=== PATIENT | female | born 1935 | race Caucasian/White ===

== ENCOUNTER 2019-10-15 14:10 | Outpatient (CLI) | payer MEDICARE, SELFPAY ==
--- NOTE | 2019-10-15 14:25 | ECG_ITS ---
Measurements Intervals [place] Rate: 92 P: [place]: 0 QRS: -63 QRSD: 114 T: 93 QT: 381 QTc: 472 Interpretive Statements ATRIAL FIBRILLATION VENTRICULAR COUPLET LEFT AXIS DEVIATION INTRAVENTRICULAR CONDUCTION DELAY CANNOT RULE OUT SEPTAL INFARCT, AGE INDETERMINATE BORDERLINE ST-T WAVE ABNORMALITY- HIGH LATERAL LEADS ABNORMAL ECG Electronically Signed On 10-15-2019 14:28:54 CDT by Barrington Whaley D.O.
== END 2019-10-15 14:11 | disposition home or self-care (01) ==
LOC: CHSCARD 14:12
PROVIDERS: PCP Internal Medicine; Visit Provider Specialist
DX: I48.91 Unspecified atrial fibrillation (principal)
CPT/HCPCS: 93005

== ENCOUNTER → 2020-02-03 10:54 | Outpatient (CLI) | payer MEDICARE, OTHER, SELFPAY ==
--- NOTE | ~2020-02-03 | MM_ITS ---
EXAMINATION: MM screening damaris BI w katiana HISTORY: Screening TECHNIQUE: Craniocaudal and mediolateral oblique 3-D tomosynthesis images were obtained and synthetic 2-D images were generated. CAD analysis was submitted and interpreted. COMPARISON: Comparison to multiple prior studies sequentially, with oldest reviewed study dated 06/2013. BREAST PARENCHYMAL COMPOSITION: There are scattered areas of fibroglandular density. FINDINGS: There is no evidence of suspicious mass, calcification, or architectural distortion to sugg est malignancy in either breast. There has been no suspicious interval change. IMPRESSION: 1. No mammographic evidence of malignancy. 2. Recommend routine screening mammography in one year. BI-RADS Category 1: Negative Reviewed, dictated and finalized at location A.
== END ==
PROVIDERS: Visit Provider Nurse Practitioner
DX: Z12.31 Encounter for screening mammogram for malignant neoplasm of breast (principal)
CPT/HCPCS: 77063; 77067

== ENCOUNTER 2020-09-19 13:52 | Outpatient (CLI) | payer MEDICARE, SELFPAY ==
--- NOTE | ~2020-09-19 | US_ITS ---
US arterial ankle brachial ind INDICATION: Peripheral arterial disease. Carotid stenosis. Lung TECHNIQUE: Segmental pressures and plethysmographic and Doppler waveforms of the brachial and lower e xtremity arteries were obtained. COMPARISON: None. FINDINGS: Right and left brachial artery pressures of 126 mm Hg and 1:30 mm Hg, respectively, are concordant (n ormal difference <= 30 mmHg). The right ankle-brachial index (KACEY) is 1.04 (normal >= 0.9-1.0). The right great toe-brachial index (TBI) is 0.78 (normal >= 0.60). The left KACEY is 1.02. The left TBI is 0.85. IMPRESSION: 1. Normal ankle-brachial indices. Reviewed, dictated and finalized at location A.
--- NOTE | ~2020-09-19 | US_ITS ---
EXAMINATION: US carotid duplex BI DATE: 09/19/2020 14:36 INDICATION: Carotid stenosis TECHNIQUE: Grayscale, color Doppler, and pulsed Doppler images of the cervical carotid arteries were obtained. The degree of vessel stenosis is placed in one of the following categories: normal, <50%, 5 0-69%, >=70% but less than near-occlusion, near-occlusion, or total occlusion. Note that percent sten osis relative to normal distal artery lumen diameter is indirectly measured from velocity measurement s as described by Wilbert, et al. Radiology 2003; [id number]. Notes: Normal: Peak systolic velocity <125 centimeters/sec and no plaque <50%. Peak systolic velocity <125 ( EDV <40; ICA/CCA PSV ratio <2.0; used these factors only a tandem lesions or low cardiac output or co ntralateral disease) 50-69 %: PSV 125-230 (EDV 40-100; ratio 2-4) >= 70% but less than near occlusion: PSV greater than 230 (EDV > 100; ratio> 4.0) Near Occlusion: PSV that is variable; markedly narrowed lumen Occlusion: Absent flow on color/spectral Doppler and no lumen on wagner scale. COMPARISON: None. FINDINGS: RIGHT: The right common carotid artery (CCA) peak systolic velocity (PSV) is 69 cm/s. The right internal car otid artery (ICA) PSV is 72 cm/s. The right ICA end-diastolic velocity (EDV) is 20 cm/s. The right IC A/CCA PSV ratio is 1.0. The external carotid artery (ECA) PSV is 119 cm/s. There is antegrade flow in the right vertebral artery. LEFT: The left CCA PSV is 59 cm/s. The left ICA PSV is 74 cm/s. The left ICA EDV is 19 cm/s. The left ICA/C CA PSV ratio is 1.0. The ECA PSV is 113 cm/s. There is antegrade flow in the left vertebral artery. IMPRESSION: 1. Less than 50% stenosis in the right internal carotid artery by sonographic criteria. 2. Less than 50% stenosis in the left internal carotid artery by sonographic criteria. Reviewed, dictated and finalized at location A. IMPRESSION: 1. Less than 50% stenosis in the right internal carotid artery by sonographic stefany caballero. 2. Less than 50% stenosis in the left internal carotid artery by sonographic antoinette aguilar.
== END 2020-09-19 13:53 | disposition home or self-care (01) ==
PROVIDERS: PCP Internal Medicine; Visit Provider Internal Medicine
DX: I73.9 Peripheral vascular disease, unspecified (principal); I65.29 Occlusion and stenosis of unspecified carotid artery
CPT/HCPCS: 93880; 93922

== ENCOUNTER 2020-09-21 19:40 | Emergency (ER) | payer MEDICARE, SELFPAY ==
[2020-09-21 19:45] VITALS: BP 105/55; PULSE 104; RESP 20; TEMP 36.9; O2SAT 97
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
[2020-09-21] MEDS: LIDO 1%/EPINEPHRINE 1:100,000 20 ML VIAL INFILTRATE (20:39)
[2020-09-21] MEDS: NEOMYCIN/POLYMYXIN/BACITRACIN OINTMENT PACKET 3 PACKET (21:35)
[2020-09-21 21:44] VITALS: BP 128/88; PULSE 80; RESP 18; TEMP 36.6; O2SAT 97
== END 2020-09-21 21:50 | disposition home or self-care (01) ==
PROVIDERS: Emergency Provider Emergency Medicine; PCP Internal Medicine
DX: S51.822A Laceration with foreign body of left forearm, initial encounter (principal); I48.20 Chronic atrial fibrillation, unspecified; E11.9 Type 2 diabetes mellitus without complications; E78.5 Hyperlipidemia, unspecified; E03.9 Hypothyroidism, unspecified; C67.9 Malignant neoplasm of bladder, unspecified
CPT/HCPCS: 12004; 99282

== ENCOUNTER 2021-08-20 16:05 | Emergency (ER) | payer MEDICARE, SELFPAY ==
[2021-08-20 16:14] VITALS: BP 122/80; PULSE 88; RESP 20; TEMP 36.6; O2SAT 100
--- NOTE | 2021-08-20 16:30 | ED.GENADULT ---
HPI - General Adult General Chief complaint: Unspecified Stated complaint: Bite on left arm Time Seen by Provider: 08/20/21 16:08 Source: patient and RN notes reviewed Mode of arrival: ambulatory Limitations: no limitations History of Present Illness Onset (ago): day(s) (1) Location: upper extremity Radiation: non-radiation Severity: mild Severity scale (1-10): 2 Quality: dull Pain Consistency: constant Relieving factors: none Exacerbating factors: none Related Data Home Medications Medication Instructions Recorded Confirmed apixaban [Eliquis] 5 mg PO BID 09/21/20 08/20/21 aspirin 81 mg PO DAILY 09/21/20 08/20/21 furosemide 20 mg PO EVERY OTHER DAY 09/21/20 08/20/21 insulin glargine [Lantus Solostar 20 unit SUBCUT HS 09/21/20 08/20/21 U-100 Insulin] insulin lispro [Humalog KwikPen See Rx Instructions .ROUTE .COMPLEX 09/21/20 08/20/21 Insulin] levothyroxine 100 mcg PO DAILY 09/21/20 08/20/21 losartan-hydrochlorothiazide 1 tablet PO DAILY 09/21/20 08/20/21 metoprolol succinate 25 mg PO DAILY 09/21/20 08/20/21 potassium chloride [Klor-Con M20] 20 meq PO BID 09/21/20 08/20/21 pravastatin 20 mg PO DAILY 09/21/20 08/20/21 ropinirole 1 mg PO HS 09/21/20 08/20/21 Allergies Allergy/AdvReac Type Severity Reaction Status Date / Time No Known Drug Allergies Allergy Unknown Verified 03/04/12 08:01 Review of Systems Review of Systems: All systems reviewed & are unremarkable except as noted in HPI and below PMFSH Past Medical History Medical History Atrial fibrillation Bladder cancer Dyslipidemia Hypertension Hypothyroidism Insect bite Type 2 diabetes mellitus Surgical History Surgical History H/O cystoscopy History of eyelid surgery Hx of cataract surgery Social History Social History Smoking status: Never smoker Substance use: never Exam Const: General: cooperative, healthy appearing and no acute distress Nutritional Appearance: obese Orientation/consciousness: patient oriented x3 Limitations: no limitations HENMT: Head: normocephalic and atraumatic Ears: hearing grossly normal bilaterally, external ears normal, TM's normal bilaterally and EAC's normal General nose exam: Normal external nose present and Normal nares present Face and sinus: normal facial exam and sinuses nontender Mouth: Yes lip normal, Yes tongue normal and Yes moist mucous membranes Throat: posterior oropharynx normal Eyes: General: appearance normal, both eyes and all related structures Visual Crane: normal visual crane by confrontation Periorbital: periorbital findings normal Eyelids: eyelids normal Conjunctivae: conjunctivae normal Sclera: sclerae normal Cornea: corneas normal Pupils: Equal, round and reactive pupils present EOM: EOMs intact bilaterally Neck: Neck: normal visual inspection, full ROM and no lymphadenopathy Chest: Chest palpation & inspection: normal inspection of the chest Resp: Effort & Inspection: normal respiratory effort and able to speak in complete sentences Auscultation: clear to auscultation bilaterally Cardio: Jugular venous distension: no JVD Rate: regular rate Rhythm: regular rhythm Peripheral pulses: Peripheral pulses 2+ throughout GI: Inspection: normal to inspection GI Palp: No abdominal tenderness Auscultation: normal bowel sounds : General: Yes bladder normal to inspection and Yes bladder normal to palpation Back/Spine/Pelvis: Back: no CVA tenderness Cervical Spine: cervical ROM normal Thoracic/Lumbar Spine: thoraco-lumbar ROM normal Skin: General skin exam: normal color and erythema (left arm lateral bite ingris with surrounding firm redness. no acute swelling) Neuro: General: patient oriented x3, no meningeal signs, no focal motor deficits and CN's II-XI intact bilaterally Cranial nerves: Yes CN's II-XII i
[2021-08-20] MEDS: IBUPROFEN 400 MG TABLET 800 MG PO (16:36)
[2021-08-20 16:49] VITALS: BP 130/71; PULSE 72; RESP 20; TEMP 37; O2SAT 100
== END 2021-08-20 16:50 | disposition home or self-care (01) ==
PROVIDERS: Emergency Provider Emergency Medicine; PCP Internal Medicine
DX: S40.862A Insect bite (nonvenomous) of left upper arm, initial encounter (principal); W57.XXXA Bitten or stung by nonvenomous insect and other nonvenomous arthropods, initial encounter
CPT/HCPCS: 99283; A9270

== ENCOUNTER → 2021-11-14 16:24 | Outpatient (CLI) | payer MEDICARE, SELFPAY ==
--- NOTE | ~2021-11-14 | MM_ITS ---
EXAMINATION: MM screening damaris BI w katiana HISTORY: Screening TECHNIQUE: Craniocaudal and mediolateral oblique 3-D tomosynthesis images were obtained and synthetic 2-D images were generated. CAD analysis was submitted and interpreted. COMPARISON: Comparison to multiple prior studies sequentially, with oldest reviewed study dated 12/2014. BREAST PARENCHYMAL COMPOSITION: The breasts are almost entirely fatty. FINDINGS: There is no evidence of suspicious mass, calcification, or architectural distortion to sugg est malignancy in either breast. There has been no suspicious interval change. IMPRESSION: 1. No mammographic evidence of malignancy. 2. Recommend routine screening mammography in one year. BI-RADS Category 1: Negative Reviewed, dictated and finalized at location L.
== END ==
PROVIDERS: PCP Internal Medicine; Visit Provider Obstetrics & Gynecology Gynecology
DX: Z12.31 Encounter for screening mammogram for malignant neoplasm of breast (principal)
CPT/HCPCS: 77063; 77067

== ENCOUNTER 2022-02-08 17:09 | Outpatient (CLI) | payer MEDICARE, SELFPAY ==
--- NOTE | ~2022-02-08 | XR_ITS ---
EXAMINATION: XR lumbar spine 2-3V DATE: 02/08/2022 17:30 INDICATION: Low back pain. TECHNIQUE: 3 views of lumbar spine were obtained. COMPARISON: None. FINDINGS: There is 10 degrees levoscoliosis of thoracolumbar spine. Vertebral body heights are normal . There is severely decreased disc height at L1-L2, moderately decreased disc height at L2-L3 and L3- L4, and severely decreased disc height at L4-L5 and L5-S1. There is multilevel severe facet joint ost eoarthritis. IMPRESSION: 1. Severe lumbar spondylosis. 2. Thoracolumbar levoscoliosis. Reviewed, dictated and finalized at location A.
== END 2022-02-08 17:10 | disposition home or self-care (01) ==
LOC: CHSIMG 17:11
PROVIDERS: PCP Internal Medicine; Visit Provider Internal Medicine
DX: M54.50 Low back pain, unspecified (principal); M47.816 Spondylosis without myelopathy or radiculopathy, lumbar region
CPT/HCPCS: 72100

== ENCOUNTER 2022-02-17 06:47 | Outpatient (CLI) | payer MEDICARE, SELFPAY ==
--- NOTE | ~2022-02-17 | MR_ITS ---
EXAMINATION: MR lumbar spine wo con DATE: 02/17/2022 08:18 INDICATION: Low back pain. TECHNIQUE: Magnetic resonance imaging (MRI) of the lumbar spine was performed without intravenous con trast. COMPARISON: Lumbar spine radiographs 02/08/2022 FINDINGS: There is a least 9 degrees levocurvature of thoracolumbar spine. Vertebral body heights are normal. There is severely decreased disc height at L1-L2, moderately decreased disc height at L2-L3 and L3-L4, severely decreased disc height at L4-L5, and moderately decreased disc height at L5-S1. Th e distal spinal cord signal intensity is normal. The conus medullaris is at L1-L2. There is a 1.6 cm cyst in right kidney. The following disc levels are specifically discussed: L1-L2: The disc is bulging with superimposed central extrusion. There is moderate bilateral facet batsheva nt osteoarthritis. There is mild bilateral neural foraminal stenosis. There is mild central canal noam nosis. L2-L3: The disc is bulging and has an annular fissure. There is severe bilateral facet joint osteoart hritis. There is mild right and moderate left neural foraminal stenosis. There is mild central canal stenosis. L3-L4: The disc is bulging. There is severe bilateral facet joint osteoarthritis. There is mild right and moderate left neural foraminal stenosis. There is mild central canal stenosis. L4-L5: The disc is bulging. There is severe bilateral facet joint osteoarthritis. There is mild right and moderate left neural foraminal stenosis. There is mild central canal stenosis. L5-S1: The disc is bulging. There is severe bilateral facet joint osteoarthritis. There is moderate b ilateral neural foraminal stenosis. There is mild central canal stenosis. IMPRESSION: 1. Severe lumbar spondylosis. Reviewed, dictated and finalized at location A.
== END 2022-02-17 06:48 | disposition home or self-care (01) ==
PROVIDERS: PCP Internal Medicine; Visit Provider Internal Medicine
DX: M54.50 Low back pain, unspecified (principal)
CPT/HCPCS: 72148

== ENCOUNTER 2022-02-23 14:22 | Outpatient (CLI) | payer MEDICARE, SELFPAY ==
--- NOTE | 2022-02-23 15:26 | ECHO_ITS ---
Patient Info Name: Lizeth Warner Age: 86 years : 1935 Gender: Female Ht: 54 in Wt: 189 lbs BSA: 1.87 m2 HR: 62 bpm BP: 126 / 68 mmHg Heart Rhythm: Atrial Fibrillation Technical Quality: Fair Exam Date: 02/23/2022 2:20 PM Exam Location: [facility] Patient Status: Outpatient Admit Date: 02/23/2022 Staff Ordering Physician: Elena Dumont MD Unified Communications Architect: Natalio Cain, DAHLIA, RT Attending Provider: Elena Dumont MD Referring Physician: Tim MILAN; Exam Type: CA echo doppler color flow Study Info Indications I50.9 - Heart failure, unspecified Complete two-dimensional, color flow and Doppler transthoracic echocardiogram is performed. Strain analysis performed. Summary 1. Complete two-dimensional, color flow and Doppler transthoracic echocardiogram is performed. 2. Left ventricular chamber dimension is normal. 3. Left ventricular systolic function is normal, estimated at 55-60%. 4. The left ventricular diastolic function is abnormal. 5. E/e' 17 is elevated. 6. Global longitudinal strain is abnormal at -12.5%. 7. Left atrial chamber dimension is severely enlarged. 8. Right atrial chamber dimension is mildly enlarged. 9. There is moderate to severe mitral valve regurgitation. ERO 0.1 cm2 and MR RV 18 ml suggests moderate MV regurgitation. 10. There is mild tricuspid valve regurgitation. 11. No pulmonary hypertension, estimated pulmonary arterial systolic pressure is 37 mmHg. 12. There is trivial pericardial effusion. Left Ventricle E/e' 17 is elevated. Global longitudinal strain is abnormal at -12.5%. Left ventricular chamber dimension is normal. Left ventricular systolic function is normal, estimated at 55-60%. The left ventricular diastolic function is abnormal. Right Ventricle Right ventricular systolic function is normal and with normal TAPSE 2.0 cm. Right ventricular chamber dimension is normal.. Left Atria Left atrial chamber dimension is severely enlarged. Right Atria Right atrial chamber dimension is mildly enlarged. Aortic Valve The aortic valve is trileaflet. There is no aortic valve stenosis. There is no aortic valve regurgitation. Pulmonic Valve There is no pulmonic regurgitation. Mitral Valve There is moderate to severe mitral valve regurgitation. ERO 0.1 cm2 and MR RV 18 ml suggests moderate MV regurgitation. There is no mitral valve stenosis. Tricuspid Valve There is mild tricuspid valve regurgitation. No pulmonary hypertension, estimated pulmonary arterial systolic pressure is 37 mmHg. Pericardium/Pleural There is trivial pericardial effusion. Inferior Vena Cava Normal inferior vena cava with >50% collapse upon inspiration consistent with normal right atrial pressure, 5 mmHg. Aorta The aortic root size at the sinus of Valsalva is normal. Left Ventricular Outflow Tract Name Value Normal LVOT 2D LVOT Diameter 2.0 cm LVOT Doppler LVOT Peak Velocity 94 cm/s LVOT Peak Gradient 2 mmHg LVOT Mean Gradient 1 mmHg LVOT VTI 21 cm
== END 2022-02-23 14:23 | disposition home or self-care (01) ==
LOC: CHSIMG 14:23
PROVIDERS: PCP Internal Medicine; Visit Provider Internal Medicine
DX: I50.9 Heart failure, unspecified (principal); M54.50 Low back pain, unspecified
CPT/HCPCS: 93306

== ENCOUNTER 2022-05-27 16:43 | Emergency (ER) | payer MEDICARE, SELFPAY ==
--- NOTE | ~2022-05-27 | XR_ITS ---
EXAMINATION: XR chest 1V portable DATE: 05/27/2022 17:07 INDICATION: Dyspnea. TECHNIQUE: A single frontal view of the chest was obtained. COMPARISON: Chest 2 views 01/23/2018 FINDINGS: There is mild atelectasis at left lung base. No pleural effusion or pneumothorax. Cardiomeg toni is noted. IMPRESSION: 1. Mild atelectasis at left lung base. 2. Cardiomegaly. Reviewed, dictated and finalized at location A. LOGING ASSISTANT
[2022-05-27 16:45] VITALS: BP 127/83; PULSE 103; RESP 22; TEMP 36.4; O2SAT 96
--- NOTE | 2022-05-27 16:56 | ECG_ITS ---
Measurements Intervals [place] Rate: 91 P: [place]: 0 QRS: 177 QRSD: 105 T: 93 QT: 383 QTc: 472 Interpretive Statements ATRIAL FIBRILLATION VENTRICULAR COUPLET AND VENTRICULAR PREMATURE COMPLEX LOW QRS VOLTAGE- DIFFUSE LEADS CANNOT RULE OUT SEPTAL INFARCT, AGE INDETERMINATE BASELINE ARTIFACT- I, II, III, AVR, AVL, AVF, V1-V6 ABNORMAL ECG COMPARED TO ECG 10/15/2019 14:25:17 NO SIGNIFICANT CHANGES Electronically Signed On 05-27-2022 19:57:20 [employer]CRET[employer] by Barrington Whaley D.O.
--- NOTE | 2022-05-27 17:02 | ED.GENADULT ---
HPI - General Adult General Chief complaint: Shortness of Breath/Dyspnea Stated complaint: trouble breathing History of Present Illness HPI narrative: Lizeth is an 86F with a PMH of hypothyroidism, HLD, Afib, DMII and HTN as well as severe mitral regurgitation that presented to the ED with worsening dyspnea throughout the day. She denies CP, N/V/D and lightheadedness. She did forget to take her lasix today and ate popcorn for lunch. Related Data Home Medications Medication Instructions Recorded Confirmed apixaban 5 mg tablet (Eliquis) 5 mg PO BID 09/21/20 05/27/22 aspirin 81 mg tablet 81 mg PO DAILY 09/21/20 05/27/22 furosemide 40 mg tablet 40 mg PO EVERY OTHER DAY 09/21/20 05/27/22 insulin glargine 100 unit/mL (3 20 unit subcut HS 09/21/20 05/27/22 mL) subcutaneous pen (Lantus Solostar U-100 Insulin) insulin lispro 100 unit/mL See Rx Instructions .Route .COMPLEX 09/21/20 05/27/22 subcutaneous pen (Humalog KwikPen (U-100) Insulin) levothyroxine 100 mcg tablet 100 mcg PO DAILY 09/21/20 05/27/22 losartan 50 mg-hydrochlorothiazide 1 tablet PO DAILY 09/21/20 05/27/22 12.5 mg tablet metoprolol succinate 25 mg 25 mg PO DAILY 09/21/20 05/27/22 tablet,extended release 24 hr potassium chloride 20 mEq 20 meq PO BID 09/21/20 05/27/22 tablet,extended release(part/cryst) (Klor-Con M) pravastatin 20 mg tablet 20 mg PO DAILY 09/21/20 05/27/22 ropinirole 1 mg tablet 1 mg PO HS 09/21/20 05/27/22 Allergies Allergy/AdvReac Type Severity Reaction Status Date / Time No Known Drug Allergies Allergy Unknown Verified 03/04/12 08:01 Review of Systems Review of Systems: All systems reviewed & are unremarkable except as noted in HPI and below [facility] Past Medical History Medical History Atrial fibrillation Bladder cancer Dyslipidemia Hypertension Hypothyroidism Insect bite Type 2 diabetes mellitus Surgical History Surgical History H/O cystoscopy History of eyelid surgery Hx of cataract surgery Social History Social History Smoking status: Never smoker Substance use: never Exam Const: General: healthy appearing and no acute distress Nutritional Appearance: well nourished Orientation/consciousness: patient oriented x3 HENMT: Head: normal to inspection Ears: external ears normal Eyes: Conjunctivae: conjunctivae normal Pupils: Equal, round and reactive pupils present Neck: Neck: normal visual inspection Chest: Chest palpation & inspection: normal inspection of the chest Resp: Other: Slightly labored breathing with tachypnea and bibasilar crackles Cardio: Rate: regular rate Rhythm: abnormal rhythm irregularly irregular Heart sounds: Murmur heart sound present Other: systolic murmur GI: Inspection: non-distended Skin: General skin exam: normal color Rashes: no rashes Wounds: no wounds Neuro: General: patient oriented x3 Cranial nerves: Yes Nystagmus not present Extrem: Other: Pitting edema on the lower extremities bilaterally Psych: Mental Status: mental status grossly normal Affect: normal affect Course Course Emergency Course: EXAMINATION: XR chest 1V portable DATE: 05/27/2022 17:07 INDICATION: Dyspnea. TECHNIQUE: A single frontal view of the chest was obtained. COMPARISON: Chest 2 views 01/23/2018 FINDINGS: There is mild atelectasis at left lung base. No pleural effusion or pneumothorax. Cardiomegaly is noted. IMPRESSION: 1. Mild atelectasis at left lung base. 2. Cardiomegaly. EKG showed afib with a rate of 91, normal axis, and PVC Given a dose of lasix as BNP was elevated. COVID+, discharged on Paxlovid and given return precautions Vital Signs Vital signs: Vital Signs Temperature 97.6 F 05/27/22 16:45 Pulse Rate 103 H 05/27/22 16:45 Respiratory Rate 22 H 05/27/22 16:45 Blood Pre
[2022-05-27 17:23] LABS: Basophils Absolute Auto 0.03 K/mm3 (0.00-0.10); Basophils Percent Auto 0.6 % (0.0-1.0); Eosinophils Absolute Auto 0.02 K/mm3 (0.02-0.50); Eosinophils Percent Auto 0.4 % (1.0-6.0); Hematocrit 34.2 % (35.0-42.0); Hemoglobin 11.1 g/dL (11.7-13.8); Immature Granulocyte Absolute 0.02 K/mm3 (0.00-0.00); Immature Granulocyte Percent A 0.4 % (0.0-0.0); Lymphocytes Absolute Auto 0.56 K/mm3 (1.10-4.50); Lymphocytes Percent Auto 10.4 % (18.0-42.0); Mean Corpuscular HGB Conc 32.5 g/dL (32.0-36.0); Mean Corpuscular Hemoglobin 29.5 pg (27.0-31.0); Mean Platelet Volume 10.4 fl (9.2-11.8); Monocytes Absolute Auto 0.39 K/mm3 (0.10-0.90); Monocytes Percent Auto 7.3 % (2.0-11.0); Neutrophils Absolute Auto 4.4 K/mm3 (1.7-7.2); Neutrophils Percent Auto 80.9 % (50.0-70.0); Platelet Count Result 127 K/mm3 (150-420); Red Blood Count 3.76 M/mm3 (4.20-5.40); Red Cell Distribution Width 13.9 % (11.6-14.4); White Blood Count 5.4 K/mm3 (4.8-10.8)
[2022-05-27 17:30] VITALS: PULSE 103
[2022-05-27 17:43] LABS: Alanine Aminotransferase 34 U/L (14-59); Albumin Level 3.6 g/dL (3.4-5.0); Alkaline Phosphatase 85 U/L (46-116); Anion Gap 10 mmol/L (8-16); Aspartate Amino Transferase 19 U/L (15-37); Bilirubin,Total 0.6 mg/dL (0.00-1.00); Blood Urea Nitrogen 30 mg/dL (7-18); Calcium 8.4 mg/dL (8.5-10.1); Carbon Dioxide 25 mmol/L (21-32); Chloride 103 mmol/L (98-108); Estimated Glomerular Filt Rate 44; Glucose 290 mg/dL (70-99); NT Pro B Type Natriuretic Pept 1561 pg/mL (0-450); Osmolality Calculated 303 mOsm/kg (285-295); Potassium 3.8 mmol/L (3.5-5.1); Sodium 138 mmol/L (136-145); Total Protein 6.8 g/dL (6.4-8.2); Troponin I 10.1 ng/L (0.00-60.4)
[2022-05-27 17:47] VITALS: PULSE 79; RESP 18; O2SAT 98
[2022-05-27 17:59] LABS: Influenza A QL RT-PCR Negative (Negative); Influenza B QL RT-PCR Negative (Negative); SARS-CoV-2 RNA PCR Positive (Negative)
[2022-05-27 18:00] VITALS: PULSE 80; RESP 18
[2022-05-27 18:00] LABS: RSV RNA, RT-PCR Negative (Negative)
[2022-05-27 18:01] VITALS: BP 107/52; PULSE 90; RESP 16; O2SAT 97
[2022-05-27] MEDS: FUROSEMIDE INJ 40 MG/4 ML VIAL IV PUSH (18:04)
[2022-05-27 18:34] VITALS: BP 114/76; PULSE 78; RESP 20; TEMP 36.6; O2SAT 97
== END 2022-05-27 18:48 | disposition home or self-care (01) ==
PROVIDERS: Emergency Provider Family Medicine; PCP Internal Medicine
DX: U07.1 COVID-19 (principal); I48.91 Unspecified atrial fibrillation; E78.5 Hyperlipidemia, unspecified; E11.9 Type 2 diabetes mellitus without complications; I10 Essential (primary) hypertension; E03.9 Hypothyroidism, unspecified; Z85.51 Personal history of malignant neoplasm of bladder; Z79.01 Long term (current) use of anticoagulants; Z79.82 Long term (current) use of aspirin; Z79.4 Long term (current) use of insulin
CPT/HCPCS: 36415; 71045; 80053; 83880; 84484; 85025; 87637; 93005; 96374; 99284; J1940

== ENCOUNTER 2022-06-22 10:41 | Emergency (ER) | payer MEDICARE, SELFPAY ==
--- NOTE | ~2022-06-22 | XR_ITS ---
XR chest 2V 06/22/2022 11:28 Indication: Chronic dyspnea with exertion Procedure: 2 view chest Comparison: 05/27/2022 Findings: Cardiomegaly. No focal air space disease, pulmonary edema, pleural effusion or suspected pn eumothorax. Impression: 1: No acute cardiopulmonary disease. Reviewed, dictated and finalized at location B. ER OPERATOR ASBESTOS SHINGLE Impression: 1: No acute cardiopulmonary disease.
--- NOTE | 2022-06-22 10:46 | ED.SOB ---
HPI - SOB/Dyspnea General Chief Complaint: Shortness of Breath/Dyspnea Stated Complaint: short of breath; leg swelling Time Seen by Provider: 06/22/22 10:46 Source: patient and RN notes reviewed Mode of arrival: ambulatory Limitations: no limitations History of Present Illness HPI Narrative: patient states that she had COVID 3 weeks ago. She has since was getting better but in the last week began having more exertional dyspnea. She is currently on Lasix 40 mg daily. She says that her legs are swelling more. She denies any chest pain. She denies fever chills. Denies any nausea vomiting diarrhea. MD elicited complaint: shortness of breath Pertinent past history: congestive heart failure Onset (ago): week(s) (1) Context: recent illness Timing: progressively worsening Severity: moderate Exacerbating factors: exertion Relieving factors: rest Known history of: congestive heart failure Associated symptoms: other ( Leg swelling) Treatment prior to arrival: none Related Data Home oxygen amount: none Home Medications Medication Instructions Recorded Confirmed apixaban 5 mg tablet (Eliquis) 5 mg PO BID 09/21/20 06/22/22 aspirin 81 mg tablet 81 mg PO DAILY 09/21/20 06/22/22 furosemide 40 mg tablet 40 mg PO EVERY OTHER DAY 09/21/20 06/22/22 insulin glargine 100 unit/mL (3 20 unit subcut HS 09/21/20 06/22/22 mL) subcutaneous pen (Lantus Solostar U-100 Insulin) insulin lispro 100 unit/mL See Rx Instructions .Route .COMPLEX 09/21/20 06/22/22 subcutaneous pen (Humalog KwikPen (U-100) Insulin) levothyroxine 100 mcg tablet 100 mcg PO DAILY 09/21/20 06/22/22 losartan 50 mg-hydrochlorothiazide 1 tablet PO DAILY 09/21/20 06/22/22 12.5 mg tablet metoprolol succinate 25 mg 25 mg PO DAILY 09/21/20 06/22/22 tablet,extended release 24 hr potassium chloride 20 mEq 20 meq PO BID 09/21/20 06/22/22 tablet,extended release(part/cryst) (Klor-Con M) pravastatin 20 mg tablet 20 mg PO DAILY 09/21/20 06/22/22 ropinirole 1 mg tablet 1 mg PO HS 09/21/20 06/22/22 Allergies Allergy/AdvReac Type Severity Reaction Status Date / Time No Known Allergies Allergy Verified 06/22/22 11:00 [facility] Past Medical History Medical History Atrial fibrillation Bladder cancer Dyslipidemia Hypertension Hypothyroidism Insect bite Type 2 diabetes mellitus Surgical History Surgical History H/O cystoscopy History of eyelid surgery Hx of cataract surgery Social History Social History Smoking status: Never smoker Substance use: never Exam Const: General: healthy appearing, no acute distress and alert Nutritional Appearance: well nourished Orientation/consciousness: patient oriented x3 Limitations: no limitations HENMT: Head: normal to inspection Ears: external ears normal Face/Nose/Sinus: Normal external nose present Face and sinus: normal facial exam Mouth: Yes moist mucous membranes Eyes: Conjunctivae: conjunctivae normal Pupils: Equal, round and reactive pupils present EOM: EOMs intact bilaterally Neck: Neck: normal visual inspection Resp: Effort & Inspection: normal respiratory effort Auscultation: clear to auscultation bilaterally Cardio: Rate: regular rate Rhythm: abnormal rhythm irregularly irregular GI: GI Palp: Yes Soft to palpation and No Tenderness to palpation present (GI) Auscultation: normal bowel sounds Back/Spine/Pelvis: Cervical Spine: cervical ROM normal Thoracic/Lumbar Spine: thoraco-lumbar ROM normal Skin: General skin exam: normal color Rashes: no rashes Neuro: General: moves all extremities, no focal motor deficits and CN's II-XI intact bilaterally Speech: normal speech Gait exam (Neuro): Normal gait present Extrem: General: edema bilateral ( 2+ to the mid godinez) Psych: Mental Status: mental status grossly normal Affect:
[2022-06-22 10:54] VITALS: BP 125/63; PULSE 78; RESP 18; TEMP 35.9; O2SAT 100
[2022-06-22 11:39] LABS: Basophils Absolute Auto 0.03 K/mm3 (0.00-0.10); Basophils Percent Auto 0.5 % (0.0-1.0); Hematocrit 29.5 % (35.0-42.0); Hemoglobin 9.4 g/dL (11.7-13.8); Immature Granulocyte Absolute 0.02 K/mm3 (0.00-0.00); Immature Granulocyte Percent A 0.4 % (0.0-0.0); Lymphocytes Percent Auto 19.9 % (18.0-42.0); Mean Corpuscular HGB Conc 31.9 g/dL (32.0-36.0); Mean Corpuscular Hemoglobin 29.5 pg (27.0-31.0); Mean Corpuscular Volume 92.5 fL (78.0-102.0); Mean Platelet Volume 9.8 fl (9.2-11.8); Monocytes Absolute Auto 0.35 K/mm3 (0.10-0.90); Monocytes Percent Auto 6.3 % (2.0-11.0); Neutrophils Percent Auto 72.9 % (50.0-70.0); Platelet Count Result 140 K/mm3 (150-420); Red Blood Count 3.19 M/mm3 (4.20-5.40); Red Cell Distribution Width 14.6 % (11.6-14.4); White Blood Count 5.5 K/mm3 (4.8-10.8)
[2022-06-22 11:48] VITALS: O2SAT 100
--- NOTE | 2022-06-22 11:58 | PC.NURSE ---
Pt has bilateral wounds to both lower legs from a fall a couple weeks ago, pt has seen her doctor about these and has been taking an antibiotic for them.
[2022-06-22 12:04] LABS: INR 1.1; Prothrombin Time 11.6 Seconds (9.50-12.10)
[2022-06-22 12:05] VITALS: BP 118/61; PULSE 86; RESP 18; TEMP 35.9; O2SAT 99
[2022-06-22 12:05] LABS: Alanine Aminotransferase 38 U/L (14-59); Albumin Level 3.5 g/dL (3.4-5.0); Alkaline Phosphatase 93 U/L (46-116); Anion Gap 6 mmol/L (8-16); Aspartate Amino Transferase 27 U/L (15-37); Bilirubin,Total 0.5 mg/dL (0.00-1.00); Blood Urea Nitrogen 25 mg/dL (7-18); Calcium 9.1 mg/dL (8.5-10.1); Carbon Dioxide 30 mmol/L (21-32); Chloride 106 mmol/L (98-108); Digoxin < 0.2 ng/mL (0.9-2.0); Estimated Glomerular Filt Rate 44; Glucose 134 mg/dL (70-99); NT Pro B Type Natriuretic Pept 2022 pg/mL (0-450); Osmolality Calculated 300 mOsm/kg (285-295); Potassium 3.7 mmol/L (3.5-5.1); Sodium 142 mmol/L (136-145); Total Protein 7.1 g/dL (6.4-8.2)
[2022-06-22 12:53] VITALS: BP 98/55; PULSE 82; RESP 18; TEMP 36.1; O2SAT 100
== END 2022-06-22 12:55 | disposition home or self-care (01) ==
PROVIDERS: Emergency Provider Emergency Medicine; PCP Internal Medicine
DX: I11.0 Hypertensive heart disease with heart failure (principal); I50.9 Heart failure, unspecified; R06.09 Other forms of dyspnea; E11.9 Type 2 diabetes mellitus without complications; I48.91 Unspecified atrial fibrillation; E78.5 Hyperlipidemia, unspecified; E03.9 Hypothyroidism, unspecified; Z85.51 Personal history of malignant neoplasm of bladder; Z79.01 Long term (current) use of anticoagulants; Z79.82 Long term (current) use of aspirin; Z79.4 Long term (current) use of insulin
CPT/HCPCS: 36415; 71046; 80053; 80162; 83880; 85025; 85610; 99283

== ENCOUNTER 2022-07-24 10:14 | Outpatient (CLI) | payer MEDICARE, SELFPAY ==
--- NOTE | 2022-07-24 13:25 | NIOX ---
Niox Report PFT: FeNO Evaluation (NIOX) Start: 07/24/22 11:21 Freq: Status: Active Protocol: Activity Type Activity Date Activity User E-sign Co-sign Detail Recorded Client Recorded Date Recorded By Document 07/24/22 11:21 GIOVANNI [id number] 07/24/22 11:22 GIOVANNI 07/24/22 11:21 NIOX Evaluation [NIOX Measurement] -FeNO Measurement Equals (ppb) 53 [NIOX Evaluation] -Level of Airway Inflammation High (>50) [Charges] -NIOX Measurement Charges Yes
== END 2022-07-24 10:15 | disposition home or self-care (01) ==
LOC: CHSCARD 10:16
PROVIDERS: PCP Internal Medicine; Visit Provider Internal Medicine
DX: R06.00 Dyspnea, unspecified (principal)
CPT/HCPCS: 94060; 94726; 94729; 95012

== ENCOUNTER 2022-09-17 16:01 | Outpatient (CLI) | payer MEDICARE, SELFPAY ==
[2022-09-17 17:19] LABS: Basophils Absolute Auto 0.04 K/mm3 (0.00-0.10); Basophils Percent Auto 0.6 % (0.0-1.0); Eosinophils Absolute Auto 0.02 K/mm3 (0.02-0.50); Eosinophils Percent Auto 0.3 % (1.0-6.0); Hematocrit 32.8 % (35.0-42.0); Hemoglobin 10.1 g/dL (11.7-13.8); Immature Granulocyte Absolute 0.02 K/mm3 (0.00-0.00); Immature Granulocyte Percent A 0.3 % (0.0-0.0); Lymphocytes Absolute Auto 0.87 K/mm3 (1.10-4.50); Mean Corpuscular HGB Conc 30.8 g/dL (32.0-36.0); Mean Corpuscular Volume 90.9 fL (78.0-102.0); Mean Platelet Volume 10.9 fl (9.2-11.8); Monocytes Absolute Auto 0.51 K/mm3 (0.10-0.90); Monocytes Percent Auto 7.6 % (2.0-11.0); Neutrophils Absolute Auto 5.2 K/mm3 (1.7-7.2); Neutrophils Percent Auto 78.2 % (50.0-70.0); Platelet Count Result 159 K/mm3 (150-420); Red Blood Count 3.61 M/mm3 (4.20-5.40); Red Cell Distribution Width 15.2 % (11.6-14.4); White Blood Count 6.7 K/mm3 (4.8-10.8)
[2022-09-17 17:29] LABS: Appearance Urine Clear (Clear); Bilirubin Urine Negative (Negative); Blood Urine Negative (Negative); Color Urine Light Yellow (Yellow); Glucose Urine UA Negative (Negative); Ketones Urine Negative (Negative); Leukocyte Esterase Ur Negative (Negative); Nitrate Urine Negative (Negative); Protein Urine Negative (Negative); Urobilinogen Urine 0.2 mg/dL (0.2-1.0)
[2022-09-17 17:30] LABS: Creatinine Urine 117.53 mg/dL (40-278)
[2022-09-17 17:32] LABS: Add Urine Microscopic? NO
[2022-09-17 17:34] LABS: Microalbumin Urine Random < 13.0 mg/L
[2022-09-17 17:35] LABS: Alanine Aminotransferase 38 U/L (14-59); Albumin Level 3.8 g/dL (3.4-5.0); Alkaline Phosphatase 75 U/L (46-116); Anion Gap 7 mmol/L (8-16); Aspartate Amino Transferase 27 U/L (15-37); Bilirubin,Total 0.4 mg/dL (0.00-1.00); Blood Urea Nitrogen 37 mg/dL (7-18); Calcium 9.2 mg/dL (8.5-10.1); Carbon Dioxide 26 mmol/L (21-32); Chloride 108 mmol/L (98-108); Estimated Glomerular Filt Rate 27; Free T4 Free Thyroxine 1.04 ng/dL (0.76-1.46); Glucose 168 mg/dL (70-99); NT Pro B Type Natriuretic Pept 2732 pg/mL (0-450); Osmolality Calculated 304 mOsm/kg (285-295); Potassium 4.5 mmol/L (3.5-5.1); Sodium 141 mmol/L (136-145); Thyroid Stimulating Hormone 2.97 uIU/mL (0.36-3.74); Total Protein 6.4 g/dL (6.4-8.2)
[2022-09-17 17:56] LABS: Hemoglobin A1C 7.7 % (<5.7)
== END 2022-09-17 16:02 | disposition home or self-care (01) ==
LOC: CHSLAB 16:04
PROVIDERS: PCP Internal Medicine; Visit Provider Internal Medicine
DX: I48.11 Longstanding persistent atrial fibrillation (principal); I10 Essential (primary) hypertension; E11.65 Type 2 diabetes mellitus with hyperglycemia; N39.0 Urinary tract infection, site not specified; I50.9 Heart failure, unspecified
CPT/HCPCS: 36415; 80053; 81003; 82043; 83036; 83880; 84439; 84443; 85025; 87070; 87075; 87086; 87147; 87186; 87205

== ENCOUNTER 2022-09-25 08:01 | Outpatient (CLI) | payer MEDICARE, SELFPAY ==
[2022-09-25 08:29] LABS: Basophils Absolute Auto 0.06 K/mm3 (0.00-0.10); Basophils Percent Auto 0.9 % (0.0-1.0); Eosinophils Absolute Auto 0.01 K/mm3 (0.02-0.50); Eosinophils Percent Auto 0.2 % (1.0-6.0); Hematocrit 33.6 % (35.0-42.0); Hemoglobin 10.9 g/dL (11.7-13.8); Immature Granulocyte Absolute 0.03 K/mm3 (0.00-0.00); Immature Granulocyte Percent A 0.5 % (0.0-0.0); Lymphocytes Absolute Auto 1.33 K/mm3 (1.10-4.50); Lymphocytes Percent Auto 20.4 % (18.0-42.0); Mean Corpuscular HGB Conc 32.4 g/dL (32.0-36.0); Mean Corpuscular Hemoglobin 28.5 pg (27.0-31.0); Mean Platelet Volume 9.8 fl (9.2-11.8); Monocytes Absolute Auto 0.56 K/mm3 (0.10-0.90); Monocytes Percent Auto 8.6 % (2.0-11.0); Neutrophils Absolute Auto 4.5 K/mm3 (1.7-7.2); Neutrophils Percent Auto 69.4 % (50.0-70.0); Platelet Count Result 178 K/mm3 (150-420); Red Blood Count 3.82 M/mm3 (4.20-5.40); Red Cell Distribution Width 14.8 % (11.6-14.4); White Blood Count 6.5 K/mm3 (4.8-10.8)
[2022-09-25 09:13] LABS: Anion Gap 10 mmol/L (8-16); Blood Urea Nitrogen 26 mg/dL (7-18); Calcium 8.9 mg/dL (8.5-10.1); Carbon Dioxide 24 mmol/L (21-32); Chloride 105 mmol/L (98-108); Estimated Glomerular Filt Rate 41; Glucose 83 mg/dL (70-99); Osmolality Calculated 291 mOsm/kg (285-295); Potassium 3.8 mmol/L (3.5-5.1); Sodium 139 mmol/L (136-145)
== END 2022-09-25 08:02 | disposition home or self-care (01) ==
LOC: CHSLAB 08:03
PROVIDERS: PCP Internal Medicine; Visit Provider Internal Medicine
DX: N18.4 Chronic kidney disease, stage 4 (severe) (principal); L03.115 Cellulitis of right lower limb
CPT/HCPCS: 36415; 80048; 85025

== ENCOUNTER 2022-10-02 05:36 | Emergency (ER) | payer MEDICARE, SELFPAY ==
--- NOTE | ~2022-10-02 | CT_ITS ---
Non-contrast Head CT History: Status post fall Technique: Axial non-contrast imaging of the brain was performed. Dose reduction technique was used on this scan by utilizing automated exposure control and iterative reconstruction technique. The dose -length product (DLP) was 681.00 mGy-cm. Findings: There is no evidence of intracranial hemorrhage, mass lesion, or acute infarct. There is a vague hypodense area in the periventricular white matter adjacent to the atrium of the right lateral ventricle, likely microvascular ischemic change. The ventricles and subarachnoid spaces are normal in size. The calvarium appears normal. The visualized paranasal sinuses and mastoid air cells are c lear. Impression: No definite acute abnormality seen. Probable area of chronic microvascular ischemic change in the white matter adjacent to the atrium of the right lateral ventricle. If there is concern for acute ischemia, then consider MR for further lissy luation. Reviewed, dictated and finalized at [facility]. Impression: No definite acute abnormality seen. Probable area of chronic microvascular ischemic change in the white matter lisset cent to the atrium of the right lateral ventricle. If there is concern for acut e ischemia, then consider MR for further evaluation.
[2022-10-02 05:48] VITALS: BP 127/63; PULSE 71; RESP 18; TEMP 36.6; O2SAT 97
[2022-10-02 07:02] VITALS: BP 124/57; PULSE 78; RESP 20; O2SAT 98
--- NOTE | 2022-10-02 07:03 | ED.FALL ---
HPI - Fall General Chief Complaint: Wound/Laceration Stated Complaint: Fall Time Seen by Provider: 10/02/22 05:45 Source: patient Mode of arrival: ambulatory Limitations: no limitations History of Present Illness HPI Narrative: 87-year-old white female with a history of hypertension, diabetes, atrial fibrillation, who reports she got up from bed and was walking to the restroom and tripped over some shoes on the floor. She reports she, spun around and hit the back of her head on the ground, bid for left lower lip, did not lose consciousness, does not have any significant neck or back pain, did not have any other injuries, but did note some bleeding on the back of her scalp, reports she is on Eliquis and came in to be checked out. Denies any chest pain, abdominal pain, shortness of breath, palpitations, lightheadedness, near-syncope or syncope. Denies any pain in any of her extremities Related Data Home Medications Medication Instructions Recorded Confirmed apixaban 5 mg tablet (Eliquis) 5 mg PO BID 09/21/20 06/22/22 aspirin 81 mg tablet 81 mg PO DAILY 09/21/20 06/22/22 furosemide 40 mg tablet 40 mg PO DAILY 09/21/20 06/22/22 insulin glargine 100 unit/mL (3 20 unit subcut HS 09/21/20 06/22/22 mL) subcutaneous pen (Lantus Solostar U-100 Insulin) insulin lispro 100 unit/mL See Rx Instructions .Route .COMPLEX 09/21/20 06/22/22 subcutaneous pen (Humalog KwikPen (U-100) Insulin) levothyroxine 100 mcg tablet 100 mcg PO DAILY 09/21/20 06/22/22 losartan 50 mg-hydrochlorothiazide 1 tablet PO DAILY 09/21/20 06/22/22 12.5 mg tablet metoprolol succinate 25 mg 25 mg PO DAILY 09/21/20 06/22/22 tablet,extended release 24 hr potassium chloride 20 mEq 20 meq PO BID 09/21/20 06/22/22 tablet,extended release(part/cryst) (Klor-Con M) pravastatin 20 mg tablet 20 mg PO DAILY 09/21/20 06/22/22 ropinirole 1 mg tablet 1 mg PO HS 09/21/20 06/22/22 Allergies Allergy/AdvReac Type Severity Reaction Status Date / Time No Known Allergies Allergy Verified 06/22/22 11:00 Review of Systems Review of Systems: All systems reviewed & are unremarkable except as noted in HPI and below ( HPI) [facility] Past Medical History Medical History Atrial fibrillation Bladder cancer Dyslipidemia Hypertension Hypothyroidism Insect bite Type 2 diabetes mellitus Surgical History Surgical History H/O cystoscopy History of eyelid surgery Hx of cataract surgery Social History Social History Smoking status: Never smoker Substance use: never Exam Narrative: pleasant, well-appearing, appropriately interactive, well oriented, articulate, no acute distress Const: General: cooperative, healthy appearing, comfortable, no acute distress, well developed, alert, awake and Physically active Orientation/consciousness: patient oriented x3 HENMT: Head: normal to inspection, normocephalic and atraumatic Ears: hearing grossly normal bilaterally and external ears normal Face/Nose/Sinus: Normal external nose present, Normal nares present, Normal nasal mucous membranes and turbinates present and normal facial exam Face and sinus: normal facial exam Mouth: Yes Normal oral and palatal mucosa present, Yes lip normal, Yes tongue normal, Yes oropharynx normal and Yes moist mucous membranes Teeth and gingiva: dentition normal Throat: posterior oropharynx normal and tonsils normal ( erythematous) Other: she does have some swelling to the left lower lip, with a small laceration on the superior inner aspect where she reports she bit her lip during a fall. Her teeth are nontender, there are no acute the chipped teeth, and she reports when she opens and closes her mouth the teeth come together in the normal position. There is no mandibular tenderness, no TMJ tenderness Eyes: Gener
== END 2022-10-02 07:20 | disposition home or self-care (01) ==
PROVIDERS: Emergency Provider Emergency Medicine; PCP Internal Medicine
DX: S01.01XA Laceration without foreign body of scalp, initial encounter (principal); S00.531A Contusion of lip, initial encounter; I48.91 Unspecified atrial fibrillation; E11.9 Type 2 diabetes mellitus without complications; I10 Essential (primary) hypertension; E03.9 Hypothyroidism, unspecified; Z08 Encounter for follow-up examination after completed treatment for malignant neoplasm; Z79.01 Long term (current) use of anticoagulants; Z79.82 Long term (current) use of aspirin; Z79.4 Long term (current) use of insulin; Z85.51 Personal history of malignant neoplasm of bladder; W01.198A Fall on same level from slipping, tripping and stumbling with subsequent striking against other object, initial encounter
CPT/HCPCS: 70450; 99284

== ENCOUNTER 2022-10-03 13:48 | Emergency (ER) | payer MEDICARE, SELFPAY ==
[2022-10-03] VITALS (27 sets, daily range): BP systolic 92–120; BP diastolic 37–65; PULSE 68–98; RESP 15–98; TEMP 36.4–36.7; O2SAT 96–100
--- NOTE | ~2022-10-03 | CT_ITS ---
EXAMINATION: CT brain wo con DATE: 10/03/2022 15:11 INDICATION: Confusion. Dizziness. TECHNIQUE: Computed tomography (CT) of the head was performed without intravenous contrast. The mA wa s adjusted according to patient size. Iterative reconstruction technique was employed. The dose-lengt h product was 605.33 mGy-cm. COMPARISON: Head CT 10/02/2022, brain MRI 10/24/2013 FINDINGS: There are scattered areas of low attenuation in the cerebral white matter. There is no intr acranial hemorrhage, acute infarction, or abnormal intracranial mass lesion. The ventricles are andreina l in size. There are likely changes of ocular lens replacement surgeries. There is mucosal thickening in the paranasal sinuses. The mastoid air cells are normal. IMPRESSION: 1. Stable mild nonspecific cerebral white matter disease, which likely represents chronic small vesse l ischemic disease. Reviewed, dictated and finalized at location A. IMPRESSION: 1. Stable mild nonspecific cerebral white matter disease, which likely represen ts chronic small vessel ischemic disease.
[2022-10-03 14:29] LABS: Glucose Point of Care 97 mg/dl (65-105)
--- NOTE | 2022-10-03 14:39 | ED.GENADULT ---
HPI - General Adult General Chief complaint: Head Injury Stated complaint: confusion after a fall Time Seen by Provider: 10/03/22 14:39 History of Present Illness HPI narrative: The patient is an?87-year-old white female? with a history of hypertension, diabetes, atrial fibrillation on Eliquis and aspirin, who tripped and fell, resulting in a scalp abrasion/laceration/contusion, with a lip contusion. A Head CT was unremarkable. No LOC. No neck/back pain. She was discharged home and advised to come back if she feels worse. She returns to the ER since she feels worse: she reports confusion and difficulty focusing on the computer screen with blurred vision this afternoon, with dizziness. No nausea vomiting. No photophobia. No headache of significance. No neck pain or back pain. No new injuries. No chest pain or abdominal pain. No shortness of breath or syncope. No other complaints. Related Data Home Medications Medication Instructions Recorded Confirmed apixaban 5 mg tablet (Eliquis) 5 mg PO BID 09/21/20 10/03/22 aspirin 81 mg tablet 81 mg PO DAILY 09/21/20 10/03/22 furosemide 40 mg tablet 40 mg PO DAILY 09/21/20 10/03/22 insulin glargine 100 unit/mL (3 20 unit subcut HS 09/21/20 10/03/22 mL) subcutaneous pen (Lantus Solostar U-100 Insulin) insulin lispro 100 unit/mL See Rx Instructions .Route .COMPLEX 09/21/20 10/03/22 subcutaneous pen (Humalog KwikPen (U-100) Insulin) levothyroxine 100 mcg tablet 100 mcg PO DAILY 09/21/20 10/03/22 losartan 50 mg-hydrochlorothiazide 1 tablet PO DAILY 09/21/20 10/03/22 12.5 mg tablet metoprolol succinate 25 mg 25 mg PO DAILY 09/21/20 10/03/22 tablet,extended release 24 hr potassium chloride 20 mEq 20 meq PO BID 09/21/20 10/03/22 tablet,extended release(part/cryst) (Klor-Con M) pravastatin 20 mg tablet 20 mg PO DAILY 09/21/20 10/03/22 ropinirole 1 mg tablet 1 mg PO HS 09/21/20 10/03/22 Allergies Allergy/AdvReac Type Severity Reaction Status Date / Time No Known Allergies Allergy Verified 10/03/22 14:18 Review of Systems Review of Systems: All systems reviewed & are unremarkable except as noted in HPI and below Constitutional: Constitutional: Denies chills, Denies excessive sweating, Denies fatigue, Denies fever(s), Denies headache(s) and Denies weakness Eyes: Eyes: Reports change in vision ( Some blurred vision and difficulty focusing with her eyes ) and Denies photophobia ENT: Denies dysphagia, Reports dizziness, Denies headache(s), Denies lip swelling, Denies nasal congestion, Denies sore throat and Denies tongue swelling Cardiovascular: Cardiovascular: Denies chest pain, Denies syncope, Denies rapid heart rate and Denies dyspnea Respiratory: Respiratory: Denies cough, Denies dyspnea and Denies wheezing Gastrointestinal: Gastrointestinal: Denies abdominal pain, Denies constipation, Denies dysphagia, Denies diarrhea, Denies nausea and Denies vomiting Genitourinary: Genitourinary: Denies hematuria, Denies urinary frequency, Denies dysuria and Denies urinary urgency Musculoskeletal: Musculoskeletal: Denies back pain, Denies myalgias, Denies arthralgias, Denies joint swelling and Denies numbness Integumentary/Breasts: Skin/Breast: Denies pruritus, Denies erythema and Denies rash Neurologic: Denies confusion, Reports dizziness, Denies syncope, Denies headache(s), Denies focal weakness, Denies numbness and Denies weakness Psychiatric: Psychiatric: Denies anxiety and Reports confusion Endocrine: Endocrine: Denies excessive sweating and Denies fatigue Hematologic/Lymphatic: Hematologic/Lymphatic: Denies easy bleeding and Denies easy bruising Allergic/Immunologic: Allergic/Immunologic: Denies lip swelling, Denies tongue swelling and Denies wheezing PMFSH Past Medical History Medical History Atrial fibrillation Bladder cancer Dyslipidemia Hypertension Hypothyroidism Insect bite Type 2 diabetes mellitus
--- NOTE | 2022-10-03 14:50 | ECG_ITS ---
Measurements Intervals [place] Rate: 91 P: DE: 0 QRS: 141 QRSD: 117 T: 91 QT: 391 QTc: 482 Interpretive Statements ATYPICAL ATRIAL FLUTTER ANTEROSEPTAL mYOCARDIAL INFARCTION , OF INDETERMINATE AGE [40+ ms Q WAVE IN I/aVL/V3- V6] COMPARED TO ECG 05/27/2022 17:31:40 PATIENT APPEARS TO HAVE ATRIAL FLUTTER AT THIS TIME RATHER THAN BRENDA ATRIAL FIBRILLATION Electronically Signed On 10-04-2022 16:21:22 CDT by Vince Khan M.D.
[2022-10-03 15:39] LABS: Basophils Absolute Auto 0.03 K/mm3 (0.00-0.10); Basophils Percent Auto 0.4 % (0.0-1.0); Eosinophils Absolute Auto 0.01 K/mm3 (0.02-0.50); Eosinophils Percent Auto 0.1 % (1.0-6.0); Hematocrit 34.9 % (35.0-42.0); Hemoglobin 11.1 g/dL (11.7-13.8); Immature Granulocyte Absolute 0.04 K/mm3 (0.00-0.00); Immature Granulocyte Percent A 0.6 % (0.0-0.0); Lymphocytes Absolute Auto 0.83 K/mm3 (1.10-4.50); Lymphocytes Percent Auto 11.4 % (18.0-42.0); Mean Corpuscular HGB Conc 31.8 g/dL (32.0-36.0); Mean Corpuscular Hemoglobin 28.3 pg (27.0-31.0); Mean Platelet Volume 10.1 fl (9.2-11.8); Monocytes Absolute Auto 0.45 K/mm3 (0.10-0.90); Monocytes Percent Auto 6.2 % (2.0-11.0); Neutrophils Absolute Auto 5.9 K/mm3 (1.7-7.2); Neutrophils Percent Auto 81.3 % (50.0-70.0); Platelet Count Result 179 K/mm3 (150-420); Red Blood Count 3.92 M/mm3 (4.20-5.40); Red Cell Distribution Width 14.5 % (11.6-14.4); White Blood Count 7.3 K/mm3 (4.8-10.8)
[2022-10-03 15:46] LABS: Appearance Urine Clear (Clear); Bilirubin Urine Negative (Negative); Blood Urine Trace-Intact (Negative); Color Urine Light Yellow (Yellow); Glucose Urine UA Negative (Negative); Ketones Urine Negative (Negative); Leukocyte Esterase Ur Trace LEU/UL (Negative); Nitrate Urine Negative (Negative); Protein Urine Negative (Negative); Specific Grav Ur <= 1.005 (1.010-1.020); Urobilinogen Urine 0.2 mg/dL (0.2-1.0)
[2022-10-03 15:56] LABS: Add Urine Microscopic? YES; RBC Urine 0-2 /hpf (0-2); WBC Urine 0-3 /hpf (0-3)
[2022-10-03 15:57] LABS: Bacteria Urine Trace /hpf; Lactic Acid Reflex 1.1 mmol/L (0.4-2.0); Squamous Epithelial Cell Urine Few /hpf (Few)
[2022-10-03 16:01] LABS: Alanine Aminotransferase 25 U/L (14-59); Albumin Level 3.6 g/dL (3.4-5.0); Alkaline Phosphatase 86 U/L (46-116); Anion Gap 6 mmol/L (8-16); Aspartate Amino Transferase 23 U/L (15-37); Bilirubin,Total 0.6 mg/dL (0.00-1.00); Blood Urea Nitrogen 26 mg/dL (7-18); Calcium 9.1 mg/dL (8.5-10.1); Carbon Dioxide 30 mmol/L (21-32); Chloride 102 mmol/L (98-108); Estimated CRCL calculation 30 ml/min; Estimated Glomerular Filt Rate 41; Glucose 77 mg/dL (70-99); Magnesium 2.1 mg/dL (1.8-2.4); NT Pro B Type Natriuretic Pept 1954 pg/mL (0-450); Osmolality Calculated 289 mOsm/kg (285-295); Potassium 4.1 mmol/L (3.5-5.1); Sodium 138 mmol/L (136-145); Total Protein 6.7 g/dL (6.4-8.2)
== END 2022-10-03 17:08 | disposition home or self-care (01) ==
PROVIDERS: Emergency Provider Emergency Medicine; PCP Internal Medicine
DX: S06.0X0A Concussion without loss of consciousness, initial encounter (principal); S00.03XA Contusion of scalp, initial encounter; I48.91 Unspecified atrial fibrillation; E11.9 Type 2 diabetes mellitus without complications; I10 Essential (primary) hypertension; E03.9 Hypothyroidism, unspecified; Z79.01 Long term (current) use of anticoagulants; Z79.82 Long term (current) use of aspirin; Z79.4 Long term (current) use of insulin; Z85.51 Personal history of malignant neoplasm of bladder; W01.0XXA Fall on same level from slipping, tripping and stumbling without subsequent striking against object, initial encounter
CPT/HCPCS: 36415; 70450; 80053; 81001; 82948; 83605; 83735; 83880; 84484; 85025; 93005; 99284

== ENCOUNTER 2022-12-28 21:29 | Emergency (ER) | payer MEDICARE, SELFPAY ==
--- NOTE | ~2022-12-28 | XR_ITS ---
EXAMINATION: XR chest 1V portable DATE: 12/28/2022 21:54 INDICATION: Atrial fibrillation. TECHNIQUE: A single frontal view of the chest was obtained on 2 radiographs. COMPARISON: Chest 2 views 06/22/2022 FINDINGS: There is mild atelectasis in the lower lung zones. No pleural effusion or pneumothorax. Car diomegaly is noted. IMPRESSION: 1. Mild atelectasis in the lower lung zones. 2. Cardiomegaly. Reviewed, dictated and finalized at location E.
[2022-12-28 21:33] VITALS: BP 139/78; PULSE 98; RESP 22; TEMP 37.2; O2SAT 99
--- NOTE | 2022-12-28 21:46 | ECG_ITS ---
Measurements Intervals [place] Rate: 93 P: TN: 0 QRS: 266 QRSD: 180 T: 89 QT: 427 QTc: 533 Interpretive Statements ATRIAL FLUTTER/TACHYCARDIA WITH NORMAL VENTRICULAR RESPONSE VENTRICULAR PREMATURE COMPLEXES IVCD, FEATURES OF BOTH RBBB AND LBBB BASELINE ARTIFACT- I, II, III, AVR, AVL, V1-V2 ABNORMAL ECG COMPARED TO ECG 10/03/2022 15:12:24 INTRAVENTRICULAR CONDUCTION DELAY NOW PRESENT Electronically Signed On 12-29-2022 8:04:51 CDT by Barrington Whaley D.O.
[2022-12-28 22:00] LABS: Basophils Absolute Auto 0.03 K/mm3 (0.00-0.10); Basophils Percent Auto 0.4 % (0.0-1.0); Eosinophils Absolute Auto 0.08 K/mm3 (0.02-0.50); Eosinophils Percent Auto 1.1 % (1.0-6.0); Hematocrit 37.7 % (35.0-42.0); Hemoglobin 12.3 g/dL (11.7-13.8); Immature Granulocyte Absolute 0.03 K/mm3 (0.00-0.00); Immature Granulocyte Percent A 0.4 % (0.0-0.0); Lymphocytes Absolute Auto 1.34 K/mm3 (1.10-4.50); Lymphocytes Percent Auto 17.7 % (18.0-42.0); Mean Corpuscular HGB Conc 32.6 g/dL (32.0-36.0); Mean Corpuscular Hemoglobin 28.7 pg (27.0-31.0); Mean Corpuscular Volume 88.1 fL (78.0-102.0); Mean Platelet Volume 10.6 fl (9.2-11.8); Monocytes Percent Auto 6.6 % (2.0-11.0); Neutrophils Absolute Auto 5.6 K/mm3 (1.7-7.2); Neutrophils Percent Auto 73.8 % (50.0-70.0); Platelet Count Result 169 K/mm3 (150-420); Red Blood Count 4.28 M/mm3 (4.20-5.40); Red Cell Distribution Width 14.9 % (11.6-14.4); White Blood Count 7.6 K/mm3 (4.8-10.8)
[2022-12-28 22:15] LABS: INR 1.1; Partial Thromboplastin Time 28.5 SEC (23.90-30.70); Prothrombin Time 11.5 Seconds (9.50-12.10)
--- NOTE | 2022-12-28 22:28 | ED.SOB ---
HPI - SOB/Dyspnea General Chief Complaint: Shortness of Breath/Dyspnea Stated Complaint: AFIB Source: patient and family Mode of arrival: ambulatory Limitations: no limitations History of Present Illness HPI Narrative: patient is a 87-year-old female with some shortness of breath and lightheaded and dizzy with a woozy feeling today. She has recently been started on flecainide. She has AFib. no chest pain. MD elicited complaint: shortness of breath Onset (ago): hour(s) Timing: constant Severity: moderate Exacerbating factors: other ( New flecainide this week for her AFib) Relieving factors: nothing Associated symptoms: denies other symptoms Treatment prior to arrival: none Related Data Home Medications Medication Instructions Recorded Confirmed apixaban 5 mg tablet (Eliquis) 5 mg PO BID 09/21/20 12/28/22 aspirin 81 mg tablet 81 mg PO DAILY 09/21/20 12/28/22 furosemide 40 mg tablet 40 mg PO DAILY 09/21/20 12/28/22 insulin glargine 100 unit/mL (3 30 unit subcut HS 09/21/20 12/28/22 mL) subcutaneous pen (Lantus Solostar U-100 Insulin) insulin lispro 100 unit/mL See Rx Instructions .Route .COMPLEX 09/21/20 12/28/22 subcutaneous pen (Humalog KwikPen (U-100) Insulin) levothyroxine 100 mcg tablet 100 mcg PO DAILY 09/21/20 12/28/22 metoprolol succinate 25 mg 50 mg PO DAILY 09/21/20 12/28/22 tablet,extended release 24 hr potassium chloride 20 mEq 20 meq PO BID 09/21/20 12/28/22 tablet,extended release(part/cryst) (Klor-Con M) pravastatin 20 mg tablet 20 mg PO DAILY 09/21/20 12/28/22 ropinirole 1 mg tablet 3 mg PO TID PRN legs 09/21/20 12/28/22 escitalopram oxalate 20 mg tablet 20 mg PO DAILY 12/28/22 12/28/22 flecainide 100 mg tablet 100 mg PO DAILY 12/28/22 12/28/22 gabapentin 100 mg capsule 200 mg PO BID 12/28/22 12/28/22 Allergies Allergy/AdvReac Type Severity Reaction Status Date / Time No Known Allergies Allergy Verified 12/28/22 22:51 Review of Systems Review of Systems: All systems reviewed & are unremarkable except as noted in HPI and below Constitutional: Constitutional: Reports no additional constitutional complaints Eyes: Eyes: Reports no additional eye complaints ENT: Reports system reviewed and no additional complaints, except as documented Cardiovascular: Cardiovascular: Reports no additional cardiovascular complaints Respiratory: Respiratory: Reports no additional respiratory complaints Gastrointestinal: Gastrointestinal: Reports no additional gastrointestinal complaints Genitourinary: Genitourinary: Reports no additional female genitourinary complaints Musculoskeletal: Musculoskeletal: Reports no additional musculoskeletal complaints Integumentary/Breasts: Skin/Breast: Reports system reviewed and no additional complaints, except as docu Neurologic: Reports system reviewed and no additional complaints, except as documented Psychiatric: Psychiatric: Reports no additional psychiatric complaints Endocrine: Endocrine: Reports no additional endocrine complaints Hematologic/Lymphatic: Hematologic/Lymphatic: Reports no additional hematologic/lymphatic complaints Allergic/Immunologic: Allergic/Immunologic: Reports no additional allergic/immunologic complaints PMFSH Past Medical History Medical History Atrial fibrillation Bladder cancer Dyslipidemia Hypertension Hypothyroidism Insect bite Type 2 diabetes mellitus Surgical History Surgical History H/O cystoscopy History of eyelid surgery Hx of cataract surgery Social History Social History Smoking status: Never smoker Substance use: never Exam Const: General: healthy appearing and no acute distress Nutritional Appearance: well nourished Neck: Neck: normal visual inspection Chest: Chest palpation & inspection: normal inspection of the chest
[2022-12-28 22:29] LABS: Appearance Urine Clear (Clear); Bilirubin Urine Negative (Negative); Blood Urine Negative (Negative); Color Urine Light Yellow (Yellow); Glucose Urine UA Negative (Negative); Ketones Urine Negative (Negative); Leukocyte Esterase Ur 1+ LEU/UL (Negative); Nitrate Urine Negative (Negative); Protein Urine Negative (Negative); Urobilinogen Urine 0.2 mg/dL (0.2-1.0); pH Urine 5.5 (5.0-8.0)
[2022-12-28 22:30] LABS: Alanine Aminotransferase 35 U/L (14-59); Albumin Level 3.7 g/dL (3.4-5.0); Alkaline Phosphatase 84 U/L (46-116); Anion Gap 12 mmol/L (8-16); Aspartate Amino Transferase 16 U/L (15-37); Bilirubin,Total 0.4 mg/dL (0.00-1.00); Blood Urea Nitrogen 45 mg/dL (7-18); Calcium 9.2 mg/dL (8.5-10.1); Carbon Dioxide 25 mmol/L (21-32); Chloride 103 mmol/L (98-108); Estimated CRCL calculation 21 ml/min; Estimated Glomerular Filt Rate 27; Glucose 269 mg/dL (70-99); Magnesium 2.1 mg/dL (1.8-2.4); NT Pro B Type Natriuretic Pept 1969 pg/mL (0-450); Osmolality Calculated 310 mOsm/kg (285-295); Potassium 4.2 mmol/L (3.5-5.1); Sodium 140 mmol/L (136-145); Total Protein 6.7 g/dL (6.4-8.2); Troponin I 8.1 ng/L (0.00-60.4)
[2022-12-28 22:39] LABS: Add Urine Microscopic? YES; Bacteria Urine 2+ /hpf; Squamous Epithelial Cell Urine Few /hpf (Few)
[2022-12-28 22:48] VITALS: BP 104/59; PULSE 93; RESP 20; O2SAT 90
[2022-12-28 22:49] VITALS: O2SAT 90
--- NOTE | 2022-12-28 23:50 | PC.NURSE ---
5248-ACCOUNT DISCHARGED IN ERROR. ACCOUNT ADDED BACK TO ER TRACKER PT IS STILL PRESENT AND BEING ACTIVELY TREATED IN ER.
[2022-12-29] VITALS: BP 131/72; PULSE 80; RESP 18; O2SAT 98
[2022-12-29] MEDS: SODIUM CHLORIDE 0.9% IV 1,000 ML 999 ML IV CONT (00:37)
[2022-12-29] MEDS: SODIUM BICARBONATE 8.4% 50 MEQ/50 ML SYRINGE 100 MEQ IV PUSH (00:38)
[2022-12-29 01:00] VITALS: BP 101/47; PULSE 76; RESP 20; O2SAT 100
--- NOTE | 2022-12-31 14:17 | PC.NURSE ---
Patient's culture report sent to [facility] @[phone]
== END 2022-12-29 01:20 | disposition short-term general hospital (02) ==
PROVIDERS: Emergency Provider Emergency Medicine; PCP Internal Medicine
DX: I49.9 Cardiac arrhythmia, unspecified (principal); E86.0 Dehydration; N39.0 Urinary tract infection, site not specified; I48.91 Unspecified atrial fibrillation; E11.9 Type 2 diabetes mellitus without complications; I10 Essential (primary) hypertension; E03.9 Hypothyroidism, unspecified; Z79.01 Long term (current) use of anticoagulants; Z79.82 Long term (current) use of aspirin; Z79.4 Long term (current) use of insulin; Z79.899 Other long term (current) drug therapy; Z85.51 Personal history of malignant neoplasm of bladder
CPT/HCPCS: 36415; 71045; 80053; 81001; 83735; 83880; 84484; 85025; 85610; 85730; 87077; 87086; 87088; 87186; 93005; 96361; 96365; 96375; 99285; J0696; J7030

== ENCOUNTER → 2023-02-13 15:59 | Outpatient (CLI) | payer MEDICARE, SELFPAY ==
--- NOTE | ~2023-02-13 | MM_ITS ---
EXAMINATION: MM screening damaris BI w katiana HISTORY: Screening mammogram, family history of breast cancer in her sister. TECHNIQUE: Craniocaudal and mediolateral oblique 3-D tomosynthesis images were obtained and synthetic 2-D images were generated. CAD analysis was submitted and interpreted. COMPARISON: 11/14/2021, 02/03/2020, 01/28/2019 BREAST PARENCHYMAL COMPOSITION:The breasts are almost entirely fatty FINDINGS: No suspicious mass, calcification, or architectural distortion are identified in either xenia ast to suggest malignancy. There has been no suspicious interval change. IMPRESSION: No mammographic evidence of malignancy. Recommend routine screening mammography in one year. BI-RADS Category 1: Negative Reviewed, dictated and finalized at location .
== END ==
PROVIDERS: PCP Obstetrics & Gynecology Gynecology; Visit Provider Obstetrics & Gynecology Gynecology
DX: Z12.31 Encounter for screening mammogram for malignant neoplasm of breast (principal)
CPT/HCPCS: 77063; 77067

== ENCOUNTER 2023-03-19 16:41 | Emergency (ER) | payer MEDICARE, SELFPAY ==
[2023-03-19] VITALS (9 sets, daily range): BP systolic 106–130; BP diastolic 57–70; PULSE 77–97; RESP 13–22; TEMP 36.7; O2SAT 96–100
--- NOTE | ~2023-03-19 | XR_ITS ---
EXAMINATION: XR chest 2V 03/19/2023 17:11 INDICATION: Dyspnea. Pitting edema. PROCEDURE: 2 view chest COMPARISON: FINDINGS: The lungs are clear. The cardiomediastinal silhouette is enlarged. There are no pleural ef fusions. There is no pneumothorax suspected. IMPRESSION: 1: NO ACUTE CARDIOPULMONARY DISEASE. 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
--- NOTE | 2023-03-19 16:48 | ED.SOB ---
HPI - SOB/Dyspnea General Chief Complaint: Shortness of Breath/Dyspnea Stated Complaint: short of breath Time Seen by Provider: 03/19/23 16:48 Source: patient and RN notes reviewed Mode of arrival: ambulatory Limitations: no limitations History of Present Illness HPI Narrative: patient states that her PCP changed her from a whole pill of her diuretic to half a pill. Patient not sure why may be due to kidney issues. 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 She mentioned her shortness of breath but he did not address it. She is in the planning stages of having a cardiac ablation. MD elicited complaint: shortness of breath Pertinent past history: congestive heart failure Onset (ago): week(s) (2) Timing: progressively worsening Severity: moderate Exacerbating factors: lying flat and exertion Relieving factors: nothing Known history of: congestive heart failure Associated symptoms: other ( Worsening pitting edema in her lower extremities) Treatment prior to arrival: none Related Data Home oxygen amount: none Home Medications Medication Instructions Recorded Confirmed apixaban 5 mg tablet (Eliquis) 5 mg PO BID 09/21/20 03/19/23 aspirin 81 mg tablet 81 mg PO DAILY 09/21/20 03/19/23 insulin glargine 100 unit/mL (3 30 unit subcut HS 09/21/20 03/19/23 mL) subcutaneous pen (Lantus Solostar U-100 Insulin) insulin lispro 100 unit/mL See Rx Instructions .Route .COMPLEX 09/21/20 03/19/23 subcutaneous pen (Humalog KwikPen (U-100) Insulin) levothyroxine 100 mcg tablet 112 mcg PO DAILY 09/21/20 03/19/23 metoprolol succinate 25 mg 50 mg PO DAILY 09/21/20 03/19/23 tablet,extended release 24 hr potassium chloride 20 mEq 20 meq PO BID 09/21/20 03/19/23 tablet,extended release(part/cryst) (Klor-Con M) pravastatin 20 mg tablet 20 mg PO DAILY 09/21/20 03/19/23 ropinirole 1 mg tablet 3 mg PO TID PRN legs 09/21/20 03/19/23 escitalopram oxalate 20 mg tablet 20 mg PO DAILY 12/28/22 03/19/23 flecainide 100 mg tablet 100 mg PO DAILY 12/28/22 03/19/23 alendronate 70 mg tablet 70 mg PO WEEKLY 03/19/23 03/19/23 furosemide 40 mg tablet 20 mg PO DAILY 03/19/23 03/19/23 Allergies Allergy/AdvReac Type Severity Reaction Status Date / Time No Known Allergies Allergy Verified 03/19/23 17:07 Review of Systems Review of Systems: All systems reviewed & are unremarkable except as noted in HPI and below PMFSH Past Medical History Medical History (Updated 03/19/23 @ 18:05 by Janes Henderson MD) Atrial fibrillation Bladder cancer Dyslipidemia Hypertension Hypothyroidism Insect bite Restless leg syndrome (08/21/11) Type 2 diabetes mellitus Surgical History Surgical History H/O cystoscopy History of eyelid surgery Hx of cataract surgery Social History Social History Smoking status: Never smoker Substance use: never Exam Const: General: no acute distress, alert and ill appearing acutely Nutritional Appearance: well nourished Orientation/consciousness: patient oriented x3 Limitations: no limitations HENMT: Head: normal to inspection Ears: external ears normal Face/Nose/Sinus: Normal external nose present Face and sinus: normal facial exam Mouth: Yes moist mucous membranes Eyes: Conjunctivae: conjunctivae normal Pupils: Equal, round and reactive pupils present EOM: EOMs intact bilaterally Neck: Neck: normal visual inspection Resp: Effort & Inspection: normal respiratory effort Auscultation: clear to auscultation bilaterally Cardio: Rate: regular rate Rhythm: abnormal rhythm irregularly irregular GI: GI Palp: Yes Soft to palpation and No Tenderness to palpation present (GI) Auscultation: normal bowel sounds Back/Spine/Pelvis: Cervical Spine: cervical ROM normal Thoracic/Lumbar Spine: thoraco-lumbar ROM normal Skin: General skin exam: normal color Rashes: no rashes
[2023-03-19 17:23] LABS: Basophils Absolute Auto 0.04 K/mm3 (0.00-0.10); Basophils Percent Auto 0.6 % (0.0-1.0); Eosinophils Absolute Auto 0.07 K/mm3 (0.02-0.50); Hematocrit 35.4 % (35.0-42.0); Hemoglobin 11.2 g/dL (11.7-13.8); Immature Granulocyte Absolute 0.03 K/mm3 (0.00-0.00); Immature Granulocyte Percent A 0.4 % (0.0-0.0); Lymphocytes Absolute Auto 1.04 K/mm3 (1.10-4.50); Lymphocytes Percent Auto 15.1 % (18.0-42.0); Mean Corpuscular HGB Conc 31.6 g/dL (32.0-36.0); Mean Corpuscular Hemoglobin 29.5 pg (27.0-31.0); Mean Corpuscular Volume 93.2 fL (78.0-102.0); Mean Platelet Volume 10.8 fl (9.2-11.8); Monocytes Absolute Auto 0.42 K/mm3 (0.10-0.90); Monocytes Percent Auto 6.1 % (2.0-11.0); Neutrophils Absolute Auto 5.3 K/mm3 (1.7-7.2); Neutrophils Percent Auto 76.8 % (50.0-70.0); Platelet Count Result 134 K/mm3 (150-420); Red Cell Distribution Width 14.6 % (11.6-14.4); White Blood Count 6.9 K/mm3 (4.8-10.8)
--- NOTE | 2023-03-19 17:30 | PC.NURSE ---
PT RETURNS FROM CT, DAUGHTER IS AT BEDSIDE. PT DENIES ANY NEEDS OR COMPLAINTS. WILL CONTINUE TO MONITOR.
[2023-03-19 17:45] LABS: Alanine Aminotransferase 45 U/L (14-59); Albumin Level 3.3 g/dL (3.4-5.0); Alkaline Phosphatase 72 U/L (46-116); Anion Gap 9 mmol/L (8-16); Aspartate Amino Transferase 31 U/L (15-37); Bilirubin,Total 0.5 mg/dL (0.00-1.00); Blood Urea Nitrogen 36 mg/dL (7-18); Calcium 8.8 mg/dL (8.5-10.1); Carbon Dioxide 26 mmol/L (21-32); Chloride 107 mmol/L (98-108); Estimated CRCL calculation 29 ml/min; Estimated Glomerular Filt Rate 39; Glucose 210 mg/dL (70-99); NT Pro B Type Natriuretic Pept 2844 pg/mL (0-450); Osmolality Calculated 308 mOsm/kg (285-295); Potassium 4.2 mmol/L (3.5-5.1); Sodium 142 mmol/L (136-145); Total Protein 6.4 g/dL (6.4-8.2)
[2023-03-19] MEDS: FUROSEMIDE 20 MG TABLET 40 MG PO (18:10)
== END 2023-03-19 18:10 | disposition home or self-care (01) ==
PROVIDERS: Emergency Provider Emergency Medicine; PCP Internal Medicine
DX: I11.0 Hypertensive heart disease with heart failure (principal); I50.23 Acute on chronic systolic (congestive) heart failure; I48.91 Unspecified atrial fibrillation; E78.5 Hyperlipidemia, unspecified; E03.9 Hypothyroidism, unspecified; E11.9 Type 2 diabetes mellitus without complications; Z85.51 Personal history of malignant neoplasm of bladder; Z79.899 Other long term (current) drug therapy; Z79.82 Long term (current) use of aspirin; Z79.4 Long term (current) use of insulin; Z79.01 Long term (current) use of anticoagulants
CPT/HCPCS: 36415; 71046; 80053; 83735; 83880; 85025; 99284; A9270

== ENCOUNTER 2023-05-23 12:40 | Outpatient (CLI) | payer MEDICARE, SELFPAY ==
[2023-05-23 12:57] LABS: Basophils Absolute Auto 0.05 K/mm3 (0.00-0.10); Basophils Percent Auto 0.6 % (0.0-1.0); Eosinophils Absolute Auto 0.07 K/mm3 (0.02-0.50); Eosinophils Percent Auto 0.9 % (1.0-6.0); Hematocrit 40.9 % (35.0-42.0); Hemoglobin 12.9 g/dL (11.7-13.8); Immature Granulocyte Absolute 0.02 K/mm3 (0.00-0.00); Immature Granulocyte Percent A 0.2 % (0.0-0.0); Lymphocytes Absolute Auto 1.42 K/mm3 (1.10-4.50); Lymphocytes Percent Auto 17.7 % (18.0-42.0); Mean Corpuscular HGB Conc 31.5 g/dL (32.0-36.0); Mean Corpuscular Hemoglobin 28.4 pg (27.0-31.0); Mean Corpuscular Volume 89.9 fL (78.0-102.0); Monocytes Absolute Auto 0.48 K/mm3 (0.10-0.90); Neutrophils Percent Auto 74.6 % (50.0-70.0); Platelet Count Result 164 K/mm3 (150-420); Red Blood Count 4.55 M/mm3 (4.20-5.40); Red Cell Distribution Width 14.1 % (11.6-14.4)
[2023-05-23 13:00] LABS: Appearance Urine Clear (Clear); Bilirubin Urine Negative (Negative); Blood Urine Negative (Negative); Color Urine Light Yellow (Yellow); Glucose Urine UA Negative (Negative); Ketones Urine Negative (Negative); Leukocyte Esterase Ur Negative (Negative); Nitrate Urine Negative (Negative); Protein Urine Negative (Negative); Specific Grav Ur 1.015 (1.010-1.020); Urobilinogen Urine 0.2 mg/dL (0.2-1.0); pH Urine 5.5 (5.0-8.0)
[2023-05-23 13:06] LABS: Add Urine Microscopic? NO
[2023-05-23 13:24] LABS: Hemoglobin A1C 7.3 % (<5.7)
[2023-05-23 14:06] LABS: Alanine Aminotransferase 28 U/L (14-59); Albumin Level 3.8 g/dL (3.4-5.0); Alkaline Phosphatase 77 U/L (46-116); Anion Gap 11 mmol/L (8-16); Aspartate Amino Transferase 16 U/L (15-37); Bilirubin,Total 0.6 mg/dL (0.00-1.00); Blood Urea Nitrogen 32 mg/dL (7-18); Calcium 9.4 mg/dL (8.5-10.1); Carbon Dioxide 29 mmol/L (21-32); Chloride 104 mmol/L (98-108); Cholesterol 173 mg/dL (0-200); Creatine Kinase 56 U/L (26-192); Estimated Glomerular Filt Rate 47; Ferritin 69 ng/mL (8-252); Free T3 2.13 pg/mL (2.18-3.98); Free T4 Free Thyroxine 1.13 ng/dL (0.76-1.46); Glucose 82 mg/dL (70-99); HDL Direct 82 mg/dL (40-60); Iron 58 ug/dL (50-170); LDL Cholesterol Calculated 82 mg/dL (<130); NT Pro B Type Natriuretic Pept 2179 pg/mL (0-450); Osmolality Calculated 303 mOsm/kg (285-295); Potassium 4.5 mmol/L (3.5-5.1); Sodium 144 mmol/L (136-145); Thyroid Stimulating Hormone 2.28 uIU/mL (0.36-3.74); Total Protein 6.8 g/dL (6.4-8.2); Triglycerides 46 mg/dL (0-150); Vitamin B12 583 pg/mL (193-986)
== END 2023-05-23 12:41 | disposition home or self-care (01) ==
LOC: CHSLAB 12:43
PROVIDERS: PCP Internal Medicine; Visit Provider Internal Medicine
DX: E11.65 Type 2 diabetes mellitus with hyperglycemia (principal); I10 Essential (primary) hypertension; N18.2 Chronic kidney disease, stage 2 (mild); I48.11 Longstanding persistent atrial fibrillation; E53.8 Deficiency of other specified B group vitamins; R82.81 Pyuria; I50.9 Heart failure, unspecified
CPT/HCPCS: 36415; 80053; 80061; 81003; 82550; 82607; 82728; 83036; 83540; 83880; 84439; 84443; 84481; 85025; 87086; 87088

== ENCOUNTER 2023-08-22 09:09 | Outpatient (CLI) | payer MEDICARE, SELFPAY ==
[2023-08-22 09:38] LABS: Hematocrit 40.6 % (35.0-42.0); Hemoglobin 12.4 g/dL (11.7-13.8); Immature Platelet Fraction Pct 3.9 % (1.0-7.0); Mean Corpuscular HGB Conc 30.5 g/dL (32-36); Mean Corpuscular Hemoglobin 27.7 pg (27.0-31.0); Mean Corpuscular Volume 90.8 fL (78.0-102.0); Mean Platelet Volume 10.6 fl (9.2-11.8); Platelet Count Result 146 K/mm3 (150-420); Red Blood Count 4.47 M/mm3 (4.20-5.40); Red Cell Distribution Width 14.7 % (11.6-14.4); White Blood Count 7.8 K/mm3 (4.8-10.8)
[2023-08-22 10:10] LABS: Hemoglobin A1C 6.8 % (<5.7)
[2023-08-22 10:25] LABS: Alanine Aminotransferase 73 U/L (14-59); Albumin Level 3.6 g/dL (3.4-5.0); Alkaline Phosphatase 92 U/L (46-116); Anion Gap 8 mmol/L (4-12); Aspartate Amino Transferase 50 U/L (15-37); Bilirubin,Total 0.6 mg/dL (0.00-1.00); Blood Urea Nitrogen 19 mg/dL (7-18); Calcium 9.1 mg/dL (8.5-10.1); Carbon Dioxide 30 mmol/L (21-32); Chloride 107 mmol/L (98-108); Estimated Glomerular Filt Rate 50; Free T3 1.99 pg/mL (2.18-3.98); NT Pro B Type Natriuretic Pept 3696 pg/mL (0-450); Osmolality Calculated 299 mOsm/kg (285-295); Potassium 4.1 mmol/L (3.5-5.1); Sodium 145 mmol/L (136-145); Thyroid Stimulating Hormone 3.01 uIU/mL (0.36-3.74); Total Protein 6.2 g/dL (6.4-8.2)
[2023-08-22 10:39] LABS: Glucose 43 mg/dL (70-99)
[2023-08-23 11:16] LABS: Free T4 Free Thyroxine 0.95 ng/dL (0.76-1.46)
== END 2023-08-22 09:10 | disposition home or self-care (01) ==
LOC: CHSLAB 09:12
PROVIDERS: PCP Internal Medicine; Visit Provider Internal Medicine
DX: N18.31 Chronic kidney disease, stage 3a (principal); E11.65 Type 2 diabetes mellitus with hyperglycemia; I48.11 Longstanding persistent atrial fibrillation; E03.4 Atrophy of thyroid (acquired); I50.9 Heart failure, unspecified
CPT/HCPCS: 36415; 80053; 83036; 83880; 84439; 84443; 84481; 85027; 85055

== ENCOUNTER 2023-11-01 11:04 | Outpatient (CLI) | payer MEDICARE, SELFPAY ==
--- NOTE | ~2023-11-01 | XR_ITS ---
EXAMINATION: XR ribs RT 2V DATE: 11/01/2023 12:07 INDICATION: Right chest wall injury and pain. TECHNIQUE: 2 views of the right ribs on 3 radiographs were obtained. COMPARISON: Chest 2 views 03/19/2023 FINDINGS: There is mild atelectasis at right lung base. There is a small right pleural effusion. No p neumothorax. There are fractures of right seventh and eighth ribs. IMPRESSION: 1. Fractures of right seventh and eighth ribs. 2. Small right pleural effusion. Reviewed, dictated and finalized at location A.
--- NOTE | ~2023-11-01 | XR_ITS ---
EXAMINATION: XR thoracic spine 3V, XR lumbar spine 2-3V DATE: 11/01/2023 12:07 INDICATION: Upper and lower back pain post fall TECHNIQUE: 1. One AP, lateral and lateral swimmer's views of the thoracic spine were obtained. 2. AP, lateral and coned-down lateral lumbosacral views of the lumbar spine were obtained. COMPARISON: None. FINDINGS: 15 degree thoracolumbar levoscoliosis measured between T10 and L2. Mild degree dextro scoliosis of th e more caudal lumbar spine. Sagittal alignment is normal. Thoracic and lumbar vertebral body heights are normal. There is mild disc height loss at multiple levels in the mid to lower thoracic spine. Mod erate to severe disc height loss with vacuum phenomena at L5-S1, with right-sided predominance at L1- L2 and left-sided predominance at L4-L5. Moderate disc height loss at L2-L3 and with left-sided predo minance at L3-L4. Multilevel moderate and severe facet osteoarthritis throughout the lumbar spine. Mi ld to moderate bilateral sacroiliac osteoarthritis. Small right pleural effusion with consolidation a t the medial right lower lung which could represent atelectasis or pneumonia. IMPRESSION: 1. Mild S-shaped scoliosis of the lumbar and lower thoracic spine with mild thoracic and severe lumba r spondylosis. 2. Small right pleural effusion with associated atelectasis or pneumonia in the right lower lung. Reviewed, dictated and finalized at location B. IMPRESSION: 1. Mild S-shaped scoliosis of the lumbar and lower thoracic spine with mild tho racic and severe lumbar spondylosis. 2. Small right pleural effusion with associated atelectasis or pneumonia in the right lower lung.
[2023-11-01 11:36] LABS: Hemoglobin 11.1 g/dL (11.7-13.8); Mean Corpuscular HGB Conc 31.7 g/dL (32-36); Mean Corpuscular Hemoglobin 28.6 pg (27.0-31.0); Mean Corpuscular Volume 90.2 fL (78.0-102.0); Mean Platelet Volume 9.8 fl (9.2-11.8); Platelet Count Result 203 K/mm3 (150-420); Red Blood Count 3.88 M/mm3 (4.20-5.40)
[2023-11-01 11:46] LABS: Hemoglobin A1C 7.3 % (<5.7)
[2023-11-01 12:16] LABS: Alanine Aminotransferase 18 U/L (14-59); Albumin Level 3.2 g/dL (3.4-5.0); Alkaline Phosphatase 82 U/L (46-116); Anion Gap 7 mmol/L (4-12); Aspartate Amino Transferase 17 U/L (15-37); Bilirubin,Total 0.7 mg/dL (0.00-1.00); Blood Urea Nitrogen 30 mg/dL (7-18); Calcium 9.2 mg/dL (8.5-10.1); Carbon Dioxide 31 mmol/L (21-32); Chloride 106 mmol/L (98-108); Cholesterol 145 mg/dL (0-200); Estimated Glomerular Filt Rate 46; Ferritin 171 ng/mL (8-252); Free T3 1.77 pg/mL (2.18-3.98); Free T4 Free Thyroxine 0.89 ng/dL (0.76-1.46); HDL Direct 55 mg/dL (40-60); Iron 80 ug/dL (50-170); LDL Cholesterol Calculated 78 mg/dL (<130); NT Pro B Type Natriuretic Pept 3945 pg/mL (0-450); Osmolality Calculated 301 mOsm/kg (285-295); Potassium 3.8 mmol/L (3.5-5.1); Sodium 144 mmol/L (136-145); Thyroid Stimulating Hormone 7.18 uIU/mL (0.36-3.74); Total Protein 6.5 g/dL (6.4-8.2); Triglycerides 60 mg/dL (0-150); Vitamin B12 485 pg/mL (193-986)
[2023-11-01 12:18] LABS: Glucose 36 mg/dL (70-99)
[2023-11-01 15:26] LABS: Appearance Urine Cloudy (Clear); Bilirubin Urine Negative (Negative); Blood Urine Negative (Negative); Color Urine Yellow (Yellow); Glucose Urine UA Negative (Negative); Ketones Urine Negative (Negative); Leukocyte Esterase Ur Trace LEU/UL (Negative); Nitrate Urine Positive (Negative); Protein Urine Trace (Negative); Specific Grav Ur 1.025 (1.010-1.020); Urobilinogen Urine 0.2 mg/dL (0.2-1.0)
[2023-11-01 15:31] LABS: Creatinine Urine 136.42 mg/dL (40-278); MALB Creatinine Ratio 9.5 mg/g (0-30); Microalbumin Urine Random < 13.0 mg/L
[2023-11-01 15:33] LABS: Add Urine Microscopic? YES; Bacteria Urine 4+ /hpf; RBC Urine None seen /hpf (0-2); Squamous Epithelial Cell Urine Few /hpf (Few); WBC Urine 21-30 /hpf (0-3)
== END 2023-11-01 11:05 | disposition home or self-care (01) ==
LOC: CHSLAB 11:06
PROVIDERS: PCP Internal Medicine; Visit Provider Internal Medicine
DX: S29.9XXA Unspecified injury of thorax, initial encounter (principal); E11.65 Type 2 diabetes mellitus with hyperglycemia; E78.2 Mixed hyperlipidemia; N18.30 Chronic kidney disease, stage 3 unspecified; E53.8 Deficiency of other specified B group vitamins; E03.4 Atrophy of thyroid (acquired); I48.4 Atypical atrial flutter; I50.9 Heart failure, unspecified; M41.86 Other forms of scoliosis, lumbar region; M43.06 Spondylolysis, lumbar region; J90 Pleural effusion, not elsewhere classified; R91.8 Other nonspecific abnormal finding of lung field; S22.41XA Multiple fractures of ribs, right side, initial encounter for closed fracture; R82.90 Unspecified abnormal findings in urine
CPT/HCPCS: 36415; 71100; 72072; 72100; 80053; 80061; 81001; 82043; 82607; 82728; 83036; 83540; 83880; 84439; 84443; 84481; 85027; 87077; 87086; 87088; 87186

== ENCOUNTER 2023-12-16 13:57 | Emergency (ER) | payer MEDICARE, SELFPAY ==
[2023-12-16] VITALS (12 sets, daily range): BP systolic 113–158; BP diastolic 55–100; PULSE 53–90; RESP 9–19; TEMP 35.8; O2SAT 96–100
--- NOTE | ~2023-12-16 | CT_ITS ---
EXAMINATION: CT lumbar spine wo con DATE: 12/16/2023 14:42 INDICATION: Low back pain. TECHNIQUE: Computed tomography (CT) of the lumbar spine was performed without intravenous contrast. A utomated exposure control and iterative reconstruction technique were employed. The dose-length produ ct was 1145.42 mGy-cm. COMPARISON: Lumbar spine radiographs 11/01/2023 FINDINGS: There is a small right pleural effusion. There are gallstones in the gallbladder. There is diverticulosis of the colon without evidence of diverticulitis. There is 9 degrees levocurvature of t horacolumbar spine. Vertebral body heights are normal. There is severely decreased disc height at L1- L2 and L2-L3, moderately decreased disc height at L3-L4, and severely decreased disc height at L4-L5 and L5-S1. The following disc levels are specifically discussed: L1-L2: The disc is bulging. There is severe bilateral facet joint osteoarthritis. There is moderate r ight and mild left neural foraminal stenosis. There is mild central canal stenosis. L2-L3: The disc is bulging. There is severe bilateral facet joint osteoarthritis. There is mild right and moderate left neural foraminal stenosis. There is moderate central canal stenosis. L3-L4: The disc is bulging. There is severe bilateral facet joint osteoarthritis. There is mild right and moderate left neural foraminal stenosis. There is mild central canal stenosis. L4-L5: The disc is bulging. There is severe bilateral facet joint osteoarthritis. There is mild right and moderate left neural foraminal stenosis. There is mild central canal stenosis. L5-S1: The disc is bulging. There is severe bilateral facet joint osteoarthritis. There is moderate b ilateral neural foraminal stenosis. There is mild central canal stenosis. IMPRESSION: 1. Severe lumbar spondylosis. 2. Small right pleural effusion. Reviewed, dictated and finalized at location A.
--- NOTE | 2023-12-16 14:04 | ECG_ITS ---
Test Date: 2023-12-16 14:14:59 Measurements Intervals Points Rate: 90 P: 0 CT: 0 QRS: -87 QRSD: 141 T: 92 QT: 397 QTc: 486 Interpretive Statements POSSIBLY SINUS RHTYHM WITH VENTRICULAR TRIGEMINY INTRAVENTRICULAR CONDUCTION DELAY [130+ ms QRS DURATION] No previous ECG available for comparison Electronically Signed On 12-17-2023 10:10:14 CDT by Casey Philip M.D.
--- NOTE | 2023-12-16 14:05 | ED.GENADULT ---
HPI - General Adult General Chief complaint: Altered Mental Status Stated complaint: hypoglycemia, back pain Time Seen by Provider: 12/16/23 14:02 History of Present Illness HPI narrative: [place] is an 88F with a PMH of insulin dependent diabetes, osteoporosis, Hypothyroidism, Afib, HFpEF, severe mitral regurgitation and HTN that was brought in by EMS for AMS. She was found to be altered and agitated at the scene where she had a glucose in the 30's. She was treated with D5 and she returned to baseline but then had concerns of severe back pain. There was no fall, trauma, incontinence, weakness or paralysis. She was given toradol by EMS that has helped back pain. Related Data Home Medications Medication Instructions Recorded Confirmed apixaban 5 mg tablet (Eliquis) 5 mg PO BID 09/21/20 12/16/23 aspirin 81 mg tablet 81 mg PO DAILY 09/21/20 12/16/23 insulin glargine 100 unit/mL (3 30 unit subcut HS 09/21/20 12/16/23 mL) subcutaneous pen (Lantus Solostar U-100 Insulin) insulin lispro 100 unit/mL See Rx Instructions .Route .COMPLEX 09/21/20 12/16/23 subcutaneous pen (Humalog KwikPen (U-100) Insulin) levothyroxine 100 mcg tablet 112 mcg PO DAILY 09/21/20 12/16/23 metoprolol succinate 25 mg 50 mg PO DAILY 09/21/20 12/16/23 tablet,extended release 24 hr potassium chloride 20 mEq 20 meq PO BID 09/21/20 12/16/23 tablet,extended release(part/cryst) (Klor-Con M) pravastatin 20 mg tablet 20 mg PO DAILY 09/21/20 12/16/23 ropinirole 1 mg tablet 3 mg PO TID PRN legs 09/21/20 12/16/23 escitalopram oxalate 20 mg tablet 20 mg PO DAILY 12/28/22 12/16/23 flecainide 100 mg tablet 100 mg PO DAILY 12/28/22 12/16/23 alendronate 70 mg tablet 70 mg PO WEEKLY 03/19/23 12/16/23 furosemide 40 mg tablet 20 mg PO DAILY 03/19/23 12/16/23 albuterol sulfate 90 mcg/actuation 90 mcg inhalation DIRECTED 12/16/23 12/16/23 aerosol inhaler dofetilide 125 mcg capsule 125 mcg PO DAILY 12/16/23 12/16/23 fluticasone furoate 200 See Rx Instructions .Route .COMPLEX 12/16/23 12/16/23 mcg-vilanterol 25 mcg/dose inhalation powder (Breo Ellipta) gabapentin 300 mg capsule 300 mg PO DAILY 12/16/23 12/16/23 Allergies Allergy/AdvReac Type Severity Reaction Status Date / Time No Known Allergies Allergy Verified 12/16/23 14:19 Review of Systems Review of Systems: All systems reviewed & are unremarkable except as noted in HPI and below PMFSH Past Medical History Medical History (Updated 12/16/23 @ 17:14 by Nguyễn Perez DO) Atrial fibrillation Bladder cancer Dyslipidemia Hypertension Hypothyroidism Insect bite Restless leg syndrome (08/21/11) Type 2 diabetes mellitus Surgical History Surgical History H/O cystoscopy History of eyelid surgery Hx of cataract surgery Social History Social History Smoking status: Never smoker Substance use: never Exam Const: General: cooperative, healthy appearing, comfortable, no acute distress, well developed, alert, awake and Physically active Orientation/consciousness: oriented to person, oriented to place and oriented to time HENMT: Head: normal to inspection, normocephalic and atraumatic Ears: hearing grossly normal bilaterally and external ears normal Face/Nose/Sinus: Normal external nose present Eyes: General: appearance normal, both eyes and all related structures Periorbital: periorbital findings normal Sclera: sclerae normal Pupils: Equal, round and reactive pupils present Neck: Neck: normal visual inspection Chest: Chest palpation & inspection: normal inspection of the chest Resp: Effort & Inspection: normal respiratory effort, able to speak in complete sentences and no respiratory distress Auscultation: clear to auscultation bilaterally Cardio: Jugular venous distension: no JVD Rate: regular rate Rhythm: regular rhythm GI: Inspection: normal to inspection GI
[2023-12-16 14:07] LABS: Glucose Point of Care < 33 mg/dl (65-105)
[2023-12-16 14:07] LABS: Glucose Point of Care 58 mg/dl (65-105)
[2023-12-16 14:26] LABS: Basophils Absolute Auto 0.01 K/mm3 (0.00-0.10); Basophils Percent Auto 0.1 % (0.0-1.0); Eosinophils Absolute Auto 0.02 K/mm3 (0.02-0.50); Eosinophils Percent Auto 0.2 % (1.0-6.0); Hematocrit 37.2 % (35.0-42.0); Hemoglobin 11.9 g/dL (11.7-13.8); Immature Granulocyte Absolute 0.02 K/mm3 (0.00-0.00); Immature Granulocyte Percent A 0.2 % (0.0-0.0); Immature Platelet Fraction Pct 2.7 % (1.0-7.0); Lymphocytes Absolute Auto 0.61 K/mm3 (1.10-4.50); Lymphocytes Percent Auto 7.4 % (18.0-42.0); Mean Corpuscular Volume 90.7 fL (78.0-102.0); Mean Platelet Volume 10.7 fl (9.2-11.8); Monocytes Absolute Auto 0.49 K/mm3 (0.10-0.90); Neutrophils Absolute Auto 7.08 K/mm3 (1.70-7.20); Neutrophils Percent Auto 86.1 % (50.0-70.0); Platelet Count Result 113 K/mm3 (150-420); Red Cell Distribution Width 14.6 % (11.6-14.4); White Blood Count 8.2 K/mm3 (4.8-10.8)
[2023-12-16 14:40] LABS: Hemoglobin A1C 6.4 % (<5.7)
[2023-12-16 14:50] LABS: Alanine Aminotransferase 32 U/L (14-59); Albumin Level 3.5 g/dL (3.4-5.0); Alkaline Phosphatase 94 U/L (46-116); Anion Gap 10 mmol/L (4-12); Aspartate Amino Transferase 36 U/L (15-37); Bilirubin,Total 0.7 mg/dL (0.00-1.00); Blood Urea Nitrogen 25 mg/dL (7-18); Calcium 8.8 mg/dL (8.5-10.1); Carbon Dioxide 27 mmol/L (21-32); Chloride 100 mmol/L (98-108); Estimated Glomerular Filt Rate 45; Glucose 181 mg/dL (70-99); Osmolality Calculated 293 mOsm/kg (285-295); Potassium 3.8 mmol/L (3.5-5.1); Sodium 137 mmol/L (136-145); Total Protein 6.5 g/dL (6.4-8.2)
[2023-12-16 14:53] LABS: Glucose Point of Care 79 mg/dl (65-105)
[2023-12-16 15:01] LABS: NT Pro B Type Natriuretic Pept 3869 pg/mL (0-450)
[2023-12-16 15:01] LABS: Troponin I 9.7 ng/L (0.00-60.4)
--- NOTE | 2023-12-16 15:10 | PC.NURSE ---
Pt resting comfortably in stretcher. Ate half of a turkey sandwich, cottage cheese and fruit. at bedside.
[2023-12-16] MEDS: MORPHINE SULFATE (*CRX) 2 MG/ML INJ IV PUSH (15:47)
--- NOTE | 2023-12-16 15:50 | ECG_ITS ---
Test Date: 2023-12-16 15:59:13 Measurements Intervals [place] Rate: 58 P: 258 TX: 228 QRS: 212 QRSD: 110 T: 101 QT: 450 QTc: 445 Interpretive Statements SINUS BRADYCARDIA WITH FIRST DEGREE AV BLOCK WITH OCCASIONAL VENTRICULAR PREMATURE COMPLEXES ANTEROLATERAL MYOCARDIAL INFARCTION , OF INDETERMINATE AGE [40+ ms Q WAVE IN I/aVL/V3-V6] Compared to ECG 12/16/2023 14:14:59 NO SIGNIFICANT CHANGES Electronically Signed On 12-17-2023 10:10:56 CDT by Casey Philip M.D.
[2023-12-16 16:08] LABS: Glucose Point of Care 86 mg/dl (65-105)
--- NOTE | 2023-12-16 16:13 | PC.NURSE ---
ERP gave pt ice cream to eat. Trying to raise BS. Pt resting comfortably. at bedside.
[2023-12-16 17:06] LABS: Glucose Point of Care 95 mg/dl (65-105)
[2023-12-16 23:37] LABS: Glucose Point of Care 78 mg/dl (65-105)
== END 2023-12-16 17:18 | disposition home or self-care (01) ==
PROVIDERS: Emergency Provider Family Medicine; PCP Internal Medicine
DX: E11.65 Type 2 diabetes mellitus with hyperglycemia (principal); M48.00 Spinal stenosis, site unspecified; E03.9 Hypothyroidism, unspecified; I10 Essential (primary) hypertension; I48.91 Unspecified atrial fibrillation; Z79.01 Long term (current) use of anticoagulants; Z79.82 Long term (current) use of aspirin; Z79.4 Long term (current) use of insulin; Z85.51 Personal history of malignant neoplasm of bladder
CPT/HCPCS: 36415; 72131; 80053; 82948; 83036; 83735; 83880; 84484; 85025; 85055; 93005; 96374; 99284; J2270

== ENCOUNTER 2024-01-13 13:19 | Outpatient (RCR) | payer MEDICARE, SELFPAY ==
--- NOTE | 2024-01-13 14:16 | PTOPEVAL1 ---
Assessment and note entered by Vince Marmolejo Evaluation Information Assessment Status Evaluation ICD-10 Condition Codes (PT) Pain in low back M54.50 Onset 01/12/23 Subjective Information Pt. reports that she has been experiencing back pain for about 1 year. She reports that she has history of arthritis and scoliosis in the spine. She reports that she cannot walk or stand for any significant amount of time due to pain in her back . she states that she is retired. She reports she can walk very short distance and will have to sit after about 5 minutes of standing. She reports that she is able to stand longer if she has something to hold onto. She states that she is still grocery shopping, but needs a cart to hold. She states that she cannot lay flat for any duration due to pain in her back. She states that her goal is to be able to walk longer and stand up straight. Reported Pain Level Pain Score 8: Self Report Assessment PT Clinical Summary Pt. is an 88 year old female who enters the clinic due to chronic low back pain. She presents with impaired postural awareness, impaired flexibility, impaired l.e. strength, impaired gait, impaired balance and functional decline. Continued skilled PT is indicated in order to improve these areas to allow for improved comfort with all IADL's. Plan of Care Interventions Electrical Stimulation,Gait Training,Hot Pack/Cold Pack,Manual Therapy,Mechanical Traction,Neuro Re- education,Patient/Caregiver Educati,Therapeutic Activities,Therapeutic Exercise PT Services Indicated Yes Treatment Frequency and 3x/week x 12 visits Duration These treatments will address the objective and functional deficits as defined above. The patient will be advanced safely and appropriately in order for the patient to progress towards his/her prior level of function. Additional exercises will be introduced and as well as a comprehensive home exercise program upon discharge, if needed, ?to ensure carryover of functional gains achieved in the clinic. This treatment plan has been reviewed and agreement upon by the patient.
--- NOTE | 2024-01-13 14:17 | OPREHPOC ---
Outpatient Therapy Plan of Care This is a Multidisciplinary Plan of Care that may contain components documented by all disciplines (PT, OT, and ST.) PT Problem 1 PT Problem #1 Knowledge Deficit PT Goal 1 Goal / Goal Update Pt. will be independent with a HEP addressing trunk mobility and core strength. PT Problem 2 PT Problem #2 Impaired Balance PT Goal 1 Goal / Goal Update Improve Tinetti score to 19 or greater indicating improved safety. Target Visit 12 PT Problem 3 PT Problem #3 Impaired Gait PT Goal 1 Goal / Goal Update Pt. will complete the 6 minute walk test with 1 rest period over a distance of 500' or greater PT Problem 4 PT Problem #4 Impaired Functional Mobil PT Goal 1 Goal / Goal Update Pt. will demonstrate ability to safely lift a small object off the floor without support for 5 reps Target Visit 12 PT Problem 5 PT Problem #5 Impaired Strength PT Goal 1 Goal / Goal Update Pt. will present with 4+/5 gross l.e. strength in order to improve standing endurance.
--- NOTE | 2024-01-29 14:02 | PCPTNOTE ---
Patient cancelled session. Notes something came up with the family.
--- NOTE | 2024-02-03 13:59 | PCPTNOTE ---
Patient called & cancelled scheduled appointment this date due to [not feeling well. ]
--- NOTE | 2024-02-14 16:08 | PCPTNOTE ---
No call no show this date.
--- NOTE | 2024-02-24 14:44 | PCPTNOTE ---
Cancelled session due to not feeling well.
--- NOTE | 2024-02-26 17:11 | PTOPPROG ---
Assessment and note entered by [facility] Evaluation Information Assessment Status Progress ICD-10 Condition Codes (PT) Pain in low back M54.50 Onset 01/12/23 Subjective Information Pt. reports that she continues to have fluctuating pain. she states that she continues to have trouble with keeping herself upright and requires use of her walker at all times to maintain good posture. She reports she has been sick, making attendance difficult some weeks. She states that she still wants to focus on being able to stand for longer period of time. Assessment PT Clinical Summary Pt. has attended a total of 9 treatment sessions. In this time she has demonstrated improvements in strength, balance and functional mobility. She still has difficulty maintaining standing without an AD. She continues to present with l.e. weakness and impairments in gait mechanics. Given her continued motivation and improvements in strength and gait, recommend continued treatment focusing on continuing to try to improve standing endurance. Plan of Care Interventions Gait Training,Neuro Re-education,Patient/Caregiver Educati,Therapeutic Activities,Therapeutic Exercise PT Services Indicated Yes Treatment Frequency and Continue 2x/week x 3 visits per POC focusing on Duration improving standing endurance. These treatments will address the objective and functional deficits as defined above. The patient will be advanced safely and appropriately in order for the patient to progress towards his/her prior level of function. Additional exercises will be introduced and as well as a comprehensive home exercise program upon discharge, if needed, ?to ensure carryover of functional gains achieved in the clinic. This treatment plan has been reviewed and agreement upon by the patient.
--- NOTE | 2024-03-09 14:33 | PCPTNOTE ---
Reports she is too weak to make it in today. Will be here Saturday.
--- NOTE | 2024-03-12 09:06 | PCPTNOTE ---
03/11/24 - patient was sleeping and missed appointment.
--- NOTE | 2024-03-19 13:28 | OPREHPOC ---
Outpatient Therapy Plan of Care This is a Multidisciplinary Plan of Care that may contain components documented by all disciplines (PT, OT, and ST.) PT Problem 1 PT Problem #1 Knowledge Deficit PT Goal 1 Goal / Goal Update Pt. will be independent with a HEP addressing trunk mobility and core strength. Progress Met PT Problem 2 PT Problem #2 Impaired Balance PT Goal 1 Goal / Goal Update Improve Tinetti score to 19 or greater indicating improved safety. Target Visit 12 Progress Met PT Problem 3 PT Problem #3 Impaired Gait PT Goal 1 Goal / Goal Update Pt. will complete the 6 minute walk test with 1 rest period over a distance of 500' or greater Progress Not Met PT Problem 4 PT Problem #4 Impaired Functional Mobil PT Goal 1 Goal / Goal Update Pt. will demonstrate ability to safely lift a small object off the floor without support for 5 reps Target Visit 12 Progress Not Met PT Problem 5 PT Problem #5 Impaired Strength PT Goal 1 Goal / Goal Update Pt. will present with 4+/5 gross l.e. strength in order to improve standing endurance. Progress Not Met
--- NOTE | 2024-03-19 13:28 | PTOPDC ---
Assessment and note entered by JT File, PT Evaluation Information Assessment Status Discharge ICD-10 Condition Codes (PT) Pain in low back M54.50 Onset 01/12/23 Subjective Information patient reports she is expecting to be DC'd from skilled PT today. she reports she does not use the walker in the home to get around, but uses furniture to steady herself. Reported Pain Level Pain Score 6: Self Report Assessment PT Clinical Summary mrs. mota presents to skilled PT services for her 11th skilled PT visit for her lower back pain. she has been in consistent in attendance, and has not been to PT in 20 days. she is out of the time frame for approval for therapy, and due to her inconsistent attendance is not a good candidate to continue therapy at this time. she will DC to independent HEP at home today. Plan of Care PT Services Indicated Yes
== END 2024-03-19 14:04 | disposition home or self-care (01) ==
LOC: CHSPT 13:19
PROVIDERS: Visit Provider Internal Medicine
DX: M54.50 Low back pain, unspecified (principal)
CPT/HCPCS: 97110; 97112; 97150; 97161; 97530; 97750

== ENCOUNTER 2024-01-22 16:12 | Outpatient (CLI) | payer MEDICARE, SELFPAY ==
[2024-01-22 16:25] LABS: Basophils Absolute Auto 0.04 K/mm3 (0.00-0.10); Basophils Percent Auto 0.4 % (0.0-1.0); Eosinophils Absolute Auto 0.13 K/mm3 (0.02-0.50); Eosinophils Percent Auto 1.4 % (1.0-6.0); Hematocrit 36.6 % (35.0-42.0); Hemoglobin 11.8 g/dL (11.7-13.8); Immature Granulocyte Absolute 0.04 K/mm3 (0.00-0.00); Immature Granulocyte Percent A 0.4 % (0.0-0.0); Lymphocytes Percent Auto 13.4 % (18.0-42.0); Mean Corpuscular HGB Conc 32.2 g/dL (32-36); Mean Corpuscular Hemoglobin 28.9 pg (27.0-31.0); Mean Corpuscular Volume 89.7 fL (78.0-102.0); Mean Platelet Volume 10.9 fl (9.2-11.8); Monocytes Absolute Auto 0.53 K/mm3 (0.10-0.90); Monocytes Percent Auto 5.9 % (2.0-11.0); Neutrophils Absolute Auto 7.03 K/mm3 (1.70-7.20); Neutrophils Percent Auto 78.5 % (50.0-70.0); Platelet Count Result 148 K/mm3 (150-420); Red Blood Count 4.08 M/mm3 (4.20-5.40); Red Cell Distribution Width 14.8 % (11.6-14.4)
[2024-01-22 16:48] LABS: Alanine Aminotransferase 20 U/L (14-59); Albumin Level 3.5 g/dL (3.4-5.0); Alkaline Phosphatase 105 U/L (46-116); Anion Gap 6 mmol/L (4-12); Aspartate Amino Transferase 21 U/L (15-37); Bilirubin,Total 0.5 mg/dL (0.00-1.00); Blood Urea Nitrogen 33 mg/dL (7-18); Carbon Dioxide 32 mmol/L (21-32); Chloride 104 mmol/L (98-108); Estimated Glomerular Filt Rate 35; Glucose 60 mg/dL (70-99); NT Pro B Type Natriuretic Pept 1528 pg/mL (0-450); Osmolality Calculated 299 mOsm/kg (285-295); Potassium 3.4 mmol/L (3.5-5.1); Sodium 142 mmol/L (136-145); Total Protein 6.7 g/dL (6.4-8.2)
== END 2024-01-22 16:13 | disposition home or self-care (01) ==
LOC: CHSLAB 16:15
PROVIDERS: PCP Internal Medicine; Visit Provider Internal Medicine
DX: I10 Essential (primary) hypertension (principal); D64.9 Anemia, unspecified; I50.9 Heart failure, unspecified
CPT/HCPCS: 36415; 80053; 83880; 85025

== ENCOUNTER 2024-03-01 14:00 | Emergency (ER) | payer MEDICARE, SELFPAY ==
[2024-03-01] VITALS (8 sets, daily range): BP systolic 123–135; BP diastolic 60–90; PULSE 64–79; RESP 16–18; TEMP 36.5–36.8; O2SAT 97–99
--- NOTE | ~2024-03-01 | CT_ITS ---
EXAMINATION: CT brain wo con DATE: 03/01/2024 14:45 INDICATION: Syncopal episode. Altered mental status. TECHNIQUE: Computed tomography (CT) of the head was performed without intravenous contrast. The mA wa s adjusted according to patient size. Iterative reconstruction technique was employed. Exam dose: 60 5.33 mGy-cm total exam DLP. COMPARISON: None FINDINGS: Bilateral vertebral artery, basilar artery and bilateral carotid siphon internal carotid ar serafin calcifications. Mild bilateral basal ganglia calcifications. There is nonspecific diminished attenuation the cerebral white matter, likely due to chronic small ve ssel ischemic change. No intracranial mass lesion or hemorrhage, midline shift or mass effect is detected. There is no subd ural or epidural hematoma. There is prominent soft tissue opacification of the left sphenoid sinus; the included paranasal sinus es as well as the mastoid air cells are otherwise normally developed and aerated. No fracture or bone destruction of the cranial vault. IMPRESSION: Cerebral atherosclerosis and chronic small vessel ischemic changes of the cerebral white matter No acute intracranial finding Reviewed, dictated and finalized at [facility]. Reviewed, dictated and finalized at location [facility]. MANAGER
--- NOTE | ~2024-03-01 | XR_ITS ---
XR chest 1V portable DATE: 03/01/2024 14:45 INDICATION: Single episode. Altered mental state. TECHNIQUE: Portable AP chest on 03/01/2024 at 1432 hours COMPARISON: 03/19/2023 2 view chest FINDINGS: There is enlargement of the cardiac silhouette, likely due to cardiomegaly; pericardial eff usion is not excluded. Pulmonary vascular redistribution suggests mild pulmonary venous hypertension. There is prominence of the minor fissure suggesting subpleural edema. Prominent callus is noted in associated with posterolateral right seventh and eighth healing rib frac tures. Multifocal linear discoid atelectasis or scarring in the lower lung zones. Diffuse osteopenia. IMPRESSION: Cardiomegaly, mild congestive change including suspected subpleural edema Reviewed, dictated and finalized at location [facility]. DIRECTOR
--- NOTE | 2024-03-01 14:06 | ED.AMS ---
HPI - Altered Mental Status General Chief Complaint: Altered Mental Status Stated Complaint: hypoglycemia Source: patient and EMS Mode of arrival: EMS Limitations: altered mental status History of Present Illness HPI narrative: Patient is an 88-year-old female with altered mental status secondary to hypoglycemia. She was unresponsive and called an ambulance. Ambulance found a blood sugar of 32. She was given IV dextrose. She is still somewhat confused post hypoglycemia. is on his way. She is diabetic and uses insulin. It appears patient did not eat breakfast and took her insulin. She also may have taken the wrong dose of insulin. MD complaint: altered mental status Onset (ago): hour(s) (1) Timing confirmed by: spouse Severity: moderate Consistency of symptoms: constant Context: other ( Diabetes type 2 with insulin using) Associated symptoms: denies other symptoms Treatments prior to arrival: glucose Related Data Home Medications Medication Instructions Recorded Confirmed apixaban 5 mg tablet (Eliquis) 5 mg PO BID 09/21/20 12/16/23 aspirin 81 mg tablet 81 mg PO DAILY 09/21/20 12/16/23 insulin glargine 100 unit/mL (3 30 unit subcut HS 09/21/20 12/16/23 mL) subcutaneous pen (Lantus Solostar U-100 Insulin) insulin lispro 100 unit/mL See Rx Instructions .Route .COMPLEX 09/21/20 12/16/23 subcutaneous pen (Humalog KwikPen (U-100) Insulin) levothyroxine 100 mcg tablet 112 mcg PO DAILY 09/21/20 12/16/23 metoprolol succinate 25 mg 50 mg PO DAILY 09/21/20 12/16/23 tablet,extended release 24 hr potassium chloride 20 mEq 20 meq PO BID 09/21/20 12/16/23 tablet,extended release(part/cryst) (Klor-Con M) pravastatin 20 mg tablet 20 mg PO DAILY 09/21/20 12/16/23 ropinirole 1 mg tablet 3 mg PO TID PRN legs 09/21/20 12/16/23 escitalopram oxalate 20 mg tablet 20 mg PO DAILY 12/28/22 12/16/23 flecainide 100 mg tablet 100 mg PO DAILY 12/28/22 12/16/23 alendronate 70 mg tablet 70 mg PO WEEKLY 03/19/23 12/16/23 furosemide 40 mg tablet 20 mg PO DAILY 03/19/23 12/16/23 albuterol sulfate 90 mcg/actuation 90 mcg inhalation DIRECTED 12/16/23 12/16/23 aerosol inhaler dofetilide 125 mcg capsule 125 mcg PO DAILY 12/16/23 12/16/23 fluticasone furoate 200 See Rx Instructions .Route .COMPLEX 12/16/23 12/16/23 mcg-vilanterol 25 mcg/dose inhalation powder (Breo Ellipta) gabapentin 300 mg capsule 300 mg PO DAILY 12/16/23 12/16/23 Allergies Allergy/AdvReac Type Severity Reaction Status Date / Time No Known Allergies Allergy Verified 12/16/23 14:19 Review of Systems Review of Systems: All systems reviewed & are unremarkable except as noted in HPI and below Constitutional: Constitutional: Reports no additional constitutional complaints Eyes: Eyes: Reports no additional eye complaints ENT: Reports system reviewed and no additional complaints, except as documented Cardiovascular: Cardiovascular: Reports no additional cardiovascular complaints Respiratory: Respiratory: Reports no additional respiratory complaints Gastrointestinal: Gastrointestinal: Reports no additional gastrointestinal complaints Genitourinary: Genitourinary: Reports no additional female genitourinary complaints Musculoskeletal: Musculoskeletal: Reports no additional musculoskeletal complaints Integumentary/Breasts: Skin/Breast: Reports system reviewed and no additional complaints, except as docu Neurologic: Reports system reviewed and no additional complaints, except as documented Psychiatric: Psychiatric: Reports no additional psychiatric complaints Endocrine: Endocrine: Reports no additional endocrine complaints Hematologic/Lymphatic: Hematologic/Lymphatic: Reports no additional hematologic/lymphatic complaints Allergic/Immunologic: Allergic/Immunologic: Reports no additional allergic/immunologic complaints PMFSH Past Medical History Medical History Atrial fibrillation Bladder cancer Dyslipidemia Hypertension Hypothyroidism Insect bite Restless leg syndrome (08/21/11) Type 2 diabetes mellitus Surgical History Surgical History H/O cystoscopy History of eyelid surgery Hx of cataract surgery Social History Social History Smoking status: Never smoker Substance use: never Exam Const: General: healthy appearing Nutritional Appearance: well nourished Orientation/consciousness: patient oriented x3 ( after dextrose given and blood sugars 138 in the ER) Limitations: no limitations HENMT: Head: normal to inspection Ears: external ears normal Face/Nose/Sinus: Normal external nose present Eyes: Conjunctivae: conjunctivae normal Pupils: Equal, round and reactive pupils present EOM: EOMs intact bilaterally Neck: Neck: normal visual inspection Chest: Chest palpation & inspection: normal inspection of the chest Resp: Effort & Inspection: normal respiratory effort and not labored Auscultation: clear to auscultation bilaterally and no crackles Cardio: Rate: regular rate Rhythm: regular rhythm Heart sounds: no murmurs GI: Inspection: non-distended GI Palp: Yes Soft to palpation and No Tenderness to palpation present (GI) Auscultation: normal bowel sounds : General: Yes bladder normal to palpation Back/Spine/Pelvis: Back: no CVA tenderness Skin: General skin exam: normal color Rashes: no rashes Wounds: no wounds Neuro: General: patient oriented x3 Cranial nerves: Yes Nystagmus not present Speech: normal speech Gait exam (Neuro): Normal gait present Extrem: General: normal to inspection Psych: Mental Status: mental status grossly normal Affect: normal affect Attitude: cooperative Course Vital Signs Vital signs: Vital Signs Temperature 36.6 C 03/01/24 14:00 Pulse Rate 79 03/01/24 14:00 Respiratory Rate 16 03/01/24 14:00 Blood Pressure 130/75 03/01/24 14:00 Pulse Oximetry 98 03/01/24 14:00 Oxygen Delivery Room Air 03/01/24 14:00 Temperature 36.5 C 03/01/24 16:55 Pulse Rate 74 03/01/24 16:55 Respiratory Rate 16 03/01/24 16:55 Blood Pressure 135/60 03/01/24 16:55 Pulse Oximetry 98 03/01/24 16:55 Oxygen Delivery Room Air 03/01/24 16:55 MDM - Altered Mental Status MDM Narrative Medical decision making narrative: patient is a 88-year-old female with altered mental status secondary to hypoglycemia. We will do workup at this time and make sure her sugar stays elevated. Lab Data Attestation: I reviewed the patient's lab results. 03/01/24 14:07 03/01/24 14:13 Labs: Lab Results 03/01/24 03/01/24 03/01/24 Range/Units 14:07 14:13 15:08 WBC 6.5 (4.8-10.8) K/mm3 RBC 4.01 L (4.20-5.40) M/mm3 Hgb 11.5 L (11.7-13.8) g/dL Hct 36.0 (35.0-42.0) % MCV 89.8 (78.0-102.0) fL MCH 28.7 (27.0-31.0) pg MCHC 31.9 L (32-36) g/dL RDW 14.6 H (11.6-14.4) % Plt Count 128 L (150-420) K/mm3 MPV 11.0 (9.2-11.8) fl Immature Gran % (Auto) 0.5 H (0.0-0.0) % Neut % (Auto) 85.2 H (50.0-70.0) % Lymph % (Auto) 7.8 L (18.0-42.0) % [place] % (Auto) 5.0 (2.0-11.0) % Eos % (Auto) 0.9 L (1.0-6.0) % Baso % (Auto) 0.6 (0.0-1.0) % Lymph # (Auto) 0.51 L (1.10-4.50) K/mm3 [place] # (Auto) 0.33 (0.10-0.90) K/mm3 Eos # (Auto) 0.06 (0.02-0.50) K/mm3 Baso # (Auto) 0.04 (0.00-0.10) K/mm3 Abs Immat Gran (auto) 0.03 H (0.00-0.00) K/mm3 Absolute Neuts (auto) 5.57 (1.70-7.20) K/mm3 Absolute Nucleated RBC 0.00 (0.00-0.00) K/mm3 Nucleated RBC % 0.0 (0-0.0) % % Immature Plt Fraction 4.3 (1.0-7.0) % Sodium 144 (136-145) mmol/L Potassium 4.3 (3.5-5.1) mmol/L Chloride 109 H (98-108) mmol/L Carbon Dioxide 28 (21-32) mmol/L Anion Gap 7 (4-12) mmol/L BUN 27 H (7-18) mg/dL Creatinine 1.23 H (0.55-1.02) mg/dL Estim Creat Clear Calc Not Reportable Estimated GFR 41 L (59 - ) Glucose 169 H (70-99) mg/dL POC Capillary Glucose 128 H (65-105) mg/dl Calculated Osmolality 307 H (285-295) mOsm/kg Lactic Acid 1.1 (0.4-2.0) mmol/L Calcium 9.1 (8.5-10.1) mg/dL Total Bilirubin 0.4 (0.00-1.00) mg/dL AST 18 (15-37) U/L ALT 21 (14-59) U/L Alkaline Phosphatase 104 (46-116) U/L Troponin I 10.0 (0.00-60.4) ng/L Total Protein 6.4 (6.4-8.2) g/dL Albumin 3.1 L (3.4-5.0) g/dL Urine Color (Yellow) Urine Appearance (Clear) Urine pH (5.0-8.0) Ur Specific Liberal (1.010-1.020) Urine Protein (Negative) Urine Glucose (UA) (Negative) Urine Ketones (Negative) Ur Blood (Man) (Negative) Urine Nitrate (Negative) Urine Bilirubin (Negative) Urine Urobilinogen (0.2-1.0) mg/dL Leukocyte Esterase Rfl (Negative) ALLISON/UL 03/01/24 03/01/24 Range/Units 16:13 17:45 WBC (4.8-10.8) K/mm3 RBC (4.20-5.40) M/mm3 Hgb (11.7-13.8) g/dL Hct (35.0-42.0) % MCV (78.0-102.0) fL MCH (27.0-31.0) pg MCHC (32-36) g/dL RDW (11.6-14.4) % Plt Count (150-420) K/mm3 MPV (9.2-11.8) fl Immature Gran % (Auto) (0.0-0.0) % Neut % (Auto) (50.0-70.0) % Lymph % (Auto) (18.0-42.0) % [place] % (Auto) (2.0-11.0) % Eos % (Auto) (1.0-6.0) % Baso % (Auto) (0.0-1.0) % Lymph # (Auto) (1.10-4.50) K/mm3 [place] # (Auto) (0.10-0.90) K/mm3 Eos # (Auto) (0.02-0.50) K/mm3 Baso # (Auto) (0.00-0.10) K/mm3 Abs Immat Gran (auto) (0.00-0.00) K/mm3 Absolute Neuts (auto) (1.70-7.20) K/mm3 Absolute Nucleated RBC (0.00-0.00) K/mm3 Nucleated RBC % (0-0.0) % % Immature Plt Fraction (1.0-7.0) % Sodium (136-145) mmol/L Potassium (3.5-5.1) mmol/L Chloride (98-108) mmol/L Carbon Dioxide (21-32) mmol/L Anion Gap (4-12) mmol/L BUN (7-18) mg/dL Creatinine (0.55-1.02) mg/dL Estim Creat Clear Calc Estimated GFR (59 - ) Glucose (70-99) mg/dL POC Capillary Glucose 175 H (65-105) mg/dl Calculated Osmolality (285-295) mOsm/kg Lactic Acid (0.4-2.0) mmol/L Calcium (8.5-10.1) mg/dL Total Bilirubin (0.00-1.00) mg/dL AST (15-37) U/L ALT (14-59) U/L Alkaline Phosphatase (46-116) U/L Troponin I (0.00-60.4) ng/L Total Protein (6.4-8.2) g/dL Albumin (3.4-5.0) g/dL Urine Color Yellow (Yellow) Urine Appearance Clear (Clear) Urine pH 5.5 (5.0-8.0) Ur Specific Liberal 1.020 (1.010-1.020) Urine Protein Negative (Negative) Urine Glucose (UA) 3+ H (Negative) Urine Ketones Negative (Negative) Ur Blood (Man) Negative (Negative) Urine Nitrate Negative (Negative) Urine Bilirubin Negative (Negative) Urine Urobilinogen 0.2 (0.2-1.0) mg/dL Leukocyte Esterase Rfl Negative (Negative) ALLISON/UL Imaging Data Attestation: I personally reviewed and interpreted this imaging study as follows: Radiologist's impression: CT scan of the head without contrast was negative for acute process chest x-ray shows multiple changes that likely represent chronic and not acute process as she is not short of breath and had a syncopal/unresponsive episode ECG Data EKG #1: Attestation: I personally reviewed and interpreted this ECG as follows: ECG completion date: 03/01/24 ECG completion time: 16:58 Interpretation: ATRIAL TACHYCARDIA WITH SLOW VENTRICULAR RESPONSE VENTRICULAR PREMATURE COMPLEX LEFT ANTERIOR FASCICULAR BLOCK POOR R WAVE PROGRESSION, ANTERIOR LEADS BASELINE ARTIFACT- II, III, AVR, AVL, AVF ABNORMAL ECG Compared to ECG 12/16/2023 15:59:13 ATRIAL TACHYCARDIA NOW PRESENT Left anterior fascicular block now present EKG Interpretation: bradycardia ( ventricular), tachycardia ( Atrial), sinus rhythm, PVCs, PACs, non-specific ST changes, normal QT and left axis Discharge Plan Discharge Clinical Impression: Hypoglycemia, Syncope and collapse Patient Disposition: Home, Self-Care Condition: Improved Instructions: Hypoglycemia in a Person with Diabetes (DC) Additional Instructions: please follow-up with the primary doctor in the next week. Have him monitor your congestive heart failure as her chest x-ray showed some changes that possibly are new were in nature. At this time you have no symptoms. Make sure to eat small snacks throughout the day. This will prevent low blood sugar. Prescriptions: No Action dofetilide 125 mcg capsule 125 mcg PO DAILY gabapentin 300 mg capsule 300 mg PO DAILY albuterol sulfate 90 mcg/actuation HFA aerosol inhaler 90 mcg INHALATION DIRECTED fluticasone furoate-vilanterol [Breo Ellipta] 200-25 mcg/dose blister with device See Rx Instructions .ROUTE .COMPLEX Rx Instructions: 200-25 MCG\DOSE hydrocodone-acetaminophen 5-325 mg tablet 1 tablet PO Q8H PRN (Reason: pain) Qty: 9 0RF ropinirole 1 mg tablet 3 mg PO TID PRN (Reason: legs) levothyroxine 100 mcg tablet 112 mcg PO DAILY pravastatin 20 mg tablet 20 mg PO DAILY metoprolol succinate 25 mg tablet extended release 24 hr 50 mg PO DAILY insulin lispro [Humalog KwikPen Insulin] 100 unit/mL insulin pen See Rx Instructions .ROUTE .COMPLEX Hold Instructions: Hold until you follow up with your regular doctor Rx Instructions: 5U breakfast, 10U lunch, 10U dinner insulin glargine [Lantus Solostar U-100 Insulin] 100 unit/mL (3 mL) insulin pen 30 unit SUBCUT HS Eliquis 5 mg tablet 5 mg PO BID potassium chloride [Klor-Con M20] 20 mEq Tablet,Er Particles/Crystals 20 meq PO BID aspirin 81 mg Tablet 81 mg PO DAILY acetaminophen [Tylenol] 325 mg capsule 650 mg PO Q8H PRN (Reason: pain) Qty: 20 0RF flecainide 100 mg tablet 100 mg PO DAILY escitalopram oxalate 20 mg tablet 20 mg PO DAILY furosemide 40 mg tablet 20 mg PO DAILY alendronate 70 mg tablet 70 mg PO WEEKLY Follow-up/Referrals: UNKNOWN,DOCTOR [Non-Staff] - Time of Disposition: 17:04
--- NOTE | 2024-03-01 14:07 | ECG_ITS ---
Test Date: 2024-03-01 14:23:20 Measurements Intervals [place] Rate: 59 P: 0 WA: 0 QRS: -66 QRSD: 110 T: 90 QT: 423 QTc: 419 Interpretive Statements ATRIAL TACHYCARDIA WITH SLOW VENTRICULAR RESPONSE VENTRICULAR PREMATURE COMPLEX LEFT ANTERIOR FASCICULAR BLOCK POOR R WAVE PROGRESSION, ANTERIOR LEADS BASELINE ARTIFACT- II, III, AVR, AVL, AVF ABNORMAL ECG Compared to ECG 12/16/2023 15:59:13 ATRIAL TACHYCARDIA NOW PRESENT Left anterior fascicular block now present Electronically Signed On 03-01-2024 16:51:24 CLINICAL SYSTEMS EDUCATOR by Barrington Whaley D.O.
[2024-03-01 14:11] LABS: Glucose Point of Care 128 mg/dl (65-105)
[2024-03-01 14:24] LABS: Basophils Absolute Auto 0.04 K/mm3 (0.00-0.10); Basophils Percent Auto 0.6 % (0.0-1.0); Eosinophils Absolute Auto 0.06 K/mm3 (0.02-0.50); Eosinophils Percent Auto 0.9 % (1.0-6.0); Hemoglobin 11.5 g/dL (11.7-13.8); Immature Granulocyte Absolute 0.03 K/mm3 (0.00-0.00); Immature Granulocyte Percent A 0.5 % (0.0-0.0); Immature Platelet Fraction Pct 4.3 % (1.0-7.0); Lymphocytes Absolute Auto 0.51 K/mm3 (1.10-4.50); Lymphocytes Percent Auto 7.8 % (18.0-42.0); Mean Corpuscular HGB Conc 31.9 g/dL (32-36); Mean Corpuscular Hemoglobin 28.7 pg (27.0-31.0); Mean Corpuscular Volume 89.8 fL (78.0-102.0); Monocytes Absolute Auto 0.33 K/mm3 (0.10-0.90); Neutrophils Absolute Auto 5.57 K/mm3 (1.70-7.20); Neutrophils Percent Auto 85.2 % (50.0-70.0); Platelet Count Result 128 K/mm3 (150-420); Red Blood Count 4.01 M/mm3 (4.20-5.40); Red Cell Distribution Width 14.6 % (11.6-14.4); White Blood Count 6.5 K/mm3 (4.8-10.8)
[2024-03-01 14:38] LABS: Alanine Aminotransferase 21 U/L (14-59); Albumin Level 3.1 g/dL (3.4-5.0); Alkaline Phosphatase 104 U/L (46-116); Anion Gap 7 mmol/L (4-12); Aspartate Amino Transferase 18 U/L (15-37); Bilirubin,Total 0.4 mg/dL (0.00-1.00); Blood Urea Nitrogen 27 mg/dL (7-18); Calcium 9.1 mg/dL (8.5-10.1); Carbon Dioxide 28 mmol/L (21-32); Chloride 109 mmol/L (98-108); Estimated Glomerular Filt Rate 41; Glucose 169 mg/dL (70-99); Osmolality Calculated 307 mOsm/kg (285-295); Potassium 4.3 mmol/L (3.5-5.1); Sodium 144 mmol/L (136-145); Total Protein 6.4 g/dL (6.4-8.2)
[2024-03-01 14:41] LABS: Lactic Acid Reflex 1.1 mmol/L (0.4-2.0)
[2024-03-01] MEDS: SODIUM CHLORIDE 0.9% IV 500 ML 999 ML IV CONT (15:01)
[2024-03-01 16:33] LABS: Add Urine Microscopic? NO; Appearance Urine Clear (Clear); Bilirubin Urine Negative (Negative); Blood Urine Negative (Negative); Color Urine Yellow (Yellow); Glucose Urine UA 3+ (Negative); Ketones Urine Negative (Negative); Leukocyte Esterase Ur Negative LEU/UL (Negative); Nitrate Urine Negative (Negative); Protein Urine Negative (Negative); Urobilinogen Urine 0.2 mg/dL (0.2-1.0); pH Urine 5.5 (5.0-8.0)
[2024-03-01 16:47] LABS: Glucose Point of Care 175 mg/dl (65-105)
== END 2024-03-01 17:13 | disposition home or self-care (01) ==
PROVIDERS: Emergency Provider Emergency Medicine; PCP Internal Medicine
DX: E11.649 Type 2 diabetes mellitus with hypoglycemia without coma (principal); R55 Syncope and collapse; E78.5 Hyperlipidemia, unspecified; E03.9 Hypothyroidism, unspecified; I10 Essential (primary) hypertension; I48.91 Unspecified atrial fibrillation; Z79.4 Long term (current) use of insulin
CPT/HCPCS: 36415; 70450; 71045; 80053; 81003; 82948; 83605; 84484; 85025; 85055; 93005; 96360; 99284; J7040

== ENCOUNTER 2024-03-20 13:49 | Outpatient (CLI) | payer MEDICARE, SELFPAY ==
--- NOTE | ~2024-03-20 | MM_ITS ---
EXAMINATION: MM screening damaris BI w katiana HISTORY: Screening mammogram, family history of breast cancer in her sister. TECHNIQUE: Craniocaudal and mediolateral oblique 3-D tomosynthesis images were obtained and synthetic 2-D images were generated. CAD analysis was submitted and interpreted. COMPARISON: 02/13/2023, 11/14/2021, 02/03/2020 BREAST PARENCHYMAL COMPOSITION:Not Dense. The breasts are almost entirely fatty FINDINGS: No suspicious mass, calcification, or architectural distortion are identified in either xenia ast to suggest malignancy. There has been no suspicious interval change. IMPRESSION: No mammographic evidence of malignancy. Recommend routine screening mammography in one year. BI-RADS Category 1: Negative Reviewed, dictated and finalized at location . RAM DIRECTOR/TRAFFIC DIRECTOR
== END 2024-03-20 13:50 | disposition home or self-care (01) ==
PROVIDERS: PCP Internal Medicine; Visit Provider Internal Medicine
DX: Z12.31 Encounter for screening mammogram for malignant neoplasm of breast (principal)
CPT/HCPCS: 77063; 77067

== ENCOUNTER 2024-03-21 14:53 | Emergency (ER) | payer MEDICARE, SELFPAY ==
--- NOTE | ~2024-03-21 | CT_ITS ---
EXAMINATION: CT cervical spine wo con DATE: 03/21/2024 15:59 INDICATION: Fall. Head injury. TECHNIQUE: Computed tomography (CT) of the cervical spine was performed without intravenous contrast. Automated exposure control and iterative reconstruction technique were employed. Exam dose: 366.20 mGy-cm total exam DLP. COMPARISON: None FINDINGS: Normal alignment at the atlantoaxial joints. C1 and C2 are normally aligned and the odontoi d process is intact. There is multilevel degenerative disc disease, moderate to moderately severe at C5-6, mild at the rem aining interspaces. There is degenerative change at the apophyseal joints. There is uncovertebral joint spurring primaril y at C5-6. No fracture or dislocation or locked facet or prevertebral soft tissue swelling is detected. IMPRESSION: Moderate cervical spondylosis; no fracture or dislocation or locked facet Reviewed, dictated and finalized at [facility]. Reviewed, dictated and finalized at location A. BUYER IMPRESSION: Moderate cervical spondylosis; no fracture or dislocation or peter d facet
--- NOTE | ~2024-03-21 | CT_ITS ---
EXAMINATION: CT brain wo con DATE: 03/21/2024 15:59 INDICATION: Fall, head injury. Patient on anticoagulant treatment TECHNIQUE: Computed tomography (CT) of the head was performed without intravenous contrast. The mA wa s adjusted according to patient size. Iterative reconstruction technique was employed. Exam dose: 60 5.33 mGy-cm total exam DLP. COMPARISON: 03/01/2024 CT brain FINDINGS: Prominent bilateral vertebral artery calcification. Prominent bilateral carotid siphon inte rnal carotid artery calcifications. Minimal bilateral basal ganglia calcification. There is nonspecific diminished attenuation the cerebral white matter, likely due to chronic small ve ssel ischemic changes. Normal ventricular size. No intracranial mass lesion or hemorrhage, midline shift or mass effect. No subdural or epidural hematoma is detected. The mastoid air cells and included paranasal sinuses are normally developed and aerated with the exce ption of prominent partial opacification of the left sphenoid sinus. Mild lateral high left parietal cephalohematoma. No skull fracture or bone destruction is detected. Probable densely calcified left frontal meningioma or enostosis. IMPRESSION: High left lateral parietal mild cephalohematoma; no skull fracture or coup or contrecoup intracranial injury or other acute intracranial finding Cerebral atherosclerosis and chronic small vessel ischemic changes of the cerebral white matter Reviewed, dictated and finalized at [facility]. Reviewed, dictated and finalized at location A. TELLER IMPRESSION: High left lateral parietal mild cephalohematoma; no skull fracture or coup or contrecoup intracranial injury or other acute intracranial finding Cerebral atherosclerosis and chronic small vessel ischemic changes of the cereb ral white matter
[2024-03-21 14:51] VITALS: BP 126/58; PULSE 81; RESP 13; TEMP 36.4; O2SAT 95
[2024-03-21 15:38] VITALS: BP 128/61; PULSE 78; RESP 15; O2SAT 100
--- NOTE | 2024-03-21 16:05 | ED.WOUNDLAC ---
HPI - Wound/Laceration General Chief Complaint: Wound/Laceration <Jane Foster PA-C - Last Filed: 03/21/24 22:31> Stated Complaint: RLE lac <DIANA Richards Last Filed: 03/21/24 22:31> Time Seen by Provider: 03/21/24 15:02 <DIANA Richards Last Filed: 03/21/24 22:31> Source: patient <DIANA Richards Last Filed: 03/21/24 22:31> Mode of arrival: EMS <DIANA Richards Last Filed: 03/21/24 22:31> Limitations: no limitations <DIANA Richards Last Filed: 03/21/24 22:31> History of Present Illness HPI narrative: Patient is an 88 y/o female who presents to the ED via EMS with report of a laceration of her R lower leg. Patient report she tripped and fell at home and hit her leg against her husbands wheelchair. She sustained a large laceration to her R lower leg. Was unable to control bleeding at home and EMS was called. Patient is on eliquis. She states she did hit her head when she fell. Denied LOC. Denies dizziness/lightheadedness, numbness. Tetanus UTD. <DIANA Richards Last Filed: 03/21/24 22:31> Related Data Home Medications: Home Medications Medication Instructions Recorded Confirmed apixaban 5 mg tablet (Eliquis) 5 mg PO BID 09/21/20 12/16/23 aspirin 81 mg tablet 81 mg PO DAILY 09/21/20 12/16/23 insulin glargine 100 unit/mL (3 30 unit subcut HS 09/21/20 12/16/23 mL) subcutaneous pen (Lantus Solostar U-100 Insulin) insulin lispro 100 unit/mL See Rx Instructions .Route .COMPLEX 09/21/20 12/16/23 subcutaneous pen (Humalog KwikPen (U-100) Insulin) levothyroxine 100 mcg tablet 112 mcg PO DAILY 09/21/20 12/16/23 metoprolol succinate 25 mg 50 mg PO DAILY 09/21/20 12/16/23 tablet,extended release 24 hr potassium chloride 20 mEq 20 meq PO BID 09/21/20 12/16/23 tablet,extended release(part/cryst) (Klor-Con M) pravastatin 20 mg tablet 20 mg PO DAILY 09/21/20 12/16/23 ropinirole 1 mg tablet 3 mg PO TID PRN legs 09/21/20 12/16/23 escitalopram oxalate 20 mg tablet 20 mg PO DAILY 12/28/22 12/16/23 flecainide 100 mg tablet 100 mg PO DAILY 12/28/22 12/16/23 alendronate 70 mg tablet 70 mg PO WEEKLY 03/19/23 12/16/23 furosemide 40 mg tablet 20 mg PO DAILY 03/19/23 12/16/23 albuterol sulfate 90 mcg/actuation 90 mcg inhalation DIRECTED 12/16/23 12/16/23 aerosol inhaler dofetilide 125 mcg capsule 125 mcg PO DAILY 12/16/23 12/16/23 fluticasone furoate 200 See Rx Instructions .Route .COMPLEX 12/16/23 12/16/23 mcg-vilanterol 25 mcg/dose inhalation powder (Breo Ellipta) gabapentin 300 mg capsule 300 mg PO DAILY 12/16/23 12/16/23 <Jane Foster PA-C - Last Filed: 03/21/24 22:31> Allergies/Adverse Reactions: Allergies Allergy/AdvReac Type Severity Reaction Status Date / Time No Known Allergies Allergy Verified 03/21/24 18:18 <Jane Foster PA-C - Last Filed: 03/21/24 22:31> Review of Systems Review of Systems: All systems reviewed & are unremarkable except as noted in HPI. <Jane Foster PA-C - Last Filed: 03/21/24 22:31> All systems reviewed & are unremarkable except as noted in HPI and below <Jane Foster PA-C - Last Filed: 03/21/24 22:31> PMFSH Past Medical History Medical History: Medical History Atrial fibrillation Bladder cancer Dyslipidemia Hypertension Hypothyroidism Insect bite Restless leg syndrome (08/21/11) Type 2 diabetes mellitus <Jane Foster PA-C - Last Filed: 03/21/24 22:31> Surgical History Surgical History: Surgical History H/O cystoscopy History of eyelid surgery Hx of cataract surgery <Jane Foster PA-C - Last Filed: 03/21/24 22:31> Social History Social History: Social History Smoking status: Never smoker Substance use: never <Jane Foster PA-C - Last Filed: 03/21/24 22:31> Exam Narrative: GENERAL: Elderly, obese with BMI of 33.6, non-toxic, in no acute distress. HEAD: Normocephalic, atraumatic. No significant contusions or scalp tenderness. RESPIRATORY: Airway patent, respirations nonlabored. Clear to auscultation bilaterally, no rales, rhonchi, wheezing. CARDIOVASCULAR: Regular rate and rhythm. Pedal pulses intact and easily palpable. MUSCULOSKELETAL: Moves all extremities. Large v-shaped flap laceration to R lateral lower leg, approx 20cm in complete length, wound edges do not approximate well, some hematoma formation in center of laceration. Scattered areas of oozing along laceration but no pulsatile bleeding. Minimal tenderness. SKIN: Warm, dry, normal color. NEURO: A&O X3. Speech clear. Cranial nerves II-XII grossly intact. Steady gait. No ataxic movements. No focal deficits. PSYCHIATRIC: Appropriate mood and affect. Normal interaction. <Jane Foster PA-C - Last Filed: 03/21/24 22:31> Course TAX COLLECTION COORDINATOR/PA Physician Supervision This visit was performed by both a physician and an APC. I performed all aspects of the MDM as documented. <Anuj Clarke MD - Last Filed: 03/22/24 13:35> Vital Signs Vital signs: Vital Signs Temperature 97.6 F 03/21/24 14:51 Pulse Rate 81 03/21/24 14:51 Respiratory Rate 13 03/21/24 14:51 Blood Pressure 126/58 L 03/21/24 14:51 Pulse Oximetry 95 03/21/24 14:51 Oxygen Delivery Room Air 03/21/24 14:51 Temperature 97.6 F 03/21/24 14:51 Pulse Rate 80 03/21/24 18:30 Respiratory Rate 18 03/21/24 18:30 Blood Pressure 121/66 03/21/24 18:30 Pulse Oximetry 100 03/21/24 18:30 Oxygen Delivery Room Air 03/21/24 14:51 <Jane Foster PA-C - Last Filed: 03/21/24 22:31> Vital Signs Temperature 97.6 F 03/21/24 14:51 Pulse Rate 81 03/21/24 14:51 Respiratory Rate 13 03/21/24 14:51 Blood Pressure 126/58 L 03/21/24 14:51 Pulse Oximetry 95 03/21/24 14:51 Oxygen Delivery Room Air 03/21/24 14:51 Temperature 97.6 F 03/21/24 14:51 Pulse Rate 80 03/21/24 18:30 Respiratory Rate 18 03/21/24 18:30 Blood Pressure 121/66 03/21/24 18:30 Pulse Oximetry 100 03/21/24 18:30 Oxygen Delivery Room Air 03/21/24 14:51 <Anuj Clarke MD - Last Filed: 03/22/24 13:35> Procedures Laceration Laceration 1: Date: 03/21/24 <DIANA Richards Last Filed: 03/21/24 22:31> Time: 17:00 <DIANA Richards Last Filed: 03/21/24 22:31> Site: lower extremity <DIANA Richards Last Filed: 03/21/24 22:31> Side (If applicable): right <DIANA Richards Last Filed: 03/21/24 22:31> Size (cm): 20 <DIANA Richards Last Filed: 03/21/24 22:31> Description: flap and irregular <DIANA Richards Last Filed: 03/21/24 22:31> Depth: simple, single layer <DIANA Richards Last Filed: 03/21/24 22:31> Local Anesthetic: lidocaine 1% and with epi <DIANA Richards Last Filed: 03/21/24 22:31> Amount of anesthesia used (mL): 20 <DIANA Richards Last Filed: 03/21/24 22:31> Pre-repair: wound explored, irrigated, irrigated extensively and deep structures intact <DIANA Richards Last Filed: 03/21/24 22:31> ====== Skin Level ======: Skin layer closed with: nylon <DIANA Richards Filed: 03/21/24 22:31> Size (cm): 3-0 and 4-0 <DIANA Richards Last Filed: 03/21/24 22:31> Number of sutures: 25 <DIANA Richards Last Filed: 03/21/24 22:31> Technique: simple, interrupted and horizontal mattress <DIANA Richards Last Filed: 03/21/24 22:31> ====== Subcutaneous Layer ======: ====== Muscle Layer ======: ====== Tendon Layer ======: MDM - Wound/Laceration MDM Narrative Medical decision making narrative: Patient presented to ED with large laceration to right lateral lower leg sustained from hitting her leg against a wheelchair in a mechanical fall. Patient is neurovascularly intact. She is on Eliquis due to history of AFib. She did hit her head but denied LOC. CT brain and cervical spine showing cephalohematoma but no intracranial injury. No cervical spine abnormalities. Patient is up-to-date on her tetanus. Laceration was thoroughly irrigated and approximated to the best of its ability. There was hematoma formation beneath the laceration which limited movement of skin flap's ability to fully approximate. Remainder will have to heal by secondary intention. There was 2 small areas of the open portion of the laceration that did have slight persistent oozing. Surgicel dressing was placed to these areas. Telfa and xeroform dressing placed with SERAFIN bandage/pressure dressing. Will start patient on keflex to prevent infection. Emphasized the importance of having very close follow-up with primary care doctor for wound check and management, will likely need referral to wound care for management of chronic wound. Patient voiced understanding of these recommendations. She was given strict return precautions. Discharged in stable condition. <Jane Foster PA-C - Last Filed: 03/21/24 22:31> Medical Records Attestation: I reviewed the patient's medical records. <DIANA Richards Last Filed: 03/21/24 22:31> Imaging Data Attestation: I personally reviewed and interpreted this imaging study as follows: <DIANA Richards Last Filed: 03/21/24 22:31> Radiologist's impression: ITS Impressions Head CT 03/21/24 16:11 IMPRESSION: High left lateral parietal mild cephalohematoma; no skull fracture or coup or contrecoup intracranial injury or other acute intracranial finding Cerebral atherosclerosis and chronic small vessel ischemic changes of the cerebral white matter Cervical Spine CT 03/21/24 16:17 IMPRESSION: Moderate cervical spondylosis; no fracture or dislocation or locked facet <DIANA Richards Last Filed: 03/21/24 22:31> Discharge Plan Discharge Clinical Impression: Laceration of right lower leg, Hematoma of scalp, Fall from ground level <DIANA Richards Last Filed: 03/21/24 22:31> Patient Disposition: Home, Self-Care <DIANA Richards Last Filed: 03/21/24 22:31> Condition: Stable <DIANA Richards Last Filed: 03/21/24 22:31> Instructions: Antibiotic Form, Care For Your Stitches (ED), Skin Adhesive Care (ED), Chronic Wounds (ED) <DIANA Richards Last Filed: 03/21/24 22:31> Additional Instructions: Follow up closely with your primary care doctor within the next 1 week for wound check and further evaluation of wound. Call office Saturday morning. You will likely need to see wound care for management of wound. Stitches will need to be removed in around 2 weeks. Keep leg elevated as able. You may use Tylenol as needed for pain. Take antibiotics as prescribed to prevent infection of wound. [facility]: [phone] <Jane Foster PA-C - Last Filed: 03/21/24 22:31> Prescriptions: New cephalexin 500 mg capsule 500 mg PO Q6H 7 Days Qty: 28 0RF No Action dofetilide 125 mcg capsule 125 mcg PO DAILY gabapentin 300 mg capsule 300 mg PO DAILY albuterol sulfate 90 mcg/actuation HFA aerosol inhaler 90 mcg INHALATION DIRECTED fluticasone furoate-vilanterol [Breo Ellipta] 200-25 mcg/dose blister with device See Rx Instructions .ROUTE .COMPLEX Rx Instructions: 200-25 MCG\DOSE hydrocodone-acetaminophen 5-325 mg tablet 1 tablet PO Q8H PRN (Reason: pain) Qty: 9 0RF ropinirole 1 mg tablet 3 mg PO TID PRN (Reason: legs) levothyroxine 100 mcg tablet 112 mcg PO DAILY pravastatin 20 mg tablet 20 mg PO DAILY metoprolol succinate 25 mg tablet extended release 24 hr 50 mg PO DAILY insulin lispro [Humalog KwikPen Insulin] 100 unit/mL insulin pen See Rx Instructions .ROUTE .COMPLEX Hold Instructions: Hold until you follow up with your regular doctor Rx Instructions: 5U breakfast, 10U lunch, 10U dinner insulin glargine [Lantus Solostar U-100 Insulin] 100 unit/mL (3 mL) insulin pen 30 unit SUBCUT HS Eliquis 5 mg tablet 5 mg PO BID potassium chloride [Klor-Con M20] 20 mEq Tablet,Er Particles/Crystals 20 meq PO BID aspirin 81 mg Tablet 81 mg PO DAILY acetaminophen [Tylenol] 325 mg capsule 650 mg PO Q8H PRN (Reason: pain) Qty: 20 0RF flecainide 100 mg tablet 100 mg PO DAILY escitalopram oxalate 20 mg tablet 20 mg PO DAILY furosemide 40 mg tablet 20 mg PO DAILY alendronate 70 mg tablet 70 mg PO WEEKLY <Jane Foster PA-C - Last Filed: 03/21/24 22:31> Follow-up/Referrals: Elena Dumont MD [Primary Care Provider] - <Jane Foster PA-C - Last Filed: 03/21/24 22:31> Time of Disposition: 18:35 <Jane Foster PA-C - Last Filed: 03/21/24 22:31> 18:35 <Anuj Clarke MD - Last Filed: 03/22/24 13:35>
--- NOTE | 2024-03-21 16:53 | PC.NURSE ---
provider at bedside for laceration repair
[2024-03-21] MEDS: CEPHALEXIN 500 MG CAPSULE PO (18:17)
[2024-03-21] MEDS: CELLULOSE OXIDIZED 2 x 14 INCH 1 PKT XX (18:21)
[2024-03-21 18:30] VITALS: BP 121/66; PULSE 80; RESP 18; O2SAT 100
== END 2024-03-21 20:02 | disposition home or self-care (01) ==
PROVIDERS: Emergency Provider Physician Assistant; PCP Internal Medicine
DX: S81.811A Laceration without foreign body, right lower leg, initial encounter (principal); S00.03XA Contusion of scalp, initial encounter; I48.91 Unspecified atrial fibrillation; I10 Essential (primary) hypertension; E11.9 Type 2 diabetes mellitus without complications; E78.5 Hyperlipidemia, unspecified; E03.9 Hypothyroidism, unspecified; G25.81 Restless legs syndrome; Z85.51 Personal history of malignant neoplasm of bladder; Z98.49 Cataract extraction status, unspecified eye; I67.2 Cerebral atherosclerosis; M47.812 Spondylosis without myelopathy or radiculopathy, cervical region; Z79.01 Long term (current) use of anticoagulants; Z79.82 Long term (current) use of aspirin; Z79.4 Long term (current) use of insulin; Z79.899 Other long term (current) drug therapy; W01.198A Fall on same level from slipping, tripping and stumbling with subsequent striking against other object, initial encounter
CPT/HCPCS: 12005; 70450; 72125; 99282; 99284; A9270; J2004

== ENCOUNTER 2024-04-01 10:39 | Outpatient (CLI) | payer MEDICARE, SELFPAY ==
--- NOTE | ~2024-04-01 | US_ITS ---
EXAMINATION: US venous doppler [facility] DATE: 04/01/2024 12:14 INDICATION: Lower limb edema. Right calf ulcer. TECHNIQUE: Grayscale ultrasound images without and with compression and Doppler ultrasound images of the bilateral lower extremity veins were obtained. COMPARISON: None. FINDINGS: The visualized portions of right common femoral vein, profunda (deep) femoral vein, femoral vein, pop liteal vein, and greater saphenous vein outflow are patent. The right calf veins are obscured by band ages. The visualized portions of left common femoral vein, profunda femoral vein, femoral vein, popliteal v ein, peroneal veins, posterior tibial veins, and greater saphenous vein outflow are patent. IMPRESSION: 1. No deep venous thrombosis. Reviewed, dictated and finalized at location A. IC CUTTER
--- NOTE | ~2024-04-01 | US_ITS ---
EXAMINATION: US arterial ankle brachial ind DATE: 04/01/2024 12:14 INDICATION: Peripheral arterial disease. Right calf ulcer. TECHNIQUE: Segmental pressures and plethysmographic and Doppler waveforms of the brachial and lower e xtremity arteries were obtained. COMPARISON: ABIs 09/19/2020 FINDINGS: Right and left brachial artery pressures of 120 mm Hg and 114 mm Hg, respectively, are concordant (no rmal difference <= 30 mmHg). The right ankle-brachial index (KACEY) is 1.14 (normal >= 0.9-1.0). The right great toe-brachial index (TBI) is 1.02 (normal >= 0.65). Arterial Doppler waveforms are biphasic at the ankle. The left KACEY is 1.13. The left TBI is 0.88. Arterial Doppler waveforms are biphasic at the ankle. IMPRESSION: 1. No significant arterial occlusive disease. Reviewed, dictated and finalized at location A. CAL RECORD ADMINISTRATOR
[2024-04-01 10:55] LABS: Hematocrit 31.9 % (35.0-42.0); Hemoglobin 10.1 g/dL (11.7-13.8); Mean Corpuscular HGB Conc 31.7 g/dL (32-36); Mean Corpuscular Hemoglobin 28.3 pg (27.0-31.0); Mean Corpuscular Volume 89.4 fL (78.0-102.0); Mean Platelet Volume 10.2 fl (9.2-11.8); Platelet Count Result 203 K/mm3 (150-420); Red Blood Count 3.57 M/mm3 (4.20-5.40); Red Cell Distribution Width 14.5 % (11.6-14.4); White Blood Count 9.2 K/mm3 (4.8-10.8)
[2024-04-01 11:35] LABS: Alanine Aminotransferase 18 U/L (14-59); Albumin Level 3.5 g/dL (3.4-5.0); Alkaline Phosphatase 112 U/L (46-116); Anion Gap 7 mmol/L (4-12); Aspartate Amino Transferase 17 U/L (15-37); Bilirubin,Total 0.5 mg/dL (0.00-1.00); Blood Urea Nitrogen 26 mg/dL (7-18); Calcium 9.5 mg/dL (8.5-10.1); Carbon Dioxide 29 mmol/L (21-32); Chloride 107 mmol/L (98-108); Estimated Glomerular Filt Rate 36; Osmolality Calculated 296 mOsm/kg (285-295); Potassium 4.4 mmol/L (3.5-5.1); Sodium 143 mmol/L (136-145); Total Protein 6.5 g/dL (6.4-8.2)
[2024-04-01 11:38] LABS: Glucose 27 mg/dL (70-99)
[2024-04-02 14:38] LABS: Ferritin 143 ng/mL (8-252); Iron 39 ug/dL (50-170); Vitamin B12 519 pg/mL (193-986)
== END 2024-04-01 10:40 | disposition home or self-care (01) ==
PROVIDERS: PCP Internal Medicine; Visit Provider Nurse Practitioner Family
DX: S81.801A Unspecified open wound, right lower leg, initial encounter (principal); R60.0 Localized edema; I73.9 Peripheral vascular disease, unspecified; E78.2 Mixed hyperlipidemia; E53.8 Deficiency of other specified B group vitamins; N18.31 Chronic kidney disease, stage 3a; Z12.9 Encounter for screening for malignant neoplasm, site unspecified
CPT/HCPCS: 36415; 80053; 82607; 82728; 82746; 83540; 85027; 93922; 93970

== ENCOUNTER 2024-06-29 13:35 | Outpatient (NON) | payer MEDICARE, SELFPAY ==
[2024-06-29 13:50] LABS: Basophils Absolute Auto 0.03 K/mm3 (0.00-0.10); Basophils Percent Auto 0.6 % (0.0-1.0); Eosinophils Percent Auto 1.9 % (1.0-6.0); Hematocrit 37.6 % (35.0-42.0); Hemoglobin 11.7 g/dL (11.7-13.8); Immature Granulocyte Absolute 0.02 K/mm3 (0.00-0.00); Immature Granulocyte Percent A 0.4 % (0.0-0.0); Lymphocytes Absolute Auto 1.15 K/mm3 (1.10-4.50); Mean Corpuscular HGB Conc 31.1 g/dL (32-36); Mean Corpuscular Hemoglobin 27.8 pg (27.0-31.0); Mean Corpuscular Volume 89.3 fL (78.0-102.0); Monocytes Absolute Auto 0.27 K/mm3 (0.10-0.90); Monocytes Percent Auto 5.2 % (2.0-11.0); Neutrophils Absolute Auto 3.65 K/mm3 (1.70-7.20); Neutrophils Percent Auto 69.9 % (50.0-70.0); Platelet Count Result 167 K/mm3 (150-420); Red Blood Count 4.21 M/mm3 (4.20-5.40); Red Cell Distribution Width 14.8 % (11.6-14.4); White Blood Count 5.2 K/mm3 (4.8-10.8)
[2024-06-29 13:51] LABS: Add Urine Microscopic? YES; Appearance Urine Clear (Clear); Bilirubin Urine Negative (Negative); Blood Urine Negative (Negative); Color Urine Yellow (Yellow); Glucose Urine UA 1+ (Negative); Ketones Urine Negative (Negative); Leukocyte Esterase Ur Trace (Negative); Nitrate Urine Negative (Negative); Protein Urine Negative (Negative); Specific Grav Ur 1.025 (1.010-1.020); Urobilinogen Urine 0.2 mg/dL (0.2-1.0); pH Urine 5.5 (5.0-8.0)
[2024-06-29 14:07] LABS: Creatinine Urine 119.89 mg/dL (40-278); MALB Creatinine Ratio 11.7 mg/g (0-30); Microalbumin Urine Random 14.1 mg/L
[2024-06-29 14:32] LABS: Alanine Aminotransferase 29 U/L (14-59); Albumin Level 3.4 g/dL (3.4-5.0); Alkaline Phosphatase 98 U/L (46-116); Anion Gap 7 mmol/L (4-12); Aspartate Amino Transferase 23 U/L (15-37); Bilirubin,Total 0.4 mg/dL (0.00-1.00); Blood Urea Nitrogen 33 mg/dL (7-18); Calcium 9.3 mg/dL (8.5-10.1); Carbon Dioxide 32 mmol/L (21-32); Chloride 102 mmol/L (98-108); Cholesterol 197 mg/dL (0-200); Creatine Kinase 104 U/L (26-192); Estimated Glomerular Filt Rate 34; Ferritin 120 ng/mL (8-252); Free T4 Free Thyroxine 0.78 ng/dL (0.76-1.46); Glucose 316 mg/dL (70-99); HDL Direct 64 mg/dL (40-60); Iron 55 ug/dL (50-170); LDL Cholesterol Calculated 102 mg/dL (<130); NT Pro B Type Natriuretic Pept 1537 pg/mL (0-450); Osmolality Calculated 311 mOsm/kg (285-295); Sodium 141 mmol/L (136-145); Thyroid Stimulating Hormone 12.88 uIU/mL (0.36-3.74); Total Protein 7.1 g/dL (6.4-8.2); Triglycerides 155 mg/dL (0-150); Vitamin B12 589 pg/mL (193-986)
--- OUTSIDE RECORDS SUMMARY | 2024-06-29 14:55 | XMS_ITS | Encounter Summary ---
Author Organization [facility] Address [address] [place] [address] Care Team Providers Care Help Desk Supervisor Name Role Phone Elena Dumont MD Primary Care Provider [phone] Que Zuluaga MD Unavailable UnavailBrit Park APRN RN X RAY-C Unavailable [phone] Giovanna Carter NP Unavailable Unavailable Zenon Bush MD Unavailable [phone] Alisa Pat PA-C Unavailable [phone] Natasha Moore MD Unavailable Tyshawn Allen MD Unavailable Encounter Details Date Type Department Care Team (Late st Contact Info) Description 04/23/2019 Conversation Media Message Performable [facility] [address] [place] [address] Que Zuluaga MD Other Social History Tobacco Use Types Packs/Day Years Used Date Smoking Tobacco: Never Smokeless Tobacco: Never Alcohol Use Standard Drinks/Week Comments Yes 0 (1 standard drink = 0.6 oz pur e alcohol) wine occasionally Comments Unknown Sex and Gender Information Value Date Recorded Sex Assigned at Female 05/18/2024 1:57 PM FRAME CHANGER Legal Sex Female 6:12 PM CDT Gender Identity Not on file Sexual Orientation Not on file Occupation Industry Job Start Date Job End Date Retired Not on file Not on file Not on file documented as of this encounter Progress Notes * Violeta Velasquez RN - 04/23/2019 7:53 AM CSTFrom: Lizeth Warner To: Que Zuluaga MD Sent: 04/23/2019 5:48 AM FRAME CHANGER Subject: Other I have Had my Flue Shot at [facility] Dr Dumont I will make an appointment In June 2019 That is when I am supposed to see Que Berry Thank You Lizeth Warner E CHANGER documented in this encounter Plan of Treatment Upcoming Encounters Date Type Department Care Team (Late st Contact Info) Description 07/03/2024 10:30 AM FRAME CHANGER Appointment [facility] [address] [place] [address] Graciela Jones, [facility] [address] [facility] [place] [address] 08/19/2024 8:45 AM CDT Office Visit [facility] [place] [address] Zenon Bush MD [address] [place] [id number] 12/03/2024 2:00 PM CDT Office Visit [facility] [address] [address] Natasha Moore MD [address] [place], [place] [phone] documented as of this encounter Visit Diagnoses Not on filedocumented in this encounter Additional Health Concerns Infection Onset 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 documented as of this encounter Care Teams Help Desk Supervisor Relationship Specialty Start Date End Date Elena Dumont MD [address] [place] [id number] PCP - General INTERNAL MEDICINE 4/12/17 Que Zuluaga MD [address] [place] [address] [place] Video Game Repair Technician CARDIOVASCULAR DISEASE 08/08/16 08/19/23 Brit Saxena APRN, RN X RAY-C [address] [phone] [place] Video Game Repair Technician NURSE PRACTITIONER 01/31/18 10/02/23 Giovanna Carter NP [address] [address] Referring Physician Nurse Practitioner [facility] 01/24/23 Zenon Bush MD [address] [place] [address] Consulting Physician CLINICAL CARDIAC ELECTROPHYSIOLOGY 03/12/23 Alisa Pat PA-C [address] [place], [place] [address] Referring Physician PHYSICIAN OVEN WORKER 08/20/23 Natasha Moore MD [address] [place] [address] Consulting Physician CARDIOVASCULAR DISEASE 10/03/23 Tyshawn Allen MD [address] [place] [phone] PLASTIC SURGERY 04/03/24 04/03/25 documented as of this encounter
--- OUTSIDE RECORDS SUMMARY | 2024-06-29 14:55 | XMS_ITS | Patient Health Record ---
Author Organization [facility] Address [address] [place], [place] [id number] Care Team Providers Care Gutter Installer Name Role Phone CASH MIRAMONTES Unavailable [phone] Reason For Referral No Information Plan Of Treatment No Information
--- OUTSIDE RECORDS SUMMARY | 2024-06-29 14:55 | XMS_ITS | Encounter Summary ---
Author Organization [facility] Address [address] [place] [address] Care Team Providers Care Veterinary Bacteriologist Name Role Phone Elena Dumont MD Primary Care Provider [phone] Que Zuluaga MD Unavailable UnavailBrit Park APRN MUSIC WRITER-C Unavailable [phone] Giovanna Carter NP Unavailable Unavailable Zenon Bush MD Unavailable [phone] Alisa Pat-C Unavailable [phone] Natasha Moore MD Unavailable Tyshawn Allen MD Unavailable Encounter Details Date Type Department Care Team (Late Contact Info) Description 06/20/2018 Abstract [facility] [address] [place] [phone] Abstract, Doc [facility] Social History Tobacco Use Types Packs/Day Years Used Date Smoking Tobacco: Never Smokeless Tobacco: Never Alcohol Use Standard Drinks/Week Comments Yes 0 (1 standard drink = 0.6 oz pur e alcohol) wine occasionally Comments Unknown Sex and Gender Information Value Date Recorded Sex Assigned at Female 05/18/2024 1:57 PM DATASTAGE CONSULTANT Legal Sex Female 6:12 PM CDT Gender Identity Not on file Sexual Orientation Not on file Occupation Industry Job Start Date Job End Date Retired Not on file Not on file Not on file documented as of this encounter Plan of Treatment Upcoming Encounters Date Type Department Care Team (Late Contact Info) Description 07/03/2024 10:30 AM DATASTAGE CONSULTANT Appointment [facility] [address] [place] [address] Graciela Jones, MANAGER OF FINANCIAL REPORTING [address] [place] [address] 08/19/2024 8:45 AM CDT Office Visit [facility] [address] [place] [address] Zenon Bush MD [address] [place], [place] [address] 12/03/2024 2:00 PM CDT Office Visit [facility] [place] [phone] [place] [address] Natasha Moore MD [address] [place], [place] [address] documented as of this encounter Visit Diagnoses Not on filedocumented in this encounter Additional Health Concerns Infection Onset 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 documented as of this encounter Care Teams Veterinary Bacteriologist Relationship Specialty Start Date End Date Elena Dumont MD [address] [place] [address] PCP - General INTERNAL MEDICINE 08/08/16 Que Zuluaga MD [address] [place] [address] [place] Senior Care Assistant CARDIOVASCULAR DISEASE 08/08/16 08/19/23 Brit Saxena APRN, MUSIC WRITER-C [address] [facility] [address] [place] [phone] [place] Senior Care Assistant NURSE PRACTITIONER 01/31/18 10/02/23 Giovanna Carter NP [address] [place] [address] [address] Referring Physician Nurse Practitioner Family 01/24/23 Zenon Bush MD [address] [place] [address] Consulting Physician CLINICAL CARDIAC ELECTROPHYSIOLOGY 03/12/23 Alisa Pat PA-C [address] [place] [address] Referring Physician PHYSICIAN FINANCIAL SERVICES REP 08/20/23 Natasha Moore MD [address] [place] [address] Consulting Physician CARDIOVASCULAR DISEASE 10/03/23 Tyshawn Allen MD [address] [place] [phone] PLASTIC SURGERY 04/03/24 04/03/25 documented as of this encounter
--- OUTSIDE RECORDS SUMMARY | 2024-06-29 14:55 | XMS_ITS | Encounter Summary ---
Author Organization [facility] Address [facility] [place] [address] Care Team Providers Care Glove Tagger Name Role Phone Elena Dumont MD Primary Care Provider [phone] Zenon Bush MD Unavailable [phone] Alisa Pat PA-C Unavailable [phone] Natasha Moore MD Unavailable Tyshawn Allen MD Unavailable Encounter Details Date Type Department Care Team (Late st Contact Info) Description 10/17/2023 Hospital Orders Only [facility] [employer] [address] [place] [address] Zenon Bush MD [address] [place] [address] Social History Tobacco Use Types Packs/Day Years Used Date Smoking Tobacco: Never Smokeless Tobacco: Never Alcohol Use Standard Drinks/Week Comments Yes 0 (1 standard drink = 0.6 oz pur e alcohol) wine occasionally [facility] Utilities Answer Date Recorded In the past 12 months has e [employer], gas, oil, or water [email or web address] threatened to shut off services in your home? No 07/15/2023 Humiliation, Afraid, Rape, and Kick questionnair e Answer Date Recorded Within the last year, have y ou been afraid of your partner or ex-partner? No 07/15/2023 Within the last year, have y ou been humiliated or emotionally abused in other ways by your partner or ex-partner? No Within the last year, have y ou been kicked, hit, slapped, or otherwise physically hurt by your partner or ex-partner? No 07/15/2023 Within the last year, have y ou been raped or forced to have any kind of sexual activity by your partner or ex-partner? No 07/15/2023 Overall Financial Resource Strain (CARDIA) Answe r Date Recorded How hard is it for you to pa y for the very basics like food, housing, medical care, and heating? Not hard at all 07/15/2023 Hunger Vital Sign Answer Date Recorded Within the past 12 months, y ou worried that your food would run out before you got the money to buy more. Never true 07/15/19 24 Within the past 12 months, t he food you bought just didn't last and you didn't have money to get more. Never true 07/15/2023 PRAPARE - Transportation Answer Date Re corded In the past 12 months, has l ack of transportation kept you from medical appointments or from getting medications? No 06/27 In the past 12 months, has l ack of transportation kept you from meetings, work, or from getting things needed for daily living? No 07/15/2023 Housing Stability Vital Sign Answer Alexis e Recorded In the last 12 months, was t here a time when you were not able to pay the mortgage or rent on time? No 07/15/2023 In the last 12 months, how many places have you lived? 1 07/15/2023 In the last 12 months, was t here a time when you did not have a steady place to sleep or slept in a intermediate (including now)? No 07/15/2023 Comments No Sex and Gender Information Value Date Recorded Sex Assigned at Female 05/18/2024 1:57 PM ANIMAL SKINNER Legal Sex Female 6:12 PM CDT Gender Identity Not on file Sexual Orientation Not on file Occupation Industry Job Start Date Job End Date Retired Not on file Not on file Not on file documented as of this encounter Functional Status * Are you deaf or do you have serious difficulty hearing Answer Date of Assessment Author Status No 07/15/2023 2:11 PM CDT Brandy Candelaria RN Active * Are you blind or do you have serious difficulty seeing, even when wearing glasses? Answer Date of Assessment Author Status No 07/15/2023 2:11 PM CDT Brandy Candelaria RN Active * Do you have serious difficulty walking or climbing stairs? Answer Date of Assessment Author Status No 07/15/2023 2:11 PM CDT Brandy Candelaria RN Active * Do you have difficulty dressing or bathing? Answer Date of Assessment Author Status No 07/15/2023 2:11 PM CDT Brandy Candelaria RN Active * Because of a physical, mental, or emotional condition, do you have difficulty doing errands alone such as visiting a doctor's office or shopping? Answer Date of Assessment Author Status No 07/15/2023 2:11 PM KRISTINT Brandy Candelaria RN Active documented as of this encounter Mental Status * Because of a physical, mental, or emotional condition, do you have serious difficulty concentrating, remembering, or making decisions? Answer Entry Date Author Status No 07/15/2023 2:11 PM KRISTINT Brandy Candelaria RN Active documented in this encounter Plan of Treatment Upcoming Encounters Date Type Department Care Team (Late st Contact Info) Description 07/03/2024 10:30 AM ANIMAL SKINNER Appointment [facility] [address] [place] [address] Graciela Jones, [facility] [address] [place] [address] 08/19/2024 8:45 AM CDT Office Visit [facility] [address] [place] [phone] Zenon Bush MD [address] [place] [address] 12/03/2024 2:00 PM CDT Office Visit [facility] [address] [address] Natasha Moore MD [address] [place] [address] documented as of this encounter Goals Goal Patient Goal Type Associated Problems Recent Progress Patient-Stated? 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 documented as of this encounter Care Teams Glove Tagger Relationship Specialty Start Date End Date Elena Dumont MD [address] [place] [address] PCP - General INTERNAL MEDICINE 08/08/16 Zenon Bush MD [address] [place] [address] Consulting Physician CLINICAL CARDIAC ELECTROPHYSIOLOGY 03/12/23 Alisa Pat PA-C [address] [place] [address] Referring Physician PHYSICIAN TICKET AGENT 08/20/23 Natasha Moore MD [address] [place] [address] Consulting Physician CARDIOVASCULAR DISEASE 10/03/23 Tyshawn Allen MD [address] [place] [address] PLASTIC SURGERY 04/03/24 04/03/25 documented as of this encounter
--- OUTSIDE RECORDS SUMMARY | 2024-06-29 14:55 | XMS_ITS | Encounter Summary ---
Author Organization [facility] Address [facility] [place] [address] Care Team Providers Care Park Maintainer Name Role Phone Elena Dumont MD Primary Care Provider [phone] Zenon Bush MD Unavailable [phone] Alisa Pat PA-C Unavailable [phone] Natasha Moore MD Unavailable Tyshawn Allen MD Unavailable Encounter Details Date Type Department Care Team (Late st Contact Info) Description 05/12/2024 Prep for Procedure [facility] eld [address] [place] [address] Alessandra Knapp MD [address] [place] [address] Social History Tobacco Use Types Packs/Day Years Used Date Smoking Tobacco: Never Smokeless Tobacco: Never Alcohol Use Standard Drinks/Week Comments Yes 0 (1 standard drink = 0.6 oz pur e alcohol) wine occasionally OASIS D0700: Social Isolation Answer Da te Recorded Frequency of experiencing loneliness or isolatio n Never 04/15/2024 OASIS A1250: Transportation Answer Date Recorded Lack of Transportation (Medical) Yes 04/15/2024 Lack of Transportation (Non-Medical) No 04/15/2024 Patient Unable or Declines to Respond No 04/15/2024 OASIS B1300: Health Literacy Answer Alexis e Recorded Frequency of needing help to read materials from doctor or pharmacy Never 04/15/2024 [facility] Utilities Answer Date Recorded In the past 12 months has th e electric, gas, oil, or water company threatened to shut off services in your [...] place to sleep or slept in a mcc (including now)? No 07/15/2023 Comments No Sex and Gender Information Value Date Recorded Sex Assigned at Female 05/18/2024 1:57 PM PREPARATION OPERATOR Legal Sex Female 6:12 PM CDT Gender Identity Not on file Sexual Orientation Not on file Occupation Industry Job Start Date Job End Date Retired Not on file Not on file Not on file documented as of this encounter Functional Status * Are you deaf or do you have serious difficulty hearing Answer Date of Assessment Author Status No 10/22/2023 4:26 PM CDT Janee Bello FLATTENING PRESS OPERATOR Active * Are you blind or do you have serious difficulty seeing, even when wearing glasses? Answer Date of Assessment Author Status No 10/22/2023 4:26 PM CDT Janee Bello, FLATTENING PRESS OPERATOR Active * Do you have serious difficulty walking or climbing stairs? Answer Date of Assessment Author Status Yes 10/22/2023 4:26 PM CDT Janee Bello, FLATTENING PRESS OPERATOR Active * Do you have difficulty dressing or bathing? Answer Date of Assessment Author Status No 10/22/2023 4:26 PM CDT Janee Bello, FLATTENING PRESS OPERATOR Active * Because of a physical, mental, or emotional condition, do you have difficulty doing errands alone such as visiting a doctor's office or shopping? Answer Date of Assessment Author Status No 10/22/2023 4:26 PM CDT Janee Bello, FLATTENING PRESS OPERATOR Active documented as of this encounter Mental Status * Because of a physical, mental, or emotional condition, do you have serious difficulty concentrating, remembering, or making decisions? Answer Entry Date Author Status No 10/22/2023 4:26 PM CDT Janee Bello FLATTENING PRESS OPERATOR Active documented in this encounter Plan of Treatment Upcoming Encounters Date Type Department Care Team (Late st Contact Info) Description 07/03/2024 10:30 AM PREPARATION OPERATOR Appointment [facility] [address] [place] [address] Graciela Jones, INTEGRATION SOFTWARE ENGINEER [address] [place] [address] 08/19/2024 8:45 AM CDT Office Visit [facility] [address] [place] [phone] Zenon Bush MD [address] [place], [place] [address] 12/03/2024 2:00 PM CDT Office Visit [facility] [address] [phone] Natasha Moore MD [address] [place], [place] [address] documented as of this encounter Goals Goal [...] documented as of this encounter Care Teams Park Maintainer Relationship Specialty Start Date End Date Elena Dumont MD [address] [place] [address] PCP - General INTERNAL MEDICINE 08/08/16 Zenon Bush MD [address] [place] [address] Consulting Physician CLINICAL CARDIAC ELECTROPHYSIOLOGY 03/12/23 Alisa Pat PA-C [address] [place] [address]331 Referring Physician PHYSICIAN MANAGEMENT PLANNER 08/20/23 Natasha Moore MD [address] [place] [address] Consulting Physician CARDIOVASCULAR DISEASE 10/03/23 Tyshawn Allen MD [address] [place] [address] PLASTIC SURGERY 04/03/24 04/03/25 documented as of this encounter
--- OUTSIDE RECORDS SUMMARY | 2024-06-29 14:55 | XMS_ITS | Encounter Summary ---
Author Organization [facility] Address [address] [place] [address] Care Team Providers Care Cam Maker Name Role Phone Elena Dumont MD Primary Care Provider [phone] Zenon Bush MD Unavailable [phone] Alisa Pat PA-C Unavailable [phone] Natasha Moore MD Unavailable Tyshawn Allen MD Unavailable Encounter Details Date Type Department Care Team (Late st Contact Info) Description 10/18/2023 Hospital Orders Only [facility] [address] [place] [address] Malissa Contreras RN Anesthesia Record Procedure Summary Procedure Name Responsible Anesthesiologist Anesthesia Start Time Anesthesia Stop Time XA A-FIB ABLATION Margot Kern MD 10/22/23 0 709 10/22/23 1132 Events Date Time Event Comment 10/22/2023 0650 0709 An Start Patient ID and consent checked and patient reassessed. 0712 An Start Data 0713 Preoxygenation 0715 An Induction The patient was reevaluated immediately before moderate or deep sedation use and before anesthesia induction. 0720 An Intubation 0727 An Line Placement 0728 Anesthesia Ready 0802 Quick Note Regional Retail Sales Manager del arciniega to use paralytic as needed. Stat 0803 Quick Note 12,000 units iv heparin administered by circulating RN. 0816 Quick Note ACT 379 0838 Quick Note Act 317 3000 un its of heparin given by laboratory clerk rn 0901 Quick Note ACT 379 0924 Quick Note ACT 385 0946 Quick Note ACT 379 1003 AN Cardioversion 360 J 1009 Quick Note ACT 379 1031 Quick Note ACT 354 1032 Quick Note 1000 units iv h eparin administered by circulating RN. 1055 Quick Note ACT 379 1124 An Extubation 1129 an stop data 1132 Post Anesthetic Care Handoff I completed my handoff to the receiving nurse during which we: 1. Identified the patient 2. Identified the responsible provider 3. Reviewed the pertinent medical history 4. Discussed the surgical course 5. Reviewed intra-op anesthesia management and issues during anesthesia 6. Set expectations for post-procedure period 7. Allowed opportunity for questions and acknowledgement of understanding. 1132 An Stop Meds * Agents No agents on file. * Blood No blood administrations on file. Lines, Drains, and Airways Type Details Placement Removal Peripheral IV Placement Date: 09/28 09/19; Placement Time: 0649; Placed Outside of This Facility?: No; Size: 18 G; Orientation: Left; Location: Antecubital; Site Prep: Alcohol; Local Anesthetic: None; Inserted By: doyle; Insertion attempts: 1; Ultrasound-guided Placement?: No; Patient Tolerance: Tolerated well; Removal Date: 10/23/23; Removal Time: 05; Removal Reason: Leaking 10/22/23 0649 by Fiona Albert RN 10/23/23 0517 by Stephany Mohan RN ETT Placement Date: 09/28 09/19; Placement Time: 07; Placed Outside of This Facility?:No; Mask Ventilate: Prior to intubation; Size (mm) : 7 (secured at 22cm at front teeth); Endotracheal: Oral; Blade Type: MAC 3; Placement Method: Direct Laryngoscopy (blade type in comment), Cricoid pressure; View Grade: 2; Viewable Anatomy: Epiglottis, Arytenoid, Vocal cords; Insertion Attempts: 1; Placement Verified By: Capnography, Auscultation, Chest Rise; Placed By: ANIBAL; Removal Date: 10/22/23; Removal Time: 1124 10/22/23 0720 by Alisson Young CRNA 10/22/23 1124 by Alisson Young CRNA Peripheral IV Placement Date: 09/28 09/19; Placement Time: 07; Placed Outside of This Facility?: No; Size: 18 G; Orientation: Left; Location: Wrist; Site Prep: Chlorhexidine; Local Anesthetic: None; Inserted By: JOEY Emmanuel lcac radar operator/navigator; Insertion attempts: 1; Ultrasound-guided Placement?: No; Patient Tolerance: Tolerated well; Removal Date: 10/23/23; Removal Time: 1056; Removal Reason: Patient Discharged 10/22/23 0725 by Alisson Young CRNA 10/23/23 1056 by Cristina Clarke LPN Arterial Line Placement Date: 09/28 09/19; Placement Time: 727 (created via procedure documentation); Placed Outside of This Facility?: No; Size: 20; Orientation: Right; Location: Radial; Site Prep: Chlorhexidine; Local Anesthetic: None; Insertion Attempts: 1; Patient Tolerance: Tolerated well; Removal Date: 10/22/23; Removal Time: 13110/22/23 0728 by Alisson Young, ANIBAL 10/22/23 1319 by Rosalee Phillips RN documented in this encounter Social History Tobacco Use Types Packs/Day Years Used Date Smoking Tobacco: Never Smokeless Tobacco: Never Alcohol Use Standard Drinks/Week Comments Yes 0 (1 standard drink = 0.6 oz pur e alcohol) wine occasionally Aneviaities Answer Date Recorded In the past 12 months has [employer], gas, oil, or water [employer] threatened to shut off services in your [...] place to sleep or slept in a mcfp (including now)? No 07/15/2023 Comments No Sex and Gender Information Value Date Recorded Sex Assigned at Female 05/18/2024 1:57 PM PUMPER HELPER Legal Sex Female 6:12 PM CDT Gender [...] 2:11 PM KRISTINT Brandy Candelaria RN Active * Are you blind or do you have serious difficulty seeing, even when wearing glasses? Answer Date of Assessment Author Status No 07/15/2023 2:11 PM KRISTINT Brandy Candelaria RN Active * Do you have serious difficulty walking or climbing stairs? Answer Date of Assessment Author Status No 07/15/2023 2:11 PM KRISTINT Brandy Candelaria RN Active * Do you [...] 2:11 PM CDT Brandy Candelaria RN Active documented as of this encounter Mental Status * Because of a physical, mental, or emotional condition, do you have serious difficulty concentrating, remembering, or making decisions? Answer Entry Date Author Status No 07/15/2023 2:11 PM CDT Brandy Candelaria RN Active documented in this encounter Plan of Treatment Upcoming Encounters Date Type Department Care Team (Late st Contact Info) Description 07/03/2024 10:30 AM PUMPER HELPER Appointment [facility] [address] [place] [address] Graciela Jones, PARTS CONSULTANT [address] [facility] [place] [address] 08/19/2024 8:45 AM CDT Office Visit [facility] [place] [phone] [facility] [place] [address] Zenon Bush MD [address] [place] [phone] 12/03/2024 2:00 PM CDT Office Visit [facility] [address] [address] Natasha Moore MD [address] [place], [place] [phone] documented as of this encounter Goals Goal [...] documented as of this encounter Care Teams Cam Maker Relationship Specialty Start Date End Date Elena Dumont MD [address] [place] [address] PCP - General INTERNAL MEDICINE 08/08/16 Zenon Bush MD [address] [place] [address] Consulting Physician CLINICAL CARDIAC ELECTROPHYSIOLOGY 03/12/23 Alisa Pat PA-C [address] [place], [place] [address] Referring Physician PHYSICIAN ACCIDENT REPORT CLERK 08/20/23 Natasha Moore MD [address] [place], [place] [phone] Consulting Physician CARDIOVASCULAR DISEASE 10/03/23 Tyshawn Allen MD [address] [place] [phone] PLASTIC SURGERY 04/03/24 04/03/25 documented as of this encounter
--- OUTSIDE RECORDS SUMMARY | 2024-06-29 14:55 | XMS_ITS ---
Author Organization Unknown Address [address] [place] [phone] Phone Care Team Providers Care Databases Computer Consultant Name Role Phone IZABELA CHAVIS Attending Unavailable BERTHA MORSE Primary Unavailable Immunization Immunization Date Status Additional Notes Code Code System pneumococcal polysaccharide PPV23 02/10/2014 Completed 33 CVX Tdap 03/03/2014 Completed 115 CVX Tdap 2023 Completed 115 CVX Pneumococcal conjugate PCV 13 01/14/2015 Completed 133 CVX Influenza, high-dose, trivalent, PF 03/25/2013 Completed 135 CVX Influenza, split virus, trivalent, preservative 12/23/2014 Completed 141 CVX Influenza, split virus, quadrivalent, PF 12/27/2016 Completed 150 CVX Influenza, split virus, quadrivalent, PF 03/05/2018 Completed 150 CVX Influenza, split virus, quadrivalent, PF 02/25/2019 Completed 150 CVX Influenza, split virus, quadrivalent, preservative 02/10/2014 Completed 158 C VX Influenza, split virus, quadrivalent, preservative 12/29/2015 Completed 158 C VX Influenza, split virus, quadrivalent, preservative 01/26/2020 Completed 158 C VX Influenza, adjuvanted, trivalent, PF 02/13/2024 Completed 168 CVX Influenza, high-dose, quadrivalent, PF 03/28/2021 Completed 197 CVX Influenza, high-dose, quadrivalent, PF 03/19/2022 Completed 197 CVX Influenza, adjuvanted, quadrivalent, PF 02/26/2023 Completed 205 CVX COVID-19, mRNA, LNP-S, PF, 1 00 mcg/0.5mL dose or 50 mcg/0.25mL dose 05/27/2020 Completed 207 CVX COVID-19, mRNA, LNP-S, PF, 1 00 mcg/0.5mL dose or 50 mcg/0.25mL dose 06/24/2020 Completed 207 CVX COVID-19, mRNA, LNP-S, PF, 3 0 mcg/0.3 mL dose 04/08/2021 Completed 208 CVX COVID-19, mRNA, LNP-S, bivalent, PF, 30 mcg/0.3 mL dose 03/19/2022 Completed 300 CVX RSV, recombinant, protein subunit RSVpreF, adjuvant reconstituted, 0.5 mL, PF 02/26/2023 Completed 303 CV X COVID-19, mRNA, LNP-S, PF, italo-sucrose, 30 mcg/0.3 mL 02/13/2024 Completed 309 CVX Social History Type Status Start Date End Date Code Code Syst em Sex Female Hospital Discharge Instructions Should you have any questions prior to discharge, please contact a member of your healthcare team. If you have left the hospital and have any questions, please contact your primary care physician. Reason For Referral No Data Found Plan of Treatment NM Spect Perf Rest Stress Multi (40346) 03/31/2024 Stress Test Chemical 03/31/2024 NM Spect Perf Rest Stress Multi (34178) 03/31/2024 Stress Test Chemical 03/31/2024 Encounters Encounter Diagnosis Start Date Code Code Sys tem Mixed hyperlipidemia 06/04/2024 [id number] SNOMED- CT Personal Care Team Section Performer Name Performer Role Active Date Inactive LITO Osborne PCP - Primary care physician 2024-03-05
--- OUTSIDE RECORDS SUMMARY | 2024-06-29 14:55 | XMS_ITS | Encounter Summary ---
Author Organization [facility] Address [facility] [place] [address] Care Team Providers Care Resist Coater Developer Name Role Phone Elena Dumont MD Primary Care Provider [phone] Que Zuluaga MD Unavailable UnavailBrit Park APRN, NP-C Unavailable [phone] Giovanna Carter NP Unavailable Unavailable Zenon Bush MD Unavailable [phone] Alisa Pat-C Unavailable [phone] Natasha Moore MD Unavailable Tyshawn Allen MD Unavailable Encounter Details Date Type Department Care Team (Late Contact Info) Description 05/26/2018 [facility] [address] [place] [phone] Que Zuluaga MD Social History Tobacco Use Types Packs/Day Years Used Date Smoking Tobacco: Never Smokeless Tobacco: Never Alcohol Use Standard Drinks/Week Comments Yes 0 (1 standard drink = 0.6 oz pur e alcohol) wine occasionally Comments Unknown Sex and Gender Information Value Date Recorded Sex Assigned at Female 05/18/2024 1:57 PM SOAKER HIDES Legal Sex Female 6:12 PM CDT Gender Identity Not on file Sexual Orientation Not on file Occupation Industry Job Start Date Job End Date Retired Not on file Not on file Not on file documented as of this encounter Plan of Treatment Upcoming Encounters Date Type Department Care Team (Late Contact Info) Description 07/03/2024 10:30 AM SO[address]ER HIDES App[address] [facility] [address] [place] [address] Graciela Jones, PLANT TAXONOMIST [address] [place] [address] 08/19/2024 8:45 AM CDT Office Visit [facility] [address] [place] [phone] Zenon Bush MD [address] [place] [address] 12/03/2024 2:00 PM CDT Office Visit [facility] [phone] [place] [phone] Natasha Moore MD [address] [place], [place] [address] documented as of this encounter Procedures Procedure Name Priority Date/Time Associated Diagnosis Comments BASIC METABOLIC PANEL Routine 05/26/2018 documented in this encounter Results * (ABNORMAL) BASIC METABOLIC PANEL (05/26/2018) SODIUM S/P/B 143 POTASSIUM S/P/B 4.5 CO2 27 CHLORIDE S/P/B 105 GLUCOSE 90 mg/dL CALCIUM S/P/B 9.6 BUN 31 CREATININE S/P/B 1.2(A) 0.5 - 1.0 05/26/2018 us Doc [facility] LABORATORY Final Result documented in this encounter Visit Diagnoses Not on filedocumented in this encounter Additional Health Concerns Infection Onset 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 documented as of this encounter Care Teams Resist Coater Developer Relationship Specialty Start Date End Date Elena Dumont MD [address] [place] [phone] PCP - General INTERNAL MEDICINE 08/08/16 Que Zuluaga MD [address] [place] [address] [employer] Store Clerk CARDIOVASCULAR DISEASE 08/08/16 08/19/23 Brit Saxena, SECONDARY CONNECTOR ARMATURE, ROUTE SALES DRIVER-C [address] [phone] [employer] Clerk NURSE PRACTITIONER 01/31/18 10/02/23 Giovanna Carter NP [address] [address] Referring Physician Nurse Practitioner [facility] 01/24/23 Zenon Bush MD [address] [place] [address] Consulting Physician CLINICAL CARDIAC ELECTROPHYSIOLOGY 03/12/23 Alisa Pat PA-C [address] [place] [address] Referring Physician PHYSICIAN PHONE CIRCUIT OPERATOR 08/20/23 Natasha Moore MD [address] [place] [address] Consulting Physician CARDIOVASCULAR DISEASE 10/03/23 Tyshawn Allen MD [address] [place] [address] PLASTIC SURGERY 04/03/24 04/03/25 documented as of this encounter
--- OUTSIDE RECORDS SUMMARY | 2024-06-29 14:55 | XMS_ITS | Encounter Summary ---
Author Organization [facility] Address [address] [place] [address] Care Team Providers Care Teletypesetter Operator Name Role Phone Elena Dumont MD Primary Care Provider [phone] Que Zuluaga MD Unavailable UnavailBrit Park APRN, NP-C Unavailable [phone] Giovanna Carter NP Unavailable Unavailable Zenon Bush MD Unavailable [phone] Alisa Pat PA-C Unavailable [phone] Natasha Moore MD Unavailable Tyshawn Allen MD Unavailable Encounter Details Date Type Department Care Team (Late st Contact Info) Description 01/07/2020 [employer] Message [facility] AT [address] [place] [address] Que Zuluaga MD Question Social History Tobacco Use Types Packs/Day Years Used Date Smoking Tobacco: Never Smokeless Tobacco: Never Alcohol Use Standard Drinks/Week Comments Yes 0 (1 standard drink = 0.6 oz pur e alcohol) wine occasionally Comments Unknown Sex and Gender Information Value Date Recorded Sex Assigned at Female 05/18/2024 1:57 PM CONTINUOUS PROCESS MACHINE OPERATOR Legal Sex Female 6:12 PM CDT Gender Identity Not on file Sexual Orientation Not on file Occupation Industry Job Start Date Job End Date Retired Not on file Not on file Not on file documented as of this encounter Plan of Treatment Upcoming Encounters Date Type Department Care Team (Late st Contact Info) Description 07/03/2024 10:30 AM CONTINUOUS PROCESS MACHINE OPERATOR Appointment [facility] [address] [place] [address] Graciela Jones, MOVEMENT THERAPIST [address] [place] [address] 08/19/2024 8:45 AM CDT Office Visit [facility] [address] [place] [phone] Zenon Bush MD [address] [place], [place] [address] 12/03/2024 2:00 PM CDT Office Visit [facility] [address] [place] [address] Natasha Moore MD [address] [place], [place] [address] documented as of this encounter Visit Diagnoses Not on filedocumented in this encounter Additional Health Concerns Infection Onset 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 documented as of this encounter Care Teams Teletypesetter Operator Relationship Specialty Start Date End Date Elena Dumont MD [address] [place] [address] PCP - General INTERNAL MEDICINE 08/08/16 Que Zuluaga MD [address] [place] [address] [place] Crew Supervisor CARDIOVASCULAR DISEASE 08/08/16 08/19/23 Brit Saxena, DIRECTOR STYLE, CLOTH EXAMINER-C [address] [facility] [address] [place] [phone] [place] Crew Supervisor NURSE PRACTITIONER 10/5/18 6/5/24 Giovanna Carter NP [address] [place] [address] [address] [place] [address] Referring Physician Nurse Practitioner Family 01/24/23 Zenon Bush MD [address] [place] [address] Consulting Physician CLINICAL CARDIAC ELECTROPHYSIOLOGY 03/12/23 Alisa Pat PA-C [address] [place], [place] [address] Referring Physician PHYSICIAN LITHOGRAPHIC GENERAL WORKER 08/20/23 Natasha Moore MD [address] [place], [place] [phone] Consulting Physician CARDIOVASCULAR DISEASE 10/03/23 Tyshawn Allen MD [address] [place] [address] PLASTIC SURGERY 04/03/24 04/03/25 documented as of this encounter
--- OUTSIDE RECORDS SUMMARY | 2024-06-29 14:55 | XMS_ITS | Encounter Summary ---
Author Organization [facility] Address formerly [facility] [place] [address] Care Team Providers Care Hospice Case Manager Name Role Phone Elena Dumont MD Primary Care Provider [phone] Que Zuluaga MD Unavailable Unavailabl e Brit Saxena APRN, NP-C Unavailable [phone] Zenon Bush MD Unavailable [phone] Alisa Pat PA-C Unavailable [phone] Natasha Moore MD Unavailable Tyshawn Allen MD Unavailable Encounter Details Date Type Department Care Team (Late st Contact Info) Description 07/22/2023 Hospital Follow-up Call [facility] [address] [place] [address] Lynn Jameson, RN Social History Tobacco Use Types Packs/Day Years Used Date Smoking Tobacco: Never Smokeless Tobacco: Never Alcohol Use Standard Drinks/Week Comments Yes 0 (1 standard drink = 0.6 oz pur e alcohol) wine occasionally [facility] Utilities Answer Date Recorded In the past 12 months has e [employer], gas, oil, or water [employer] threatened to shut off services in your [...] place to sleep or slept in a halfway (including now)? No 07/15/2023 Comments No Sex and Gender Information Value Date Recorded Sex Assigned at Female 05/18/2024 1:57 PM CLINICAL PROJECT LEADER Legal Sex Female 6:12 PM CDT Gender [...] st Contact Info) Description 07/03/2024 10:30 AM CLINICAL PROJECT LEADER Appointment [facility] [address] [place] [address] Graciela Jones, [facility] [address] [place] [address] 08/19/2024 8:45 AM CDT Office Visit [facility] [address] [place] [address] Zenon Bush MD [address] [place] [address] 12/03/2024 2:00 PM CDT Office Visit [facility] [phone] [place] [address] Natasha Moore MD [address] [place], [place] 508[address] documented as of this encounter Goals Goal [...] documented as of this encounter Care Teams Hospice Case Manager Relationship Specialty Start Date End Date Elena Dumont MD [address] [place] [address] PCP - General INTERNAL MEDICINE 08/08/16 Que Zuluaga MD [address] [place] [phone] Yolyn Manager Graphic CARDIOVASCULAR DISEASE 08/08/16 08/19/23 Brit Saxena APRN, ASSET PROTECTION PROFESSIONAL-C [address] [place] [address] [address] [place] [address] Yolyn Manager Graphic NURSE PRACTITIONER 01/31/18 10/02/23 Zenon Bush MD [address] [place] [address] Consulting Physician CLINICAL CARDIAC ELECTROPHYSIOLOGY 03/12/23 Alisa Pat PA-C [address] [place], [place] [address] Referring Physician PHYSICIAN CANDY ROLLER 08/20/23 Natasha Moore MD [address] [place] [address] Consulting Physician CARDIOVASCULAR DISEASE 10/03/23 Tyshawn Allen MD [address] [place] [address] PLASTIC SURGERY 04/03/24 04/03/25 documented as of this encounter
--- OUTSIDE RECORDS SUMMARY | 2024-06-29 14:55 | XMS_ITS | Encounter Summary ---
Author Organization [facility] Address [address] [place] [address] Care Team Providers Care Core Dropper Name Role Phone Elena Dumont MD Primary Care Provider [phone] Que Zuluaga MD Unavailable UnavailBrit Park APRN, NP-C Unavailable [phone] Giovanna Carter NP Unavailable Unavailable Zenon Bush MD Unavailable [phone] Alisa Pat PA-C Unavailable [phone] Natasha Moore MD Unavailable Tyshawn Allen MD Unavailable Encounter Details Date Type Department Care Team (Late Contact Info) Description 05/12/[address] [facility] [place] [address] [place] [address] Que Zuluaga MD Social History Tobacco Use Types Packs/Day Years Used Date Smoking Tobacco: Never Alcohol Use Standard Drinks/Week Comments No 0 (1 standard drink = 0.6 oz pur e alcohol) Comments Unknown Sex and Gender Information Value Date Recorded Sex Assigned at Female 05/18/2024 1:57 PM COMMISSIONED SECURITY OFFICER Legal Sex Female 6:12 PM CDT Gender Identity Not on file Sexual Orientation Not on file Occupation Industry Job Start Date Job End Date Retired Not on file Not on file Not on file documented as of this encounter Plan of Treatment Upcoming Encounters Date Type Department Care Team (Late Contact Info) Description 07/03/2024 10:30 AM COMMISSIONED SECURITY OFFICER Appointment [facility] [address] [address] [address] Graciela Jones, WATER REGULATOR AND VALVE REPAIRER [address] [place] [address] 08/19/2024 8:45 AM CDT Office Visit [facility] [address] [place] [address] Zenon Bush MD [address] [place], [place] [address] 12/03/2024 2:00 PM CDT Office Visit [facility] [place] [phone] [place] [address] Natasha Moore MD [address] [place], [place] [address] documented as of this encounter Visit Diagnoses Not on filedocumented in this encounter Additional Health Concerns Infection Onset 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 documented as of this encounter Care Teams Core Dropper Relationship Specialty Start Date End Date Elena Dumont MD [address] [place] [address] PCP - General INTERNAL MEDICINE 08/08/16 Que Zuluaga MD [address] [place] [address] [place] [employer] Services Coordinator CARDIOVASCULAR DISEASE 08/08/16 08/19/23 Brit Saxena APRN, MUTUAL FUND ACCOUNTANT-C [address] [facility] [address] [place] [address] [place] [employer] Coordinator NURSE PRACTITIONER 01/31/18 10/02/23 Giovanna Carter NP [address] [place] [address] [address] Referring Physician Nurse Practitioner Family 01/24/23 Zenon Bush MD [address] [place] [address] Consulting Physician CLINICAL CARDIAC ELECTROPHYSIOLOGY 03/12/23 Alisa Pat PA-C 9 [place] [address] Referring Physician PHYSICIAN BARROW WORKER 08/20/23 Natasha Moore MD [address] [place] [address] Consulting Physician CARDIOVASCULAR DISEASE 10/03/23 Tyshawn Allen MD [address] [place] [address] PLASTIC SURGERY 04/03/24 04/03/25 documented as of this encounter
--- OUTSIDE RECORDS SUMMARY | 2024-06-29 14:55 | XMS_ITS ---
Author Organization Unknown Address [address] [place] [phone] Phone Care Team Providers Care Perinatology Physician Name Role Phone IZABELA CHAVIS Attending Unavailable [...] Treatment NM Spect Perf Rest Stress Multi (71064) 03/31/2024 Stress Test Chemical 03/31/2024 NM Spect Perf Rest Stress Multi (55600) 03/31/2024 Stress Test Chemical 03/31/2024 Encounters Encounter Diagnosis Start Date Code Code Sys tem Paroxysmal atrial fibrillation 03/31/2024 [id number] SNOMED-CT Personal Care Team Section Performer Name Performer Role Active Date Inactive LITO Osborne PCP - Primary care physician 2024-03-05
--- OUTSIDE RECORDS SUMMARY | 2024-06-29 14:56 | XMS_ITS | Encounter Summary ---
Author Organization [facility] Address [facility] [place] [address] Care Team Providers Care Manager Inside Name Role Phone Elena Dumont MD Primary Care Provider [phone] Que Zuluaga MD Unavailable UnavailBrit Park APRN, NP-C Unavailable [phone] Giovanna Carter NP Unavailable Unavailable Zenon Bush MD Unavailable [phone] Alisa Pat-C Unavailable [phone] Natasha Moore MD Unavailable Tyshawn Allen MD Unavailable Encounter Details Date Type Department Care Team (Late st Contact Info) Description 02/07/2022 Abstract [facility] [address] [place] [address] Que Zuluaga MD Social History Tobacco Use Types Packs/Day Years Used Date Smoking Tobacco: Never Smokeless Tobacco: Never Alcohol Use Standard Drinks/Week Comments Yes 0 (1 standard drink = 0.6 oz pur e alcohol) wine occasionally Comments Unknown Sex and Gender Information Value Date Recorded Sex Assigned at Female 05/18/2024 1:57 PM TIPPLE OPERATOR Legal Sex Female 6:12 PM CDT Gender Identity Not on file Sexual Orientation Not on file Occupation Industry Job Start Date Job End Date Retired Not on file Not on file Not on file COVID-19 Exposure Response Date Recorded In the last 10 days, have yo u been in contact with someone who was confirmed or suspected to have Coronavirus/COVID-19? No / Unsure 01/18/2022 12:14 PM CDT documented as of this encounter Plan of Treatment Upcoming Encounters Date Type Department Care Team (Late st Contact Info) Description 07/03/2024 10:30 AM TIPPLE OPERATOR Appointment [facility] [address] [facility] [place] [address] Graciela Jones, LENS INSPECTOR [address] [facility] [place] [address] 08/19/2024 8:45 AM CDT Office Visit [facility] [address] [facility] [place] [address] Zenon Bush MD [address] [place], [place] [address] 12/03/2024 2:00 PM CDT Office Visit [facility] [address] [place] [address] Natasha Moore MD [address] [place] [address] documented as of this encounter Procedures Procedure Name Priority Date/Time Associated Diagnosis Comments CMP (ABSTRACTED LAB) Routine 10/18/2021 HEMOGLOBIN, GLYCOSYLATED Routine 10/18/2021 LIPID PANEL Routine 10/18/2021 T3 FREE (ABSTRACTED) Routine 10/16/2021 CBC WITH DIFFERENTIAL Routine 10/16/2021 TSH (OUTSIDE LAB) Routine 10/16/2021 THYROXINE, FREE (FT4) Routine 10/16/2021 VITAMIN D, 25 OH Routine 10/16/2021 CK (CPK) Routine 10/16/2021 documented in this encounter Results * HEMOGLOBIN, GLYCOSYLATED (10/18/2021) Pathologist [facility] HGB A1C 8.3 <5.7 % 10/18/2021 Default History Genericprovider LABORATORY Final Result * (ABNORMAL) CMP (ABSTRACTED LAB) (10/18/2021) Pathologist [facility] SODIUM S/P/B 139 135 - 146 POTASSIUM S/P/B 4.1 3.5 - 5.3 CHLORIDE S/P/B 104 98 - 110 CO2 26 20 - 32 BUN 27 7 - 25 CREATININE S/P/B 1.14(A) 0.60 - 0.88 CALCIUM S/P/B 9.1 8.6 - 10.4 GLUCOSE 93 65 - 99 mg/dL TOTAL PROTEIN S/P/B 6.3 6.1 - 8.1 ALBUMIN S/P/B 4.2 3.6 - 5.1 AST 20 10 - 35 ALT 18 6 - 29 ALKALINE PHOSPHATASE S/P/B 58 37 - 153 BILIRUBIN TOTAL S/P/B 0.5 0.2 - 1.2 10/18/2021 Default History Genericprovider LAB-OUTSIDE/ABST RACTED Final Result * LIPID PANEL (10/18/2021) Pathologist [facility] CHOLESTEROL 165 <200 HDL 64 >or=50 TRIGLYCERIDES 79 <150 NON HDL CHOLESTEROL 101 <130 CHOL/HDL RATIO 2.6 <5.0 LDL (CALCULATED) 84 10/18/2021 Default History Genericprovider LABORATORY Final Result * CBC WITH DIFFERENTIAL (10/16/2021) Pathologist [facility] RBC 4.20 3.80 - 5.10 HGB 12.1 11.7 - 15.5 HCT 38.0 35.0 - 45.0 MCV 90.5 80.0 - 100.0 MCH 28.8 27.0 - 33.0 MCHC 31.8 32.0 - 36.0 RDW 12.7 11.0 - 15.0 PLATELET COUNT 159 140 - 400 MPV 11.4 7.5 - 12.5 WBC 7.9 3.8 - 10.8 10/16/2021 Default History Genericprovider LABORATORY Final Result * T3 FREE (ABSTRACTED) (10/16/2021) Pathologist [facility] FREE T3 2.8 2.3 - 4.2 10/16/2021 Default History Genericprovider LAB-OUTSIDE/ABST RACTED Final Result * THYROXINE, FREE (FT4) (10/16/2021) Pathologist [facility] FREE T4 1.2 0.8 - 1.8 10/16/2021 Default History Genericprovider LABORATORY Final Result * TSH (OUTSIDE LAB) (10/16/2021) Pathologist [facility] TSH 2.42 0.40 - 4.50 10/16/2021 Default History Genericprovider LAB-OUTSIDE/ABST RACTED Final Result * CK (CPK) (10/16/2021) Pathologist [facility] CPK 146 29 - 143 10/16/2021 Default History Genericprovider LABORATORY Final Result * VITAMIN D, 25 OH (10/16/2021) Pathologist [facility] VITAMIN D 25 HYDROXY S/P/B 26 30 - 100 10/16/2021 us Default History Genericprovider LABORATORY Final Result documented in this encounter Visit Diagnoses Not on filedocumented in this encounter Additional Health Concerns Infection Onset 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 documented as of this encounter Care Teams Manager Inside Relationship Specialty Start Date End Date Elena Dumont MD [address] [place] [address] PCP - General INTERNAL MEDICINE 08/08/16 Que Zuluaga MD [address] [place] [address] [employer] Computing Tutor CARDIOVASCULAR DISEASE 08/08/16 08/19/23 Brit Saxena APRN, INTERIOR DECORATOR-C [address] [place] [phone] [employer] Tutor NURSE PRACTITIONER 01/31/18 10/02/23 Giovanna Carter NP [address] [place] [address] Referring Physician Nurse Practitioner [facility] 01/24/23 Zenon Bush MD [address] [place] [address] Consulting Physician CLINICAL CARDIAC ELECTROPHYSIOLOGY 03/12/23 Alisa Pat PA-C [address] [place] [address] Referring Physician PHYSICIAN SNUFF GRINDER 08/20/23 Natasha Moore MD [address] [place] [address] Consulting Physician CARDIOVASCULAR DISEASE 10/03/23 Tyshawn Allen MD [address] [place] [address] PLASTIC SURGERY 04/03/24 04/03/25 documented as of this encounter
--- OUTSIDE RECORDS SUMMARY | 2024-06-29 14:56 | XMS_ITS ---
Author Organization [facility] Address [address] [place], [place] [id number] Care Team Providers Care Lift Manager Name Role Phone KULWINDER CASH Unavailable [phone] REASON FOR VISIT growth on toes Encounters Encounter Location Date Provider Diagnosis [facility] [address] [place], [place] [id number] 12/19/2023 CASH MIRAMONTES Plan Of Treatment No Information Progress Notes * Lizeth STORYDOB:1935 ([age] yo M)Acc No.[id number]:12/19/2023 Progress Notes Patient: Lizeth ROME Provider: Stella MIRAMONTES :1935 A ge:88 Y S ex:Male Date:12/19/2023 Address:[address] [place] [address] Subjective: * Chief Complaints: * 1 . Growth on toes. * Medical History: Objective: * Vitals: Assessment: Plan: * Treatment: * Billing Information: * Visit Code: * Procedure Codes: * Electronic signature of WANG MIRAMONTES DPM on 06/29/2024 at 02:55 PM POWDER COAT PAINTER Sign off status: Pending * Provider: Stella MIRAMONTES Date: 0 12/19/2023 Generated for Reji mckeon/Cathy/Ilda on: 0 06/29/2024 02:55 PM POWDER COAT PAINTER
--- OUTSIDE RECORDS SUMMARY | 2024-06-29 14:56 | XMS_ITS | Clinical Summary ---
Author Organization [facility] Address [address] [place] [address] Care Team Providers Care Sales Representative Consultant Name Role Phone Elena Dumont MD Primary Care Provider [phone] Zenon Bush MD Unavailable [phone] Alisa Pat PA-C Unavailable [phone] Natasha Moore MD Unavailable Tyshawn Allen MD Unavailable Allergies Active Allergy Reactions Criticality Noted Date Comments Amiodarone Other (see comment) 09/02/2018 Vision change & hair loss Flecainide Other (see comment) 06/12/2023 QRS prolong issue Per Dr. Kerr Medications aspirin 81 MG chewable tabletIndications :blood thinner Chew 1 tablet (81 mg total) by mouth nightly. Indications: blood thinner 05/13/19 16 Active levothyroxine (SYNTHROID) 112 MCG tabletIndications :thyroid Take 1 tablet (112 mcg total) by mouth daily. Indications: thyroid 05/13/19 16 Active rOPINIRole (REQUIP) 1 MG tabletIndications :leg pain Take 3 tablets (3 mg total) by mouth 3 (three) times daily as needed (prn). Indications: leg pain Up to 6 times a day as needed 05/13/19 16 Active LANTUS SOLOSTAR 100 UNIT/ML injection (PEN)Indications: dm Inject 30 Units into the skin nightly at bedtime. Indications: dm 07/27/19 17 Active HUMALOG KWIKPEN 100 UNIT/ML injection (PEN)Indications: dm Inject 10 Units into the skin 3 (three) times daily before meals. Indications: dm Inject 5 units with breakfast,10 units with lunch and dinner 07/07/19 17 Active pravastatin 20 MG tabletIndications :htn Take 1 tablet (20 mg total) by mouth nightly at bedtime. Indications: htn 07/18/19 17 Active potassium chloride 10 MEQ Tab CR tabletIndications :supplement Take 1 tablet (10 mEq total) by mouth 2 (two) times daily. 60 tablet 11 04/03/20 18 Active furosemide 40 MG tabletIndications :water pill Take 1 tablet (40 mg total) by mouth daily. 30 tablet 11 04/15/20 19 Active Coenzyme Q10 (COQ10) 200 MG CapIndications:damian pplement Take 1 capsule by mouth 2 (two) times a day. Indications: supplement Active Multiple Vitamins-Minerals (WOMENS 50+ MULTI VITAMIN/MIN) TabIndications:damian pplment Take 1 tablet by mouth daily. Indications: supplment Active Multiple Vitamins-Minerals (PRESERVISION AREDS 2 OR)Indications:mi Take 1 tablet by mouth 2 (two) times a day. Indications: mi Active glucosamine-chond roitin 500-400 MG CapIndications:damian pplment Take 1 capsule by mouth 2 (two) times a day. Indications: supplment Active ONETOUCH ULTRA test stripIndications: dm 1 strip by Other route as needed (prn). Indications: dm 05/02/19 23 Active albuterol sulfate HFA 108 (90 Base) MCG/ACT inhalerIndication s:sob Inhale 2 puffs into the lungs every 6 (six) hours as needed for Shortness of breath or Wheezing. Indications: sob 10/06/19 23 Active escitalopram (LEXAPRO) 20 MG tabletIndications :depression Take 1 tablet (20 mg total) by mouth daily. Indications: depression 05/15/19 24 Active BREO ELLIPTA 200-25 MCG/ACT inhalerIndication s:sob Inhale 1 puff into the lungs daily. Indications: sob 06/05/19 24 Active tiZANidine (ZANAFLEX) 2 MG tabletIndications :legs Take 1 tablet (2 mg total) by mouth every 6 (six) hours as needed (prn). Indications: legs 06/10/19 24 Active alendronate (FOSAMAX) 70 MG tabletIndications :bone health Take 1 tablet (70 mg total) by mouth every 7 days. Indications: bone health Mondays07/05/19 24 Active apixaban (ELIQUIS) 5 MG tabletIndications :elliquis Take 1 tablet (5 mg total) by mouth 2 (two) times daily. Indications: elliquis Active dofetilide (TIKOSYN) 125 MCG Cap capsuleIndication s:heart TAKE 1 CAPSULE (125 MCG TOTAL) BY MOUTH EVERY 12 (TWELVE) HOURS. 60 capsule 5 05/21/19 25 Active pregabalin (LYRICA) 100 MG capsule Take 1 capsule (100 mg total) by mouth daily. 04/30/19 25 Active metoprolol succinate ER (TOPROL-XL) 25 MG 24 hr tablet Take 3 tablets (75 mg total) by mouth daily. 90 tablet 11 06/04/19 25 Active metoprolol succinate ER (TOPROL-XL) 50 MG 24 hr tabletIndications :htn Take 1 tablet (50 mg total) by mouth daily. 30 tablet 6 07/25/19 23 2024 Discontin ued(Dose adjustmen t) doxycycline monohydrate 100 MG capsuleIndication s:Methicillin-Res istant Staphylococcus Aureus Infection Take 1 capsule (100 mg total) by mouth 2 (two) times daily for 10 days. Indications: Methicillin-Resis tant Staphylococcus Aureus Infection 20 capsule 05/27/19 25 2024 Discontin ued(Error ) clindamycin (CLEOCIN) 150 MG capsuleIndication s:Methicillin-Res istant Staphylococcus Aureus Infection Take 1 capsule (150 mg total) by mouth 3 (three) times daily for 10 days. 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 20 capsule 06/02/19 25 2024 Active Problems Problem Noted Date Diagnosed Date PVC's (premature ventricular contractions) 04/09 Atrial flutter (CMS/HCC HHS/HCC) 02/14/2018 Bladder cancer ([facility]) 02/14/2018 Lower extremity edema 02/14/2018 Atrial fibrillation ([facility]) 02/02/2018 Venous insufficiency 02/02/2018 Obesity 08/10/2016 Hypothyroidism 08/10/2016 Mixed hyperlipidemia 08/10/2016 Essential (primary) hypertension 08/10/2016 Heart palpitations 08/10/2016 Diabetes ([facility]) 08/10/2016 Obstructive sleep apnea syndrome 08/10/2016 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, with fat layer exposed ([facility]) Diabetic ulcer of left heel associated with type 2 diabetes mellitus, with fat layer exposed ([facility]) 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 ([facility]) Encounters Date Type Department Care Team Description 06/26/2024 11:00 AM GOLD BLOWER - 06/26/2024 11:59 PM GOLD BLOWER Hospital Encounter [facility] [address] [place] [address] Graciela Jones, SUPERVISOR ACCOUNTING CLERKS Discharge Disposition: Home or Self Care (Routine Discharge) 06/26/2024 Travel 06/15/2024 11:33 AM GOLD BLOWER - 06/15/2024 11:59 PM GOLD BLOWER Hospital Encounter [facility] [address] [place] [address] Courtney Perkins, WATERSHED TENDER Discharge Disposition: Home or Self Care (Routine Discharge) 06/15/2024 Travel 06/08/2024 9:30 AM GOLD BLOWER - 06/08/2024 11:59 PM GOLD BLOWER Hospital Encounter [facility] [address] [place] [address] Graciela Jones, SUPERVISOR ACCOUNTING CLERKS Discharge Disposition: Home or Self Care (Routine Discharge) 06/08/2024 Travel 06/05/2024 [facility] [address] [place] [address] Zenon Bush MD Appointment Request 06/05/2024 [facility]phone [facility] [address] [place] [address] Zenon Bush MD Question 06/04/2024 12:30 PM GOLD BLOWER - 06/04/2024 11:59 PM GOLD BLOWER Hospital Encounter [facility] [address] [place] [address] Graciela Jones, CLAUDINE Discharge Disposition: Home or Self Care (Routine Discharge) 06/04/2024 11:00 AM GOLD BLOWER [facility] Visit [facility] [address] [place] [address] Natasha Moore MD 06/04/2024 Scan [facility] [address] [place] [address] Scanned, Doc Pccl 06/04/2024 Travel 06/03/2024 Telephone [facility] [address] [place] [address] Natasha Moore MD Appointment Reminder 06/03/2024 Orders Only [facility] [address] [place] [address] Natasha Moore MD 06/01/2024 9:30 AM GOLD BLOWER - 06/01/2024 11:59 PM GOLD BLOWER Hospital Encounter [facility] [address] [place] [address] Graciela Jones, SUPERVISOR ACCOUNTING CLERKS Discharge Disposition: Home or Self Care (Routine Discharge) 06/01/2024 Travel 05/29/2024 Telephone [facility] [address] [place] [address] Alessandra Knapp MD Record Request 05/28/2024 9:01 AM GOLD BLOWER - 05/28/2024 2:55 PM GOLD BLOWER Hospital Encounter [facility] [address] [place] [address] Alessandra Knapp MD Discharge Disposition: Home or Self Care (Routine Discharge) 05/27/2024 2:30 PM GOLD BLOWER - 05/27/2024 11:59 PM GOLD BLOWER Hospital Encounter [facility] [address] [place] [address] Graciela Jones FNP Discharge Disposition: Home or Self Care (Routine Discharge) 05/27/2024 1:00 PM GOLD BLOWER Home Care Visit [facility] [address] [place] [address] Paty Kaiser, RN SN OASIS DISCHARGE/ASSESSME NT 05/27/2024 Travel 05/25/2024 9:55 AM GOLD BLOWER - 05/25/2024 11:59 PM GOLD BLOWER Hospital Encounter [facility] [address] [place] [address] Graciela Jones FNP Discharge Disposition: Home or Self Care (Routine Discharge) 05/25/2024 Orders Only [facility] [address] [place] [address] Tracie Huerta 05/25/2024 Travel 05/22/2024 10:27 AM GOLD BLOWER - 05/22/2024 11:59 PM G[facility] BLOWER Hospital Encounter [facility] [address] [place] [address] Graciela Jones, CLAUDINE Discharge Disposition: Home or Self Care (Routine Discharge) 05/22/2024 Travel 05/18/2024 1:30 PM GOLD BLOWER - 05/18/2024 11:59 PM GOLD BLOWER Hospital Encounter [facility] [address] [place] [address] Graciela Jones FNP Discharge Disposition: Home or Self Care (Routine Discharge) 05/18/2024 Travel 05/15/2024 9:30 AM GOLD BLOWER Home Care Visit [facility] [address] [place] [address] Paty Kaiser, RN SN HOME VISIT 05/14/2024 [facility] [address] [place] [address] Alessandra Knapp MD Question 05/13/2024 9:15 AM GOLD BLOWER Home Care Visit [facility] [address] [place] [address] Briana Obregon LPN SN HOME VISIT 05/12/2024 Prep for Procedure [facility] [address] [place] [address] Alessandra Knapp MD 05/12/2024 Prep for Procedure [facility] [address] [place] [address] Alessandra Knapp MD 05/12/2024 Telephone [facility] [address] [place] [address] Natasha Moore MD Appointment Request 05/11/2024 1:30 PM GOLD BLOWER - 05/11/2024 11:59 PM GOLD BLOWER Hospital Encounter [facility] [address] [place] [address] Graciela Jones, SUPERVISOR ACCOUNTING CLERKS Discharge Disposition: Home or Self Care (Routine Discharge) 05/11/2024 Travel 05/11/2024 Telephone [facility] [address] [place] [address] Alessandra Knapp MD Question 05/09/2024 8:00 AM GOLD BLOWER Home Care Visit [facility] [address] [place] [address] Briana Obregon LPN SN HOME VISIT 05/06/2024 9:00 AM GOLD BLOWER Home Care Visit [facility] [address] [place] [address] Briana Obregon LPN SN HOME VISIT 05/06/2024 Prep for Procedure [facility] [address] [place] [address] Alessandra Knapp MD 05/05/2024 Abstract [facility] [address] [place] [address] Abstract, Doc Pccl 05/05/2024 Orders Only [facility] [address] [place] [address] Alessandra Knapp MD 05/05/2024 Telephone [facility] [address] [place] [address] Alessandra Knapp MD Appointment Request 05/01/2024 11:00 AM GOLD BLOWER Home Care Visit [facility] [address] [place] [address] Briana Obregon LPN SN HOME VISIT 05/01/2024 Telephone [facility] [address] [place] [address] Natasha Moore MD Results (BMP ) 04/28/2024 1:27 PM GOLD BLOWER - 04/28/2024 11:59 PM GOLD BLOWER Hospital Encounter [facility] [address] [place] [address] Graciela Jones, CLAUDINE Discharge Disposition: Home or Self Care (Routine Discharge) 04/28/2024 Travel 04/24/2024 8:45 AM GOLD BLOWER Home Care Visit [facility] [address] [place] [address] Briana Obregon LPN SN HOME VISIT 04/22/2024 2:00 PM GOLD BLOWER Home Care Visit [facility] [address] [place] [address] Nancy Singh LPN SN HOME VISIT 04/20/2024 1:19 PM GOLD BLOWER - 04/20/2024 11:59 PM GOLD BLOWER Hospital Encounter [facility] [address] [place] [address] Graciela Jones, CLAUDINE Discharge Disposition: Home or Self Care (Routine Discharge) 04/20/2024 Travel 04/17/2024 9:30 AM GOLD BLOWER Home Care Visit [facility] [address] [place] [address] Paty Kaiser, RN SN HOME VISIT 04/15/2024 12:45 PM GOLD BLOWER - 04/15/2024 11:59 PM GOLD BLOWER Hospital Encounter [facility] [address] [place] [address] Graciela Jones FNP Discharge Disposition: Home or Self Care (Routine Discharge) 04/15/2024 10:30 AM GOLD BLOWER Home Care Visit [facility] [address] [place] [address] Paty Kaiser RN SN OASIS START OF CARE 04/15/2024 Plan of Care Documentation [facility] [address] [place] [address] 04/15/2024 Travel 04/13/2024 1:00 PM GOLD BLOWER Home Care Visit [facility] [address] [place] [address] Natalee Swain RN SN NON ADMIT SOC 04/13/2024 12:43 PM GOLD BLOWER - 04/13/2024 11:59 PM GOLD BLOWER Hospital Encounter [facility] [address] [place] [address] Graciela Jones FNP Discharge Disposition: Home or Self Care (Routine Discharge) 04/13/2024 Telephone [facility] [address] [place] [address] Natasha Moore MD Returned Call 04/13/2024 Travel 04/09/2024 11:30 AM GOLD BLOWER - 04/09/2024 11:59 PM GOLD BLOWER Hospital Encounter [facility] [address] [place] [address] Graciela Jones FNP Discharge Disposition: Home or Self Care (Routine Discharge) 04/09/2024 Travel 04/07/2024 8:57 AM GOLD BLOWER - 04/07/2024 11:59 PM GOLD BLOWER Hospital Encounter [facility] [address] [place] [address] Graciela Jones FNP Discharge Disposition: Home or Self Care (Routine Discharge) 04/07/2024 Travel 04/06/2024 Prep for Procedure [facility] [address] [place] [address] Alessandra Knapp MD 04/06/2024 Scan [facility] [address] [place] [address] Scanned, Doc Hospital 04/06/2024 Telephone [facility] [address] [place] [address] Alessandra Knapp MD Schedule Procedure 04/06/2024 Telephone [facility] [address] [place] [address] Natasha Moore MD Schedule Procedure 04/03/2024 5:00 PM GOLD BLOWER Teleconsult [facility] [address] [place] [address] Natasha Moore MD Heart Problem 04/03/2024 8:50 AM GOLD BLOWER - 04/03/2024 11:59 PM GOLD BLOWER Hospital Encounter [facility] [address] [place] [address] Graciela Jones, SUPERVISOR ACCOUNTING CLERKS Discharge Disposition: Home or Self Care (Routine Discharge) 04/03/2024 Travel 04/03/2024 Telephone [facility] [address] [place] [address] Natasha Moore MD Appointment Request 03/31/2024 Scan [facility] [address] [place] [address] Scanned, Doc Pccl from Last 3 Months Immunizations Name Administration Dates Next Due Tdap (Boostrix) 2023 Family History Medical History Relation Comments Heart Attack Brother 1 Heart Attack Brother 2 Heart Attack Mother Heart Disease Other Relation Status Comments Brother 1 Brother 2 Father (Age 73) Mother Other Social History Tobacco Use Types Packs/Day Years Used Date Smoking Tobacco: Never Smokeless Tobacco: Never Tobacco Cessation:Counseling Given: Not Answered Alcohol Use Standard Drinks/Week Comments Yes 0 (1 standard drink = 0.6 oz pur e alcohol) wine occasionally OASIS D0700: Social Isolation Answer Da te Recorded Frequency of experiencing loneliness or isolatio n Never 05/27/2024 OASIS A1250: Transportation Answer Date Recorded Lack of Transportation (Medical) No 05/27/2024 Lack of Transportation (Non-Medical) No 05/27/2024 Patient Unable or Declines to Respond No 05/27/2024 OASIS B1300: Health Literacy Answer Alexis e Recorded Frequency of needing help to read materials from doctor or pharmacy Never 05/27/2024 [facility] Utilities Answer Date Recorded In the past 12 months has th e Gro, gas, oil, or water company threatened to [...] place to sleep or slept in a fpc (including now)? No 07/15/2023 Comments No Sex and Gender Information Value Date Recorded Sex Assigned at Female 05/18/2024 1:57 PM GOLD BLOWER Legal Sex Female 6:12 PM CDT Gender Identity Not on file Sexual Orientation Not on file Occupation Industry Job Start Date Job End Date Retired Not on file Not on file Not on file Last Filed Vital Signs Vital Sign Reading Time Taken Comments Blood Pressure 128/78 06/04/2024 2:00 PM GOLD BLOWER Pulse 78 06/04/2024 2:00 PM GOLD BLOWER Temperature 35.8 C (96.4 F) 05/28/2024 9:40 AM GOLD BLOWER Respiratory Rate 20 06/04/2024 2:00 PM GOLD BLOWER Oxygen Saturation 90% 06/04/2024 2:00 PM GOLD BLOWER Inhaled Oxygen Concentration - - Weight 82.6 kg (182 lb) 06/04/2024 2:00 PM GOLD BLOWER Height 157.5 cm (5' 2 ) 06/04/2024 2:00 PM GOLD BLOWER Body Mass Index 33.29 06/04/2024 2:00 PM GOLD BLOWER Plan of Treatment Upcoming Encounters Date Type Department Care Team (Late st Contact Info) Description 07/03/2024 10:30 AM GOLD BLOWER Appointment [facility] [address] [place] [address] Graciela Jones, SUPERVISOR ACCOUNTING [employer]ERKS [address] [place] [address] 08/19/2024 8:45 AM CDT [facility] Visit [facility] [address] [place] [address] Zenon Bush MD [address] [place] [address] 12/03/2024 2:00 PM CDT Office Visit [facility] [address] [place] [address] Natasha Moore MD [address] [place] [address] Health Maintenance Due Date Last Done Comments ASCVD Statin 1936 Diabetes: Retinopathy Eye Exam 1954 Zoster Vaccines (1 of 2) 1986 Annual Medicare Wellness Visit 2001 Hemoglobin A1C 04/19/2022 10/18/2021, 01/17/2018 ASCVD LDL 10/18/2022 10/18/2021, 01/17/2018 Lipid Panel 10/18/2022 10/18/2021, 01/17/2018 DTaP, Tdap and Td Vaccines (3 - Td or Tdap) 2033 2023, 03/03/2014 Pneumococcal Vaccine: 65+ Years Completed 01/14/2015, 02/10/2014 RSV Immunization or 60+ Years Completed 02/26/2023 COVID-19 Vaccine Completed 02/13/2024, , 04/08/2021, Additional history exists Influenza Adult Completed 02/13/2024, 12/29, 02/25/2019, Additional history exists Meningococcal B Vaccine Aged Out No l onger eligible based on patient's age to complete this topic Meningococcal Vaccine Aged Out No cece barrie eligible based on patient's age to complete this topic RSV Immunizations Under 20 Months Aged Out No longer eligible based on patient's age to complete this topic Goals Goal Patient Goal Type Associated Problems Recent Progress Patient-Stated? 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, with fat layer exposed ([facility]) CBC W/DIFF AUTOMATED Routine 05/18/2024 Abnormal stress test BASIC METABOLIC PANEL Routine 05/18/2024 Abnormal stress test COMPREHENSIVE METABOLIC PANEL Routine 04/27/2024 HC BODY FLUID CULTURE Routine 04/20/2024 1:42 PM GOLD BLOWER 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 (CMS/HCC HHS/HCC) NM PHARM NUC STRESS TEST 1DAY W TRACING Routine 03/31/2024 Paroxysmal atrial fibrillation (CMS/HCC HHS/HCC) Essential (primary) hypertension HERNDON (dyspnea on exertion) LIPID PANEL Routine 10/18/2021 HEMOGLOBIN, GLYCOSYLATED Routine 10/18/2021 from Last 3 Months or Most Recently Relevant to Health Maintenance Results * NOT [facility] - ELECTROCARDIOGRAM, TRACING (06/04/2024) us Natasha Moore MD PROCEDURES-UNRESULTED Final Resu lt * XA [facility] POSS (05/28/2024 11:45 AM GOLD BLOWER) Anatomical Region Laterality Modality Cardiac Business Segment Manager 05/28/2024 11:0 0 AM GOLD BLOWER us Alessandra Knapp MD WHEEL FITTER Final Result * (ABNORMAL) POCT glucose (05/28/2024 9:28 AM GOLD BLOWER) GLUCOSE POC 174(H) 70 - 109 05/28/2024 2:45 PM GOLD BLOWER [facility] 05/28/2024 9:28 AM GOLD BLOWER us Alessandra Knapp MD POCT ORDERABLES - DEVICE Final Result [facility] [address] [place] [address], [place] [phone] [id number] * (ABNORMAL) CULTURE, WOUND, W/GRAM STAIN (05/25/2024 10:29 AM GOLD BLOWER) Only the most recent of2 resultswithin the time period is included. SPEC DESCRIPTION HEEL, RIGHT 05/25/2024 11:06 AM GOLD BLOWER [facility] SPECIAL REQUESTS NO SPECIAL REQUEST 05/25/2024 11:06 AM G[facility] GRAM STAIN RESULT GRAM POSITIVE COCCI 05/25/2024 11:52 AM GOLD [facility]OWER [facility] CULTURE RESULT MODERATE METHICILLIN RESISTANT STAPHYLOCOCCUS AUREUS (A) 05/28/2024 6:55 AM GOLD BLOWER [facility] CULTURE RESULT MODERATE STAPHYLOCOCCUS, COAGULASE NEGATIVE 05/28/2024 6:55 AM G[facility]OWER [facility] CULTURE RESULT MODERATE DIPHTHEROIDS 05/28/2024 6:55 AM [facility] RIGHT HEEL STRUCTURE / Unknown 05/25/2024 10:29 AM GOLD BLOWER 05/25/2024 11:08 AM GOLD BLOWER Narrative Organism Antibiotic Method Susceptibility Methicillin resistant staphylococcus aureus CLINDAMYCIN SUZE (VITEK) Sensitive Methicillin resistant staphylococcus aureus ERYTHROMYCIN SUZE (VITEK) INTERMEDIATE: Intermediate Methicillin resistant staphylococcus aureus GENTAMICIN SUZE (VITEK) Sensitive Methicillin resistant staphylococcus aureus OXACILLIN SUZE (VITEK) Resistant Methicillin resistant staphylococcus aureus PENICILLIN G SUZE (VITEK) Resistant Methicillin resistant staphylococcus aureus RIFAMPIN SUZE (VITEK) Sensitive Methicillin resistant staphylococcus aureus TRIMETH-SULFAMETH. SUZE (VITEK) Sensitive Methicillin resistant staphylococcus aureus TETRACYCLINE SUZE (VITEK) Sensitive Methicillin resistant staphylococcus aureus TIGECYCLINE SUZE (VITEK) Sensitive Methicillin resistant staphylococcus aureus VANCOMYCIN SUZE (VITEK) Sensitive Staphylococcus, coagulase negative CLINDAMYCIN SUZE (VITEK) Sensitive Staphylococcus, coagulase negative ERYTHROMYCIN SUZE (VITEK) Sensitive Staphylococcus, coagulase negative GENTAMICIN SUZE (VITEK) Sensitive Staphylococcus, coagulase negative OXACILLIN SUZE (VITEK) Sensitive Staphylococcus, coagulase negative PENICILLIN G SUZE (VITEK) Sensitive Staphylococcus, coagulase negative RIFAMPIN SUZE (VITEK) Sensitive Staphylococcus, coagulase negative TRIMETH-SULFAMETH. SUZE (VITEK) Sensitive Staphylococcus, coagulase negative TETRACYCLINE SUZE (VITEK) Sensitive Staphylococcus, coagulase negative VANCOMYCIN SUZE (VITEK) Sensitive Graciela Burris Robert SUPERVISOR ACCOUNTING CLERKS MICROBIOLOGY - GENERAL ORDERAB LES Final Result [facility] [address] [place] [address], [place] [phone] [id number] [facility] [address] [place] [address], [place] [phone] * (ABNORMAL) BASIC METABOLIC PANEL (05/18/2024) Pathologist [facility] SODIUM S/P/B 141 135 - 146 POTASSIUM S/P/B 3.9 3.5 - 5.3 CO2 30 20 - 32 CHLORIDE S/P/B 102 98 - 110 GLUCOSE 141(A) 65 - 99 mg/dL CALCIUM S/P/B 9.2 8.6 - 10.4 BUN 46(A) 7 - 25 CREATININE S/P/B 1.17(A) 0.60 - 0.95 GFR ESTIMATE 45(A) >=60 BUN CREATININE RATIO 39(A) 6 - 22 05/18/2024 Alessandra Knapp MD LABORATORY Final Result * (ABNORMAL) CBC W/DIFF AUTOMATED (05/18/2024) Pathologist [facility] WBC 7.5 3.8 - 10.8 RBC 4.03 3.80 - 5.10 HGB 11.4(A) 11.7 - 15.5 HCT 36.1 35.0 - 45.0 MCV 89.6 80.0 - 100.0 MCH 28.3 27.0 - 33.0 MCHC 31.6(A) 32.0 - 36.0 RDW 13.8 11.0 - 15.0 PLT 145 140 - 400 MPV 12.0 7.5 - 12.5 NEUTROPHILS % 78.9 LYMPHOCYTES % 12.0 MONOCYTES % 6.4 EOSINOPHILS % 2.0 BASOPHILS % 0.7 ABS. NEUTROPHILS 5,918 1,500 - 7,800 ABS. LYMPHOCYTES 900 850 - 3,900 ABS. MONOCYTES 480 200 - 950 ABS. BASOPHILS 53 0 - 200 ABS. EOSINOPHILS 150 15 - 500 05/18/2024 Alessandra Knapp MD LABORATORY Final Result * (ABNORMAL) COMPREHENSIVE METABOLIC PANEL (04/27/2024) SODIUM S/P/B 138 GLUCOSE 243 mg/dL BUN 62 CREATININE S/P/B 1.15(A) 0.5 - 1.0 CALCIUM S/P/B 10.0 POTASSIUM S/P/B 4.0 CHLORIDE S/P/B 104 Narrative Resulting Agency Comment [facility] Default History Genericprovider LABORATORY Final Result * NM PHARM NUC STRESS TEST 1 DAY W TRACING (03/31/2024) Anatomical Region Laterality Modality Cardiac Nuclear Medicine Natasha Moore MD NUC MED Final Result * HEMOGLOBIN, GLYCOSYLATED (10/18/2021) HGB A1C 8.3 <5.7 % 10/18/2021 Default History Genericprovider LABORATORY Final Result * LIPID PANEL (10/18/2021) CHOLESTEROL 165 <200 HDL 64 >or=50 TRIGLYCERIDES 79 <150 NON HDL CHOLESTEROL 101 <130 CHOL/HDL RATIO 2.6 <5.0 LDL (CALCULATED) 84 10/18/2021 Default History Genericprovider LABORATORY Final Result from Last 3 Months or Most Recently Relevant to Health Maintenance Additional Health Concerns Infection Onset Date Last Indicated 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 Insurance Advance Directives * Full Code (Latest Code Status on File) Date Activated Date Inactivated Comments 06/02/2024 7:09 AM * Full Code Date Activated Date Inactivated Comments 10/22/2023 1:03 PM 10/23/2023 1:15 PM * Full Code Date Activated Date Inactivated Comments 07/15/2023 2:13 PM 07/19/2023 2:52 PM Care Teams Sales Representative Consultant Relationship Specialty Start Date End Date Elena Dumont MD [address] [place] [phone] PCP - General INTERNAL MEDICINE 08/08/16 Zenon Bush MD [address] [place] [address] Consulting Physician CLINICAL CARDIAC ELECTROPHYSIOLOGY 03/12/23 Alisa Pat PA-C [address] [place] [address] [phone] Referring Physician PHYSICIAN LOGGING CREW SUPERVISOR 08/20/23 Natasha Moore MD [address] [place] [address] [phone] Consulting Physician CARDIOVASCULAR DISEASE 10/03/23 Tyshawn Allen MD [address] [place] [phone] PLASTIC SURGERY 04/03/24 04/03/25
[2024-06-29 15:14] LABS: Hemoglobin A1C 8.1 % (<5.7)
[2024-06-29 15:28] LABS: WBC Urine 51-75 /hpf (0-3)
[2024-06-29 15:29] LABS: Bacteria Urine 2+ /hpf; Squamous Epithelial Cell Urine Many /hpf (Few)
[2024-06-29 15:31] LABS: RBC Urine 0-2 /hpf (0-2)
[2024-06-29 15:35] LABS: Free T3 1.62 pg/mL (2.18-3.98)
[2024-07-04 02:53] LABS: Vitamin D 25 Hydroxy 34 ng/mL (30-100)
== END 2024-06-29 13:36 | disposition home or self-care (01) ==
LOC: CHSLAB 13:37 → CHSHH 13:51
PROVIDERS: PCP Internal Medicine; Visit Provider Internal Medicine
DX: N39.0 Urinary tract infection, site not specified (principal); E03.4 Atrophy of thyroid (acquired); E78.2 Mixed hyperlipidemia; D50.9 Iron deficiency anemia, unspecified; E53.8 Deficiency of other specified B group vitamins; I51.9 Heart disease, unspecified; S81.811D Laceration without foreign body, right lower leg, subsequent encounter; E11.621 Type 2 diabetes mellitus with foot ulcer; L97.412 Non-pressure chronic ulcer of right heel and midfoot with fat layer exposed; L97.422 Non-pressure chronic ulcer of left heel and midfoot with fat layer exposed; I87.2 Venous insufficiency (chronic) (peripheral); I12.9 Hypertensive chronic kidney disease with stage 1 through stage 4 chronic kidney disease, or unspecified chronic kidney disease; I48.91 Unspecified atrial fibrillation; E55.9 Vitamin D deficiency, unspecified; E53.9 Vitamin B deficiency, unspecified; E78.5 Hyperlipidemia, unspecified; E03.9 Hypothyroidism, unspecified; I50.9 Heart failure, unspecified
CPT/HCPCS: 36415; 80053; 80061; 81001; 82043; 82306; 82550; 82607; 82728; 83036; 83540; 83880; 84439; 84443; 84481; 85025; 87086; 87181

== ENCOUNTER 2024-08-18 12:31 | Outpatient (CLI) | payer MEDICARE, SELFPAY ==
[2024-08-18 13:43] LABS: Anion Gap 11 mmol/L (4-12); Blood Urea Nitrogen 46 mg/dL (7-18); Calcium 8.8 mg/dL (8.5-10.1); Carbon Dioxide 28 mmol/L (21-32); Chloride 101 mmol/L (98-108); Estimated Glomerular Filt Rate 37; Glucose 170 mg/dL (70-99); NT Pro B Type Natriuretic Pept 1990 pg/mL (0-450); Osmolality Calculated 305 mOsm/kg (285-295); Sodium 140 mmol/L (136-145); Thyroid Stimulating Hormone 3.66 uIU/mL (0.36-3.74)
--- OUTSIDE RECORDS SUMMARY | 2024-08-18 14:03 | XMS_ITS | Encounter Summary ---
Author Organization [facility] Address [facility] [place] [address] Care Team Providers Care Information Technology Consultant Name Role Phone Elena Dumont MD Primary Care Provider [phone] Que Zuluaga MD Unavailable [phone] Brit Saxena APRN INSOLE TOE SNIPPING MACHINE OPERATOR-C Unavailable [phone] Giovanna Carter NP Unavailable Unavailable Zenon Bush MD Unavailable [phone] Alisa Pat-C Unavailable [phone] Natasha Moore MD Unavailable Tyshawn Allen MD Unavailable Encounter Details Date Type Department Care Team (Late st Contact Info) Description 05/26/2018 Abstract [facility] [address] [place] [address] Que Zuluaga MD [address] [place] [phone] Social History Tobacco Use Types Packs/Day Years Used Date Smoking Tobacco: Never Smokeless Tobacco: Never Alcohol Use Standard Drinks/Week Comments Yes 0 (1 standard drink = 0.6 oz pur e alcohol) wine occasionally Comments Unknown Sex and Gender Information Value Date Recorded Sex Assigned at Female 05/18/2024 1:57 PM FOREST PATHOLOGY TEACHER Legal Sex Female 6:12 PM CDT Gender Identity Not on file Sexual Orientation Not on file Occupation Industry Job Start Date Job End Date Retired Not on file Not on file Not on file documented as of this encounter Plan of Treatment Upcoming Encounters Date Type Department Care Team (Late st Contact Info) Description 11/04/2024 9:15 AM CDT Office Visit [facility] [address] [place] [address] [place] [address] Zenon Bush MD [address] [place], [place] [address] 12/03/2024 2:00 PM CDT Office Visit [facility] [address] [address] Natasha Moore MD [address] [place], [place] [phone] documented as of this encounter Procedures Procedure [...] documented as of this encounter Care Teams Information Technology Consultant Relationship Specialty Start Date End Date Elena Dumont MD [address] [place] [address] PCP - General INTERNAL MEDICINE 4/12/17 Que Zuluaga MD [address] [place] [phone] [place] Fish Checker CARDIOVASCULAR DISEASE 08/08/16 08/19/23 Brit Saxena APRN, INSOLE TOE SNIPPING MACHINE OPERATOR-C [address] [place] [phone] [place] Fish Checker NURSE PRACTITIONER 01/31/18 10/02/23 Giovanna Carter NP [address] [place] [phone] Referring Physician Nurse Practitioner [facility] 01/24/23 Zenon Bush MD [address] [place] [address] Consulting Physician CLINICAL CARDIAC ELECTROPHYSIOLOGY 03/12/23 Alisa Pat PA-C [address] [place] [address] Referring Physician PHYSICIAN PARACHUTE MARKER 08/20/23 Natasha Moore MD [address] [place] [address] Consulting Physician CARDIOVASCULAR DISEASE 10/03/23 Tyshawn Allen MD [address] [place] [address] PLASTIC SURGERY 04/03/24 04/03/25 documented as of this encounter
--- OUTSIDE RECORDS SUMMARY | 2024-08-18 14:03 | XMS_ITS | Encounter Summary ---
Author Organization [facility] Address [facility] [place] [address] Care Team Providers Care Sound Ranging Crewmember Name Role Phone Elena Dumont MD Primary Care Provider [phone] Que Zuluaga MD Unavailable [phone] Brit Saxena APRN ROENTGENOLOGIST-C Unavailable [phone] Giovanna Carter NP Unavailable Unavailable Zenon Bush MD Unavailable [phone] Alisa Pat-C Unavailable [phone] Natasha Moore MD Unavailable Tyshawn Allen MD Unavailable Encounter Details Date Type Department Care Team (Late st Contact Info) Description 04/23/2019 [employer] Message [facility] [place] [address] [place] [address] Que Zuluaga MD [address] [place] [address] Other Social History Tobacco Use Types Packs/Day Years Used Date Smoking Tobacco: Never Smokeless Tobacco: Never Alcohol Use Standard Drinks/Week Comments Yes 0 (1 standard drink = 0.6 oz pur e alcohol) wine occasionally Comments Unknown Sex and Gender Information Value Date Recorded Sex Assigned at Female 05/18/2024 1:57 PM ROTARY PUMP OPERATOR Legal Sex Female 6:12 PM CDT Gender Identity Not on file Sexual Orientation Not on file Occupation Industry Job Start Date Job End Date Retired Not on file Not on file Not on file documented as of this encounter Progress Notes * Violeta Velasquez RN - 04/23/2019 7:53 AM CSTFrom: Lizeth Warner To: Que Zuluaga MD Sent: 04/23/2019 5:48 AM ROTARY PUMP OPERATOR Subject: Other I have Had my Flue Shot at [facility] Dr Dumont I will make an appointment In June 2019 That is when I am supposed to see Que Berry Thank You Lizeth Warner RY PUMP OPERATOR documented in this encounter Plan of Treatment Upcoming Encounters Date Type Department Care Team (Late st Contact Info) Description 11/04/2024 9:15 AM CDT Office Visit [facility] [address] [place] [address] Zenon Bush MD [address] [place], [place] [address] 12/03/2024 2:00 PM CDT Office Visit [facility] [address] [phone] Natasha Moore MD [address] [place], [place] [address] documented as of this encounter Visit Diagnoses Not on filedocumented in this encounter Additional Health Concerns Infection Onset 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 documented as of this encounter Care Teams Sound Ranging Crewmember Relationship Specialty Start Date End Date Elena Dumont MD [address] [place] [phone] PCP - General INTERNAL MEDICINE 08/08/16 Que Zuluaga MD [address] [place] [phone] [place] Supervisor [employer] CARDIOVASCULAR DISEASE 08/08/16 08/19/23 Brit Saxena APRN, ROENTGENOLOGIST-C [address] [place] [phone] [place] Supervisor [employer] NURSE PRACTITIONER 01/31/18 10/02/23 Giovanna Carter NP [address] [place] [phone] Referring Physician Nurse Practitioner Family 01/24/23 Zenon Bush MD [address] [place] [address] Consulting Physician CLINICAL CARDIAC ELECTROPHYSIOLOGY 03/12/23 Alisa Pat PA-C [address] [place] [address] Referring Physician PHYSICIAN ASSISTANT ASSOCIATE FULL PROFESSOR 08/20/23 Natasha Moore MD [address] [place] [address] Consulting Physician CARDIOVASCULAR DISEASE 10/03/23 Tyshawn Allen MD [address] [place] [address] PLASTIC SURGERY 04/03/24 04/03/25 documented as of this encounter
--- OUTSIDE RECORDS SUMMARY | 2024-08-18 14:03 | XMS_ITS | Encounter Summary ---
Author Organization [facility] Address Replaced by [facility] [place] [address] Care Team Providers Care Manager Of Revenue Name Role Phone Elena Dumont MD Primary Care Provider [phone] Zenon Bush MD Unavailable [phone] Alisa Pat PA-C Unavailable [phone] Natasha Moore MD Unavailable Tyshawn Allen MD Unavailable Encounter Details Date Type Department Care Team (Late st Contact Info) Description 05/12/2024 Prep for Procedure [facility] [address] [place] [address] Alessandra Knapp MD [address] [place] [address] Social History Tobacco Use Types Packs/Day Years [...] materials from doctor or pharmacy Never 04/15/2024 [facility] Utilities Answer Date Recorded In the [...] Sex Assigned at Female 05/18/2024 1:57 PM VP CLINICAL RESEARCH Legal Sex Female 6:12 PM CDT Gender [...] No 10/22/2023 4:26 PM CDT Janee Bello CIRCUIT MANAGER Active * Are you blind or do you have serious difficulty seeing, even when wearing glasses? Answer Date of Assessment Author Status No 10/22/2023 4:26 PM CDT Janee Bello, CIRCUIT MANAGER Active * Do you have serious difficulty walking or climbing stairs? Answer Date of Assessment Author Status Yes 10/22/2023 4:26 PM CDT Janee Bello, CIRCUIT MANAGER Active * Do you have difficulty dressing or bathing? Answer Date of Assessment Author Status No 10/22/2023 4:26 PM CDT Janee Bello, CIRCUIT MANAGER Active * Because of a physical, mental, or emotional condition, do you have difficulty doing errands alone such as visiting a doctor's office or shopping? Answer Date of Assessment Author Status No 10/22/2023 4:26 PM CDT Janee Bello, CIRCUIT MANAGER Active documented as of this encounter Mental Status * Because of a physical, mental, or emotional condition, do you have serious difficulty concentrating, remembering, or making decisions? Answer Entry Date Author Status No 10/22/2023 4:26 PM CDT Janee Bello CIRCUIT MANAGER Active documented in this encounter Plan of Treatment Upcoming Encounters Date Type Department Care Team (Late st Contact Info) Description 11/04/2024 9:15 AM CDT Office Visit [facility] [address] [place] [address] Zenon Bush MD [address] [place] [address] 12/03/2024 2:00 PM CDT Office Visit [facility] [address] [place] [address] Natasha Moore MD [address] [place], [place] [phone] documented as of this encounter Goals Goal [...] as of this encounter Care Teams Manager Of Revenue Relationship Specialty Start Date End Date Elena Dumont MD [address] [place] [address] PCP - General INTERNAL MEDICINE 08/08/16 Zenon Bush MD [address] [place] [address] Consulting Physician CLINICAL CARDIAC ELECTROPHYSIOLOGY 03/12/23 Alisa Pat PA-C [address] [place] [address] Referring Physician PHYSICIAN LAPPING MACHINE SET UP OPERATOR 08/20/23 Natasha Moore MD [address] [place] [address] Consulting Physician CARDIOVASCULAR DISEASE 10/03/23 Tyshawn Allen MD [address] [place], [place] [phone] PLASTIC SURGERY 04/03/24 04/03/25 documented as of this encounter
--- OUTSIDE RECORDS SUMMARY | 2024-08-18 14:03 | XMS_ITS | Encounter Summary ---
Author Organization [facility] Address [facility] [place] [address] Care Team Providers Care Nba Player Name Role Phone Elena Dumont MD Primary Care Provider [phone] Que Zuluaga MD Unavailable [phone] Brit Saxena APRN RECORD CHANGER TESTER-C Unavailable [phone] Giovanna Carter NP Unavailable Unavailable Zenon Bush MD Unavailable [phone] Alisa Pat-C Unavailable [phone] Natasha Moore MD Unavailable Tyshawn Allen MD Unavailable Encounter Details Date Type Department Care Team (Late st Contact Info) Description 01/07/2020 [facility] [facility] [address] [place] [address] Que Zuluaga MD [address] [place] [address] Question Social History Tobacco Use Types Packs/Day Years Used Date Smoking Tobacco: Never Smokeless Tobacco: Never Alcohol Use Standard Drinks/Week Comments Yes 0 (1 standard drink = 0.6 oz pur e alcohol) wine occasionally Comments Unknown Sex and Gender Information Value Date Recorded Sex Assigned at Female 05/18/2024 1:57 PM JIGGER OPERATOR Legal Sex Female 6:12 PM CDT Gender Identity Not on file Sexual Orientation Not on file Occupation Industry Job Start Date Job End Date Retired Not on file Not on file Not on file documented as of this encounter Plan of Treatment Upcoming Encounters Date Type Department Care Team ([facility] st Contact Info) Description 11/04/2024 9:15 AM CDT Office Visit [facility] [address] [place] [address] Zenon Bush MD [address] [place] [address] 12/03/2024 2:00 PM CDT Office Visit [facility] [address] [phone] Natasha Moore MD [address] [place], [place] [address] documented as of this encounter Visit Diagnoses Not on filedocumented in this encounter Additional Health Concerns Infection Onset 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 documented as of this encounter Care Teams Nba Player Relationship Specialty Start Date End Date Elena Dumont MD [address] [place] [phone] PCP - General INTERNAL MEDICINE 08/08/16 Que Zuluaga MD [address] [place] [phone] [place] Contract Serviceman CARDIOVASCULAR DISEASE 08/08/16 08/19/23 Brit Saxena APRN, RECORD CHANGER TESTER-C 6[address] [facility] [address] [place] [phone] [place] Contract Serviceman NURSE PRACTITIONER 01/31/18 10/02/23 Giovanna Carter NP [address] [place] [address] [phone] Referring Physician Nurse Practitioner [facility] 01/24/23 Zenon Bush MD [address] [place] [address] Consulting Physician CLINICAL CARDIAC ELECTROPHYSIOLOGY 03/12/23 Alisa Pat PA-C [address] [place] [address] Referring Physician PHYSICIAN FACILITY MANAGER 08/20/23 Natasha Moore MD [address] [place] [address] Consulting Physician CARDIOVASCULAR DISEASE 10/03/23 Tyshawn Allen MD [address] [place] [address] PLASTIC SURGERY 04/03/24 04/03/25 documented as of this encounter
--- OUTSIDE RECORDS SUMMARY | 2024-08-18 14:03 | XMS_ITS ---
Author Organization Unknown Address [address] [place] [phone] Phone Care Team Providers Care Group Home Counselor Name Role Phone IZABELA CHAVIS Attending Unavailable [...] Treatment NM Spect Perf Rest Stress Multi (86043) 03/31/2024 Stress Test Chemical 03/31/2024 NM Spect Perf Rest Stress Multi (80270) 03/31/2024 Stress Test Chemical 03/31/2024 Encounters Encounter Diagnosis Start Date Code Code Sys tem Paroxysmal atrial fibrillation 03/31/2024 824223020 SNOMED-CT Personal Care Team Section Performer Name Performer Role Active Date Inactive LITO Osborne PCP - Primary care physician 2024-03-05
--- OUTSIDE RECORDS SUMMARY | 2024-08-18 14:03 | XMS_ITS | Encounter Summary ---
Author Organization [facility] Address [address] [place] [address] Care Team Providers Care Buyer Agent Name Role Phone Elena Dumont MD Primary Care Provider [phone] Que Zuluaga MD Unavailable [phone] Brit Saxena APRN CLERICAL WAREHOUSEMAN-C Unavailable [phone] Giovanna Carter NP Unavailable Unavailable Zenon Bush MD Unavailable [phone] Alisa Pat-C Unavailable [phone] Natasha Moore MD Unavailable Tyshawn Allen MD Unavailable Encounter Details Date Type Department Care Team (Late st Contact Info) Description 06/20/2018 Abstract [facility] [address] [place] [phone] Abstract, Doc [facility] Social History Tobacco Use Types Packs/Day Years Used Date Smoking Tobacco: Never Smokeless Tobacco: Never Alcohol Use Standard Drinks/Week Comments Yes 0 (1 standard drink = 0.6 oz pur e alcohol) wine occasionally Comments Unknown Sex and Gender Information Value Date Recorded Sex Assigned at Female 05/18/2024 1:57 PM STRIPPING SHOVEL OILER Legal Sex Female 6:12 PM CDT Gender Identity Not on file Sexual Orientation Not on file Occupation Industry Job Start Date Job End Date Retired Not on file Not on file Not on file documented as of this encounter Plan of Treatment Upcoming Encounters Date Type Department Care Team (Late st Contact Info) Description 11/04/2024 9:15 AM CDT Office Visit [facility] [address] [place] [phone] Zenon Bush MD [address] [place] [address] 12/03/2024 2:00 PM CDT Office Visit [facility] [address] [place] [address] Natasha Moore MD [address] [place], [place] [address] documented as of this encounter Visit Diagnoses Not on filedocumented in this encounter Additional Health Concerns Infection Onset 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 documented as of this encounter Care Teams Buyer Agent Relationship Specialty Start Date End Date Elena Dumont MD [address] [place] [phone] PCP - General INTERNAL MEDICINE 08/08/16 Que Zuluaga MD [address] [place] [phone] [place] Logistics Coordinator CARDIOVASCULAR DISEASE 08/08/16 08/19/23 Brit Saxena APRN, CLERICAL WAREHOUSEMAN-C 619 [facility] [address] [place] [address] [employer] Logistics Coordinator NURSE PRACTITIONER 01/31/18 10/02/23 Giovanna Carter NP 619 [facility] [address] [place] [address] Referring Physician Nurse Practitioner Family 01/24/23 Zenon Bush MD [address] [place] [address] Consulting Physician CLINICAL CARDIAC ELECTROPHYSIOLOGY 03/12/23 Alisa Pat PA-C [address] [place], [place] [phone] Referring Physician PHYSICIAN CURRICULUM AND ASSESSMENT COORDINATOR 08/20/23 Natasha Moore MD [address] [place], [place] [address]229 Consulting Physician CARDIOVASCULAR DISEASE 10/03/23 Tyshawn Allen MD [address] [place] [address] PLASTIC SURGERY 04/03/24 04/03/25 documented as of this encounter
--- OUTSIDE RECORDS SUMMARY | 2024-08-18 14:04 | XMS_ITS | Encounter Summary ---
Author Organization [facility] Address [facility] [place] [address] Care Team Providers Care Seaman Officer Name Role Phone Elena Dumont MD Primary Care Provider [phone] Zenon Bush MD Unavailable [phone] Alisa Pat PA-C Unavailable [phone] Natasha Moore MD Unavailable Tyshawn Allen MD Unavailable Encounter Details Date Type Department Care Team (Late st Contact Info) Description 08/18/2024 1:30 PM CDT Hospital Encounter [facility] [address] [place] [address] Graciela Jones, GOLF COURSE RANGER [address] [place] [phone] Social History Tobacco Use Types Packs/Day Years [...] materials from doctor or pharmacy Never 05/27/2024 [facility] Utilities Answer Date Recorded In the past [...] Sex Assigned at Female 05/18/2024 1:57 PM SLITTING AND SHIPPING SUPERVISOR Legal Sex Female 6:12 PM CDT Gender [...] No 10/22/2023 4:26 PM CDT Janee Bello FOAM FABRICATOR Active * Are you blind or do you have serious difficulty seeing, even when wearing glasses? Answer Date of Assessment Author Status No 10/22/2023 4:26 PM CDT Janee Bello, FOAM FABRICATOR Active * Do you have serious difficulty walking or climbing stairs? Answer Date of Assessment Author Status Yes 10/22/2023 4:26 PM CDT Janee Bello, FOAM FABRICATOR Active * Do you have difficulty dressing or bathing? Answer Date of Assessment Author Status No 10/22/2023 4:26 PM CDT Janee Bello, FOAM FABRICATOR Active * Because of a physical, mental, or emotional condition, do you have difficulty doing errands alone such as visiting a doctor's office or shopping? Answer Date of Assessment Author Status No 10/22/2023 4:26 PM CDT Janee Bello, FOAM FABRICATOR Active documented as of this encounter Mental Status * Because of a physical, mental, or emotional condition, do you have serious difficulty concentrating, remembering, or making decisions? Answer Entry Date Author Status No 10/22/2023 4:26 PM CDT Janee Bello FOAM FABRICATOR Active documented in this encounter Plan of Treatment Upcoming Encounters Date Type Department Care Team (Late st Contact Info) Description 11/04/2024 9:15 AM CDT Office Visit [facility] [place] [address] Zenon Bush MD [address] [place] [address] 12/03/2024 2:00 PM CDT Office Visit [facility] [address] [place] [phone] Natasha Moore MD [address] [place], [place] [address] documented as of this encounter Goals Goal [...] documented as of this encounter Care Teams Seaman Officer Relationship Specialty Start Date End Date Elena Dumont MD [address] [place] [address] PCP - General INTERNAL MEDICINE 08/08/16 Zenon Bush MD [address] [place] [address] Consulting Physician CLINICAL CARDIAC ELECTROPHYSIOLOGY 03/12/23 Alisa Pat PA-C [address] [place] [address] Referring Physician PHYSICIAN AUTOMOTIVE BRAKE TECHNICIAN 08/20/23 Natasha Moore MD [address] [place] [address] Consulting Physician CARDIOVASCULAR DISEASE 10/03/23 Tyshawn Allen MD [address] [place], [place] [phone] PLASTIC SURGERY 04/03/24 04/03/25 documented as of this encounter
--- OUTSIDE RECORDS SUMMARY | 2024-08-18 14:04 | XMS_ITS | Clinical Summary ---
Author Organization [facility] Address [facility] [place] [address] Care Team Providers Care Commercial Real Estate Manager Name Role Phone Lito Stone MD Primary Care Provider [phone] Zenon Cordova MD Unavailable [phone] Alisa Pat PA-C Unavailable [phone] Natasha Moore MD Unavailable Tyshawn Allen MD Unavailable Allergies Active Allergy Reactions Criticality Noted Date Comments Amiodarone Other (see comment) 09/02/2018 Vision change & hair loss Flecainide Other (see comment) 06/12/2023 QRS prolong issue Per Dr. Kerr Medications aspirin 81 MG chewable tabletIndicati ons:blood thinner Chew 1 tablet (81 mg total) by mouth nightly. Indications: blood thinner 05/13/19 16 Active rOPINIRole (REQUIP) 1 MG tabletIndicati ons:leg pain Take 3 tablets (3 mg total) by mouth 3 (three) times daily as needed (prn). Indications: leg pain Up to 6 times a day as needed 05/13/19 16 Active LANTUS SOLOSTAR 100 UNIT/ML injection (PEN)Indicatio ns:dm Inject 30 Units into the skin nightly at bedtime. Indications: dm 07/27/19 17 Active HUMALOG KWIKPEN 100 UNIT/ML injection (PEN)Indicatio ns:dm Inject 10 Units into the skin 3 (three) times daily before meals. Indications: dm Inject 5 units with breakfast,10 units with lunch and dinner 07/07/19 17 Active pravastatin 20 MG tabletIndicati ons:htn Take 1 tablet (20 mg total) by mouth nightly at bedtime. Indications: htn 07/18/19 17 Active potassium chloride 10 MEQ Tab CR tabletIndicati ons:supplement Take 1 tablet (10 mEq total) by mouth 2 (two) times daily. 60 tablet 11 04/03/20 18 Active furosemide 40 MG tabletIndicati ons:water pill Take 1 tablet (40 mg total) by mouth daily. 30 tablet 11 04/15/20 19 Active Coenzyme Q10 (COQ10) 200 MG CapIndications :supplement Take 1 capsule by mouth 2 (two) times a day. Indications: supplement Active Multiple Vitamins-Cable Wirer als (WOMENS 50+ MULTI VITAMIN/MIN) TabIndications :supplment Take 1 tablet by mouth daily. Indications: supplment Active Multiple Vitamins-Cable Wirer als (PRESERVISION AREDS 2 OR)Indications :mi Take 1 tablet by mouth 2 (two) times a day. Indications: mi Active glucosamine-ch ondroitin 500-400 MG CapIndications :supplment Take 1 capsule by mouth 2 (two) times a day. Indications: supplment Active ONETOUCH ULTRA test stripIndicatio ns:dm 1 strip by Other route as needed (prn). Indications: dm 05/02/19 23 Active albuterol sulfate HFA 108 (90 Base) MCG/ACT inhalerIndicat ions:sob Inhale 2 puffs into the lungs every 6 (six) hours as needed for Shortness of breath or Wheezing. Indications: sob 10/06/19 23 Active BREO ELLIPTA 200-25 MCG/ACT inhalerIndicat ions:sob Inhale 1 puff into the lungs daily. Indications: sob 06/05/19 24 Active tiZANidine (ZANAFLEX) 2 MG tabletIndicati ons:legs Take 1 tablet (2 mg total) by mouth every 6 (six) hours as needed (prn). Indications: legs 06/10/19 24 Active alendronate (FOSAMAX) 70 MG tabletIndicati ons:bone health Take 1 tablet (70 mg total) by mouth every 7 days. Indications: bone health Mondays07/05/19 24 Active apixaban (ELIQUIS) 5 MG tabletIndicati ons:elliquis Take 1 tablet (5 mg total) by mouth 2 (two) times daily. Indications: elliquis Active dofetilide (TIKOSYN) 125 MCG Cap capsuleIndicat ions:heart TAKE 1 CAPSULE (125 MCG TOTAL) BY MOUTH EVERY 12 (TWELVE) HOURS. 60 capsule 5 05/21/19 25 Active pregabalin (LYRICA) 100 MG capsule Take 1 capsule (100 mg total) by mouth daily. 04/30/19 25 Active metoprolol succinate ER (TOPROL-XL) 25 MG 24 hr tablet Take 3 tablets (75 mg total) by mouth daily. 90 tablet 11 06/04/19 25 Active levothyroxine (SYNTHROID) 125 MCG tablet Take 1 tablet (125 mcg total) by mouth every morning. 07/03/19 25 Active brinzolamide (AZOPT) 1 % ophthalmic suspension Place 1 drop into both eyes 3 (three) times daily. 06/10/19 25 Active latanoprost (XALATAN) 0.005 % ophthalmic solution Place 1 drop into both eyes daily. 06/09/19 25 Active levothyroxine (SYNTHROID) 112 MCG tabletIndicati ons:thyroid Take 1 tablet (112 mcg total) by mouth daily. Indications: thyroid 05/13/19 16 025 Discontinued escitalopram (LEXAPRO) 20 MG tabletIndicati ons:depression Take 1 tablet (20 mg total) by mouth daily. Indications: depression 05/15/19 24 025 Discontinued Active Problems Problem Noted Date Diagnosed Date PVC's (premature ventricular contractions) 04/09 Atrial flutter ([facility]) 02/14/2018 Bladder cancer ([facility]) 02/14/2018 Lower extremity edema 02/14/2018 Atrial fibrillation ([facility]) 02/02/2018 Venous insufficiency 02/02/2018 Obesity 08/10/2016 Hypothyroidism 08/10/2016 Mixed hyperlipidemia 08/10/2016 Essential (primary) hypertension 08/10/2016 Heart palpitations 08/10/2016 Diabetes ([facility]) 08/10/2016 Obstructive sleep apnea syndrome 08/10/2016 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, with fat layer exposed ([facility]/HCC HHS/HCC) Diabetic ulcer of left heel associated with type 2 diabetes mellitus, with fat layer exposed (CMS/HCC HHS/HCC) 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 (CMS/HCC HHS/HCC) Encounters Date Type Department Care Team Description 08/18/2024 1:30 PM CDT Hospital Encounter [facility] [address] [place] [address] Graciela Jones FNP 08/18/2024 Travel 08/05/2024 2:30 PM CDT - 08/05/2024 11:59 PM CDT Hospital Encounter [facility] [address] [place] [address] Graciela Jones, CLAUDINE Discharge Disposition: Home or Self Care (Routine Discharge) 08/05/2024 Travel 08/03/2024 8:07 AM CDT Anesthesia Event [facility] Precinct Commanding Officer [address] [place] [address] Stan Bray MD BolashLuly Underwood RN 08/03/2024 6:11 AM CDT - 08/03/2024 3:21 PM CDT Hospital Encounter [facility] Precinct Commanding Officer Pre/Post [address] [place] [address] Zenon Cordova MD Link, Kin Champagne II, MD Discharge Disposition: Home or Self Care (Routine Discharge) 08/03/2024 Travel 07/22/2024 3:00 PM CDT - 07/22/2024 11:59 PM CDT Hospital Encounter [facility] [address] [place] [address] Graciela Jones FNP Discharge Disposition: Home or Self Care (Routine Discharge) 07/22/2024 Travel 07/22/2024 [facility] [address] [place] [address] Alisa Pat PA-C 07/17/2024 10:30 AM CDT - 07/17/2024 11:59 PM CDT Hospital Encounter [facility] [address] [place] [address] Graciela Jones, CLAUDINE Discharge Disposition: Home or Self Care (Routine Discharge) 07/17/2024 Travel 07/14/2024 Telephone [facility] [address] [place] [address] Alisa Pat PA-C Orders 07/13/2024 Telephone [facility] [address] [place] [address] Zenon Cordova MD Schedule Procedure 07/11/2024 Prep for Procedure [facility] [address] [place] [address] Zenon Cordova MD 07/11/2024 Telephone [facility] [address] [place] [address] Zenon Cordova MD Orders 07/09/2024 11:30 AM CDT - 07/09/2024 11:59 PM CDT Hospital Encounter [facility] [address] [place] [address] Graciela Jones, AGRICULTURE INSTRUCTOR Discharge Disposition: Home or Self Care (Routine Discharge) 07/09/2024 Travel 07/03/2024 10:23 AM FUR EXAMINER - 07/03/2024 11:59 PM FUR EXAMINER Hospital Encounter [facility] [address] [place] [address] Graciela Jones, AGRICULTURE INSTRUCTOR Discharge Disposition: Home or Self Care (Routine Discharge) 07/03/2024 Travel 06/26/2024 11:00 AM FUR EXAMINER - 06/26/2024 11:59 PM FUR EXAMINER Hospital Encounter [facility] [address] [place] [address] Graciela Jones, AGRICULTURE INSTRUCTOR Discharge Disposition: Home or Self Care (Routine Discharge) 06/26/2024 Travel 06/15/2024 11:33 AM FUR EXAMINER - 06/15/2024 11:59 PM FUR EXAMINER Hospital Encounter [facility] [address] [place] [address] Courtney Perkins, JACKHAMMER OPERATOR Discharge Disposition: Home or Self Care (Routine Discharge) 06/15/2024 Travel 06/08/2024 9:30 AM FUR EXAMINER - 06/08/2024 11:59 PM FUR EXAMINER Hospital Encounter [facility] [address] [place] [address] Graciela Jones FNP Discharge Disposition: Home or Self Care (Routine Discharge) 06/08/2024 Travel 06/05/2024 Telephone [facility] [address] [place] [address] Zenon Cordova MD Appointment Request 06/05/2024 Telephone [facility] [address] [place] [address] Zenon Cordova MD Question 06/04/2024 12:30 PM FUR EXAMINER - 06/04/2024 11:59 PM FUR EXAMINER Hospital Encounter [facility] [address] [place] [address] Graciela Jones FNP Discharge Disposition: Home or Self Care (Routine Discharge) 06/04/2024 11:00 AM FUR EXAMINER Office Visit [facility] [address] [address] Natasha Moore MD Heart Problem 06/04/2024 Scan [facility] [address] [place] [address] Scanned, Doc Pccl 06/04/2024 Travel 06/03/2024 Telephone [facility] [address] [place] [address] Natasha Moore MD Appointment Reminder 06/03/2024 Orders Only [facility] [address] [place] [address] Natasha Moore MD 06/01/2024 9:30 AM FUR EXAMINER - 06/01/2024 11:59 PM FUR EXAMINER Hospital Encounter [facility] [address] [place] [address] Graciela Jones FNP Discharge Disposition: Home or Self Care (Routine Discharge) 06/01/2024 Travel 05/29/2024 Telephone [facility] [address] [place] [address] Alessandra Knapp MD Record Request 05/28/2024 9:01 AM FUR EXAMINER - 05/28/2024 2:55 PM FUR EXAMINER Hospital Encounter [facility] Commanding Officer Pre/Post [address] [place] [address] Alessandra Knapp MD Discharge Disposition: Home or Self Care (Routine Discharge) 05/27/2024 2:30 PM FUR EXAMINER - 05/27/2024 11:59 PM FUR EXAMINER Hospital Encounter [facility] [address] [place] [address] Graciela Jones FNP Discharge Disposition: Home or Self Care (Routine Discharge) 05/27/2024 1:00 PM FUR EXAMINER Home Care Visit [facility] Home Care [facility] [address] [place] [address] Paty Kaiser, RN SN OASIS DISCHARGE/ASSESSME NT 05/27/2024 Travel 05/25/2024 9:55 AM FUR EXAMINER - 05/25/2024 11:59 PM FUR EXAMINER Hospital Encounter [facility] [address] [place] [address] Graciela Jones FNP Discharge Disposition: Home or Self Care (Routine Discharge) 05/25/2024 Orders Only [facility] [address] [place] [address] Tracie Huerta 05/25/2024 Travel 05/22/2024 10:27 AM FUR EXAMINER - 05/22/2024 11:59 PM FUR EXAMINER Hospital Encounter [facility] [address] [place] [address] Graciela Jones FNP Discharge Disposition: Home or Self Care (Routine Discharge) 05/22/2024 Travel from Last 3 Months Immunizations Immunization Administration Dates Next Due Tdap (Boostrix) 2023 [...] materials from doctor or pharmacy Never 05/27/2024 [facility] Utilities Answer Date Recorded In the past 12 months has e [employer], gas, oil, or water Room [facility] House threatened to shut off services in your [...] place to sleep or slept in a [place] facility (including now)? No 07/15/2023 Comments No Sex and Gender Information Value Date Recorded Sex Assigned at Female 05/18/2024 1:57 PM FUR EXAMINER Legal Sex Female 6:12 PM CDT Gender Identity Not on file Sexual Orientation Not on file Occupation Industry Job Start Date Job End Date Retired Not on file Not on file Not on file Last Filed Vital Signs Vital Sign Reading Time Taken Comments Blood Pressure 121/80 08/03/2024 6:54 AM CDT Pulse 77 08/03/2024 6:54 AM CDT Temperature 35.7 C (96.3 F) 08/03/2024 6:54 AM CDT Respiratory Rate 18 08/03/2024 6:54 AM CDT Oxygen Saturation 99% 08/03/2024 6:54 AM CDT Inhaled Oxygen Concentration - - Weight 86.4 kg (190 lb 7.6 oz) 08/03/2024 6:54 A M CDT Height 157.5 cm (5' 2.01 ) 08/03/2024 6:54 AM CD T Body Mass Index 34.83 08/03/2024 6:54 AM CDT Plan of Treatment Upcoming Encounters Date Type Department Care Team (Late st Contact Info) Description 11/04/2024 9:15 AM CDT [facility] [address] [place] [address] [place] [address] Zenon Cordova MD [address] [place] [address] 12/03/2024 2:00 PM CDT Office Visit [facility] [address] [place] [address] Natasha Moore MD [address] [place], [place] [address] Health Maintenance Due Date Last Done Comments ASCVD Statin 1935 Diabetes: Retinopathy Eye Exam 1954 Zoster Vaccines (1 of 2) 1986 Annual Medicare Wellness Visit 2001 Hemoglobin A1C 04/19/2022 10/18/2021, 01/17/2018 ASCVD LDL 10/18/2022 10/18/2021, 01/17/2018 Lipid Panel 10/18/2022 10/18/2021, 01/17/2018 COVID-19 Vaccine ( season) 2024 02/13/2024, 03/19/2022, 04/08/2021, Additional history exists DTaP, Tdap and Td Vaccines (3 - Td or Tdap) 2033 2023, 03/03/2014 Pneumococcal Vaccine: 50+ Years Completed 01/14/2015, 02/10/2014 RSV Immunization or 60+ Years Completed 02/26/2023 Meningococcal B Vaccine Aged Out No l [...] in ADLs upon discharge from hospital Lifestyle No Eli Perla art instructor Procedure Name Priority Date/Time Associated Diagnosis Comments ECG 12-LEAD Routine 08/03/2024 11:32 AM CDT PVC's (premature ventricular contractions) XA PVC ABLATION Routine 08/03/2024 10:39 AM CDT PVC's (premature ventricular contractions) POCT ACTIVATED CLOTTING TIME - ISTAT DOCKED DEVICE Routine 08/03/2024 10:09 AM CDT POCT ACTIVATED CLOTTING TIME - ISTAT DOCKED DEVICE Routine 08/03/2024 9:45 AM CDT POCT ACTIVATED CLOTTING TIME - ISTAT DOCKED DEVICE Routine 08/03/2024 9:24 AM CDT POCT ACTIVATED CLOTTING TIME - ISTAT DOCKED DEVICE Routine 08/03/2024 9:05 AM CDT CBC W/DIFF AUTOMATED STAT 08/03/2024 7:35 AM CDT PVC's (premature ventricular contractions) ECG 12-LEAD Routine 08/03/2024 6:36 AM CDT TYPE & SCREEN Routine 08/03/2024 6:28 AM CDT ORDER FRESH FROZEN PLASMA Routine 08/03/2024 6:13 AM CDT COMPREHENSIVE METABOLIC PANEL Routine 07/15/2024 PVC's (premature ventricular contractions) ELECTROCARDIOGRAM, TRACING Routine 06/04/2024 Mixed hyperlipidemia XA LHC POSS Routine 05/28/2024 11:45 AM FUR EXAMINER Abnormal stress test POCT GLUCOSE - ARCHER DOCKED DEVICE Routine 05/28/2024 9:28 AM FUR EXAMINER CULTURE, WOUND, W/GRAM STAIN Routine 05/25/2024 10:29 AM FUR EXAMINER 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 08/03/2024 11:3 2 AM CDT Narrative [facility] - 08/03/2024 2:04 PM CDT [place] [address] [place] [address] Test Date: 2024-08-03 Pat Name: CESAR STORY Department: 1 Room: [address] Gender: Female Child Watch Attendant: [facility] : 1935 Requested By: ZENON CORDOVA Order Number: [id number] Reading MD: Zenon Cordova Measurements Intervals [place] Rate: 82 P: 0 ID: 0 QRS: 260 QRSD: 160 T: 84 QT: 479 QTc: 562 Interpretive Statements SINUS RHYTHM with PACS INTRAVENTRICULAR CONDUCTION DELAY LATERAL MYOCARDIAL INFARCTION , PROBABLY RECENT Procedure Note Zenon Cordova MD - 08/03/2024 [facility] [address] [place] [address] Test Date: 2024-08-03 Pat Name: CESAR STORY Department: 1 Room: [address] Gender: Female Child Watch Attendant: [facility] : 1935 Requested By: ZENON CORDOVA Order Number: [id number] Reading MD: Zenon Cordova Measurements Intervals [place] Rate: 82 P: 0 ID: 0 QRS: 260 QRSD: 160 T: 84 QT: 479 QTc: 562 Interpretive Statements SINUS RHYTHM with PACS INTRAVENTRICULAR CONDUCTION DELAY LATERAL MYOCARDIAL INFARCTION , PROBABLY RECENT us Zenon Cordova MD ECG ORDERABLES Final Res ult [facility] * XA PVC ABLATION (08/03/2024 10:39 AM CDT) Anatomical Region Laterality Modality Cardiac Precinct Commanding Officer Narrative 08/03/2024 11:13 AM CDT Zenon Cordova MD 08/03/2024 6:03 PM Cardiac Electrophysiology Procedure Note Patient name: Cesar Story : 1935 LITO STONE MD LOS: 0 days DATE OF PROCEDURE: 08/03/2024 PERSONAL BANKING ADVISOR: ZENON CORDOVA MD Procedure: PVC ablation Preprocedure diagnosis: Frequent symptomatic PVCs CHF chronic systolic Postprocedure diagnosis: 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 post successful radiofrequency 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 Procedure: Informed consent was obtained on the day of the procedure. After prepping and draping and effecting local anesthesia with lidocaine, Catheters were inserted as follows: A [facility] Viewflex ICE catheter was advanced from the right femoral vein into the right ventricle to visualize the ablation catheter and to evaluate coronary ostia in the aortic cusps. A Hubskip Tactiflex SE D-F irrigated contact force sensing ablation catheter was advanced from the right femoral artery via a long SL-0 sheath to map and ablate in the LV. Twelve surface ECG leads and Intracardiac electrograms from the above locations were recorded during the study. The baseline rhythm was sinus rhythm. Patient had two PVC morphologies noted. First PVC was the predominant morphology which had a morphology of inferior axis, LBBB in V1 with rS pattern in lead I and QRS transition in lead V3 suggestive of LCC-RCC commissure PVC. Second PVC (infrequent) showed inferior axis with QS pattern in lead I, V2 pattern break suspicious for LV summit PVC. Effect of electrophysiologically-active medication [51643]: Medication Dosage/route Effects Isuprel up to 3 mg/min To facilitate induction of PVCs Medications administered: Sedation was administered and monitored by anesthesia provider. The medication totals are available in the procedure log. Intracardiac Echo [88863] utilized for ablation procedure: Images obtained with the Ayudarum Viewflex ICE catheter of the left ventricle. Additional images were obtained utilizing the RVOT and imaging from the HIS catheter position. Continuous ice imaging was performed during the procedure to monitor for complications. Catheter location was monitored with SJM Viewflex ICE catheter to monitor proximity to critical structures. At the conclusion of the procedure, catheters were removed and the SJM Viewflex ICE catheter remained in position and was used to evaluate for pericardial effusion prior to removal of the ultrasound catheter. 3D Mapping using the Ensite X mapping system [75670] Complex 3D mapping was performed. The EnSite mapping system was used to evaluate and record the catheter position as well as carefully define anatomic and electroanatomic detail during the sinus rhythm and during PVCs. A 3D representation of the right and left ventricle was performed. Mapping and radiofrequency ablation of the AGNC-kbvkf-ldxvkno triangle between RCC and LCC commissure: A heparin bolus was administered and infusion was titrated for a goal ACT of 300 seconds. An 8.5 Fr long SL-O sheath was placed initially in descending aorta. A Ayudarum tactiflex ablation catheter was then advanced into the left ventricle after prolapsing the ablation catheter in the ascending aorta just distal to the arch of aorta. The anatomy of the left ventricular outflow tract was built in the Ensite X system. We performed activation mapping of the left ventricular outflow tract and the LV for both clinical PVCs. First PVC had a morphology of inferior axis, LBBB in V1 with rS pattern in lead I and QRS transition in lead V3 which correlated with inter-leaflet triangle between RCC and LCC commissure. Activation mapping confirmed that the earliest ventricular electrogram at this location was -34ms preQRS. A power of 40 beasley was utilized with a goal impedance drop of 10 ohms. After 20 minutes of monitoring, no more clinical PVCs were noted. Mapping and radiofrequency ablation of the LV- basal to mid anteroseptal LV likely epicardial AIV origin At this point a second PVC with inferior axis with QS pattern in lead I, V2 pattern break suspicious for LV summit PVC and MDI of 0.64 was seen. Activation mapping confirmed that the earliest ventricular electrogram at the mid to basal anteroseptal LV 3 cm below the aortic valve. Activation mapping revealed earliest ventricular electrogram was -30 ms earlier than the QRS with a broad breakout in this region. A power of 40 W was utilized with a goal impedance drop of 10 ohms. Radiofrequency lesion was administered in this area with a jhon of clinical PVCs noted during ablation but with early recurrence. Subsequently we administered long duration (60 second lesions) lower power ablation with ramp up of power between 30-40 W but however infrequent PVCs were still present. Since this location was below the GCV-AIV junction likely in the anterior interventricular sulcus, this is likely inaccessible for endocardial ablation or from CS. Protamine was administered to reverse the effects of heparin. The venous and arterial sheaths were then removed with manual compression for hemostasis along with perclose suture for the arterial closure. Complications: None Blood loss - 10 cc Summary: Focal PVC arising from LVOT at interleaflet triangle between LCC and RCC status post successful radiofrequency ablation. Focal epicardial PVC arising from anterior interventricular sulcus s/p unsuccessful ablation from endocardial anteroseptal LV. Recommedations: Bed rest for 4 hour with telemetry Zenon Cordova M.D. 08/03/2024 us Zenon Cordova MD SOIL SURVEYOR Final Res ult * (ABNORMAL) POCT ACTIVATED CLOTTING TIME - ISTAT DOCKED DEVICE (08/03/2024 10:09 AM CDT) Only the most recent of4 resultswithin the time period is included. ACTIVATED CLOTTING TIME (ACT HMT OR LMT) 372(H) 74 - 137 SEC 08/04/2024 6:23 AM CDT [facility] 08/03/2024 10:0 9 AM CDT Zenon Cordova MD POCT ORDERABLES - DEVICE Final Result [facility] [address] [place] [address], [id number] * (ABNORMAL) CBC W/DIFF AUTOMATED (08/03/2024 7:35 AM CDT) [facility] WBC 5.40 4.00 - 10.80 x10'3/uL 08/03/2024 7:42 AM CDT [facility] RBC 4.14 4.10 - 5.40 x10'6/uL 08/03/2024 7:42 AM CDT [facility] HGB 11.9(L) 12.0 - 16.0 G/DL 08/03/2024 7:42 AM CDT [facility] HCT 36.5 36.0 - 47.0 % 08/03/2024 7:42 AM CDT [facility] MCV 88.2 78.0 - 100.0 FL 08/03/2024 7:42 AM CDT [facility] MCH 28.7 27.0 - 31.0 PG 08/03/2024 7:42 AM CDT [facility] MCHC 32.6(L) 33.0 - 36.0 G/DL 08/03/2024 7:42 AM CDT [facility] RDW 15.0(H) 11.5 - 14.5 % 08/03/2024 7:42 AM CDT [facility] PLT 146(L) 150 - 350 x10'3/uL 08/03/2024 7:42 AM CDT [facility] MPV 11.3(H) 7.4 - 10.4 FL 08/03/2024 7:42 AM CDT [facility] DIFFERENTIAL TYPE AUTOMATED DIFFERENTIAL 08/03/2024 7:42 AM CDT [facility] SEG NEUTROPHILS 59.3 % 7:42 AM CDT [facility] LYMPHOCYTES 27.0 % 08/03/2024 7:42 AM CDT [facility] MONOCYTES 9.3 % 08/03/2024 7:42 AM CDT [facility] EOSINOPHILS 3.3 % 08/03/2024 7:42 AM CDT [facility] BASOPHILS 0.9 % 08/03/2024 7:42 AM CDT [facility] IMMATURE GRANS % 0.2 % 08/04/19 7:42 AM CDT [facility] ABS. NEUTROPHILS 3.20 1.60 - 8.30 x10'3/uL 08/03/2024 7:42 AM CDT [facility] ABS. LYMPHOCYTES 1.46 0.80 - 4.70 x10'3/uL 08/03/2024 7:42 AM CDT [facility] ABS. MONOCYTES 0.50 0.00 - 1.50 x10'3/uL 08/03/2024 7:42 AM CDT [facility] ABS. EOSINOPHILS 0.18 0.00 - 0.40 x10'3/uL 08/03/2024 7:42 AM CDT [facility] ABS. BASOPHILS 0.05 0.00 - 0.20 x10'3/uL 08/03/2024 7:42 AM CDT [facility] ABS. IMMATURE GRANULOCYTES 0.01 0.00 - 0.03 x10'3/uL 08/03/2024 7:42 AM CDT [facility] ABS. NUCLEATED RBC'S 0.00 0.00 - 0.01 x10'3/uL 08/03/2024 7:42 AM CDT [facility] NRBC % 0.0 % 08/03/2024 7:42 AM CDT [facility] 08/03/2024 7:35 AM CDT Zenon Cordova MD LABORATORY Final Res ult Performing Organization Address [facility] Co de Phone Number [facility] [address] [place] [address], [phone] * TYPE & SCREEN (08/03/2024 6:28 AM CDT) UNITS ORDERED 4 08/03/2024 7:00 AM CDT [facility] ABO/RH O NEGATIVE 08/03/2024 7:41 AM CDT [facility] ANTIBODY SCREEN NEGATIVE 08/03/2024 7:41 AM CDT [facility] SAMPLE EXPIRATION 08/06/2024,2 359 08/03/2024 7:01 AM CDT [facility] 08/03/2024 6:28 AM CDT Zenon Cordova MD BLOOD BANK TEST ORDERABLE S Final Result Performing Organization Address [facility] Co de Phone Number [facility] [address] [place] [address], [phone] * ORDER FRESH FROZEN PLASMA, 4 Units (08/03/2024 6:13 AM CDT) UNITS ORDERED 4 08/03/2024 6:13 AM CDT [facility] 08/03/2024 6:13 AM CDT us Zenon Cordova MD BLOOD BANK PRODUCT ORDERA BLES Final Result Performing Organization Address [facility] Co de Phone Number [facility] [address] [place] [address], [phone] * (ABNORMAL) COMPREHENSIVE METABOLIC PANEL (07/15/2024) SODIUM S/P/B 139 POTASSIUM S/P/B 4.3 CO2 27 CHLORIDE S/P/B 103 GLUCOSE 166 mg/dL CALCIUM S/P/B 9.2 BUN 32 CREATININE S/P/B 1.34(A) 0.5 - 1.0 GFR ESTIMATE 38 ALKALINE PHOSPHATASE S/P/B 91 ALT 14 AST 20 BILIRUBIN TOTAL S/P/B 0.5 ALBUMIN S/P/B 4.1 3.5 - 5.0 TOTAL PROTEIN S/P/B 6.5 07/15/2024 Alisa Pat PA-C LABORATORY Final Res ult * NOT [facility] - ELECTROCARDIOGRAM, TRACING (06/04/2024) Natasha Moore MD PROCEDURES-UNRESULTED Final Resu lt * XA LHC POSS (05/28/2024 11:45 AM FUR EXAMINER) Anatomical Region Laterality Modality Cardiac Precinct Commanding Officer 05/28/2024 11:0 0 AM FUR EXAMINER Alessandra Knapp MD SOIL SURVEYOR Final Result * (ABNORMAL) POCT glucose (05/28/2024 9:28 AM FUR EXAMINER) GLUCOSE POC 174(H) 70 - 109 05/28/2024 2:45 PM FUR EXAMINER [facility] 05/28/2024 9:28 AM FUR EXAMINER Alessandra Knapp MD POCT ORDERABLES - DEVICE Final Result [facility] [address] [place] [address], [place] [phone] * (ABNORMAL) CULTURE, WOUND, W/GRAM STAIN (05/25/2024 10:29 AM FUR EXAMINER) SPEC DESCRIPTION HEEL, RIGHT 05/25/2024 11:06 AM FUR EXAMINER [facility] SPECIAL REQUESTS NO SPECIAL REQUEST 05/25/2024 11:06 AM FUR EXAMINER [facility] GRAM STAIN RESULT GRAM POSITIVE COCCI 05/25/2024 11:52 AM FUR EXAMINER [facility] CULTURE RESULT MODERATE METHICILLIN RESISTANT STAPHYLOCOCCUS AUREUS (A) 05/28/2024 6:55 AM FUR EXAMINER [facility] CULTURE RESULT MODERATE STAPHYLOCOCCUS, COAGULASE NEGATIVE 05/28/2024 6:55 AM FUR EXAMINER [facility] CULTURE RESULT MODERATE DIPHTHEROIDS 05/28/2024 6:55 AM FUR EXAMINER [facility] RIGHT HEEL STRUCTURE / Unknown 05/25/2024 10:29 AM FUR EXAMINER 05/25/2024 11:08 AM FUR EXAMINER Narrative Organism Antibiotic Method Susceptibility Methicillin resistant [...] Staphylococcus, coagulase negative VANCOMYCIN SUZE (VITEK) Sensitive us Graciela CHOW MICROBIOLOGY - GENERAL ORDERAB LES Final Result [facility] [address] [place] [address], [place] [phone] [facility] [address] [place] [address], * HEMOGLOBIN, GLYCOSYLATED (10/18/2021) HGB A1C 8.3 <5.7 % 10/18/2021 us Default History Genericprovider LABORATORY Final Result * LIPID PANEL (10/18/2021) CHOLESTEROL 165 <200 HDL 64 >or=50 TRIGLYCERIDES 79 <150 NON HDL CHOLESTEROL 101 <130 CHOL/HDL RATIO 2.6 <5.0 LDL (CALCULATED) 84 10/18/2021 us Default History Genericprovider LABORATORY Final Result from Last 3 Months or Most Recently Relevant to Health Maintenance Additional Health Concerns Infection Onset Date Last Indicated 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 Insurance Advance Directives * Full Code (Latest Code Status on File) Date Activated Date Inactivated Comments 08/03/2024 11:19 AM 08/03/2024 5:26 PM * Full Code Date Activated Date Inactivated Comments 06/02/2024 7:09 AM 08/03/2024 6:12 AM * Full Code Date Activated Date Inactivated Comments 10/22/2023 1:03 PM 10/23/2023 1:15 PM * Full Code Date Activated Date Inactivated Comments 07/15/2023 2:13 PM 07/19/2023 2:52 PM Care Teams Commercial Real Estate Manager Relationship Specialty Start Date End Date Lito Stone MD [address] [place] [address] PCP - General INTERNAL MEDICINE 08/08/16 Zenon Cordova MD [address] [place] [address] Consulting Physician CLINICAL CARDIAC ELECTROPHYSIOLOGY 03/12/23 Alisa Pat PA-C [address] [place] [address] Referring Physician PHYSICIAN INDUSTRIAL SALES ENGINEER 08/20/23 Natasha Moore MD [address] [place] [address] Consulting Physician CARDIOVASCULAR DISEASE 10/03/23 Tyshawn Allen MD [address] [place], [place] [address] PLASTIC SURGERY 04/03/24 04/03/25
--- OUTSIDE RECORDS SUMMARY | 2024-08-18 14:04 | XMS_ITS | Encounter Summary ---
Author Organization [facility] Address [facility] [place] [address] Care Team Providers Care Record Press Operator Name Role Phone Elena Dumont MD Primary Care Provider [phone] Zenon Bush MD Unavailable [phone] Ailsa Pat PA-C Unavailable [phone] Natasha Moore MD Unavailable Tyshawn Allen MD Unavailable Encounter Details Date Type Department Care Team (Latest Contact Info) Description 08/18/2024 Travel Social History Tobacco Use Types Packs/Day Years [...] materials from doctor or pharmacy Never 05/27/2024 [facility] Utilities Answer Date Recorded In the past [...] place to sleep or slept in a snf (including now)? No 07/15/2023 Comments No Sex and Gender Information Value Date Recorded Sex Assigned at Female 05/18/2024 1:57 PM BITUMEN PLANT OPERATOR Legal Sex Female 6:12 PM CDT [...] No 10/22/2023 4:26 PM CDT Janee Bello LPN Active * Are you blind or do you have serious difficulty seeing, even when wearing glasses? Answer Date of Assessment Author Status No 10/22/2023 4:26 PM CDT Janee Bello LPN Active * Do you have serious difficulty walking or climbing stairs? Answer Date of Assessment Author Status Yes 10/22/2023 4:26 PM CDT Janee Bello LPN Active * Do you have difficulty dressing or bathing? Answer Date of Assessment Author Status No 10/22/2023 4:26 PM CDT Janee Bello LPN Active * Because of a physical, mental, or emotional condition, do you have difficulty doing errands alone such as visiting a doctor's office or shopping? Answer Date of Assessment Author Status No 10/22/2023 4:26 PM CDT Janee Bello LPN Active documented as of this encounter Mental Status * Because of a physical, mental, or emotional condition, do you have serious difficulty concentrating, remembering, or making decisions? Answer Entry Date Author Status No 10/22/2023 4:26 PM CDT Janee Bello LPN Active documented in this encounter Plan of Treatment Upcoming Encounters Date Type Department Care Team (Late st Contact Info) Description 11/04/2024 9:15 AM CDT Office Visit [facility] [address] [place] [address] Zenon Bush MD [address] [place] [address] 12/03/2024 2:00 PM CDT Office Visit [facility] [id number] [place] [phone] Natasha Moore MD [address] [place] [address] documented as of this encounter Goals Goal Patient Goal Type Associated Problems Recent Progress Patient-Stated? Author Patient will return to prior living situation and remain independent in ADLs upon discharge from hospital Eli Givens RN documented as of this encounter Visit Diagnoses Not on filedocumented in this encounter Additional Health Concerns Infection Onset 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 documented as of this encounter Care Teams Record Press Operator Relationship Specialty Start Date End Date Elena Dumont MD [address] [place] [address] PCP - General INTERNAL MEDICINE 08/08/16 Zenon Bush MD [address] [place] [address] Consulting Physician CLINICAL CARDIAC ELECTROPHYSIOLOGY 03/12/23 Alisa Pat PA-C [address] [place] [address] Referring Physician PHYSICIAN LINE TECHNICIAN 08/20/23 Natasha Moore MD [address] [place] [phone] Consulting Physician CARDIOVASCULAR DISEASE 10/03/23 Tyshawn Allen MD [address] [place] [phone] PLASTIC SURGERY 04/03/24 04/03/25 documented as of this encounter
--- OUTSIDE RECORDS SUMMARY | 2024-08-18 14:04 | XMS_ITS | Encounter Summary ---
Author Organization [facility] Address [facility] [place] [address] Care Team Providers Care Feather Baler Name Role Phone Elena Dumont MD Primary Care Provider [phone] Que Zuluaga MD Unavailable [phone] Brit Saxena APRN COBOL DEVELOPER-C Unavailable [phone] Giovanna Carter NP Unavailable Unavailable Zenon Bush MD Unavailable [phone] Alisa Pat-C Unavailable [phone] Natasha Moore MD Unavailable Tyshawn Allen MD Unavailable Encounter Details Date Type Department Care Team (Late st Contact Info) Description 05/12/2015 Abstract [facility] [address] [place] [address] Que Zuluaga MD [address] [place] [address] Social History Tobacco Use Types Packs/Day Years Used Date Smoking Tobacco: Never Alcohol Use Standard Drinks/Week Comments No 0 (1 standard drink = 0.6 oz pur e alcohol) Comments Unknown Sex and Gender Information Value Date Recorded Sex Assigned at Female 05/18/2024 1:57 PM PARK SERVICES SPECIALIST Legal Sex Female 6:12 PM CDT Gender Identity Not on file Sexual Orientation Not on file Occupation Industry Job Start Date Job End Date Retired Not on file Not on file Not on file documented as of this encounter Plan of Treatment Upcoming Encounters Date Type Department Care Team (Late st Contact Info) Description 11/04/2024 9:15 AM CDT Office Visit [facility] [address] [place] [address] [place] [phone] Zenon Bush MD [address] [place], [place] [phone] 12/03/2024 2:00 PM CDT Office Visit [facility] [address] [address] Natasha Moore MD [address] [place] [address] documented as of this encounter Visit Diagnoses Not on filedocumented in this encounter Additional Health Concerns Infection Onset 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 documented as of this encounter Care Teams Feather Baler Relationship Specialty Start Date End Date Elena Dumont MD [address] [place] [phone] PCP - General INTERNAL MEDICINE 08/08/16 Que Zuluaga MD [address] [place] [phone] [place] [employer] Up CARDIOVASCULAR DISEASE 08/08/16 08/19/23 Brit Saxena APRN, COBOL DEVELOPER-C 9 [facility] [address] [place] [phone] [place] [employer] NURSE PRACTITIONER 01/31/18 10/02/23 Giovanna Carter NP [address] [place] [address] [address] [place] [address] Referring Physician Nurse Practitioner Family 01/24/23 Zenon Bush MD [address] [place] [address] Consulting Physician CLINICAL CARDIAC ELECTROPHYSIOLOGY 03/12/23 Alisa Pat PA-C [address] [place] [address] Referring Physician PHYSICIAN CRUSHER SUPERVISOR 08/20/23 Natasha Moore MD [address] [place] [address] Consulting Physician CARDIOVASCULAR DISEASE 10/03/23 Tyshawn Allen MD [address] [place] [address] PLASTIC SURGERY 04/03/24 04/03/25 documented as of this encounter
--- OUTSIDE RECORDS SUMMARY | 2024-08-18 14:04 | XMS_ITS | Encounter Summary ---
Author Organization [facility] Address [facility] [place] [address] Care Team Providers Care Rod Cup Filler Name Role Phone Elena Dumont MD Primary Care Provider [phone] Que Zuluaga MD Unavailable [phone] Brit Saxena APRN TECHNICAL BUSINESS ANALYST-C Unavailable [phone] Giovanna Carter NP Unavailable Unavailable Zenon Bush MD Unavailable [phone] Alisa Pat-C Unavailable [phone] Natasha Moore MD Unavailable Tyshawn Allen MD Unavailable Encounter Details Date Type Department Care Team (Late st Contact Info) Description 02/07/2022 Abstract [facility] [address] [place] [address] Que Zuluaga MD [address] [place] [phone] Social History Tobacco Use Types Packs/Day Years Used Date Smoking Tobacco: Never Smokeless Tobacco: Never Alcohol Use Standard Drinks/Week Comments Yes 0 (1 standard drink = 0.6 oz pur e alcohol) wine occasionally Comments Unknown Sex and Gender Information Value Date Recorded Sex Assigned at Female 05/18/2024 1:57 PM SEISMOGRAPHER Legal Sex Female 6:12 PM CDT Gender [...] Description 11/04/2024 9:15 AM CDT Office Visit [facility] [address] [place] [address] [place] [phone] Zenon Bush MD [address] [place] [address] 12/03/2024 2:00 PM CDT Office Visit [facility] [id number] [place] [phone] Natasha Moore MD [address] [place], [place] [phone] documented as of this encounter Procedures Procedure [...] encounter Results * HEMOGLOBIN, GLYCOSYLATED (10/18/2021) Pathologist [facility] HGB A1C 8.3 <5.7 % 10/18/2021 Default History Genericprovider LABORATORY Final Result * (ABNORMAL) CMP (ABSTRACTED LAB) (10/18/2021) Pathologist [facility] SODIUM S/P/B 139 135 - 146 POTASSIUM [...] TOTAL S/P/B 0.5 0.2 - 1.2 10/18/2021 [facility] Genericprovider LAB-OUTSIDE/ABST RACTED Final Result * LIPID PANEL (10/18/2021) Pathologist [facility] CHOLESTEROL 165 <200 HDL 64 >or=50 TRIGLYCERIDES 79 <150 NON HDL CHOLESTEROL 101 <130 CHOL/HDL RATIO 2.6 <5.0 LDL (CALCULATED) 84 10/18/2021 Default History Genericprovider LABORATORY Final Result * CBC WITH DIFFERENTIAL (10/16/2021) Pathologist [facility] RBC 4.20 3.80 - 5.10 HGB 12.1 11.7 - 15.5 HCT 38.0 35.0 - 45.0 MCV 90.5 80.0 - 100.0 MCH 28.8 27.0 - 33.0 MCHC 31.8 32.0 - 36.0 RDW 12.7 11.0 - 15.0 PLATELET COUNT 159 140 - 400 MPV 11.4 7.5 - 12.5 WBC 7.9 3.8 - 10.8 10/16/2021 us Default History Genericprovider LABORATORY Final Result * T3 FREE (ABSTRACTED) (10/16/2021) Pathologist [facility] FREE T3 2.8 2.3 - 4.2 10/16/2021 us Default History Genericprovider LAB-OUTSIDE/ABST RACTED Final Result * THYROXINE, FREE (FT4) (10/16/2021) [facility] T4 1.2 0.8 - 1.8 10/16/2021 us Default History Genericprovider LABORATORY Final Result * TSH (OUTSIDE LAB) (10/16/2021) [facility] TSH 2.42 0.40 - 4.50 10/16/2021 us Default History Genericprovider LAB-OUTSIDE/ABST RACTED Final Result * CK (CPK) (10/16/2021) [facility] CPK 146 29 - 143 10/16/2021 us Default History Genericprovider LABORATORY Final Result * VITAMIN D, 25 [place] (10/16/2021) [facility] VITAMIN D 25 HYDROXY S/P/B 26 30 - 100 10/16/2021 us Default History Genericprovider LABORATORY Final Result documented in this encounter Visit Diagnoses Not on filedocumented in this encounter Additional Health Concerns Infection Onset 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 documented as of this encounter Care Teams Rod Cup Filler Relationship Specialty Start Date End Date Elena Dumont MD [address] [place] [phone] PCP - General INTERNAL MEDICINE 08/08/16 uQe Zuluaga MD [address] [place] [phone] [place] Counter Top Maker CARDIOVASCULAR DISEASE 08/08/16 08/19/23 Brit Saxena APRN, TECHNICAL BUSINESS ANALYST-C [address] [place] [phone] [place] Counter Top Maker NURSE PRACTITIONER 01/31/18 10/02/23 Giovanna Carter NP [address] [place] [phone] Referring Physician Nurse Practitioner [facility] 01/24/23 Zenon Bush MD [address] [place] [address] Consulting Physician CLINICAL CARDIAC ELECTROPHYSIOLOGY 03/12/23 Alisa Pat PA-C [address] [place] [phone] Referring Physician PHYSICIAN TRAVEL ACCOMMODATIONS RATER 08/20/23 Natasha Moore MD [address] [place] [address] Consulting Physician CARDIOVASCULAR DISEASE 10/03/23 Tyshawn Allen MD [address] [place] [address] PLASTIC SURGERY 04/03/24 04/03/25 documented as of this encounter
--- OUTSIDE RECORDS SUMMARY | 2024-08-18 14:04 | XMS_ITS | Encounter Summary ---
Author Organization [facility] Address [address] [place] [address] Care Team Providers Care Pr Intern Name Role Phone Elena Dumont MD Primary Care Provider [phone] Zenon Bush MD Unavailable [phone] Alisa Pat PA-C Unavailable [phone] Natasha Moore MD Unavailable Tyshawn Allen MD Unavailable Encounter Details Date Type Department Care Team (Late st Contact Info) Description 10/18/[address] [facility] [address] [place] [address] Malissa Contreras RN Anesthesia Record Procedure Summary [...] Placement 0728 Anesthesia Ready 0802 Quick Note Sequins Spooler del arciniega to use paralytic as needed. Stat 0803 Quick Note 12,000 units iv heparin administered by circulating RN. 0816 Quick Note ACT 379 0838 Quick Note Act 317 3000 un its of heparin given by dental laboratory worker rn 0901 Quick Note ACT 379 0924 [...] Local Anesthetic: None; Inserted By: JOEY Emmanuel knurling machine tender; Insertion attempts: 1; Ultrasound-guided Placement?: No; Patient [...] 0.6 oz pur e alcohol) wine occasionally [employer] Answer Date Recorded In the past 12 months has [employer], gas, oil, or water [employer] threatened to shut off services in your [...] Sex Assigned at Female 05/18/2024 1:57 PM FILM REPLACEMENT ORDERER Legal Sex Female 6:12 PM CDT Gender [...] Description 11/04/2024 9:15 AM CDT Office Visit [facility] [address] [place] [phone] Zenon Bush MD [address] [place] [address] 12/03/2024 2:00 PM CDT Office Visit [facility] [address] [address] Natasha Moore MD [address] [place], [place] [phone] documented as of this encounter Goals Goal Patient Goal Type Associated Problems Recent Progress Patient-Stated? Author Patient will return to prior living situation and remain independent in ADLs upon discharge from hospital Lifestyle No Eli Perla RN documented as of this encounter Visit Diagnoses Not on filedocumented in this encounter Additional Health Concerns Infection Onset 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 documented as of this encounter Care Teams Pr Intern Relationship Specialty Start Date End Date Elena Dumont MD [address] [place] [phone] PCP - General INTERNAL MEDICINE 08/08/16 Zenon Bush MD [address] [place] [address] Consulting Physician CLINICAL CARDIAC ELECTROPHYSIOLOGY 03/12/23 Alisa Pat PA-C [address] [place], [place] [address] Referring Physician PHYSICIAN RN GASTROENTEROLOGY 08/20/23 Natasha Moore MD [address] [place] [address] Consulting Physician CARDIOVASCULAR DISEASE 10/03/23 Tyshawn Allen MD [address] [place] [address] PLASTIC SURGERY 04/03/24 04/03/25 documented as of this encounter
--- OUTSIDE RECORDS SUMMARY | 2024-08-18 14:04 | XMS_ITS | Encounter Summary ---
Author Organization [facility] Address [facility] [place] [address] Care Team Providers Care Durable Medical Equipment Technician Name Role Phone Elena Dumont MD Primary Care Provider [phone] Zenon Bush MD Unavailable [phone] Alisa Pat PA-C Unavailable [phone] Natasha Moore MD Unavailable Tyshawn Allen MD Unavailable Encounter Details Date Type Department Care Team (Late st Contact Info) Description 10/17/2023 Hospital Orders Only [facility] [employer] [facility] [address] [place] [address] Zenon Bush MD [address] [place] [address] Social History Tobacco Use Types Packs/Day Years Used Date Smoking Tobacco: Never Smokeless Tobacco: Never Alcohol Use Standard Drinks/Week Comments Yes 0 (1 standard drink = 0.6 oz pur e alcohol) wine occasionally [facility] Utilities Answer Date Recorded In the past 12 months has e [employer], gas, oil, or water [employer] threatened to shut off services in your [...] place to sleep or slept in a skilled nursing (including now)? No 07/15/2023 Comments No Sex and Gender Information Value Date Recorded Sex Assigned at Female 05/18/2024 1:57 PM LPN INSTRUCTOR Legal Sex Female 6:12 PM CDT Gender [...] Description 11/04/2024 9:15 AM CDT Office Visit [facility] [address] [place] [address] Zenon Bush MD [address] [place] [phone] 12/03/2024 2:00 PM CDT Office Visit [facility] [address] [phone] Natasha Moore MD [address] [place], [place] [phone] documented as of this encounter Goals Goal [...] documented as of this encounter Care Teams Durable Medical Equipment Technician Relationship Specialty Start Date End Date Elena Dumont MD [address] [place] [address] PCP - General INTERNAL MEDICINE 08/08/16 Zenon Bush MD [address] [place] [address] Consulting Physician CLINICAL CARDIAC ELECTROPHYSIOLOGY 03/12/23 Alisa Pat PA-C [address] [place] [address] Referring Physician PHYSICIAN CAMP ATTENDANT 08/20/23 Natasha Moore MD [address] [place] [address] Consulting Physician CARDIOVASCULAR DISEASE 10/03/23 Tyshawn Allen MD [address] [place] [address] PLASTIC SURGERY 04/03/24 04/03/25 documented as of this encounter
--- OUTSIDE RECORDS SUMMARY | 2024-08-18 14:04 | XMS_ITS | Encounter Summary ---
Author Organization [facility] Address [facility] [place] [address] Care Team Providers Care Body Trimmer Upholsterer Name Role Phone Elena Dumont MD Primary Care Provider [phone] Que Zuluaga MD Unavailable [phone] Brit Saxena APRN EMPLOYEE COMMUNICATIONS INTERN-C Unavailable [phone] Zenon Bush MD Unavailable [phone] Alisa Pat PA-C Unavailable [phone] Natasha Moore MD Unavailable Tyshawn Allen MD Unavailable Encounter Details Date Type Department Care Team (Late st Contact Info) Description 07/22/2023 Hospital Follow-up Call [facility] [address] [place] [address] Lynn Jameson, RN Social History Tobacco Use Types Packs/Day Years Used Date Smoking Tobacco: Never Smokeless Tobacco: Never Alcohol Use Standard Drinks/Week Comments Yes 0 (1 standard drink = 0.6 oz pur e alcohol) wine occasionally [facility] Utilities Answer Date Recorded In the past [...] place to sleep or slept in a jail (including now)? No 07/15/2023 Comments No Sex and Gender Information Value Date Recorded Sex Assigned at Female 05/18/2024 1:57 PM HORSE BREAKER Legal Sex Female 6:12 PM CDT Gender [...] PM KRISTINT Brandy Candelaria RN Active * Because of a physical, mental, or emotional condition, do you have difficulty doing errands alone such as visiting a doctor's office or shopping? Answer Date of Assessment Author Status No 07/15/2023 2:11 PM Brandy Shepard RN Active documented as of this encounter Mental Status * Because of a physical, mental, or emotional condition, do you have serious difficulty concentrating, remembering, or making decisions? Answer Entry Date Author Status No 07/15/2023 2:11 PM Brandy Shepard RN Active documented in this encounter Plan of Treatment Upcoming Encounters Date Type Department Care Team (Late st Contact Info) Description 11/04/2024 9:15 AM CDT Office Visit [facility] [address] [place] [address] Zenon Bush MD [address] [place] [address] 12/03/2024 2:00 PM CDT Office Visit [facility] [address] [address] Natasha Moore MD [address] [place] [address] documented as of this encounter Goals Goal [...] documented as of this encounter Care Teams Body Trimmer Upholsterer Relationship Specialty Start Date End Date Elena Dumont MD [address] [place] [address] PCP - General INTERNAL MEDICINE 08/08/16 Que Zuluaga MD [address] [place] [phone] [place] Truck Driver Heavy CARDIOVASCULAR DISEASE 08/08/16 08/19/23 Brit Saxena APRN, EMPLOYEE COMMUNICATIONS INTERN-C [address] [place] [address] [address] [place] [phone] [place] Truck Driver Heavy NURSE PRACTITIONER 01/31/18 10/02/23 Zenon Bush MD [address] [place] [address] [phone] Consulting Physician CLINICAL CARDIAC ELECTROPHYSIOLOGY 03/12/23 Alisa Pat PA-C [address] [place] [address] [phone] Referring Physician PHYSICIAN FURNITURE INSTALLER 08/20/23 Natasha Moore MD [address] [place] [address] 454349 Consulting Physician CARDIOVASCULAR DISEASE 10/03/23 Tyshawn Allen MD [address] [place] [address] [phone] PLASTIC SURGERY 04/03/24 04/03/25 documented as of this encounter
--- OUTSIDE RECORDS SUMMARY | 2024-08-18 14:04 | XMS_ITS | Patient Health Record ---
Author Organization [facility] Address [address] [place], [place] [id number] Care Team Providers Care Textile Artist Name Role Phone CASH MIRAMONTES Unavailable [phone] Reason For Referral No Information Plan Of Treatment No Information
--- OUTSIDE RECORDS SUMMARY | 2024-08-18 14:05 | XMS_ITS ---
Author Organization [facility] Address [address] [place], [place] [address] Care Team Providers Care Sas Developer Analyst Name Role Phone WAYNELINDA CASH Unavailable [phone] REASON FOR VISIT growth on toes Encounters Encounter Location Date Provider Diagnosis [facility] [address] [place], [place] [id number] 12/19/2023 CASH MIRAMONTES Plan Of Treatment No Information Progress Notes * Lizeth STORYDOB:1935 ([age] yo M)Acc No.[id number]:12/19/2023 Progress Notes Patient: Paris GEORGECheloLizeth Provider: Stella MIRAMONTES :1935 A ge:88 Y S ex:Male Date:12/19/2023 Address:[address] [place] [address] Subjective: * Chief Complaints: * 1 . Growth on toes. * Medical History: Objective: * Vitals: Assessment: Plan: * Treatment: * Billing Information: * Visit Code: * Procedure Codes: * Electronic signature of WANG MIRAMONTES DPM on 08/18/2024 at 01:42 PM CDT Sign off status: Pending * Provider: Stella MIRAMONTES Date: 0 12/19/2023 Generated for Reji mckeon/Cathy/Ilda on: 0 08/18/2024 01:42 PM CDT
[2024-08-18 14:25] LABS: Free T3 2.25 pg/mL (2.18-3.98)
== END 2024-08-18 12:32 | disposition home or self-care (01) ==
LOC: CHSLAB 12:33
PROVIDERS: PCP Internal Medicine; Visit Provider Internal Medicine
DX: N18.31 Chronic kidney disease, stage 3a (principal); E03.4 Atrophy of thyroid (acquired); I48.11 Longstanding persistent atrial fibrillation; I50.9 Heart failure, unspecified
CPT/HCPCS: 36415; 80048; 83880; 84439; 84443; 84481

== ENCOUNTER 2024-10-16 07:53 | Outpatient (CLI) | payer MEDICARE, SELFPAY ==
[2024-10-16 08:07] LABS: Basophils Absolute Auto 0.05 K/mm3 (0.00-0.10); Basophils Percent Auto 0.8 % (0.0-1.0); Eosinophils Absolute Auto 0.08 K/mm3 (0.02-0.50); Eosinophils Percent Auto 1.3 % (1.0-6.0); Hematocrit 38.1 % (35.0-42.0); Hemoglobin 11.9 g/dL (11.7-13.8); Immature Granulocyte Absolute 0.02 K/mm3 (0.00-0.00); Immature Granulocyte Percent A 0.3 % (0.0-0.0); Lymphocytes Absolute Auto 1.08 K/mm3 (1.10-4.50); Lymphocytes Percent Auto 18.2 % (18.0-42.0); Mean Corpuscular HGB Conc 31.2 g/dL (32-36); Mean Corpuscular Hemoglobin 28.9 pg (27.0-31.0); Mean Corpuscular Volume 92.5 fL (78.0-102.0); Mean Platelet Volume 10.3 fl (9.2-11.8); Monocytes Absolute Auto 0.43 K/mm3 (0.10-0.90); Monocytes Percent Auto 7.2 % (2.0-11.0); Neutrophils Absolute Auto 4.29 K/mm3 (1.70-7.20); Neutrophils Percent Auto 72.2 % (50.0-70.0); Platelet Count Result 131 K/mm3 (150-420); Red Blood Count 4.12 M/mm3 (4.20-5.40)
[2024-10-16 08:14] LABS: Add Urine Microscopic? NO; Appearance Urine Clear (Clear); Bilirubin Urine Negative (Negative); Blood Urine Negative (Negative); Color Urine Light Yellow (Yellow); Glucose Urine UA Negative (Negative); Ketones Urine Negative (Negative); Leukocyte Esterase Ur Negative LEU/UL (Negative); Nitrate Urine Negative (Negative); Protein Urine Negative (Negative); Urobilinogen Urine 0.2 mg/dL (0.2-1.0); pH Urine 5.5 (5.0-8.0)
[2024-10-16 08:21] LABS: Creatinine Urine 101.8 mg/dL
[2024-10-16 08:26] LABS: Microalbumin Urine Random 12.2 mg/L (0-16.7)
[2024-10-16 08:38] LABS: Hemoglobin A1C 6.5 % (<5.7)
[2024-10-16 09:05] LABS: Alanine Aminotransferase 20 U/L (6-35); Alkaline Phosphatase 69 U/L (38-126); Anion Gap 6 mmol/L (4-12); Aspartate Amino Transferase 30 U/L (14-36); Bilirubin,Total 0.6 mg/dL (0.2-1.3); Blood Urea Nitrogen 34 mg/dL (7-17); Carbon Dioxide 27 mmol/L (22-30); Chloride 110 mmol/L (98-107); Estimated Glomerular Filt Rate 36; Glucose 212 mg/dL (65-110); Iron 68 ug/dL (37-170); Osmolality Calculated 309 mOsm/kg (285-295); Potassium 4.5 mmol/L (3.4-5.0); Sodium 143 mmol/L (137-145); Total Protein 6.2 g/dL (6.3-8.2)
[2024-10-16 09:14] LABS: NT Pro B Type Natriuretic Pept 3510 pg/mL (19.9-100)
== END 2024-10-16 07:54 | disposition home or self-care (01) ==
PROVIDERS: PCP Internal Medicine; Visit Provider Internal Medicine
DX: N18.32 Chronic kidney disease, stage 3b (principal); D50.9 Iron deficiency anemia, unspecified; E53.8 Deficiency of other specified B group vitamins; E11.65 Type 2 diabetes mellitus with hyperglycemia; I50.9 Heart failure, unspecified
CPT/HCPCS: 36415; 80053; 81003; 82043; 82728; 83036; 83540; 83880; 85025

== ENCOUNTER 2025-01-11 11:22 | Outpatient (CLI) | payer MEDICARE, SELFPAY ==
--- OUTSIDE RECORDS SUMMARY | 2023-12-19 09:20 | XMS_ITS ---
Author Organization [facility] Address [address] [place], [place] [id number] Care Team Providers Care Sprinkler Installer Name Role Phone WAYNELINDA CASH Unavailable [phone] REASON FOR VISIT growth on toes Encounters Encounter Location Date Provider Diagnosis [facility] [place] [address] [place], [place] [id number] 12/19/2023 CASH MIRAMONTES Plan Of Treatment No Information Progress Notes * Lizeth STORYDOB:1935 ([age] yo M)Acc No.[id number]:12/19/2023 Progress Notes Patient: Paris GEORGECheloLizeth Provider: Stella MIRAMONTES :1935 A ge:88 Y S ex:Male Date:12/19/2023 Address:[address] [place] [address] Subjective: * Chief Complaints: * 1 . Growth on toes. * Medical History: Objective: * Vitals: Assessment: Plan: * Treatment: * Billing Information: * Visit Code: * Procedure Codes: * Electronic signature of WANG MIRAMONTES DPM on 01/11/2025 at 01:43 PM CDT Sign off status: Pending * Provider: Stella MIRAMONTES Date: 0 12/19/2023 Generated for Reji mckeon/Cathy/Ilda on: 0 01/11/2025 01:43 PM CDT
[2025-01-11 11:43] LABS: Hematocrit 39.4 % (35.0-42.0); Hemoglobin 12.5 g/dL (11.7-13.8); Immature Granulocyte Percent A 0.4 % (0.0-0.0); Lymphocytes Absolute Auto 1.19 K/mm3 (1.10-4.50); Mean Corpuscular HGB Conc 31.7 g/dL (32-36); Mean Corpuscular Hemoglobin 28.6 pg (27.0-31.0); Mean Corpuscular Volume 90.2 fL (78.0-102.0); Nucleated Red Blood Cells Absolute Auto 0.00 K/mm3 (0.00-0.00); Nucleated Red Blood Cells Perc 0.0 % (0-0.0); Platelet Count Result 150 K/mm3 (150-420); Red Blood Count 4.37 M/mm3 (4.20-5.40); White Blood Count 7.3 K/mm3 (4.8-10.8)
[2025-01-11 13:41] LABS: Alanine Aminotransferase 16 U/L (6-35); Albumin Level 4.4 g/dL (3.5-5.1); Alkaline Phosphatase 73 U/L (38-126); Anion Gap 11 mmol/L (4-12); Aspartate Amino Transferase 25 U/L (14-36); Bilirubin,Total 0.8 mg/dL (0.2-1.3); Blood Urea Nitrogen 37 mg/dL (7-17); Calcium 10.0 mg/dL (8.4-10.2); Carbon Dioxide 26 mmol/L (22-30); Chloride 101 mmol/L (98-107); Estimated Glomerular Filt Rate 35; Glucose 338 mg/dL (65-110); Osmolality Calculated 307 mOsm/kg (285-295); Potassium 4.9 mmol/L (3.4-5.0); Sodium 138 mmol/L (137-145); Total Protein 7.3 g/dL (6.3-8.2)
--- OUTSIDE RECORDS SUMMARY | 2025-01-11 13:44 | XMS_ITS | Patient Health Record ---
Author Organization [facility] Address [address] [facility] [address] [place], [place] [id number] Reason For Referral No Information Plan Of Treatment No Information
== END 2025-01-11 11:23 | disposition home or self-care (01) ==
LOC: CHSLAB 11:28
PROVIDERS: PCP Internal Medicine
DX: I48.4 Atypical atrial flutter (principal)
CPT/HCPCS: 36415; 80053; 85025

== ENCOUNTER 2025-03-19 14:37 | Outpatient (CLI) | payer MEDICARE, SELFPAY ==
--- NOTE | ~2025-03-19 | XR_ITS ---
EXAMINATION: XR knee LT 3V, 03/19/2025 15:10 CLOTH DESIZING RANGE OPERATOR CHIEF HISTORY: Lt. knee pain x3 weeks. NKI COMPARISON: No comparisons available. Findings: No acute fracture or malalignment. Moderate tricompartmental degenerative changes Soft tissues unremarkable. Impression: No acute fracture or malalignment. Reviewed, dictated and finalized at location P. H DESIZING RANGE OPERATOR CHIEF Impression: No acute fracture or malalignment.
--- NOTE | ~2025-03-19 | XR_ITS ---
EXAMINATION: XR chest 2V, 03/19/2025 15:10 EMBEDDED SYSTEMS SOFTWARE ENGINEER HISTORY: Shortness of breath COMPARISON: No comparisons available. Technique: 2 views obtained. Findings: Mild pulmonary venous congestion. No pneumothorax. Moderate to severe cardiomegaly. Mediastinal and hilar contours are within normal limits. Bony thorax no acute abnormality. Impression: CHF Reviewed, dictated and finalized at location P. DDED SYSTEMS SOFTWARE ENGINEER Impression: CHF
--- OUTSIDE RECORDS SUMMARY | 2025-03-19 14:43 | XMS_ITS | Encounter Summary ---
Author Organization [facility] Address [address] [place] [address] Care Team Providers Care Painter Barrel Name Role Phone Elena Dumont MD Primary Care Provider [phone] Que Zuluaga MD Unavailable [phone] Brit Saxena APRN BLOCK CHOPPER HAND-C Unavailable [phone] Giovanna Carter NP Unavailable Unavailable Zenon Bush MD Unavailable [phone] Alisa Pat-C Unavailable [phone] Natasha Moore MD Unavailable Tyshawn Allen MD Unavailable Encounter Details Date Type Department Care Team (Late st Contact Info) Description 06/20/2018 Abstract [facility] [address] [place] [phone] Abstract, Doc [facility] Social History Tobacco Use Types Packs/Day Years Used Date Smoking Tobacco: Never Smokeless Tobacco: Never Alcohol Use Standard Drinks/Week Comments Yes 0 (1 standard drink = 0.6 oz pur e alcohol) wine occasionally Comments Unknown Sex and Gender Information Value Date Recorded Sex Assigned at Female 05/18/2024 1:57 PM ELECTRONICS COMMODITY MANAGER Legal Sex Female 6:12 PM CDT Gender Identity Not on file Sexual Orientation Not on file Occupation Industry Job Start Date Job End Date Retired Not on file Not on file Not on file documented as of this encounter Plan of Treatment Upcoming Encounters Date Type Department Care Team (Late st Contact Info) Description 05/19/2025 2:30 PM ELECTRONICS COMMODITY MANAGER Office Visit [facility] [address] [place] [address] Natasha Moore MD [address] [place] [address] 05/26/2025 2:00 PM ELECTRONICS COMMODITY MANAGER Office Visit [facility] [address] [place] [phone] Alisa Pat PA-C [address] [place], [place] [address] documented as of this encounter Visit Diagnoses Not on filedocumented in this encounter Additional Health Concerns Infection Onset 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 documented as of this encounter Care Teams Painter Barrel Relationship Specialty Start Date End Date Elena Dumont MD [address] [place] [phone] PCP - General INTERNAL MEDICINE 08/08/16 Que Zuluaga MD [address] [place] [phone] [place] Glass Driller CARDIOVASCULAR DISEASE 08/08/16 08/19/23 Brit Saxena APRN, BLOCK CHOPPER HAND-C 6[address] [facility] [address] [place] [phone] [place] Glass Driller NURSE PRACTITIONER 01/31/18 10/02/23 Giovanna Carter NP [address] [facility] [address] [place] [address] Referring Physician Nurse Practitioner [facility] 01/24/23 Zenon Bush MD [address] [place] [address] Consulting Physician CLINICAL CARDIAC ELECTROPHYSIOLOGY 03/12/23 Alisa Pat PA-C [address] [place], [place] [address] Referring Physician PHYSICIAN UTILITY BILL COLLECTOR 08/20/23 Natasha Moore MD [address] [place], [place] [address] Consulting Physician CARDIOVASCULAR DISEASE 10/03/23 Tyshawn Allen MD [address] [place] [address] PLASTIC SURGERY 04/03/24 04/03/25 documented as of this encounter
--- OUTSIDE RECORDS SUMMARY | 2025-03-19 14:43 | XMS_ITS | Encounter Summary ---
Author Organization [facility] Address [facility] [place] [address] Care Team Providers Care Automatic Corn Grinder Operator Name Role Phone Elena Dumont MD Primary Care Provider [phone] Que Zuluaga MD Unavailable [phone] Brit Saxena APRN DEFENCE INTELLIGENCE ANALYST-C Unavailable [phone] Giovanna Carter NP Unavailable Unavailable Zenon Bush MD Unavailable [phone] Alisa Pat-C Unavailable [phone] Natasha Moore MD Unavailable Tyshawn Allen MD Unavailable Encounter Details Date Type Department Care Team (Late st Contact Info) Description 01/07/2020 [facility] Message [email or web address] HEALTH - [facility] HOSPITALPawaa Software [facility] [address] [place] [address] Que Zuluaga MD [address] [place] [address] Question Social History Tobacco Use Types Packs/Day Years Used Date Smoking Tobacco: Never Smokeless Tobacco: Never Alcohol Use Standard Drinks/Week Comments Yes 0 (1 standard drink = 0.6 oz pur e alcohol) wine occasionally Comments Unknown Sex and Gender Information Value Date Recorded Sex Assigned at Female 05/18/2024 1:57 PM TIPPLE BOSS Legal Sex Female 6:12 PM CDT Gender Identity Not on file Sexual Orientation Not on file Occupation Industry Job Start Date Job End Date Retired Not on file Not on file Not on file documented as of this encounter Plan of Treatment Upcoming Encounters Date Type Department Care Team ([facility] Contact Info) Description 05/19/2025 2:30 PM TIPPLE BOSS Office Visit [facility] [place] [address] Natasha Moore MD [address] [place] [address] 05/26/2025 2:00 PM TIPPLE BOSS Office Visit [facility] [place] [address] Alisa Pat PA-C [address] [place], [place] [address] documented as of this encounter Visit Diagnoses Not on filedocumented in this encounter Additional Health Concerns Infection Onset 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 documented as of this encounter Care Teams Automatic Corn Grinder Operator Relationship Specialty Start Date End Date Elena Dumont MD [address] [place] [phone] PCP - General INTERNAL MEDICINE 08/08/16 Que Zuluaga MD [address] [place] [phone] Bethany Sheet Metal Production Worker CARDIOVASCULAR DISEASE 08/08/16 08/19/23 Brit Saxena APRN, DEFENCE INTELLIGENCE ANALYST-C [address] [place] [address] [address] [place] [phone] [place] Sheet Metal Production Worker NURSE PRACTITIONER 01/31/18 10/02/23 Giovanna Carter NP [address] [place] [address] [phone] Referring Physician Nurse Practitioner Family 01/24/23 Zenon Bush MD [address] [place] [address] Consulting Physician CLINICAL CARDIAC ELECTROPHYSIOLOGY 03/12/23 Alisa Pat PA-C [address] [place] [address] Referring Physician PHYSICIAN PUTTY TINTER MAKER 08/20/23 Natasha Moore MD [address] [place] [address] Consulting Physician CARDIOVASCULAR DISEASE 10/03/23 Tyshawn Allen MD [address] [place] [address] PLASTIC SURGERY 04/03/24 04/03/25 documented as of this encounter
--- OUTSIDE RECORDS SUMMARY | 2025-03-19 14:43 | XMS_ITS | Encounter Summary ---
Author Organization [facility] Address [facility]6 [place] [address] Care Team Providers Care Events Assistant Name Role Phone Elena Dumont MD Primary Care Provider [phone] Zenon Bush MD Unavailable [phone] Alisa Pat PA-C Unavailable [phone] Natasha Moore MD Unavailable Tyshawn Allen MD Unavailable Encounter Details Date Type Department Care Team (Late st Contact Info) Description 05/12/2024 Prep for Procedure [facility] eld [address] [place] [address] Alessandra Knapp MD [address] [place] [address] Social History Tobacco Use Types [...] materials from doctor or pharmacy Never 04/15/2024 [facility] Utilities Answer Date Recorded In [...] Sex Assigned at Female 05/18/2024 1:57 PM EDGE WORKER Legal Sex Female 6:12 PM CDT Gender [...] No 10/22/2023 4:26 PM CDT Janee Bello, TITLE ATTORNEY Active * Are you blind or do you have serious difficulty seeing, even when wearing glasses? Answer Date of Assessment Author Status No 10/22/2023 4:26 PM CDT Janee Bello, TITLE ATTORNEY Active * Do you have serious difficulty walking or climbing stairs? Answer Date of Assessment Author Status Yes 10/22/2023 4:26 PM CDT Janee Bello, TITLE ATTORNEY Active * Do you have difficulty dressing or bathing? Answer Date of Assessment Author Status No 10/22/2023 4:26 PM CDT Janee Bello, TITLE ATTORNEY Active * Because of a physical, mental, or emotional condition, do you have difficulty doing errands alone such as visiting a doctor's office or shopping? Answer Date of Assessment Author Status No 10/22/2023 4:26 PM CDT Janee Bello, TITLE ATTORNEY Active documented as of this encounter Mental Status * Because of a physical, mental, or emotional condition, do you have serious difficulty concentrating, remembering, or making decisions? Answer Entry Date Author Status No 10/22/2023 4:26 PM CDT Janee Bello, TITLE ATTORNEY Active documented in this encounter Plan of Treatment Upcoming Encounters Date Type Department Care Team (Late st Contact Info) Description 05/19/2025 2:30 PM EDGE WORKER Office [facility] [place] [address] Natasha Moore MD [address] [place] [address] 05/26/2025 2:00 PM EDGE WORKER Office Visit [facility] [address] [place] [phone] Alisa Pat PA-C [address] [place], [place] [address] documented as of this encounter Goals Goal [...] documented as of this encounter Care Teams Events Assistant Relationship Specialty Start Date End Date Elena Dumont MD [address] [place] [phone] PCP - General INTERNAL MEDICINE 08/08/16 Zenon Bush MD [address] [place] [address] Consulting Physician CLINICAL CARDIAC ELECTROPHYSIOLOGY 03/12/23 Alisa Pat PA-C [address] [place] [address] Referring Physician PHYSICIAN SAFETY INVESTIGATOR 08/20/23 Natasha Moore MD [address] [place] [address] Consulting Physician CARDIOVASCULAR DISEASE 10/03/23 Tyshawn Allen MD [address] [place] [address] PLASTIC SURGERY 04/03/24 04/03/25 documented as of this encounter
--- OUTSIDE RECORDS SUMMARY | 2025-03-19 14:43 | XMS_ITS | Encounter Summary ---
Author Organization [facility] Address [facility] [place] [address] Care Team Providers Care Police Specialist Name Role Phone Elena Dumont MD Primary Care Provider [phone] Que Zuluaga MD Unavailable [phone] Brit Saxena APRN SHIP CAPTAIN-C Unavailable [phone] Giovanna Carter NP Unavailable Unavailable Zenon Bush MD Unavailable [phone] Alisa Pat-C Unavailable [phone] Natasha Moore MD Unavailable Tyshawn Allen MD Unavailable Encounter Details Date Type Department Care Team (Late st Contact Info) Description 04/23/2019 [employer] Message [employer] [facility] [place] [address] [place] [address] Que Zuluaga MD [address] [place] [address] Other Social History Tobacco Use Types Packs/Day Years Used Date Smoking Tobacco: Never Smokeless Tobacco: Never Alcohol Use Standard Drinks/Week Comments Yes 0 (1 standard drink = 0.6 oz pur e alcohol) wine occasionally Comments Unknown Sex and Gender Information Value Date Recorded Sex Assigned at Female 05/18/2024 1:57 PM ACCOUNT EXECUTIVE HEALTHCARE Legal Sex Female 6:12 PM CDT Gender Identity Not on file Sexual Orientation Not on file Occupation Industry Job Start Date Job End Date Retired Not on file Not on file Not on file documented as of this encounter Progress Notes * Violeta Velasquez RN - 04/23/2019 7:53 AM CSTFrom: Lizeth Warner To: Que Zuluaga MD Sent: 04/23/2019 5:48 AM ACCOUNT EXECUTIVE HEALTHCARE Subject: Other I have Had my Flue Shot at [facility] Dr Dumont I will make an appointment In June 2019 That is when I am supposed to see Que Berry Thank You Lizeth Warner UNT EXECUTIVE HEALTHCARE documented in this encounter Plan of Treatment Upcoming Encounters Date Type Department Care Team ([facility] Contact Info) Description 05/19/2025 2:30 PM ACCOUNT EXECUTIVE HEALTHCARE Office Visit [facility]-[address] [place] [address] Natasha Moore MD [address] [place] [address] 05/26/2025 2:00 PM ACCOUNT EXECUTIVE HEALTHCARE Office Visit [facility] [place] [address] Alisa Pat PA-C [address] [place] [address] documented as of this encounter Visit Diagnoses Not on filedocumented in this encounter Additional Health Concerns Infection Onset 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 documented as of this encounter Care Teams Police Specialist Relationship Specialty Start Date End Date Elena Dumont MD [address] [place] [phone] PCP - General INTERNAL MEDICINE 08/08/16 Que Zuluaga MD [address] [place] [phone] [facility] Teacher CARDIOVASCULAR DISEASE 08/08/16 08/19/23 Brit Saxena APRN, SHIP CAPTAIN-C [address] [place] [phone] [facility] Teacher NURSE PRACTITIONER 01/31/18 10/02/23 Giovanna Carter NP [address] [place] [phone] Referring Physician Nurse Practitioner Family 01/24/23 Zenon Bush MD [address] [place] [address] Consulting Physician CLINICAL CARDIAC ELECTROPHYSIOLOGY 03/12/23 Alisa Pat PA-C [address] [place] [address] Referring Physician PHYSICIAN DUMP MOTORMAN 08/20/23 Natasha Moore MD [address] [place] [address] Consulting Physician CARDIOVASCULAR DISEASE 10/03/23 Tyshawn Allen MD [address] [place] [address] PLASTIC SURGERY 04/03/24 04/03/25 documented as of this encounter
--- OUTSIDE RECORDS SUMMARY | 2025-03-19 14:43 | XMS_ITS ---
Author Organization Unknown Address [address] [place] [phone] Phone Care Team Providers Care Jewel Inserter Name Role Phone IZABELA CHAVIS Attending Unavailable [...] Referral No Data Found Plan of Treatment US Echo With Color (59948) 12/21/2024 Encounters Encounter Diagnosis Start Date Code Code Sys tem Paroxysmal atrial fibrillation 03/31/2024 [id number] SNOMED-CT Personal Care Team Section Performer Name Performer Role Active Date Inactive LITO Osborne PCP - Primary care physician 2024-03-05
--- OUTSIDE RECORDS SUMMARY | 2025-03-19 14:43 | XMS_ITS | Encounter Summary ---
Author Organization [facility] Address [facility]6 [place] [address] Care Team Providers Care Education And Training Manager Name Role Phone Elena Dumont MD Primary Care Provider [phone] Que Zuluaga MD Unavailable [phone] Brit Saxena APRN COAT PADDER-C Unavailable [phone] Giovanna Carter NP Unavailable Unavailable Zenon Bush MD Unavailable [phone] Alisa Pat-C Unavailable [phone] Natasha Moore MD Unavailable Tyshawn Allen MD Unavailable Encounter Details Date Type Department Care Team (Late st Contact Info) Description 05/26/2018 Abstract [facility] [address] [place] [address] Que Zuluaga MD [address] [place] [phone] Social History Tobacco Use Types Packs/Day Years Used Date Smoking Tobacco: Never Smokeless Tobacco: Never Alcohol Use Standard Drinks/Week Comments Yes 0 (1 standard drink = 0.6 oz pur e alcohol) wine occasionally Comments Unknown Sex and Gender Information Value Date Recorded Sex Assigned at Female 05/18/2024 1:57 PM WHITE HAT HACKER Legal Sex Female 6:12 PM CDT Gender Identity Not on file Sexual Orientation Not on file Occupation Industry Job Start Date Job End Date Retired Not on file Not on file Not on file documented as of this encounter Plan of Treatment Upcoming Encounters Date Type Department Care Team (Late st Contact Info) Description 05/19/2025 2:30 PM WHITE HAT HACKER Office Visit [facility] [place] [address] Natasha Moore MD [address] [place] [address] 05/26/2025 2:00 PM WHITE HAT HACKER Office Visit [facility] [address] [place] [address] Alisa Pat PA-C [address] [place] [address] documented as of this encounter Procedures Procedure [...] documented as of this encounter Care Teams Education And Training Manager Relationship Specialty Start Date End Date Elena Dumont MD [address] [place] [address] PCP - General INTERNAL MEDICINE 08/08/16 Que Zuluaga MD [address] [place] [phone] [place] Neurourologist CARDIOVASCULAR DISEASE 08/08/16 08/19/23 Brit Saxena APRN, COAT PADDER-C [address] [place] [phone] [place] Neurourologist NURSE PRACTITIONER 01/31/18 10/02/23 Giovanna Carter NP [address] [place] [phone] Referring Physician Nurse Practitioner [facility] 01/24/23 Zenon Bush MD [address] [place] [address] Consulting Physician CLINICAL CARDIAC ELECTROPHYSIOLOGY 03/12/23 Alisa Pat PA-C [address] [place] [address] Referring Physician PHYSICIAN CARE SPECIALIST 08/20/23 Natasha Moore MD [address] [place] [address] Consulting Physician CARDIOVASCULAR DISEASE 10/03/23 Tyshawn Allen MD [address] [place] [address] PLASTIC SURGERY 04/03/24 04/03/25 documented as of this encounter
--- OUTSIDE RECORDS SUMMARY | 2025-03-19 14:44 | XMS_ITS ---
Author Organization Unknown Address [address] [place] [phone] Phone Care Team Providers Care Gas Adjuster Name Role Phone IZABELA CHAVIS Attending Unavailable [...] Plan of Treatment US Echo With Color (42554) 12/21/2024 Encounters Encounter Diagnosis Start Date Code Code Sys tem Mixed hyperlipidemia 06/04/2024 [id number] SNOMED- CT Personal Care Team Section Performer Name Performer Role Active Date Inactive LITO Osborne PCP - Primary care physician 2024-03-05
--- OUTSIDE RECORDS SUMMARY | 2025-03-19 14:44 | XMS_ITS | Encounter Summary ---
Author Organization [facility] Address [facility] [place] [address] Care Team Providers Care Export Documents Clerk Name Role Phone Elena Dumont MD Primary Care Provider [phone] Zenon Bush MD Unavailable [phone] Alisa Pat PA-C Unavailable [phone] Natasha Moore MD Unavailable Tyshawn Allen MD Unavailable Encounter Details Date Type Department Care Team (Late st Contact Info) Description 10/17/2023 Hospital Orders Only [facility] [employer] [facility] [address] [place] [address] Zenon Bush MD [address] [place] [address] Social History Tobacco Use Types Packs/Day Years Used Date Smoking Tobacco: Never Smokeless Tobacco: Never Alcohol Use Standard Drinks/Week Comments Yes 0 (1 standard drink = 0.6 oz pur e alcohol) wine occasionally [facility] Utilities Answer Date Recorded In the past 12 months has e [email or web address], gas, oil, or water [employer] threatened to shut off services in your [...] Sex Assigned at Female 05/18/2024 1:57 PM COAL WASHER Legal Sex Female 6:12 PM CDT Gender [...] 07/15/2023 2:11 PM Brandy Shepard RN Active * Are you blind or do you have serious difficulty seeing, even when wearing glasses? Answer Date of Assessment Author Status No 07/15/2023 2:11 PM Brandy Shepard RN Active * Do you have serious difficulty walking or climbing stairs? Answer Date of Assessment Author Status No 07/15/2023 2:11 PM Brandy Shepard RN Active * Do you have difficulty dressing or bathing? Answer Date of Assessment Author Status No 07/15/2023 2:11 PM Brandy Shepard RN Active * Because of a physical, [...] st Contact Info) Description 05/19/2025 2:30 PM COAL WASHER Office Visit [facility] [place] [address] [place] [address] aNtasha Moore MD [address] [place] [address] 05/26/2025 2:00 PM COAL WASHER Office Visit [facility] [place] [address] [place] [phone] Alisa Pat PA-C [address] [place], [place] [address] documented as of this encounter Goals Goal [...] documented as of this encounter Care Teams Export Documents Clerk Relationship Specialty Start Date End Date Elena Dumont MD [address] [place] [address] PCP - General INTERNAL MEDICINE 08/08/16 Zenon Bush MD [address] [place] [address] Consulting Physician CLINICAL CARDIAC ELECTROPHYSIOLOGY 03/12/23 Alisa Pat PA-C [address] [place] [address] Referring Physician PHYSICIAN MICROWAVE OVEN ASSEMBLER 08/20/23 Natasha Moore MD [address] [place] [phone] Consulting Physician CARDIOVASCULAR DISEASE 10/03/23 Tyshawn Allen MD [address] [place], [place] [address]449 PLASTIC SURGERY 04/03/24 04/03/25 documented as of this encounter
--- OUTSIDE RECORDS SUMMARY | 2025-03-19 14:44 | XMS_ITS | Encounter Summary ---
Author Organization [facility] Address [facility] [place] [address] Care Team Providers Care Transportation Planner Name Role Phone Elena Dumont MD Primary Care Provider [phone] Que Zuluaga MD Unavailable [phone] Brit Saxena APRN STACK ATTENDANT-C Unavailable [phone] Giovanna Carter NP Unavailable Unavailable Zenon Bush MD Unavailable [phone] Alisa Pat-C Unavailable [phone] Natasha Moore MD Unavailable Tyshawn Allen MD Unavailable Encounter Details Date Type Department Care Team (Late st Contact Info) Description 05/12/2015 Abstract [facility] [address] [place] [address] Que Zuluaga MD [address] [place] [address] Social History Tobacco Use Types Packs/Day Years Used Date Smoking Tobacco: Never Alcohol Use Standard Drinks/Week Comments No 0 (1 standard drink = 0.6 oz pur e alcohol) Comments Unknown Sex and Gender Information Value Date Recorded Sex Assigned at Female 05/18/2024 1:57 PM HOG TENDER Legal Sex Female 6:12 PM CDT Gender Identity Not on file Sexual Orientation Not on file Occupation Industry Job Start Date Job End Date Retired Not on file Not on file Not on file documented as of this encounter Plan of Treatment Upcoming Encounters Date Type Department Care Team (Late st Contact Info) Description 05/19/2025 2:30 PM HOG TENDER Office Visit [facility] [address] [place] [address] Natasha Moore MD [address] [place], [place] [phone] 05/26/2025 2:00 PM HOG TENDER Office Visit [address] [place] [address] Alisa Pat PA-C [address] [place], [place] [phone] documented as of this encounter Visit Diagnoses Not on filedocumented in this encounter Additional Health Concerns Infection Onset 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 documented as of this encounter Care Teams Transportation Planner Relationship Specialty Start Date End Date Elena Dumont MD [address] [place] [address] PCP - General INTERNAL MEDICINE 08/08/16 Que Zuluaga MD [address] [place] [phone] Leland Rivet Tester CARDIOVASCULAR DISEASE 08/08/16 08/19/23 Brit Saxena APRN, STACK ATTENDANT-C [address] [facility] [address] [place] [address] Leland Rivet Tester NURSE PRACTITIONER 01/31/18 10/02/23 Giovanna Carter STACK ATTENDANT [address] [place] [address] [address] [place] [address] Referring Physician Nurse Practitioner Family 01/24/23 Zenon Bush MD [address] [place] [address] Consulting Physician CLINICAL CARDIAC ELECTROPHYSIOLOGY 03/12/23 Alisa Pat PA-C [address] [place] [address] Referring Physician PHYSICIAN JANITORIAL CLEANER 08/20/23 Natasha Moore MD [address] [place] [address] Consulting Physician CARDIOVASCULAR DISEASE 10/03/23 Tyshawn Allen MD [address] [place] [address] PLASTIC SURGERY 04/03/24 04/03/25 documented as of this encounter
--- OUTSIDE RECORDS SUMMARY | 2025-03-19 14:44 | XMS_ITS | Encounter Summary ---
Author Organization [facility] Address [facility] [place] [address] Care Team Providers Care Solar Designer Name Role Phone Elena Dumont MD Primary Care Provider [phone] Que Zuluaga MD Unavailable [phone] Brit Saxena APRN ORTHO ASSISTANT-C Unavailable [phone] Zenon Bush MD Unavailable [phone] lAisa Pat PA-C Unavailable [phone] Natasha Moore MD Unavailable Tyshawn Allen MD Unavailable Encounter Details Date Type Department Care Team (Late st Contact Info) Description 07/22/2023 Hospital Follow-up Call [facility] [address] [place] [address] Lynn Jameson, RN Social History Tobacco Use Types Packs/Day Years Used Date Smoking Tobacco: Never Smokeless Tobacco: Never Alcohol Use Standard Drinks/Week Comments Yes 0 (1 standard drink = 0.6 oz pur e alcohol) wine occasionally [facility] Utilities Answer Date Recorded In the [...] place to sleep or slept in a long-term (including now)? No 07/15/2023 Comments No Sex and Gender Information Value Date Recorded Sex Assigned at Female 05/18/2024 1:57 PM IMAGERY ANALYST Legal Sex Female 6:12 PM CDT Gender [...] st Contact Info) Description 05/19/2025 2:30 PM IMAGERY ANALYST Office Visit [facility] [place] [address] [place] [address] Natasha Moore MD [address] [place] [address] 05/26/2025 2:00 PM IMAGERY ANALYST Office Visit [facility] [place] [address] [place] [phone] Alisa Pat PA-C [address] [place], [place] 5[address] documented as of this encounter Goals Goal [...] documented as of this encounter Care Teams Solar Designer Relationship Specialty Start Date End Date Elena Dumont MD [address] [place] [address] PCP - General INTERNAL MEDICINE 08/08/16 Que Zuluaga MD [address] [place] [phone] [place] Wood Grinder Operator CARDIOVASCULAR DISEASE 08/08/16 08/19/23 Brit Saxena APRN, ORTHO ASSISTANT-C [address] [place] [address] [address] [place] [phone] [place] Wood Grinder Operator NURSE PRACTITIONER 01/31/18 10/02/23 Zenon Bush MD [address] [place] [address] Consulting Physician CLINICAL CARDIAC ELECTROPHYSIOLOGY 03/12/23 Alisa Pat PA-C [address] [place] [phone] Referring Physician PHYSICIAN ASSOCIATE FINANCIAL ADVISOR 08/20/23 Natasha Moore MD [address] [place] [phone] Consulting Physician CARDIOVASCULAR DISEASE 10/03/23 Tyshawn Allen MD [address] [place], [place] [phone] PLASTIC SURGERY 04/03/24 04/03/25 documented as of this encounter
--- OUTSIDE RECORDS SUMMARY | 2025-03-19 14:44 | XMS_ITS | Encounter Summary ---
Author Organization [facility] Address [address] [place] [address] Care Team Providers Care Clother In Name Role Phone Elena Dumont MD Primary Care Provider [phone] Zenon Bush MD Unavailable [phone] Alisa Pat PA-C Unavailable [phone] Natasha Moore MD Unavailable Tyshawn Allen MD Unavailable Encounter Details Date Type Department Care Team (Late st Contact Info) Description 10/18/2023 Hospital Orders Only [facility] Anesthesia [address] [place] [address] Malissa Contreras RN Anesthesia Record Procedure Summary [...] Placement 0728 Anesthesia Ready 0802 Quick Note Ocean Import Representative del arciniega to use paralytic as needed. Stat 0803 Quick Note 12,000 units iv heparin administered by circulating RN. 0816 Quick Note ACT 379 0838 Quick Note Act 317 3000 un its of heparin given by labor mediator rn 0901 Quick Note ACT 379 0924 [...] Local Anesthetic: None; Inserted By: JOEY Emmanuel power plant superintendent; Insertion attempts: 1; Ultrasound-guided Placement?: No; Patient [...] 0.6 oz pur e alcohol) wine occasionally [employer] Answer Date Recorded In the past 12 months has [employer], gas, oil, or water [employer] threatened to shut off services in your [...] place to sleep or slept in a chcf (including now)? No 07/15/2023 Comments No Sex and Gender Information Value Date Recorded Sex Assigned at Female 05/18/2024 1:57 PM CONCRETE BLOCK MAKER Legal Sex Female 6:12 PM CDT Gender [...] st Contact Info) Description 05/19/2025 2:30 PM CONCRETE BLOCK MAKER Office Visit [facility] [address] [place] [address] Natasha Moore MD [address] [place] [address] 05/26/2025 2:00 PM CONCRETE BLOCK MAKER Office Visit [facility] [place] [address] [place] [address] Alisa Pat PA-C [address] [place] [address] documented as of this encounter Goals Goal [...] documented as of this encounter Care Teams Clother In Relationship Specialty Start Date End Date Elena Dumont MD [address] [place] [phone] PCP - General INTERNAL MEDICINE 08/08/16 Zenon Bush MD [address] [place] [address] Consulting Physician CLINICAL CARDIAC ELECTROPHYSIOLOGY 03/12/23 Alisa Pat PA-C [address] [place] [address] Referring Physician PHYSICIAN SADDLE MAKER 08/20/23 Natasha Moore MD [address] [place] [address] Consulting Physician CARDIOVASCULAR DISEASE 10/03/23 Tyshawn Allen MD [address] [place] [address] PLASTIC SURGERY 04/03/24 04/03/25 documented as of this encounter
--- OUTSIDE RECORDS SUMMARY | 2025-03-19 14:45 | XMS_ITS ---
Author Organization Unknown Address [address] [place] [phone] Phone Care Team Providers Care Dispatcher Automobile Rental Name Role Phone IZABELA CHAVIS Attending Unavailable [...] 30 mcg/0.3 mL 02/13/2024 Completed 309 CVX Results US ECHO W/COLOR W/CONTRAST - Completed: 12/21/2024 13:01 LOINC: See Scanned Image Attachment for Report Dictated By: Danielle Initials: BG Trans Date: 12/25/24 11:38 <<REPDIST>> Social History Type Status Start Date End Date Code Code Syst em Sex Female Hospital Discharge Instructions Should you have any questions prior to discharge, please contact a member of your healthcare team. If you have left the hospital and have any questions, please contact your primary care physician. Reason For Referral No Data Found Plan of Treatment US Echo With Color (49595) 12/21/2024 Encounters Encounter Diagnosis Start Date Code Code Sys tem Other cardiomyopathies 12/21/2024 OME D-CT Personal Care Team Section Performer Name Performer Role Active Date Inactive LITO Osborne PCP - Primary care physician 2024-03-05
--- OUTSIDE RECORDS SUMMARY | 2025-03-19 14:45 | XMS_ITS | Encounter Summary ---
Author Organization [facility] Address [facility] [place] [address] Care Team Providers Care Lease Purchase Truck Driver Name Role Phone Elena Dumont MD Primary Care Provider [phone] Que Zuluaga MD Unavailable [phone] Brit Saxena APRN HEAVY DUTY CUSTODIAN-C Unavailable [phone] Giovanna Carter NP Unavailable Unavailable Zenon Bush MD Unavailable [phone] Alisa Pat-C Unavailable [phone] Natasha Moore MD Unavailable Tyshawn Allen MD Unavailable Encounter Details Date Type Department Care Team (Late st Contact Info) Description 02/07/2022 Abstract [facility] [address] [place] [address] Que Zuluaga MD [address] [place] [address] Social History Tobacco Use Types Packs/Day Years Used Date Smoking Tobacco: Never Smokeless Tobacco: Never Alcohol Use Standard Drinks/Week Comments Yes 0 (1 standard drink = 0.6 oz pur e alcohol) wine occasionally Comments Unknown Sex and Gender Information Value Date Recorded Sex Assigned at Female 05/18/2024 1:57 PM SAMPLE MAKER HAND Legal Sex Female 6:12 PM CDT Gender [...] st Contact Info) Description 05/19/2025 2:30 PM SAMPLE MAKER HAND Office Visit [facility] [place] [address] Natasha Moore MD [address] [place] [address] 05/26/2025 2:00 PM SAMPLE MAKER HAND Office Visit [facility] [place] [phone] Alisa Pat PA-C [address] [place] [address] documented as of this encounter [...] this encounter Results * HEMOGLOBIN, GLYCOSYLATED (10/18/2021) HGB A1C 8.3 <5.7 % 10/18/2021 Default History Genericprovider LABORATORY Final Result * (ABNORMAL) CMP (ABSTRACTED LAB) (10/18/2021) Pathologist [facility] SODIUM S/P/B 139 135 - 146 POTASSIUM [...] TOTAL S/P/B 0.5 0.2 - 1.2 10/18/2021 [facility] History Genericprovider LAB-OUTSIDE/ABST RACTED Final Result * LIPID PANEL (10/18/2021) Pathologist [facility] CHOLESTEROL 165 <200 HDL 64 >or=50 TRIGLYCERIDES 79 <150 NON HDL CHOLESTEROL 101 <130 CHOL/HDL RATIO 2.6 <5.0 LDL (CALCULATED) 84 10/18/2021 us Default History Genericprovider LABORATORY Final Result * CBC WITH DIFFERENTIAL (10/16/2021) Pathologist [facility] RBC 4.20 3.80 - 5.10 HGB 12.1 [...] Result * T3 FREE (ABSTRACTED) (10/16/2021) Pathologist [facility] FREE T3 2.8 2.3 - 4.2 10/16/2021 us Default History Genericprovider LAB-OUTSIDE/ABST RACTED Final Result * THYROXINE, FREE (FT4) (10/16/2021) [facility] T4 1.2 0.8 - 1.8 10/16/2021 us Default History Genericprovider LABORATORY Final Result * TSH (OUTSIDE LAB) (10/16/2021) [facility] TSH 2.42 0.40 - 4.50 10/16/2021 us Default History Genericprovider LAB-OUTSIDE/ABST RACTED Final Result * CK (CPK) (10/16/2021) Pathologist [facility] CPK 146 29 - 143 10/16/2021 us Default History Genericprovider LABORATORY Final Result * VITAMIN D, 25 OH (10/16/2021) [facility] VITAMIN D 25 HYDROXY S/P/B 26 30 - 100 10/16/2021 us Default History Genericprovider LABORATORY Final Result documented in this encounter Visit Diagnoses Not on filedocumented in this encounter Additional Health Concerns Infection Onset 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 documented as of this encounter Care Teams Lease Purchase Truck Driver Relationship Specialty Start Date End Date Elena Dumont MD [address] [place] [address] PCP - General INTERNAL MEDICINE 08/08/16 Que Zuluaga MD [address] [place] [phone] [place] Firestop/Containment Worker CARDIOVASCULAR DISEASE 08/08/16 08/19/23 Brit Saxena APRN, HEAVY DUTY CUSTODIAN-C [address] [place] [phone] [place] Firestop/Containment Worker NURSE PRACTITIONER 01/31/18 10/02/23 Giovanna Carter NP [address] [place] [phone] Referring Physician Nurse Practitioner [facility] 01/24/23 Zenon Bush MD [address] [place] [phone] Consulting Physician CLINICAL CARDIAC ELECTROPHYSIOLOGY 03/12/23 Alisa Pat PA-C [address] [place] [phone] Referring Physician PHYSICIAN PRECINCT POLICE CAPTAIN 08/20/23 Natasha Moore MD [address] [place] [phone] Consulting Physician CARDIOVASCULAR DISEASE 10/03/23 Tyshawn Allen MD [address] [place] [address] [place] [address] PLASTIC SURGERY 04/03/24 04/03/25 documented as of this encounter
--- OUTSIDE RECORDS SUMMARY | 2025-03-19 14:45 | XMS_ITS | Clinical Summary ---
Author Organization [facility] Address Count includes the [facility] [place] [address] Care Team Providers Care Rn Cardiac Rehab Name Role Phone Lito Stone MD Primary Care Provider [phone] Zenon Bush MD Unavailable [phone] Alisa Pat PA-C Unavailable [phone] Natasha Moore MD Unavailable Tyshawn Allen MD Unavailable Allergies Active Allergy Reactions Criticality Noted Date Comments Amiodarone Other (see comment) 09/02/2018 Vision change & hair loss Flecainide Other (see comment) 06/12/2023 QRS prolong issue Per Dr. Kerr Medications aspirin 81 MG chewable tabletIndicatio ns:blood thinner Chew 1 tablet (81 mg total) by mouth nightly. Indications: blood thinner 6 Active rOPINIRole (REQUIP) 1 MG tabletIndicatio ns:leg pain Take 2 tablets (2 mg total) by mouth 3 (three) times daily as needed (prn). Indications: leg pain Up to 6 times a day as needed 6 Active LANTUS SOLOSTAR 100 UNIT/ML injection (PEN)Indication s:dm Inject 30 Units into the skin nightly at bedtime. Indications: dm 7 Active HUMALOG KWIKPEN 100 UNIT/ML injection (PEN)Indication s:dm Inject 10 Units into the skin 3 (three) times daily before meals. Indications: dm Inject 5 units with breakfast,10 units with lunch and dinner 7 Active pravastatin 20 MG tabletIndicatio ns:htn Take 1 tablet (20 mg total) by mouth nightly at bedtime. Indications: htn 7 Active potassium chloride 10 MEQ Tab CR tabletIndicatio ns:supplement Take 1 tablet (10 mEq total) by mouth 2 (two) times daily. 60 tablet 11 8 Active furosemide 40 MG tabletIndicatio ns:water pill Take 1 tablet (40 mg total) by mouth daily. 30 tablet 11 9 Active Coenzyme Q10 (COQ10) 200 MG CapIndications: supplement Take 1 capsule by mouth 2 (two) times a day. Indications: supplement Active Multiple Vitamins-Minera ls (WOMENS 50+ MULTI VITAMIN/MIN) TabIndications: supplment Take 1 tablet by mouth daily. Indications: supplment Active glucosamine-cho ndroitin 500-400 MG CapIndications: supplment Take 1 capsule by mouth 2 (two) times a day. Indications: supplment Active albuterol sulfate HFA 108 (90 Base) MCG/ACT inhalerIndicati ons:sob Inhale 2 puffs into the lungs every 6 (six) hours as needed for Shortness of breath or Wheezing. Indications: sob 3 Active BREO ELLIPTA 200-25 MCG/ACT inhalerIndicati ons:sob Inhale 1 puff into the lungs daily. Indications: sob 4 Active tiZANidine (ZANAFLEX) 2 MG tabletIndicatio ns:legs Take 1 tablet (2 mg total) by mouth every 6 (six) hours as needed (prn). Indications: legs 4 Active alendronate (FOSAMAX) 70 MG tabletIndicatio ns:bone health Take 1 tablet (70 mg total) by mouth every 7 days. Indications: bone health Mondays 4 Active apixaban (ELIQUIS) 5 MG tabletIndicatio ns:elliquis Take 1 tablet (5 mg total) by mouth 2 (two) times daily. Indications: elliquis Active dofetilide (TIKOSYN) 125 MCG Cap capsuleIndicati ons:heart TAKE 1 CAPSULE (125 MCG TOTAL) BY MOUTH EVERY 12 (TWELVE) HOURS. 60 capsule 5 5 Active pregabalin (LYRICA) 100 MG capsule Take 1 capsule (100 mg total) by mouth daily. 5 Active levothyroxine (SYNTHROID) 125 MCG tablet Take 1 tablet (125 mcg total) by mouth every morning. 5 Active brinzolamide (AZOPT) 1 % ophthalmic suspension Place 1 drop into both eyes 3 (three) times daily. 5 Active latanoprost (XALATAN) 0.005 % ophthalmic solution Place 1 drop into both eyes daily. 5 Active Continuous Glucose Sensor (FREESTYLE ANTOINE 2 SENSOR) Misc 1 Device by Does not apply route daily. 5 Active escitalopram (LEXAPRO) 20 MG tablet Take 1 tablet (20 mg total) by mouth daily. Active ferrous sulfate EC 324 (65 Fe) MG tablet Take 1 tablet (324 mg total) by mouth daily with breakfast. Active metoprolol succinate ER (TOPROL-XL) 25 MG 24 hr tablet Take 2 tablets (50 mg total) by mouth daily. 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, with fat layer exposed Diabetic ulcer of left heel associated with type 2 diabetes mellitus, with fat layer exposed 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 Encounters Date Type Department Care Team Description 02/09/2025 Telephone [facility] [address] [place] [address] Natasha Moore MD Surgical Clearance 02/04/2025 Telephone [facility] [address] [place] [address] Zenon Bush MD Question 01/28/2025 6:53 AM CDT Anesthesia Event [facility] Freight Receiver [address] [place] [address] Mendoza Rodriguez MD Bracco, Kendra A, RN 01/28/2025 5:38 AM CDT - 01/28/2025 3:35 PM CDT Hospital Encounter [facility] Freight Receiver Pre/Post [address] [place] [address] Zenon Bush MD Hohm, Stuart Allen, MD Discharge Disposition: Home or Self Care (Routine Discharge) 01/28/2025 Travel 01/19/2025 Telephone [facility] [address] [place] [address] Zenon Bush MD Information; Question 01/18/2025 11:59 PM CDT Anesthesia Event [facility] Freight Receiver [address] [place] [address] Malissa Contreras RN 01/14/2025 Orders Only [facility] [address] [place] [address] Zenon Bush MD 01/02/2025 Prep for Procedure [facility] [address] [place] [address] Zenon Bush MD 01/02/2025 Orders Only [facility] [address] [place] [address] Zenon Bush MD 01/01/2025 Telephone [facility] [address] [place] [address] Zenon Bush MD Schedule Procedure 01/01/2025 Telephone [facility] [address] [place] [address] Zenon Bush MD Question 12/29/2024 Telephone [facility] [address] [place] [phone] Natasha Moore MD Results (CT chest ) 12/25/2024 Scan [facility] [address] [place] [phone] Scanned, Doc Pccl from Last 3 Months Immunizations Immunization Administration [...] materials from doctor or pharmacy Never 05/27/[address] [facility] Utilities Answer Date Recorded In the past 12 months has [facility] [employer], [facility], or water [employer] threatened to shut off services in your [...] place to sleep or slept in a retirement (including now)? 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 Legal Sex Female 6:12 PM CDT Gender Identity Not on file Sexual Orientation Not on file Occupation Industry Job Start Date Job End Date Retired Not on file Not on file Not on file Last Filed Vital Signs Vital Sign Reading Time Taken Comments Blood Pressure 123/73 01/28/2025 6:18 AM CDT Pulse 65 01/28/2025 6:18 AM CDT Temperature 36.5 C (97.7 F) 01/28/2025 6:18 AM CDT Respiratory Rate 18 01/28/2025 6:18 AM CDT Oxygen Saturation 97% 01/28/2025 6:18 AM CDT Inhaled Oxygen Concentration - - Weight 88 kg (194 lb 0.1 oz) 01/28/2025 5:48 AM CDT Height 160 cm (5' 2.99) 01/28/2025 5:48 AM CDT Body Mass Index 34.38 01/28/2025 5:48 AM CDT Plan of Treatment Upcoming Encounters Date Type Department Care Team (Late st Contact Info) Description 05/19/2025 2:30 PM LANGUAGE TEACHER Office Visit [facility] [place] [phone] Natasha Moore MD [address] [place] [address] 05/26/2025 2:00 PM LANGUAGE TEACHER Office Visit [facility]-[address] [place] [phone] Alisa Pat PA-C [address] [place], [place] [phone] Health Maintenance Due Date Last Done Comments ASCVD Statin 1935 Diabetes: Retinopathy Eye Exam 1954 Zoster Vaccines (1 of 2) 1986 Annual Medicare Wellness Visit 2001 Hemoglobin A1C 04/19/2022 10/18/2021, 01/17/2018 ASCVD LDL 10/18/2022 10/18/2021, 01/17/2018 Lipid Panel 10/18/2022 10/18/2021, 01/17/2018 COVID-19 Vaccine ( season) 2024 02/13/2024, 03/19/2022, 04/08/2021, Additional history exists Influenza Adult (#1) 2025 02/13/2024, 01/26/2020, 02/25/2019, Additional history exists DTaP, Tdap and Td Vaccines (3 - Td or Tdap) 2033 2023, 03/03/2014 Pneumococcal Vaccine: 50+ Years Completed 01/14/2015, 02/10/2014 RSV Immunization or 60+ Years Completed 02/26/2023 Hepatitis A Vaccines Aged Out No long er eligible based on patient's age to complete this topic Meningococcal B Vaccine Aged Out No l [...] upon discharge from hospital Lifestyle Eli Saavedra catering and events manager Procedure Name Priority Date/Time Associated Diagnosis Comments ECG 12-LEAD Routine 01/28/2025 11:52 AM CDT Atypical atrial flutter ([facility]) POCT GLUCOSE - DOCKED DEVICE Routine 01/28/2025 10:57 AM CDT XA AFLUTTER ABLATION Routine 01/28/2025 10:37 AM CDT Atypical atrial flutter ([facility]) POCT ACTIVATED CLOTTING TIME - ISTAT DOCKED DEVICE Routine 01/28/2025 10:01 AM CDT POCT ACTIVATED CLOTTING TIME - ISTAT DOCKED DEVICE Routine 01/28/2025 9:39 AM CDT POCT ACTIVATED CLOTTING TIME - ISTAT DOCKED DEVICE Routine 01/28/2025 9:15 AM CDT POCT ACTIVATED CLOTTING TIME - ISTAT DOCKED DEVICE Routine 01/28/2025 8:51 AM CDT POCT ACTIVATED CLOTTING TIME - ISTAT DOCKED DEVICE Routine 01/28/2025 8:26 AM CDT POCT ACTIVATED CLOTTING TIME - ISTAT DOCKED DEVICE Routine 01/28/2025 8:04 AM CDT POCT ACTIVATED CLOTTING TIME - ISTAT DOCKED DEVICE Routine 01/28/2025 7:44 AM CDT ECG 12-LEAD STAT 01/28/2025 6:35 AM CDT Atypical atrial flutter (CMS/HCC HHS/HCC) TYPE & SCREEN Routine 01/28/2025 6:03 AM CDT ORDER FRESH FROZEN PLASMA Routine 01/28/2025 5:50 AM CDT CBC W/DIFF AUTOMATED Routine 01/11/2025 Atypical atrial flutter (CMS/HCC HHS/HCC) COMPREHENSIVE METABOLIC PANEL Routine 01/11/2025 Atypical atrial flutter (CMS/HCC HHS/HCC) USE ECHOCARDIOGRAM Routine 12/21/2024 Non-ischemic cardiomyopathy (CMS/HCC HHS/HCC) LIPID PANEL Routine 10/18/2021 HEMOGLOBIN, GLYCOSYLATED Routine 10/18/2021 from Last 3 Months or Most Recently Relevant to Health Maintenance Results * ECG 12 lead - Today (01/28/2025 11:52 AM CDT) Only the most recent of2 resultswithin the time period is included. 01/28/2025 11:5 2 AM CDT Narrative [facility] - 01/28/2025 7:19 PM CDT [facility] [address] [place] [address] Test Date: 2025-01-28 Pat Name: CESAR STORY Department: 1 Room: [address] Gender: Female Outsoles Channel Opener: Ms : 1935 Requested By: ZENON BUSH Order Number: [id number] Reading MD: Carlos Grant Measurements Intervals [place] Rate: 67 P: 0 NC: 0 QRS: 249 QRSD: 154 T: 92 QT: 481 QTc: 511 Interpretive Statements Sinus rhythm with large fisrt degree A-V block INTRAVENTRICULAR CONDUCTION DELAY [130+ ms QRS DURATION] LATERAL MYOCARDIAL INFARCTION , OF INDETERMINATE AGE [40+ ms Q WAVE AND/OR ST/T ABNORMALITY IN I/aVL/V5/V6] Procedure Note Carlos Grant MD - 01/28/2025 [place] [address] Test Date: 2025-01-28 Pat Name: CESAR STORY Department: 1 Room: [address] Gender: Female Outsoles Channel Opener: Ms : 1935 Requested By: ZENON BUSH Order Number: [id number] Reading MD: Carlos Grant Measurements Intervals [place] Rate: 67 P: 0 NC: 0 QRS: 249 QRSD: 154 T: 92 QT: 481 QTc: 511 Interpretive Statements Sinus rhythm with large fisrt degree A-V block INTRAVENTRICULAR CONDUCTION DELAY [130+ ms QRS DURATION] LATERAL MYOCARDIAL INFARCTION , OF INDETERMINATE AGE [40+ ms Q WAVEAND/OR ST/T ABNORMALITY IN I/aVL/V5/V6] Zenon Bush MD ECG ORDERABLES Final Res ult Performing Organization Address City/[facility]/ZIP Co de Phone Number [facility] * (ABNORMAL) POCT glucose (01/28/2025 10:57 AM CDT) GLUCOSE POC 132(H) 70 - 109 01/29/2025 5:11 AM CDT [facility] 01/28/2025 10:5 7 AM CDT Zenon Bush MD POCT ORDERABLES - DEVICE Final Result Performing Organization Address [facility]/ZIP Co de Phone Number [facility] [address] [place] [address], [phone] * XA AFLUTTER ABLATION (01/28/2025 10:37 AM CDT) Anatomical Region Laterality Modality Cardiac Freight Receiver Narrative 01/28/2025 10:41 AM CDT Zenon Bush MD 01/28/2025 8:09 PM Cardiac Electrophysiology Procedure Note Patient name: Cesar Story : 1935 LITO STONE MD LOS: 0 days DATE OF PROCEDURE: 01/28/2025 FINISHING OPERATOR: ZENON BUSH MD Procedure: Atrial flutter radiofrequency ablation Preprocedure diagnosis: Atypical atrial flutter Postprocedure diagnosis: 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 Typical atrial flutter status post successful radiofrequency ablation of cavotricuspid isthmus Medications: Sedation provided by anesthesiology Findings: EP Procedures Performed: Comprehensive EP evaluation and Ablation of left atrial flutter by anterior mitral linear ablation [10884] Comprehensive EP evaluation and Ablation of typical atrial flutter by cavotricuspid isthmus linear ablation [43485] 3D mapping using Ensite X mapping system [38881] Left atrial pacing and recording [55105] Transseptal catheterization for left atrial access [41708] Intracardiac Echocardiography for procedure [60042] Indications: Symptomatic atypical atrial flutter Fluoroscopic Time: none History: Please see pre-procedure H&P on the record. Procedure: Informed consent was obtained on the day of the procedure. After prepping and draping and effecting local anesthesia with lidocaine, Catheters were inserted as follows: A 7F SJM Livewire duodecapolar catheter was positioned in the RA from the right femoral vein. A [facility] Viewflex intracardiac ultrasound catheter was advanced from the left femoral vein to the right atrium for ultrasound mapping. A [facility] Agilis NXT sheath was advanced from the right femoral vein for achieving transseptal access using a [employer] versacross RF pigtail wire. A [facility] HD Grid high density mapping catheter was placed in the left atrium through the Agilis sheath to map the left atrium. A [facility] tactiflex SE radiofrequency ablation catheter was advanced through the Agilis sheath to the anterior left atrium and later to the roof of LA for ablation. Twelve surface ECG leads and Intracardiac electrograms from the above locations were recorded during the study. Patient was in atrial flutter at the beginning of the procedure. Medications administered: Sedation was administered and monitored by anesthesia provider. The medication totals are available in the procedure log. 3D Mapping using the [employer] Precision mapping system [71375] Complex 3D mapping was performed. The Ensite Precision mapping system was used to evaluate and record the catheter position as well as carefully define anatomic and electroanatomic detail during tachycardia. A 3D representation of the right atrium and later the left atrium was performed. EP study Patient was in atrial flutter in baseline with CS activation in tachycardia being eccentric. TCL was 350 ms suspicious for left atrial flutter. Based on these results, it was likely a left atrial flutter and we proceeded to perform an activation map of the left atrium in tachycardia. After activation mapping, we performed entrainment from inferior wall of left atrium (due to extensive scaring around mitral annulus which made consistent capture challenging) 2 cm above mitral annulus and PPI-TCL was 38 ms. Intracardiac Echo [61984] utilized for ablation procedure Once coronary sinus catheter was placed and prior to transeptal catheterization, the [facility] Viewflex ICE catheter was manipulated into the right atrium. In the home view, and with clockwise rotation of the catheter evaluation of the aortic valve, left atrial appendage left superior, left inferior pulmonary veins posterior wall of the left atrium and esophagus and right side pulmonary veins were evaluated. Deflection of the catheter to the Cavo-tricuspid isthmus with clockwise rotation allowed visualization of the right side pulmonary veins. The ICE imaging was also utilized for transeptal access as detailed below. Continuous ice imaging was performed during the procedure to monitor for complications. At the conclusion of the procedure, catheters were removed and the ICE catheter remained in position and was used to evaluate for pericardial fusion prior to removal of the ultrasound catheter. Transseptal Catheterization A transseptal approach was utilized to access the left atrium for mapping and ablation. This entailed using an Agilis sheath and dilator from the right femoral vein. The Agilis NXT sheath and dilator were then advanced into the SVC over the guidewire under fluoroscopic guidance using [employer] Versa Cross pigtail Radiofrequency wire, taking care to maintain the tip of the wire within the dilator. The Agilis sheath, dilator and wire were then withdrawn under fluoroscopic guidance in the SPANISH projection. The right atrial pressure was recorded in the monitoring system. At intervals, the WALLER projection was used to maintain the tip of the dilator in line with the fossa ovalis. During gradual withdrawal of the sheath and dilator, the tip was observed to engage the fossa ovalis (indicated by a sudden leftward displacement). WALLER projection demonstrated a retroaortic position (posterior to the catheter recording His bundle potential) and the ICE catheter was manipulated to demonstrate tenting of the fossa ovalis. Then, under continuous pressure monitoring and in the SPANISH projection, the [employer]nofrog Cross radiofrequency wire was advanced into the left atrium. The left atrial pressure was recorded in the recording system and demonstrated a typical waveform. The dilator was then advanced over the wire into the left atrium. The dilator and the pigtail wire were carefully removed under negative pressure to avoid introducing any air bubble into the left atrium. The sheath was then carefully aspirated to remove all air before infusing saline/inserting a catheter. A SJM HD Grid mapping catheter was placed in the left atrium and a detailed high-density voltage and sinus activation mapping was performed. Mapping of the left atrium The SJM HD grid high density mapping catheter was placed in the left atrium through the Agilis sheath and activation mapping of the left atrial flutter was performed which revealed a clockwise mitral isthmus dependent atrial flutter. All 4 pulmonary veins and posterior wall of LA remained isolated from previous ablation. We decided to perform anterior mitral linear radiofrequency ablation from the mitral isthmus to the RSPV incorporating the scar in the mid anterior wall of LA. While performing anterior mitral linear ablation, the tachycardia switching to another atrial flutter with a TCL of 380ms with subtle change in activation across tricuspid isthmus suspicious for CTI dependent flutter. Entrainment from CTI showed PPI-TCL of 0ms confirming typical atrial flutter. Radiofrequency ablation of the left atrium - Mitral anterior linear ablation A SJMango DSP tacticath SE bidirectional irrigated ablation catheter was placed on the mitral annulus using the Agilis sheath and an anterior mitral linear ablation was performed with ablation from mitral annulus to the RSPV superior pulmonary vein incorporating the mid anterior wall scar. Power was titrated between 40 W targeting an impedance drop of 10 ohms and goal LSI of 5.5. High amplitude pacing was performed near RSPV antrum to exclude phrenic nerve capture. We completed the linear ablation, and bidirectional block was confirmed with LA appendage activation time of 272ms (vs 170ms medial to the line) with septal pacing. Radiofrequency ablation of the Cavotricuspid isthmus for typical atrial flutter The ablation catheter was pulled back to the right atrium. Using the ablation catheter, several applications of RF energy were delivered between the tricuspid annulus and the inferior vena cava. A power of 40 beasley with a goal LSI of 5.5 with an impedance drop of at least 10 ohms was targeted for the ablation lesions. Ablation was performed during tachycardia. While ablating in the CTI, the tachycardia terminated back to sinus rhythm. Due to prominent eustachian ridge and pouch, we performed additional ablation septal to the eustachachian pouch and connecting the linear ablation. Bidirectional block was then confirmed. Trans-isthmus time was also noted to be prolonged to 152ms post ablation. Differential pacing also confirmed block across the cavotricuspid isthmus. The bidirectional block was confirmed again after a waiting period of 20 minutes. At the completion of the study, Protamine was administered to reverse the effects of heparin. All catheters were removed, and hemostasis achieved with bilateral figure of eight suture placement at skin entry site and manual compression. The patient was then transported to recovery post-procedure in good condition. Complications: none Estimated blood loss - 10 cc Summary: Atypical atrial flutter - Mitral annulus dependent atrial flutter s/p successful anterior mitral linear ablation with bidirectional block Typical atrial flutter s/p successful cavotricuspid isthmus radiofrequency ablation Persistent Atrial fibrillation with confirmation of isolation of all four pulmonary veins and posterior wall from previous ablation. Recommendations: 1. Bedrest for 4 hours with telemetry; if neither arrhythmias nor complications related to the procedure are observed, the patient may be considered for discharge today. 2. Medications are as per the discharge summary and medications list. 3. Follow up: Patient will have 4 week follow up in clinic with ECG prior. Routine follow up thereafter. Zenon Bush M.D. 01/28/2025 Zenon Bush MD AUTOMOBILE AND PROPERTY UNDERWRITER Final Res ult * (ABNORMAL) POCT ACTIVATED CLOTTING TIME - ISTAT DOCKED DEVICE (01/28/2025 10:01 AM CDT) Only the most recent of7 resultswithin the time period is included. ACTIVATED CLOTTING TIME (ACT HMT OR LMT) 371(H) 74 - 137 SEC 01/29/2025 6:43 AM CDT [facility] 01/28/2025 10:0 1 AM CDT us Zenon Bush MD POCT ORDERABLES - DEVICE Final Result Performing Organization Address [facility] de Phone Number [facility] [address] [place] [address], [phone] * TYPE & SCREEN (01/28/2025 6:03 AM CDT) UNITS ORDERED 4 01/28/2025 6:29 AM CDT [facility] ABO/RH O NEGATIVE 01/28/2025 7:23 AM CDT [facility] ANTIBODY SCREEN NEGATIVE 01/28/2025 7:23 AM CDT [facility] SAMPLE EXPIRATION 01/31/2025,2 359 01/28/2025 6:29 AM CDT [facility] 01/28/2025 6:03 AM CDT us Zenon Bush MD BLOOD BANK TEST ORDERABLE S Final Result Performing Organization Address [facility] de Phone Number [facility] [address] [place] [address], [place] [phone] * ORDER FRESH FROZEN PLASMA, 4 Units (01/28/2025 5:50 AM CDT) UNITS ORDERED 4 01/28/2025 5:49 AM CDT [facility] 01/28/2025 5:50 AM CDT us Zenon Bush MD BLOOD BANK PRODUCT ORDERA BLES Final Result [facility] [address] [place] [address], [phone] * (ABNORMAL) COMPREHENSIVE METABOLIC PANEL (01/11/2025) SODIUM S/P/B 138 POTASSIUM S/P/B 4.9 CO2 26 CHLORIDE S/P/B 101 GLUCOSE 338 mg/dL CALCIUM S/P/B 10.0 BUN 37 CREATININE S/P/B 1.42(A) 0.5 - 1.0 GFR ESTIMATE 35 ALKALINE PHOSPHATASE S/P/B 73 ALT 16 AST 25 BILIRUBIN TOTAL S/P/B 0.8 ALBUMIN S/P/B 4.4 3.5 - 5.0 TOTAL PROTEIN S/P/B 7.3 01/11/2025 Zenon Bush MD LABORATORY Final Res ult * CBC W/DIFF AUTOMATED (01/11/2025) WBC 7.3 RBC 4.37 HGB 12.5 HCT 39.4 MCV 90.2 MCH 28.6 MCHC 31.7 RDW 14.4 PLT 150 MPV 10.8 NEUTROPHILS % 76.6 LYMPHOCYTES % 16.3 MONOCYTES % 6.2 EOSINOPHILS % 0.0 BASOPHILS % 0.5 MID CELLS % na ABS. NEUTROPHILS 5.59 ABS. LYMPHOCYTES 1.19 ABS. MONOCYTES 0.45 ABS. BASOPHILS 0.04 ABS. MID CELLS na 01/11/2025 Zenon Bush MD LABORATORY Final Res ult * USE ECHOCARDIOGRAM (12/21/2024) Anatomical Region Laterality Modality Cardiac Echocardiogram Natasha Moore MD ECHO Final Result * HEMOGLOBIN, GLYCOSYLATED (10/18/2021) HGB [...] Date Last Indicated 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 Insurance MEDICARE Advance Directives * Full Code (Latest Code Status on File) Date Activated Date Inactivated Comments 01/28/2025 11:20 AM 01/28/2025 5:41 PM * Full Code Date Activated Date Inactivated Comments 08/03/2024 11:19 AM 08/03/2024 5:26 PM * Full Code Date Activated Date Inactivated Comments 06/02/2024 7:09 AM 08/03/2024 6:12 AM * Full Code Date Activated Date Inactivated Comments 10/22/2023 1:03 PM 10/23/2023 1:15 PM * Full Code Date Activated Date Inactivated Comments 07/15/2023 2:13 PM 07/19/2023 2:52 PM Care Teams Rn Cardiac Rehab Relationship Specialty Start Date End Date Lito Stone MD [address] [place] [address] PCP - General INTERNAL MEDICINE 08/08/16 Zenon Bush MD [address] [place] [address] Consulting Physician CLINICAL CARDIAC ELECTROPHYSIOLOGY 03/12/23 Alisa Pat PA-C [address] [place], [place] [phone] Referring Physician PHYSICIAN HEMATOLOGY SUPERVISOR 08/20/23 Natasha Moore MD [address] [place] [address] Consulting Physician CARDIOVASCULAR DISEASE 10/03/23 Tyshawn Allen MD [address] [place] [address] PLASTIC SURGERY 04/03/24 04/03/25
[2025-03-19 15:04] LABS: Hematocrit 39.7 % (35.0-42.0); Hemoglobin 12.4 g/dL (11.7-13.8); Immature Granulocyte Percent A 0.4 % (0.0-0.0); Immature Platelet Fraction Pct 2.9 % (1.0-7.0); Lymphocytes Absolute Auto 1.18 K/mm3 (1.10-4.50); Mean Corpuscular HGB Conc 31.2 g/dL (32-36); Mean Corpuscular Hemoglobin 28.8 pg (27.0-31.0); Mean Corpuscular Volume 92.3 fL (78.0-102.0); Nucleated Red Blood Cells Absolute Auto 0.00 K/mm3 (0.00-0.00); Nucleated Red Blood Cells Perc 0.0 % (0-0.0); Platelet Count Result 119 K/mm3 (150-420); Red Blood Count 4.30 M/mm3 (4.20-5.40); White Blood Count 5.5 K/mm3 (4.8-10.8)
[2025-03-19 15:33] LABS: Alanine Aminotransferase 19 U/L (6-35); Albumin Level 4.4 g/dL (3.5-5.1); Alkaline Phosphatase 79 U/L (38-126); Anion Gap 13 mmol/L (4-12); Aspartate Amino Transferase 32 U/L (14-36); Bilirubin,Total 0.9 mg/dL (0.2-1.3); Blood Urea Nitrogen 38 mg/dL (7-17); Calcium 9.3 mg/dL (8.4-10.2); Carbon Dioxide 25 mmol/L (22-30); Chloride 105 mmol/L (98-107); Estimated Glomerular Filt Rate 26; Glucose 175 mg/dL (65-110); Osmolality Calculated 309 mOsm/kg (285-295); Potassium 4.0 mmol/L (3.4-5.0); Sodium 143 mmol/L (137-145); Total Protein 6.5 g/dL (6.3-8.2)
[2025-03-19 15:43] LABS: NT Pro B Type Natriuretic Pept 3300 pg/mL (19.9-100)
[2025-03-19 15:51] LABS: Free T4 Free Thyroxine 1.47 ng/dL (0.78-2.19)
[2025-03-19 16:04] LABS: Thyroid Stimulating Hormone 5.970 uIU/mL (0.465-4.680)
== END 2025-03-19 14:38 | disposition home or self-care (01) ==
LOC: CHSLAB 14:39
PROVIDERS: PCP Internal Medicine; Visit Provider Nurse Practitioner Family
DX: R06.02 Shortness of breath (principal); R60.9 Edema, unspecified; M25.562 Pain in left knee; I50.9 Heart failure, unspecified
CPT/HCPCS: 36415; 71046; 73562; 80053; 83880; 84439; 84443; 85025; 85055

== ENCOUNTER 2025-03-22 12:33 | Outpatient (CLI) | payer MEDICARE, SELFPAY ==
--- NOTE | ~2025-03-22 | XR_ITS ---
EXAM/PROCEDURE: XR chest 2V HISTORY: CHF COMPARISON: None available. TECHNIQUE: Two view(s) of the chest. FINDINGS: LUNGS: Clear of acute processes. There is thickening of the interlobar pleura seen. This is likely chronic. pneumothorax. HEART/ MEDIASTINUM: The cardiac silhouette is enlarged. This also shows a double density on each side of the spine. SOFT TISSUES: No significant findings. BONES: No acute osseous abnormality. IMPRESSION: No acute findings. Double density overlying the heart on both sides of the spine on the frontal view. CT of the chest is recommended for further evaluation. Reviewed, dictated and finalized at location B. UCTION TROUBLESHOOTER IMPRESSION: No acute findings. Double density overlying the heart on both sides of the spin e on the frontal view. CT of the chest is recommended for further evaluation.
--- NOTE | ~2025-03-22 | MM_ITS ---
EXAMINATION: MM screening damaris BI w katiana HISTORY: Screening TECHNIQUE: Craniocaudal and mediolateral oblique 3-D tomosynthesis images were obtained and synthetic 2-D images were generated. CAD analysis was submitted and interpreted. COMPARISON: Comparison to multiple prior studies sequentially, with oldest reviewed study dated 01/22/2018. BREAST PARENCHYMAL COMPOSITION: Not dense: There are scattered areas of fibroglandular density. FINDINGS: There is no evidence of suspicious mass, calcification, or architectural distortion to suggest malignancy in either breast. There has been no suspicious interval change. IMPRESSION: 1. No mammographic evidence of malignancy. 2. Recommend routine screening mammography in one year. BI-RADS Category 1: Negative Reviewed, dictated and finalized at location O. IC COATING SUPERVISOR
[2025-03-22 14:14] LABS: Anion Gap 11 mmol/L (4-12); Blood Urea Nitrogen 41 mg/dL (7-17); Calcium 9.7 mg/dL (8.4-10.2); Carbon Dioxide 29 mmol/L (22-30); Chloride 103 mmol/L (98-107); Estimated Glomerular Filt Rate 31; Glucose 223 mg/dL (65-110); Osmolality Calculated 313 mOsm/kg (285-295); Potassium 4.8 mmol/L (3.4-5.0); Sodium 143 mmol/L (137-145)
--- OUTSIDE RECORDS SUMMARY | 2025-03-22 14:21 | XMS_ITS ---
Author Organization Unknown Address [address] [place] [phone] Phone Care Team Providers Care Roll Forming Supervisor Name Role Phone IZABELA CHAVIS Attending Unavailable [...] Plan of Treatment US Echo With Color (09253) 12/21/2024 Encounters Encounter Diagnosis Start Date Code Code Sys tem Paroxysmal atrial fibrillation 03/31/2024 [id number] SNOMED-CT Personal Care Team Section Performer Name Performer Role Active Date Inactive LITO Osborne PCP - Primary care physician 2024-03-05
--- OUTSIDE RECORDS SUMMARY | 2025-03-22 14:22 | XMS_ITS ---
Author Organization Unknown Address [address] [place] [phone] Phone Care Team Providers Care Product Tester Name Role Phone IZABELA CHAVIS Attending Unavailable [...] Plan of Treatment US Echo With Color (01743) 12/21/2024 Encounters Encounter Diagnosis Start Date Code Code Sys tem Mixed hyperlipidemia 12/03/2024 [id number] SNOMED- CT Personal Care Team Section Performer Name Performer Role Active Date Inactive LITO Osborne PCP - Primary care physician 2024-03-05
--- OUTSIDE RECORDS SUMMARY | 2025-03-22 14:22 | XMS_ITS ---
Author Organization Unknown Address [address] [place] [address] [phone] Phone Care Team Providers Care Form Builder Name Role Phone IZABELA CHAVIS Attending Unavailable [...] Plan of Treatment US Echo With Color (98341) 12/21/2024 Encounters Encounter Diagnosis Start Date Code Code Sys tem Mixed hyperlipidemia 06/04/2024 [id number] SNOMED- CT Personal Care Team Section Performer Name Performer Role Active Date Inactive LITO Osborne PCP - Primary care physician 2024-03-05
[2025-03-22 14:23] LABS: NT Pro B Type Natriuretic Pept 2920 pg/mL (19.9-100)
--- OUTSIDE RECORDS SUMMARY | 2025-03-22 14:23 | XMS_ITS ---
Author Organization Unknown Address [address] [place] [address] [phone] Phone Care Team Providers Care Division Field Inspector Name Role Phone IZABELA CHAVIS Attending Unavailable [...] Plan of Treatment US Echo With Color (09073) 12/21/2024 Encounters Encounter Diagnosis Start Date Code Code Sys tem Other cardiomyopathies 12/21/2024 OME D-CT Personal Care Team Section Performer Name Performer Role Active Date Inactive LITO Osborne PCP - Primary care physician 2024-03-05
== END 2025-03-22 12:34 | disposition home or self-care (01) ==
PROVIDERS: PCP Internal Medicine; Visit Provider Nurse Practitioner Family
DX: I50.9 Heart failure, unspecified (principal); Z12.31 Encounter for screening mammogram for malignant neoplasm of breast
CPT/HCPCS: 36415; 71046; 77063; 77067; 80048; 83880

== ENCOUNTER 2025-03-31 13:00 | Outpatient (CLI) | payer MEDICARE, SELFPAY ==
--- NOTE | ~2025-03-31 | CT_ITS ---
EXAMINATION:CT diagnostic chest wo con DATE: 03/31/2025 13:22 INDICATION: Dyspnea. TECHNIQUE: Computed tomography (CT) of the chest was performed without intravenous contrast. Automated exposure control and iterative reconstruction technique were employed. The dose-length product (DLP) was 184.34 mGy-cm. COMPARISON: None. FINDINGS: The lungs demonstrate septal thickening and mild groundglass opacities, consistent mild pulmonary edema. There is a 3 mm nodule in left upper lobe, likely benign. There is mild atelectasis bilaterally. No pleural effusion. There is severe cardiomegaly. There are coronary artery calcifications. No pericardial effusion. The central pulmonary arteries are enlarged, consistent with pulmonary arterial hypertension. There are gallstones in the gallbladder, which is normal in size. There are old healed right rib fractures. There is mild thoracic spondylosis and severe lumbar spondylosis. IMPRESSION: 1. Mild pulmonary edema. 2. Severe cardiomegaly. Reviewed, dictated and finalized at location [facility]
--- OUTSIDE RECORDS SUMMARY | 2025-03-31 14:07 | XMS_ITS | Encounter Summary ---
Author Organization [facility] Address [facility] [place] [address] Care Team Providers Care Shelver Name Role Phone Elena Dumont MD Primary Care Provider [phone] Que Zuluaga MD Unavailable [phone] Brit Saxena APRN INVENTORY AUDIT CLERK-C Unavailable [phone] Giovanna Carter NP Unavailable Unavailable Zenon Bush MD Unavailable [phone] Alisa Pat-C Unavailable [phone] Natasha Moore MD Unavailable Tyshawn Allen MD Unavailable Encounter Details Date Type Department Care Team (Late st Contact Info) Description 02/07/2022 Abstract [facility] [address] [place] [address] Que Zuluaga MD [address] [place] [phone] Social History Tobacco Use Types Packs/Day Years Used Date Smoking Tobacco: Never Smokeless Tobacco: Never Alcohol Use Standard Drinks/Week Comments Yes 0 (1 standard drink = 0.6 oz pur e alcohol) wine occasionally Comments Unknown Sex and Gender Information Value Date Recorded Sex Assigned at Female 05/18/2024 1:57 PM BANDSAW OPERATOR Legal Sex Female 6:12 PM CDT [...] st Contact Info) Description 05/19/2025 2:30 PM BANDSAW OPERATOR Office Visit [facility] [place] [phone] Natasha Moore MD [address] [place] [address] 05/26/2025 2:00 PM BANDSAW OPERATOR Office Visit [facility] [place] [phone] Alisa Pat PA-C [address] [place] [address] documented as of this encounter [...] TOTAL S/P/B 0.5 0.2 - 1.2 10/18/2021 [facility] History Genericprovider LAB-OUTSIDE/ABST RACTED Final Result * [...] Final Result * THYROXINE, FREE (FT4) (10/16/2021) [facility] T4 1.2 0.8 - 1.8 10/16/2021 us Default History Genericprovider LABORATORY Final Result * TSH (OUTSIDE LAB) (10/16/2021) [facility] TSH 2.42 0.40 - 4.50 10/16/2021 us Default History Genericprovider LAB-OUTSIDE/ABST RACTED Final Result * CK (CPK) (10/16/2021) Pathologist [facility] CPK 146 29 - 143 10/16/2021 us Default History Genericprovider LABORATORY Final Result * VITAMIN D, 25 OH (10/16/2021) [facility] VITAMIN D 25 HYDROXY S/P/B 26 30 - 100 10/16/2021 us Default History Genericprovider LABORATORY Final Result documented in this encounter Visit Diagnoses Not on filedocumented in this encounter Additional Health Concerns Infection Onset 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 documented as of this encounter Care Teams Shelver Relationship Specialty Start Date End Date Elena Dumont MD [address] [place] [address] PCP - General INTERNAL MEDICINE 08/08/16 Que Zuluaga MD [address] [place] [phone] [place] Track Manager CARDIOVASCULAR DISEASE 08/08/16 08/19/23 Brit Saxena APRN, INVENTORY AUDIT CLERK-C [address] [place] [phone] [place] Track Manager NURSE PRACTITIONER 01/31/18 10/02/23 Giovanna Carter NP [address] [place] [phone] Referring Physician Nurse Practitioner [facility] 01/24/23 Zenon Bush MD [address] [place] [address] [phone] Consulting Physician CLINICAL CARDIAC ELECTROPHYSIOLOGY 03/12/23 Alisa Pat PA-C [address] [place] [phone] Referring Physician PHYSICIAN HOT MILL WORKER 08/20/23 Natasha Moore MD [address] [place] [address] Consulting Physician CARDIOVASCULAR DISEASE 10/03/23 Tyshawn Allen MD [address] [place] [address] [place] [address] PLASTIC SURGERY 04/03/24 04/03/25 documented as of this encounter
--- OUTSIDE RECORDS SUMMARY | 2025-03-31 14:07 | XMS_ITS | Encounter Summary ---
Author Organization [facility] Address [facility] [place] [address] Care Team Providers Care Sales Analytics Manager Name Role Phone Elena Dumont MD Primary Care Provider [phone] Zenon Bush MD Unavailable [phone] Alisa Pat PA-C Unavailable [phone] Natasha Moore MD Unavailable Tyshawn Allen MD Unavailable Encounter Details Date Type Department Care Team (Late st Contact Info) Description 10/17/2023 Hospital Orders Only [facility] Regist[facility] Pre/Post [address] [place] [address] Zenon Bush MD [address] [place] [address] Social History Tobacco Use Types Packs/Day Years Used Date Smoking Tobacco: Never Smokeless Tobacco: Never Alcohol Use Standard Drinks/Week Comments Yes 0 (1 standard drink = 0.6 oz pur e alcohol) wine occasionally [facility] Utilities Answer Date Recorded In the past 12 months has e [employer], gas, oil, or water [employer] threatened to shut off services in your [...] place to sleep or slept in a nursing home (including now)? No 07/15/2023 Comments No Sex and Gender Information Value Date Recorded Sex Assigned at Female 05/18/2024 1:57 PM BAG LOADER Legal Sex Female 6:12 PM CDT Gender [...] st Contact Info) Description 05/19/2025 2:30 PM BAG LOADER Office Visit [facility] [place] [address] [place] [address] Natasha Moore MD [address] [place] [address] 05/26/2025 2:00 PM BAG LOADER Office Visit [facility] [place] [address] [place] [phone] Alisa Pat PA-C [address] [place], [place] [phone] documented as of this encounter Goals Goal [...] documented as of this encounter Care Teams Sales Analytics Manager Relationship Specialty Start Date End Date Elena Dumont MD [address] [place] [address] PCP - General INTERNAL MEDICINE 08/08/16 Zenon Bush MD [address] [place] [address] Consulting Physician CLINICAL CARDIAC ELECTROPHYSIOLOGY 03/12/23 Alisa Pat PA-C [address] [place] [address] Referring Physician PHYSICIAN ASSOCIATE TEACHER 08/20/23 Natasha Moore MD [address] [place] [address] [phone] Consulting Physician CARDIOVASCULAR DISEASE 10/03/23 Tyshawn Allen MD [address] [place], [place] [phone] PLASTIC SURGERY 04/03/24 04/03/25 documented as of this encounter
--- OUTSIDE RECORDS SUMMARY | 2025-03-31 14:07 | XMS_ITS | Encounter Summary ---
Author Organization [facility] Address [address] [place] [address] Care Team Providers Care Food And Beverage Outlets Manager Name Role Phone Elena Dumont MD Primary Care Provider [phone] Que Zuluaga MD Unavailable [phone] Brit Saxena APRN DIALER-C Unavailable [phone] Giovanna Carter NP Unavailable Unavailable Zenon Bush MD Unavailable [phone] Alisa Pat-C Unavailable [phone] Natasha Moore MD Unavailable Tyshawn Allen MD Unavailable Encounter Details Date Type Department Care Team (Late st Contact Info) Description 06/20/2018 Abstract [facility] [address] [place] [phone] Abstract, Doc [facility] Social History Tobacco Use Types Packs/Day Years Used Date Smoking Tobacco: Never Smokeless Tobacco: Never Alcohol Use Standard Drinks/Week Comments Yes 0 (1 standard drink = 0.6 oz pur e alcohol) wine occasionally Comments Unknown Sex and Gender Information Value Date Recorded Sex Assigned at Female 05/18/2024 1:57 PM MARINE DESIGN ENGINEER Legal Sex Female 6:12 PM CDT Gender Identity Not on file Sexual Orientation Not on file Occupation Industry Job Start Date Job End Date Retired Not on file Not on file Not on file documented as of this encounter Plan of Treatment Upcoming Encounters Date Type Department Care Team (Late st Contact Info) Description 05/19/2025 2:30 PM MARINE DESIGN ENGINEER Office Visit [facility] [address] [place] [address] Natasha Moore MD [address] [place] [address] 05/26/2025 2:00 PM MARINE DESIGN ENGINEER Office Visit [facility] [address] [place] [phone] Alisa Pat PA-C [address] [place], [place] [address] documented as of this encounter Visit Diagnoses Not on filedocumented in this encounter Additional Health Concerns Infection Onset 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 documented as of this encounter Care Teams Food And Beverage Outlets Manager Relationship Specialty Start Date End Date Elena Dumont MD [address] [place] [phone] PCP - General INTERNAL MEDICINE 08/08/16 Que Zuluaga MD [address] [place] [phone] [place] Transcriptionist CARDIOVASCULAR DISEASE 08/08/16 08/19/23 Brit Saxena APRN, DIALER-C [address] [facility] [address] [place] [phone] [place] Transcriptionist NURSE PRACTITIONER 01/31/18 10/02/23 Giovanna Carter NP [address] [facility] [address] [place] [address] Referring Physician Nurse Practitioner [facility] 01/24/23 Zenon Bush MD [address] [place] [address] Consulting Physician CLINICAL CARDIAC ELECTROPHYSIOLOGY 03/12/23 Alisa Pat PA-C [address] [place], [place] [address] Referring Physician PHYSICIAN QUARTER INSPECTOR 08/20/23 Natasha Moore MD [address] [place], [place] [phone] Consulting Physician CARDIOVASCULAR DISEASE 10/03/23 Tyshawn Allen MD [address] [place] [address] PLASTIC SURGERY 04/03/24 04/03/25 documented as of this encounter
--- OUTSIDE RECORDS SUMMARY | 2025-03-31 14:07 | XMS_ITS | Encounter Summary ---
Author Organization [facility] Address [address] [place] [address] Care Team Providers Care Regulatory Agency Director Name Role Phone Elena Dumont MD Primary Care Provider [phone] Zenon Bush MD Unavailable [phone] Alisa Pat PA-C Unavailable [phone] Natasha Moore MD Unavailable Tyshawn Allen MD Unavailable Encounter Details Date Type Department Care Team (Late st Contact Info) Description 10/18/2023 Hospital Orders Only [facility] Anesthesia [address] [place] [address] Malissa Contreras RN Anesthesia Record Procedure Summary [...] Placement 0728 Anesthesia Ready 0802 Quick Note Machinist Bench del arciniega to use paralytic as needed. Stat 0803 Quick Note 12,000 units iv heparin administered by circulating RN. 0816 Quick Note ACT 379 0838 Quick Note Act 317 3000 un its of heparin given by computer lab para professional rn 0901 Quick Note ACT 379 0924 [...] Local Anesthetic: None; Inserted By: JOEY Emmanuel lubrication worker; Insertion attempts: 1; Ultrasound-guided Placement?: No; Patient [...] 0.6 oz pur e alcohol) wine occasionally [employer] Answer Date Recorded In the past 12 months has [employer], gas, oil, or water [employer] threatened to shut off services in your [...] place to sleep or slept in a usp (including now)? No 07/15/2023 Comments No Sex and Gender Information Value Date Recorded Sex Assigned at Female 05/18/2024 1:57 PM SURVEILLANCE CAMERA TECHNICIAN Legal Sex Female 6:12 PM CDT Gender [...] st Contact Info) Description 05/19/2025 2:30 PM SURVEILLANCE CAMERA TECHNICIAN Office Visit [facility] [address] [place] [address] Natasha Moore MD [address] [place] [address] 05/26/2025 2:00 PM SURVEILLANCE CAMERA TECHNICIAN Office Visit [facility] [place] [address] [place] [address] Alisa Pat PA-C [address] [place] [address] documented as of this encounter [...] documented as of this encounter Care Teams Regulatory Agency Director Relationship Specialty Start Date End Date Elena Dumont MD [address] [place] [phone] PCP - General INTERNAL MEDICINE 08/08/16 Zenon Bush MD [address] [place] [address] Consulting Physician CLINICAL CARDIAC ELECTROPHYSIOLOGY 03/12/23 Alisa Pat PA-C [address] [place] [address] Referring Physician PHYSICIAN OPHTHALMIC PATHOLOGIST 08/20/23 Natasha Moore MD [address] [place] [address] Consulting Physician CARDIOVASCULAR DISEASE 10/03/23 Tyshawn Allen MD [address] [place] [address] PLASTIC SURGERY 04/03/24 04/03/25 documented as of this encounter
--- OUTSIDE RECORDS SUMMARY | 2025-03-31 14:07 | XMS_ITS | Encounter Summary ---
Author Organization [facility] Address [facility] [place] [address] Care Team Providers Care Dental Service Technician Name Role Phone Elena Dumont MD Primary Care Provider [phone] Zenon Bush MD Unavailable [phone] Alisa Pat PA-C Unavailable [phone] Natasha Moroe MD Unavailable Tyshawn Allen MD Unavailable Reason for Visit * Reason Comments ECG (SCAN) Encounter Details Date Type Department Care Team (Late st Contact Info) Description 03/23/2025 [facility] [address] [place] [address] Scanned, Doc Pccl ECG (SCAN) Social History Tobacco Use Types Packs/Day Years [...] materials from doctor or pharmacy Never 05/27/2024 [facility] Utilities Answer Date Recorded In the past 12 months has th e electric, gas, oil, or water [employer] threatened to shut off services in your [...] place to sleep or slept in a detention (including now)? No 07/15/2023 Comments No Sex and Gender Information Value Date Recorded Sex Assigned at Female 05/18/2024 1:57 PM RESTAURANT BUSSER Legal Sex Female 6:12 PM CDT Gender Identity Not on file Sexual Orientation Not on file Occupation Industry Job Start Date Job End Date Retired Not on file Not on file Not on file documented as of this encounter Functional Status * Are you deaf or do you have serious difficulty hearing Answer Date of Assessment Author Status No 10/22/2023 4:26 PM CDT Ace, Janee L, SAMPLE TESTER Active * Are you blind or do you have serious difficulty seeing, even when wearing glasses? Answer Date of Assessment Author Status No 10/22/2023 4:26 PM CDT Ace, Janee L, SAMPLE TESTER Active * Do you have serious difficulty walking or climbing stairs? Answer Date of Assessment Author Status Yes 10/22/2023 4:26 PM CDT Ace Janee L, SAMPLE TESTER Active * Do you have difficulty dressing or bathing? Answer Date of Assessment Author Status No 10/22/2023 4:26 PM CDT Ace Janee L, SAMPLE TESTER Active * Because of a physical, mental, or emotional condition, do you have difficulty doing errands alone such as visiting a doctor's office or shopping? Answer Date of Assessment Author Status No 10/22/2023 4:26 PM CDT Ace, Janee L, SAMPLE TESTER Active documented as of this encounter Mental Status * Because of a physical, mental, or emotional condition, do you have serious difficulty concentrating, remembering, or making decisions? Answer Entry Date Author Status No 10/22/2023 4:26 PM CDT Ace Janee L, SAMPLE TESTER Active documented in this encounter Plan of Treatment Upcoming Encounters Date Type Department Care Team (Late st Contact Info) Description 05/19/2025 2:30 PM RESTAURANT BUSSER Office Visit [facility] [place] [address] Natasha Moore MD [address] [place] [address] 05/26/2025 2:00 PM RESTAURANT BUSSER Office Visit [facility] [place] [address] Alisa Pat PA-C [address] [place] [address] documented as of this encounter Goals Goal Patient Goal Type Associated Problems Recent Progress Patient-Stated? Author Patient will return to prior living situation and remain independent in ADLs upon discharge from hospital Lifestyle Eli Saavedra RN documented as of this encounter Procedures Procedure Name Priority Date/Time Associated Diagnosis Comments ECG GENERIC (SCAN ORDER) Routine 03/23/2025 12:00 AM RESTAURANT BUSSER documented in this encounter Results * ECG (03/23/2025 12:00 AM RESTAURANT BUSSER) 03/23/2025 us Doc Pccl Scanned SCANNING Final Result [facility] documented in this encounter Visit Diagnoses Not on filedocumented in this encounter Additional Health Concerns Infection Onset 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 documented as of this encounter Care Teams Dental Service Technician Relationship Specialty Start Date End Date Elena Dumont MD [address] [place] [address] PCP - General INTERNAL MEDICINE 08/08/16 eZnon Bush MD [address] [place] [address] Consulting Physician CLINICAL CARDIAC ELECTROPHYSIOLOGY 03/12/23 Alisa Pat PA-C [address] [place] [address] Referring Physician PHYSICIAN FIRE SUPPORT SPECIALIST 08/20/23 Natasha Moore MD [address] [place] [address] Consulting Physician CARDIOVASCULAR DISEASE 10/03/23 Tyshawn Allen MD [address] [place] [address] PLASTIC SURGERY 04/03/24 04/03/25 documented as of this encounter
--- OUTSIDE RECORDS SUMMARY | 2025-03-31 14:07 | XMS_ITS | Encounter Summary ---
Author Organization [facility] Address [facility] [place] [address] Care Team Providers Care Assistant Project Manager Name Role Phone Elena Dumont MD Primary Care Provider [phone] Que Zuluaga MD Unavailable [phone] Brit Saxena APRN AGER OPERATOR-C Unavailable [phone] Giovanna Carter NP Unavailable Unavailable Zenon Bush MD Unavailable [phone] Alisa Pat-C Unavailable [phone] Natasha Moore MD Unavailable Tyshawn Allen MD Unavailable Encounter Details Date Type Department Care Team (Late st Contact Info) Description 05/26/2018 Abstract [facility] [address] [place] [address] Que Zuluaga MD [address] [place] [phone] Social History Tobacco Use Types Packs/Day Years Used Date Smoking Tobacco: Never Smokeless Tobacco: Never Alcohol Use Standard Drinks/Week Comments Yes 0 (1 standard drink = 0.6 oz pur e alcohol) wine occasionally Comments Unknown Sex and Gender Information Value Date Recorded Sex Assigned at Female 05/18/2024 1:57 PM PARTS SPECIALIST Legal Sex Female 6:12 PM CDT Gender Identity Not on file Sexual Orientation Not on file Occupation Industry Job Start Date Job End Date Retired Not on file Not on file Not on file documented as of this encounter Plan of Treatment Upcoming Encounters Date Type Department Care Team (Late st Contact Info) Description 05/19/2025 2:30 PM PARTS SPECIALIST Office Visit [facility] [place] [address] Natasha Moore MD [address] [place] [address] 05/26/2025 2:00 PM PARTS SPECIALIST Office Visit [facility] [address] [place] [address] Alisa Pat PA-C [address] [place] [address] documented as of this encounter [...] documented as of this encounter Care Teams Assistant Project Manager Relationship Specialty Start Date End Date Elena Dumont MD [address] [place] [address] PCP - General INTERNAL MEDICINE 08/08/16 Que Zuluaga MD [address] [place] [phone] [employer] Investment Counselor CARDIOVASCULAR DISEASE 08/08/16 08/19/23 Brit Saxena APRN, AGER OPERATOR-C [address] [place] [phone] [employer] Counselor NURSE PRACTITIONER 01/31/18 10/02/23 Giovanna Carter NP [address] [place] [phone] Referring Physician Nurse Practitioner [facility] 01/24/23 Zenon Bush MD [address] [place] [address] Consulting Physician CLINICAL CARDIAC ELECTROPHYSIOLOGY 03/12/23 Alisa Pat PA-C [address] [place] [address] Referring Physician PHYSICIAN BURN OUT SCARFING OPERATOR 08/20/23 Natasha Moore MD [address] [place] [address] Consulting Physician CARDIOVASCULAR DISEASE 10/03/23 Tyshawn Allen MD [address] [place] [address] PLASTIC SURGERY 04/03/24 04/03/25 documented as of this encounter
--- OUTSIDE RECORDS SUMMARY | 2025-03-31 14:07 | XMS_ITS | Encounter Summary ---
Author Organization [facility] Address [facility] [place] [address] Care Team Providers Care Red Cross Worker Name Role Phone Elena Dumont MD Primary Care Provider [phone] Que Zuluaga MD Unavailable [phone] Brit Saxena APRN RADIATION PROTECTION TECHNICIAN-C Unavailable [phone] Giovanna Carter NP Unavailable Unavailable Zenon Bush MD Unavailable [phone] Alisa Pat-C Unavailable [phone] Natasha Moore MD Unavailable Tyshawn Allen MD Unavailable Encounter Details Date Type Department Care Team (Late st Contact Info) Description 05/12/2015 Abstract [facility] [place] [address] [place] [address] Que Zuluaga MD [address] [place] [address] Social History Tobacco Use Types Packs/Day Years Used Date Smoking Tobacco: Never Alcohol Use Standard Drinks/Week Comments No 0 (1 standard drink = 0.6 oz pur e alcohol) Comments Unknown Sex and Gender Information Value Date Recorded Sex Assigned at Female 05/18/2024 1:57 PM RESEARCH ASSISTANT PROFESSOR Legal Sex Female 6:12 PM CDT Gender Identity Not on file Sexual Orientation Not on file Occupation Industry Job Start Date Job End Date Retired Not on file Not on file Not on file documented as of this encounter Plan of Treatment Upcoming Encounters Date Type Department Care Team (Late st Contact Info) Description 05/19/2025 2:30 PM RESEARCH ASSISTANT PROFESSOR Office Visit [facility] [address] [place] [address] Natasha Moore MD [address] [place], [place] [phone] 05/26/2025 2:00 PM RESEARCH ASSISTANT PROFESSOR Office Visit [address] [place] [address] Alisa Pat PA-C [address] [place], [place] [address] documented as of this encounter Visit Diagnoses Not on filedocumented in this encounter Additional Health Concerns Infection Onset 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 documented as of this encounter Care Teams Red Cross Worker Relationship Specialty Start Date End Date Elena Dumont MD [address] [place] [address] PCP - General INTERNAL MEDICINE 08/08/16 Que Zuluaga MD [address] [place] [phone] [place] Chain Hoist Operator CARDIOVASCULAR DISEASE 08/08/16 08/19/23 Brit Saxena APRN, RADIATION PROTECTION TECHNICIAN-C [address] [facility] [address] [place] [phone] [employer] Chain Hoist Operator NURSE PRACTITIONER 01/31/18 10/02/23 Giovanna Carter RADIATION PROTECTION TECHNICIAN [address] [place] [address] [address] [place] [address] Referring Physician Nurse Practitioner Family 01/24/23 Zenon Bush MD [address] [place] [address] Consulting Physician CLINICAL CARDIAC ELECTROPHYSIOLOGY 03/12/23 Alisa Pat PA-C [address] [place] [address] Referring Physician PHYSICIAN REVERSE LOGISTICS ANALYST 08/20/23 Natasha Moore MD [address] [place] [address] Consulting Physician CARDIOVASCULAR DISEASE 10/03/23 Tyshawn Allen MD [address] [place] [address] PLASTIC SURGERY 04/03/24 04/03/25 documented as of this encounter
--- OUTSIDE RECORDS SUMMARY | 2025-03-31 14:07 | XMS_ITS | Encounter Summary ---
Author Organization [facility] Address [facility] [place] [address] Care Team Providers Care Vp Analysis Name Role Phone Elena Dumont MD Primary Care Provider [phone] Que Zuluaga MD Unavailable [phone] Brit Saxena APRN LINER INSTALLER-C Unavailable [phone] Giovanna Carter NP Unavailable Unavailable Zenon Bush MD Unavailable [phone] Alisa Pat-C Unavailable [phone] Natasha Moore MD Unavailable Tyshawn Allen MD Unavailable Encounter Details Date Type Department Care Team (Late st Contact Info) Description 04/23/2019 [employer] [facility] [employer] [facility] [address] [place] [address] Que Zuluaga MD [address] [place] [address] Other Social History Tobacco Use Types Packs/Day Years Used Date Smoking Tobacco: Never Smokeless Tobacco: Never Alcohol Use Standard Drinks/Week Comments Yes 0 (1 standard drink = 0.6 oz pur e alcohol) wine occasionally Comments Unknown Sex and Gender Information Value Date Recorded Sex Assigned at Female 05/18/2024 1:57 PM PEOPLESOFT HRMS DEVELOPER Legal Sex Female 6:12 PM CDT Gender Identity Not on file Sexual Orientation Not on file Occupation Industry Job Start Date Job End Date Retired Not on file Not on file Not on file documented as of this encounter Progress Notes * Violeta Velasquez RN - 04/23/2019 7:53 AM CSTFrom: Lizeth Warner To: Que Zuluaga MD Sent: 04/23/2019 5:48 AM PEOPLESOFT HRMS DEVELOPER Subject: Other I have Had my Flue Shot at [facility] Dr Dumont I will make an appointment In June 2019 That is when I am supposed to see Que Berry Thank You Lizeth Warner LESOFT HRMS DEVELOPER documented in this encounter Plan of Treatment Upcoming Encounters Date Type Department Care Team ([facility] Contact Info) Description 05/19/2025 2:30 PM PEOPLESOFT HRMS DEVELOPER Office Visit [facility] [place] [address] Natasha Moore MD [address] [place] [address] 05/26/2025 2:00 PM PEOPLESOFT HRMS DEVELOPER Office Visit [facility] [place] [address] Alisa Pat PA-C [address] [place] [address] documented as of this encounter Visit Diagnoses Not on filedocumented in this encounter Additional Health Concerns Infection Onset 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 documented as of this encounter Care Teams Vp Analysis Relationship Specialty Start Date End Date Elena Dumont MD [address] [place] [phone] PCP - General INTERNAL MEDICINE 08/08/16 Que Zuluaga MD [address] [place] [phone] [facility] Practice Specialist CARDIOVASCULAR DISEASE 08/08/16 08/19/23 Brit Saxena APRN, LINER INSTALLER-C [address] [place] [phone] [facility] NURSE PRACTITIONER 01/31/18 10/02/23 Giovanna Carter NP [address] [place] [phone] Referring Physician Nurse Practitioner Family 01/24/23 Zenon Bush MD [address] [place] [address] Consulting Physician CLINICAL CARDIAC ELECTROPHYSIOLOGY 03/12/23 Alisa Pat PA-C [address] [place] [address] Referring Physician PHYSICIAN HOMICIDE SQUAD CAPTAIN 08/20/23 Natasha Moore MD [address] [place] [address] Consulting Physician CARDIOVASCULAR DISEASE 10/03/23 Tyshawn Allen MD [address] [place] [address] PLASTIC SURGERY 04/03/24 04/03/25 documented as of this encounter
--- OUTSIDE RECORDS SUMMARY | 2025-03-31 14:07 | XMS_ITS | Encounter Summary ---
Author Organization [facility] Address [facility] [place] [address] Care Team Providers Care Pocket Stitcher Name Role Phone Elena Dumont MD Primary Care Provider [phone] Zenon Bush MD Unavailable [phone] Alisa Pat PA-C Unavailable [phone] Natasha Moore MD Unavailable Tyshawn Allen MD Unavailable Encounter Details Date Type Department Care Team (Late st Contact Info) Description 03/29/2025 [facility] [address] [place] [address] Zenon Bush MD [address] [place] [address] Social History Tobacco Use Types [...] Sex Assigned at Female 05/18/2024 1:57 PM CHERRY PITTER Legal Sex Female 6:12 PM CDT Gender [...] No 10/22/2023 4:26 PM CDT Janee Bello, STUDY COORDINATOR Active * Are you blind or do you have serious difficulty seeing, even when wearing glasses? Answer Date of Assessment Author Status No 10/22/2023 4:26 PM CDT Janee Bello, STUDY COORDINATOR Active * Do you have serious difficulty walking or climbing stairs? Answer Date of Assessment Author Status Yes 10/22/2023 4:26 PM CDT Janee Bello, STUDY COORDINATOR Active * Do you have difficulty dressing or bathing? Answer Date of Assessment Author Status No 10/22/2023 4:26 PM CDT Janee Bello, STUDY COORDINATOR Active * Because of a physical, mental, or emotional condition, do you have difficulty doing errands alone such as visiting a doctor's office or shopping? Answer Date of Assessment Author Status No 10/22/2023 4:26 PM CDT Janee Bello, STUDY COORDINATOR Active documented as of this encounter Mental Status * Because of a physical, mental, or emotional condition, do you have serious difficulty concentrating, remembering, or making decisions? Answer Entry Date Author Status No 10/22/2023 4:26 PM CDT Janee Bello, STUDY COORDINATOR Active documented in this encounter Plan of Treatment Upcoming Encounters Date Type Department Care Team (Late st Contact Info) Description 05/19/2025 2:30 PM CHERRY PITTER Office Visit [facility] [place] [address] Natasha Moore MD [address] [place] [address] 05/26/2025 2:00 PM CHERRY PITTER Office Visit [facility] [address] [place] [address] Alisa Pat PA-C [address] [place], [place] [address] documented as of this encounter Goals Goal [...] documented as of this encounter Care Teams Pocket Stitcher Relationship Specialty Start Date End Date Elena Dumont MD [address] [place] [phone] PCP - General INTERNAL MEDICINE 08/08/16 Zenon Bush MD [address] [place] [address] Consulting Physician CLINICAL CARDIAC ELECTROPHYSIOLOGY 03/12/23 Alisa Pat PA-C [address] [place] [address] Referring Physician PHYSICIAN SPORTS EQUIPMENT REPAIRER 08/20/23 Natasha Moore MD [address] [place] [address] Consulting Physician CARDIOVASCULAR DISEASE 10/03/23 Tyshawn Allen MD [address] [place] [address] PLASTIC SURGERY 04/03/24 04/03/25 documented as of this encounter
--- OUTSIDE RECORDS SUMMARY | 2025-03-31 14:07 | XMS_ITS | Encounter Summary ---
Author Organization [facility] Address [facility] [place] [address] Care Team Providers Care Winder Helper Name Role Phone Elena Dumont MD Primary Care Provider [phone] Zenon Bush MD Unavailable [phone] Alisa Pat PA-C Unavailable [phone] Natasha Moore MD Unavailable Tyshawn Allen MD Unavailable Reason for Visit * Reason Comments Image (SCAN) Encounter Details Date Type Department Care Team (Late st Contact Info) Description 03/22/2025 Scan [facility] [address] [place] [address] Scanned, Doc Pccl Image (SCAN) Social History Tobacco Use Types Packs/Day [...] materials from doctor or pharmacy Never 05/27/2024 [facility] Utilities Answer Date Recorded In the past 12 months has th e electric, gas, oil, or water PatientKeeper threatened to shut off services in your [...] place to sleep or slept in a senior living (including now)? No 07/15/2023 Comments No Sex and Gender Information Value Date Recorded Sex Assigned at Female 05/18/2024 1:57 PM USED CAR MANAGER Legal Sex Female 6:12 PM CDT [...] 10/22/2023 4:26 PM CDT Ace, Janee L, DIE DEVELOPER Active * Are you blind or do you have serious difficulty seeing, even when wearing glasses? Answer Date of Assessment Author Status No 10/22/2023 4:26 PM CDT Ace, Janee L, DIE DEVELOPER Active * Do you have serious difficulty walking or climbing stairs? Answer Date of Assessment Author Status Yes 10/22/2023 4:26 PM CDT Ace Janee L, DIE DEVELOPER Active * Do you have difficulty dressing or bathing? Answer Date of Assessment Author Status No 10/22/2023 4:26 PM CDT Ace Janee L, DIE DEVELOPER Active * Because of a physical, mental, or emotional condition, do you have difficulty doing errands alone such as visiting a doctor's office or shopping? Answer Date of Assessment Author Status No 10/22/2023 4:26 PM CDT Ace, Janee L, DIE DEVELOPER Active documented as of this encounter Mental Status * Because of a physical, mental, or emotional condition, do you have serious difficulty concentrating, remembering, or making decisions? Answer Entry Date Author Status No 10/22/2023 4:26 PM CDT Ace Janee L, DIE DEVELOPER Active documented in this encounter Plan of Treatment Upcoming Encounters Date Type Department Care Team (Late st Contact Info) Description 05/19/2025 2:30 PM USED CAR MANAGER Office Visit [facility] [place] [address] Natasha Moore MD [address] [place] [address] 05/26/2025 2:00 PM USED CAR MANAGER Office Visit [facility] [place] [address] Alisa Pat PA-C [address] [place] [address] documented as of this encounter Goals Goal Patient Goal Type Associated Problems Recent Progress Patient-Stated? Author Patient will return to prior living situation and remain independent in ADLs upon discharge from hospital Lifestyle Eli Saavedra RN documented as of this encounter Procedures Procedure Name Priority Date/Time Associated Diagnosis Comments IMAGE GENERIC Routine 03/22/2025 12:00 AM USED CAR MANAGER documented in this encounter Results * IMAGE STUDY (03/22/2025 12:00 AM USED CAR MANAGER) Anatomical Region Laterality Modality Other 03/22/2025 us Doc Pccl Scanned SCANNING Final Result documented in this encounter Visit Diagnoses Not on filedocumented in this encounter Additional Health Concerns Infection Onset 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 documented as of this encounter Care Teams Winder Helper Relationship Specialty Start Date End Date Elena Dumont MD [address] [place] [address] PCP - General INTERNAL MEDICINE 08/08/16 Zenon Bush MD [address] [place] [address] Consulting Physician CLINICAL CARDIAC ELECTROPHYSIOLOGY 03/12/23 Alisa Pat PA-C [address] [place], [place] [address] Referring Physician PHYSICIAN IMPRESS ASSOCIATE 08/20/23 Natasha Moore MD [address] [place] [address] Consulting Physician CARDIOVASCULAR DISEASE 10/03/23 Tyshawn Allen MD [address] [place] [address] PLASTIC SURGERY 04/03/24 04/03/25 documented as of this encounter
--- OUTSIDE RECORDS SUMMARY | 2025-03-31 14:07 | XMS_ITS | Clinical Summary ---
Author Organization [facility] Address Formerly [facility] [place] [address] Care Team Providers Care Planning Advisor Name Role Phone Lito Stone MD Primary Care Provider [phone] Zenon Cordova MD Unavailable [phone] Alisa Pat PA-C Unavailable [phone] Natasha Moore MD Unavailable Tyshawn Allen MD [...] Encounters Date Type Department Care Team Description 03/29/2025 Abstract [facility] [address] [place] [address] Zenon Cordova MD 03/24/2025 Telephone [facility] [address] [place] [address] Zenon Cordova MD Concerns 03/24/2025 Telephone [facility] [address] [place] [address] Zenon Cordova MD Information 03/23/2025 Scan [facility] [address] [place] [address] Scanned, Doc Pccl ECG (SCAN) 03/23/2025 Abstract [facility] [address] [place] [address] Abstract, Doc Pccl 03/23/2025 Telephone [facility] [address] [place] [address] Natasha Moore MD Breathing Problem 03/22/2025 Scan [facility] [address] [place] [address] Scanned, Doc Pccl Image (SCAN) 03/19/2025 Scan [facility] [address] [place] [address] Scanned, Doc Pccl Image (SCAN) 02/09/2025 Telephone [facility] [address] [place] [address] Natasha Moore MD Surgical Clearance 02/04/2025 Telephone [facility] [address] [place] [address] Zenon Cordova MD Question 01/28/2025 6:53 AM CDT Anesthesia Event [facility] [address] [place] [address] Mendoza Rodriguez MD Bracco, Kendra A, RN 01/28/2025 5:38 AM CDT - 01/28/2025 3:35 PM CDT Hospital Encounter [facility] Pre/Post [address] [place] [address] Zenon Cordova MD Hohm, Stuart Allen, MD Discharge Disposition: Home or Self Care (Routine Discharge) 01/28/2025 Travel 01/19/2025 Telephone [facility] [address] [place] [address] Zenon Cordova MD Information; Question 01/18/2025 11:59 PM CDT Anesthesia Event [facility] [address] [place] [address] Malissa Contreras RN 01/14/2025 Orders Only [facility] [address] [place] [address] Zenon Cordova MD 01/02/2025 Prep for Procedure [facility] [address] [place] [address] Zenon Cordova MD 01/02/2025 Orders Only [facility] [address] [place] [address] Zenon Cordova MD 01/01/2025 Telephone [facility] [address] [place] [address] Zenon Cordova MD Schedule Procedure 01/01/2025 Telephone [facility] [address] [place] [address] Zenon Cordova MD Question from Last 3 Months Immunizations Immunization Administration [...] materials from doctor or pharmacy Never 05/27/2024 [facility] Utilities Answer Date Recorded In the past 12 months has th e [employer], gas, oil, or water [employer] threatened to shut off services in your [...] Sex Assigned at Female 05/18/2024 1:57 PM SAP TREASURY CONSULTANT Legal Sex Female 6:12 PM CDT [...] st Contact Info) Description 05/19/2025 2:30 PM SAP TREASURY CONSULTANT Office Visit [facility] [place] [address] Natasha Moore MD [address] [place] [address] 05/26/2025 2:00 PM SAP TREASURY CONSULTANT Office Visit [facility] [place] [address] Alisa Pat PA-C [address] [place] [address] Health Maintenance Due Date Last Done Comments [...] discharge from hospital Lifestyle Eli Saavedra RN Procedures Procedure Name Priority Date/Time Associated Diagnosis Comments ECG GENERIC (SCAN ORDER) Routine 03/23/2025 12:00 AM SAP TREASURY CONSULTANT COMPREHENSIVE METABOLIC PANEL Routine 03/22/2025 BNP Routine 03/22/2025 IMAGE GENERIC Routine 03/22/2025 12:00 AM SAP TREASURY CONSULTANT COMPREHENSIVE METABOLIC PANEL Routine 03/19/2025 CBC, MANUAL DIFF Routine 03/19/2025 THYROXINE, FREE (FT4) Routine 03/19/2025 THYROID STIM HORMONE TSH Routine 03/19/2025 BNP Routine 03/19/2025 IMAGE GENERIC Routine 03/19/2025 12:00 AM SAP TREASURY CONSULTANT ECG 12-LEAD Routine 01/28/2025 11:52 AM CDT Atypical atrial flutter (CMS/HCC HHS/HCC) POCT GLUCOSE - DOCKED DEVICE Routine 01/28/2025 10:57 AM CDT XA AFLUTTER ABLATION Routine 01/28/2025 10:37 AM CDT Atypical atrial flutter (CMS/HCC HHS/HCC) POCT ACTIVATED CLOTTING TIME - ISTAT DOCKED [...] Routine 01/11/2025 Atypical atrial flutter (CMS/HCC HHS/HCC) LIPID PANEL Routine 10/18/2021 HEMOGLOBIN, GLYCOSYLATED Routine 10/18/2021 from Last 3 Months or Most Recently Relevant to Health Maintenance Results * ECG (03/23/2025 12:00 AM SAP TREASURY CONSULTANT) 03/23/2025 us Doc Pccl Scanned SCANNING Final Result [facility] * IMAGE STUDY (03/22/2025 12:00 AM SAP TREASURY CONSULTANT) Only the most recent of2 resultswithin the time period is included. Anatomical Region Laterality Modality Other 03/22/2025 us Doc Pccl Scanned SCANNING Final Result * BNP (03/22/2025) Only the most recent of2 resultswithin the time period is included. B TYPE NATRIURETIC PEPTIDE 2,920 Narrative Resulting Agency Comment [facility] us Charissa Hager NP LABORATORY Final Result * (ABNORMAL) COMPREHENSIVE METABOLIC PANEL (03/22/2025) Only the most recent of3 resultswithin the time period is included. SODIUM S/P/B 143 GLUCOSE 223 mg/dL BUN 41 CREATININE S/P/B 1.58(A) 0.5 - 1.0 CALCIUM S/P/B 9.7 POTASSIUM S/P/B 4.8 CHLORIDE S/P/B 103 GFR ESTIMATE 31 Narrative Resulting Agency Comment [facility] CERTIFIED JUVENILE PROBATION OFFICER LABORATORY Final Result * CBC, MANUAL DIFF (03/19/2025) WBC 5.5 HGB 12.4 HCT 39.7 PLT 119 BLOOD VENOUS BLOOD SPECIMEN / Unknown Narrative Resulting Agency Comment [facility] CERTIFIED JUVENILE PROBATION OFFICER LABORATORY Final Result * THYROXINE, FREE (FT4) (03/19/2025) Pathologist [facility] FREE T4 1.47 Narrative Resulting Agency Comment [facility] CERTIFIED JUVENILE PROBATION OFFICER LABORATORY Final Result * THYROID STIM HORMONE TSH (03/19/2025) TSH 5,970 Narrative Resulting Agency Comment [facility] LABORATORY Final Result * ECG 12 lead - Today (01/28/2025 11:52 AM CDT) Only the most recent of2 resultswithin the time period is included. 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1935 Requested By: ZENON CORDOVA Order Number: [id number] Dorsi MD: Carlos Grant Measurements Intervals [place] Rate: 67 P: 0 MN: 0 QRS: 249 QRSD: 154 T: 92 QT: 481 QTc: 511 Interpretive Statements Sinus rhythm with large fisrt degree A-V block INTRAVENTRICULAR CONDUCTION DELAY [130+ ms QRS DURATION] LATERAL MYOCARDIAL INFARCTION , OF INDETERMINATE AGE [40+ ms Q WAVE AND/OR ST/T ABNORMALITY IN I/aVL/V5/V6] Procedure Note Carlos Grant MD - 01/28/[address] [address] Test Date: 2025-01-28 Pat Name: CESAR STORY Department: 1 Room: [address] 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1935 Requested By: ZENON CORDOVA Order Number: [id number] Reading MD: Carlos Grant Measurements Intervals [place] Rate: 67 P: 0 MN: 0 QRS: 249 QRSD: 154 T: 92 QT: 481 QTc: 511 Interpretive Statements Sinus rhythm with large fisrt degree A-V block INTRAVENTRICULAR CONDUCTION DELAY [130+ ms QRS DURATION] LATERAL MYOCARDIAL INFARCTION , OF INDETERMINATE AGE [40+ ms Q WAVEAND/OR ST/T ABNORMALITY IN I/aVL/V5/V6] us Zenon Cordova MD ECG ORDERABLES Final Res ult Performing Organization Address City/[facility] Co de Phone Number [facility] * (ABNORMAL) POCT glucose (01/28/2025 10:57 AM CDT) GLUCOSE POC 132(H) 70 - 109 01/29/2025 5:11 AM CDT [facility] 01/28/2025 10:5 7 AM CDT Zenon Cordova MD POCT ORDERABLES - DEVICE Final Result Performing Organization Address [facility] Co de Phone Number [facility] [address] [place] [address], [phone] * XA AFLUTTER ABLATION (01/28/2025 10:37 AM CDT) Anatomical Region Laterality Modality Cardiac Flyer Builder Narrative 01/28/2025 10:41 AM CDT Zenon Cordova MD 01/28/2025 8:09 PM Cardiac Electrophysiology Procedure Note Patient name: Cesar Story : 1935 LITO STONE MD LOS: 0 days DATE OF PROCEDURE: 01/28/2025 PUBLIC HEALTH NURSE: ZENON CORDOVA MD Procedure: Atrial flutter radiofrequency ablation Preprocedure diagnosis: Atypical atrial flutter Postprocedure diagnosis: 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 Typical atrial flutter status post successful radiofrequency ablation of cavotricuspid isthmus Medications: Sedation provided by anesthesiology Findings: EP Procedures Performed: Comprehensive EP evaluation and Ablation of left atrial flutter by anterior mitral linear ablation [85468] Comprehensive EP evaluation and Ablation of typical atrial flutter by cavotricuspid isthmus linear ablation [83672] 3D mapping using Ensite X mapping system [34059] Left atrial pacing and recording [60493] Transseptal catheterization for left atrial access [22536] Intracardiac Echocardiography for procedure [39987] Indications: Symptomatic atypical atrial flutter Fluoroscopic Time: none History: Please see pre-procedure H&P on the record. Procedure: Informed consent was obtained on the day of the procedure. After prepping and draping and effecting local anesthesia with lidocaine, Catheters were inserted as follows: A 7F [facility] Livewire duodecapolar catheter was positioned in the RA from the right femoral vein. A [facility] Viewflex intracardiac ultrasound catheter was advanced from the left femoral vein to the right atrium for ultrasound mapping. A [facility] Agilis NXT sheath was advanced from the right femoral vein for achieving transseptal access using a QuNano versacross RF pigtail wire. A [facility] HD Grid high density mapping catheter was placed in the left atrium through the Agilis sheath to map the left atrium. A [facility] tactiflex SE radiofrequency ablation catheter was [...] the procedure log. 3D Mapping using the Retia Medicalite Precision mapping system [47004] Complex 3D mapping was performed. The Ensite [...] and PPI-TCL was 38 ms. Intracardiac Echo [64868] utilized for ablation procedure Once coronary sinus catheter was placed and prior to transeptal catheterization, the SJ Viewflex ICE catheter was manipulated into the [...] over the guidewire under fluoroscopic guidance using Danielle Versa Cross pigtail Radiofrequency wire, taking care to maintain the tip of the wire within the dilator. The Agilis sheath, dilator and wire were then withdrawn under fluoroscopic guidance in the LITHUANIAN projection. The right atrial pressure was recorded [...] under continuous pressure monitoring and in the LITHUANIAN projection, the QuNano Versa Cross radiofrequency wire was advanced into the [...] atrium - Mitral anterior linear ablation A S[employer] tacticath SE bidirectional irrigated ablation catheter was [...] ECG prior. Routine follow up thereafter. Zenon Cordova M.D. 01/28/2025 us Zenon Cordova MD I O PSYCHOLOGIST Final Res ult * (ABNORMAL) POCT ACTIVATED CLOTTING TIME - ISTAT DOCKED DEVICE (01/28/2025 10:01 AM CDT) Only the most recent of7 resultswithin the time period is included. ACTIVATED CLOTTING TIME (ACT HMT OR LMT) 371(H) 74 - 137 SEC 01/29/2025 6:43 AM CDT [facility] 01/28/2025 10:0 1 AM CDT us Zenon Cordova MD POCT ORDERABLES - DEVICE Final Result Performing Organization Address [facility] de Phone Number [facility] [address] [place] [address], [phone] * TYPE & SCREEN (01/28/2025 6:03 AM CDT) UNITS ORDERED 4 01/28/2025 6:29 AM CDT [facility] ABO/RH O NEGATIVE 01/28/2025 7:23 AM CDT [facility] ANTIBODY SCREEN NEGATIVE 01/28/2025 7:23 AM CDT [facility] SAMPLE EXPIRATION 01/31/2025,2 359 01/28/2025 6:29 AM CDT [facility] 01/28/2025 6:03 AM CDT us Zenon Cordova MD BLOOD BANK TEST ORDERABLE S Final Result Performing Organization Address [facility] Co de Phone Number [facility] [address] [place] [address], [place] [phone] * ORDER FRESH FROZEN PLASMA, 4 Units (01/28/2025 5:50 AM CDT) UNITS ORDERED 4 01/28/2025 5:49 AM CDT [facility] 01/28/2025 5:50 AM CDT Zenon Cordova MD BLOOD BANK PRODUCT ORDERA BLES Final Result [facility] [address] [place] [address], [phone] * CBC W/DIFF AUTOMATED (01/11/2025) WBC 7.3 RBC 4.37 HGB 12.5 HCT 39.4 MCV 90.2 MCH 28.6 MCHC 31.7 RDW 14.4 PLT 150 MPV 10.8 NEUTROPHILS % 76.6 LYMPHOCYTES % 16.3 MONOCYTES % 6.2 EOSINOPHILS % 0.0 BASOPHILS % 0.5 MID CELLS % na ABS. NEUTROPHILS 5.59 ABS. LYMPHOCYTES 1.19 ABS. MONOCYTES 0.45 ABS. BASOPHILS 0.04 ABS. MID CELLS na 01/11/2025 Zenon Cordova MD LABORATORY Final Res ult * HEMOGLOBIN, GLYCOSYLATED (10/18/2021) HGB A1C 8.3 [...] Date Last Indicated 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 Insurance [facility] MEDICARE Advance Directives * Full Code (Latest [...] 2:13 PM 07/19/2023 2:52 PM Care Teams Planning Advisor Relationship Specialty Start Date End Date Lito Stone MD [address] [place] [address] PCP - General INTERNAL MEDICINE 08/08/16 Zenon Cordova MD [address] [place] [address] Consulting Physician CLINICAL CARDIAC ELECTROPHYSIOLOGY 03/12/23 Alisa Pat PA-C [address] [place] [address] Referring Physician PHYSICIAN MOLDER 08/20/23 Natasha Moore MD [address] [place] [address] Consulting Physician CARDIOVASCULAR DISEASE 10/03/23 Tyshawn Allen MD [address] [place] [address] PLASTIC SURGERY 04/03/24 04/03/25
--- OUTSIDE RECORDS SUMMARY | 2025-03-31 14:07 | XMS_ITS | Encounter Summary ---
Author Organization [facility] Address [facility] [place] [address] Care Team Providers Care Asset Card Clerk Name Role Phone Elena Dumont MD Primary Care Provider [phone] Zenon Bush MD Unavailable [phone] Alisa Pat PA-C Unavailable [phone] Natasha Moore MD Unavailable Tyshawn Allen MD Unavailable Encounter Details Date Type Department Care Team (Late st Contact Info) Description 05/12/2024 Prep for Procedure [facility] eld [address] [place] [address] Alessandra Knapp MD [address] [place] [address] Social History Tobacco Use Types [...] materials from doctor or pharmacy Never 04/15/2024 [facility] Utilities Answer Date Recorded In the past [...] to sleep or slept in a senior care (including now)? No 07/15/2023 Comments No Sex and Gender Information Value Date Recorded Sex Assigned at Female 05/18/2024 1:57 PM REPAIR ARMATURE WINDER HELPER Legal Sex Female 6:12 PM CDT [...] No 10/22/2023 4:26 PM CDT Janee Bello, ELECTRICIAN MASTER Active * Are you blind or do you have serious difficulty seeing, even when wearing glasses? Answer Date of Assessment Author Status No 10/22/2023 4:26 PM CDT Janee Bello, ELECTRICIAN MASTER Active * Do you have serious difficulty walking or climbing stairs? Answer Date of Assessment Author Status Yes 10/22/2023 4:26 PM CDT Janee Bello, ELECTRICIAN MASTER Active * Do you have difficulty dressing or bathing? Answer Date of Assessment Author Status No 10/22/2023 4:26 PM CDT Janee Bello, ELECTRICIAN MASTER Active * Because of a physical, mental, or emotional condition, do you have difficulty doing errands alone such as visiting a doctor's office or shopping? Answer Date of Assessment Author Status No 10/22/2023 4:26 PM CDT Janee Bello, ELECTRICIAN MASTER Active documented as of this encounter Mental Status * Because of a physical, mental, or emotional condition, do you have serious difficulty concentrating, remembering, or making decisions? Answer Entry Date Author Status No 10/22/2023 4:26 PM CDT Janee Bello, ELECTRICIAN MASTER Active documented in this encounter Plan of Treatment Upcoming Encounters Date Type Department Care Team (Late st Contact Info) Description 05/19/2025 2:30 PM REPAIR ARMATURE WINDER HELPER Office Visit [facility] [place] [address] Natasha Moore MD [address] [place] [address] 05/26/2025 2:00 PM REPAIR ARMATURE WINDER HELPER Office Visit [facility] [address] [place] [address] Alisa Pat PA-C [address] [place], [place] [address] documented as of this encounter Goals Goal [...] documented as of this encounter Care Teams Asset Card Clerk Relationship Specialty Start Date End Date Elena Dumont MD [address] [place] [phone] PCP - General INTERNAL MEDICINE 08/08/16 Zenon Bush MD [address] [place] [address] Consulting Physician CLINICAL CARDIAC ELECTROPHYSIOLOGY 03/12/23 Alisa Pat PA-C [address] [place] [address] Referring Physician PHYSICIAN YARD CALLER 08/20/23 Natasha Moore MD [address] [place] [address] Consulting Physician CARDIOVASCULAR DISEASE 10/03/23 Tyshawn Allen MD [address] [place] [address] PLASTIC SURGERY 04/03/24 04/03/25 documented as of this encounter
--- OUTSIDE RECORDS SUMMARY | 2025-03-31 14:07 | XMS_ITS | Encounter Summary ---
Author Organization [facility] Address Counts include 234 beds at the [facility] [place] [address] Care Team Providers Care Test Engine Evaluator Name Role Phone Elena Dumont MD Primary Care Provider [phone] Que Zuluaga MD Unavailable [phone] Brit Saxena APRN SERVICE CENTER COORDINATOR-C Unavailable [phone] Giovanna Carter NP Unavailable Unavailable Zenon Bush MD Unavailable [phone] Alisa Pat-C Unavailable [phone] Natasha Moore MD Unavailable Tyshawn Allen MD Unavailable Encounter Details Date Type Department Care Team (Late st Contact Info) Description 01/07/2020 [employer] AT [address] [place] [address] Que Zuluaga MD [address] [place] [address] Question Social History Tobacco Use Types Packs/Day Years Used Date Smoking Tobacco: Never Smokeless Tobacco: Never Alcohol Use Standard Drinks/Week Comments Yes 0 (1 standard drink = 0.6 oz pur e alcohol) wine occasionally Comments Unknown Sex and Gender Information Value Date Recorded Sex Assigned at Female 05/18/2024 1:57 PM STORE TEAM LEADER Legal Sex Female 6:12 PM CDT Gender Identity Not on file Sexual Orientation Not on file Occupation Industry Job Start Date Job End Date Retired Not on file Not on file Not on file documented as of this encounter Plan of Treatment Upcoming Encounters Date Type Department Care Team ([facility] Contact Info) Description 05/19/2025 2:30 PM STORE TEAM LEADER Office Visit [facility] [place] [address] Natasha Moore MD [address] [place] [address] 05/26/2025 2:00 PM STORE TEAM LEADER [facility] [place] [address] Alisa Pat PA-C [address] [place], [place] [address] documented as of this encounter Visit Diagnoses Not on filedocumented in this encounter Additional Health Concerns Infection Onset 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 documented as of this encounter Care Teams Test Engine Evaluator Relationship Specialty Start Date End Date Elena Dumont MD [address] [place] [phone] PCP - General INTERNAL MEDICINE 08/08/16 Que Zuluaga MD [address] [place] [phone] [facility] Help CARDIOVASCULAR DISEASE 08/08/16 08/19/23 Brit Saxena APRN, SERVICE CENTER COORDINATOR-C [address] [place] [address] [address] [place] [phone] [facility] Help NURSE PRACTITIONER 01/31/18 10/02/23 Giovanna Carter NP [address] [place] [address] [address] Referring Physician Nurse Practitioner Family 01/24/23 Zenon Bush MD [address] [place] [address] Consulting Physician CLINICAL CARDIAC ELECTROPHYSIOLOGY 03/12/23 Alisa Pat PA-C [address] [place] [address] Referring Physician PHYSICIAN IT COORDINATOR 08/20/23 Natasha Moore MD [address] [place] [address] Consulting Physician CARDIOVASCULAR DISEASE 10/03/23 Tyshawn Allen MD [address] [place] [address] PLASTIC SURGERY 04/03/24 04/03/25 documented as of this encounter
--- OUTSIDE RECORDS SUMMARY | 2025-03-31 14:07 | XMS_ITS | Encounter Summary ---
Author Organization [facility] Address [facility] [place] [address] Care Team Providers Care Children[employer]S Ministries Director Name Role Phone Elena Dumont MD Primary Care Provider [phone] Que Zuluaga MD Unavailable [phone] Brit Saxena APRN JUNIOR SYSTEMS ANALYST-C Unavailable [phone] Zenon Bush MD Unavailable [phone] Alisa Pat PA-C Unavailable [phone] Natasha Moore MD Unavailable Tyshawn Allen MD Unavailable Encounter Details Date Type Department Care Team (Late st Contact Info) Description 07/22/2023 Hospital Follow-up Call [facility] [address] [place] [address] Lynn Jameson, RN Social History Tobacco Use Types Packs/Day Years Used Date Smoking Tobacco: Never Smokeless Tobacco: Never Alcohol Use Standard Drinks/Week Comments Yes 0 (1 standard drink = 0.6 oz pur e alcohol) wine occasionally [facility] Utilities Answer Date Recorded [...] place to sleep or slept in a long term (including now)? No 07/15/2023 Comments No Sex and Gender Information Value Date Recorded Sex Assigned at Female 05/18/2024 1:57 PM NUT TIGHTENER Legal Sex Female 6:12 PM CDT Gender [...] st Contact Info) Description 05/19/2025 2:30 PM NUT TIGHTENER Office Visit [facility] [place] [address] [place] [address] Natasha Moore MD [address] [place] [address] 05/26/2025 2:00 PM NUT TIGHTENER Office Visit [facility] [place] [address] [place] [phone] Alisa Pat PA-C [address] [place], [place] [address] documented as of this encounter Goals Goal [...] documented as of this encounter Care Teams Children[employer] Ministries Director Relationship Specialty Start Date End Date Elena Dumont MD [address] [place] [address] PCP - General INTERNAL MEDICINE 08/08/16 Que Zuluaga MD [address] [place] [phone] Donaldson Bullard Machine Operator CARDIOVASCULAR DISEASE 08/08/16 08/19/23 Brit Saxena APRN, JUNIOR SYSTEMS ANALYST-C [address] [place] [address] [address] [place] [phone] Donaldson Bullard Machine Operator NURSE PRACTITIONER 01/31/18 10/02/23 Zenon Bush MD [address] [place] [address] Consulting Physician CLINICAL CARDIAC ELECTROPHYSIOLOGY 03/12/23 Alisa Pat PA-C [address] [place] [phone] Referring Physician PHYSICIAN TRACK MACHINE OPERATOR REPAIRER 08/20/23 Natasha Moore MD [address] [place] [address] [phone] Consulting Physician CARDIOVASCULAR DISEASE 10/03/23 Tyshawn Allen MD [address] [place], [place] [address] PLASTIC SURGERY 04/03/24 04/03/25 documented as of this encounter
[2025-03-31 14:15] LABS: Anion Gap 13 mmol/L (4-12); Blood Urea Nitrogen 51 mg/dL (7-17); Calcium 9.5 mg/dL (8.4-10.2); Carbon Dioxide 23 mmol/L (22-30); Chloride 105 mmol/L (98-107); Estimated Glomerular Filt Rate 26; Glucose 152 mg/dL (65-110); Osmolality Calculated 308 mOsm/kg (285-295); Potassium 5.0 mmol/L (3.4-5.0); Sodium 141 mmol/L (137-145)
[2025-03-31 14:24] LABS: NT Pro B Type Natriuretic Pept 2820 pg/mL (19.9-100)
== END 2025-03-31 13:01 | disposition home or self-care (01) ==
PROVIDERS: PCP Internal Medicine; Visit Provider Nurse Practitioner Family
DX: R06.00 Dyspnea, unspecified (principal); I51.9 Heart disease, unspecified; I51.7 Cardiomegaly; J81.1 Chronic pulmonary edema
CPT/HCPCS: 36415; 71250; 80048; 83880

== ENCOUNTER 2025-04-08 08:59 | Emergency (ER) | payer MEDICARE, SELFPAY ==
[2025-04-08 08:59] VITALS: BP 124/56; PULSE 95; RESP 18; TEMP 37.1; O2SAT 98
--- NOTE | 2025-04-08 09:30 | ED.WOUNDLAC ---
HPI - Wound/Laceration General Chief Complaint: Wound/Laceration Stated Complaint: lac Time Seen by Provider: 04/08/25 09:06 Source: patient and EMS Mode of arrival: EMS Limitations: no limitations History of Present Illness HPI narrative: This is a 89-year-old female presents via EMS from home after she had a fall in the shower and had a small non gaping wound on her right lower leg patient is up-to-date with her tetanus fall she slipped in the shower and cut her leg no other injuries noted no loss of consciousness no head injury not complaining of any pain as good range of motion in all extremities no nausea vomiting. Onset (ago): hour(s) Location: other Extremity Location: Right: lower leg (Superficial laceration) Place: home Patient tetanus UTD: Yes Context: accidental Associated symptoms: none Related Data Home Medications ?Medication ?Instructions ?Recorded ?Confirmed ?Last Taken ?Type apixaban 5 mg tablet (Eliquis) 5 mg PO BID 09/21/20 12/16/23 12/28/22 History aspirin 81 mg tablet 81 mg PO DAILY 09/21/20 12/16/23 12/28/22 History insulin glargine 100 unit/mL (3 30 unit subcut HS 09/21/20 12/16/23 12/27/22 History mL) subcutaneous pen (Lantus Solostar U-100 Insulin) insulin lispro 100 unit/mL See Rx Instructions .Route .COMPLEX 09/21/20 12/16/23 12/28/22 History subcutaneous pen (Humalog KwikPen (U-100) Insulin) Held on 12/16/23. Instructions: Hold until you follow up with your regular doctor levothyroxine 100 mcg tablet 112 mcg PO DAILY 09/21/20 12/16/23 12/28/22 History metoprolol succinate 25 mg 50 mg PO DAILY 09/21/20 12/16/23 12/28/22 History tablet,extended release 24 hr potassium chloride 20 mEq 20 meq PO BID 09/21/20 12/16/23 12/28/22 History tablet,extended release(part/cryst) (Klor-Con M) pravastatin 20 mg tablet 20 mg PO DAILY 09/21/20 12/16/23 12/28/22 History ropinirole 1 mg tablet 3 mg PO TID PRN legs 09/21/20 12/16/23 Unknown History escitalopram oxalate 20 mg tablet 20 mg PO DAILY 12/28/22 12/16/23 12/28/22 History flecainide 100 mg tablet 100 mg PO DAILY 12/28/22 12/16/23 12/28/22 History alendronate 70 mg tablet 70 mg PO WEEKLY 03/19/23 12/16/23 Unknown History furosemide 40 mg tablet 20 mg PO DAILY 03/19/23 12/16/23 Unknown History albuterol sulfate 90 mcg/actuation 90 mcg inhalation DIRECTED 12/16/23 12/16/23 Unknown History aerosol inhaler dofetilide 125 mcg capsule 125 mcg PO DAILY 12/16/23 12/16/23 Unknown History fluticasone furoate 200 See Rx Instructions .Route .COMPLEX 12/16/23 12/16/23 Unknown History mcg-vilanterol 25 mcg/dose inhalation powder (Breo Ellipta) gabapentin 300 mg capsule 300 mg PO DAILY 12/16/23 12/16/23 Unknown History Allergies Allergy/AdvReac Type Severity Reaction Status Date / Time No Known Allergies Allergy Verified 03/21/24 18:18 Review of Systems Review of Systems: All systems reviewed & are unremarkable except as noted in HPI and below PMFSH Past Medical History Medical History Restless leg syndrome (08/21/11) Insect bite Hypothyroidism Dyslipidemia Bladder cancer Atrial fibrillation Type 2 diabetes mellitus Hypertension Surgical History Surgical History H/O cystoscopy History of eyelid surgery Hx of cataract surgery Social History Social History Smoking status: Never smoker Substance use: never Exam Const: General: healthy appearing and no acute distress Nutritional Appearance: well nourished and obese Orientation/consciousness: patient oriented x3 Neck: Neck: normal visual inspection and no lymphadenopathy Chest: Chest palpation & inspection: normal inspection of the chest Resp: Effort & Inspection: normal respiratory effort Auscultation: clear to auscultation bilaterally Cardio: Rate: regular rate Rhythm: regular rhythm GI: GI Palp: Yes Soft to palpation Auscultation: normal bowel sounds Skin: Wounds: wounds noted Other: Non gaping laceration right lower extremity approximately2.5cm Neuro: General: patient oriented x3, moves all extremities, no meningeal signs and no focal motor deficits Extrem: General: edema Course Course Emergency Course: Medical decision making narrative: The patient was evaluated by myself in the emergency department. History obtained from the patient who is independent historian physical exam performed witnessed by nurse. Patient had a mildly gaping superficial laceration to her right lower extremity attempted suture placement but the skin is thin and the suture kept breaking through, Dermabond which patient tolerated well. Augmentin given p.o.. Repeat assessment patient doing well on repeat exam with no acute distress Symptoms stable since arrival to the emergency room department Repeat vital stable Patient agrees with discussion after shared medical decision making Patient agrees with discharge All questions answered to the patient's satisfaction. Advised follow-up with primary care physician within next 3 to 5 days. The Vital Signs Vital signs: Vital Signs Temperature 37.1 C 04/08/25 08:59 Pulse Rate 95 04/08/25 08:59 Respiratory Rate 18 04/08/25 08:59 Blood Pressure 124/56 L 04/08/25 08:59 Pulse Oximetry 98 04/08/25 08:59 Oxygen Delivery Room Air 04/08/25 08:59 Temperature 37.1 C 04/08/25 08:59 Pulse Rate 95 04/08/25 08:59 Respiratory Rate 18 04/08/25 08:59 Blood Pressure 124/56 L 04/08/25 08:59 Pulse Oximetry 98 04/08/25 08:59 Oxygen Delivery Room Air 04/08/25 08:59 Procedures Laceration Laceration 1: Date: 04/08/25 Time: 09:34 Site: lower extremity Side (If applicable): right Size (cm): 2.5 Description: linear Depth: simple, single layer Pre-repair: irrigated extensively ====== Skin Level ====== Skin layer closed with: dermabond ====== Subcutaneous Layer ====== ====== Muscle Layer ====== ====== Tendon Layer ====== MDM Differential Diagnosis Differential Diagnosis: Laceration Critical Care Time Critical Care Time Critical Care Time: No Discharge Plan Discharge Clinical Impression: Laceration Patient Disposition: Home Condition: Stable Instructions: Antibiotic Form, Laceration (ED), Skin Adhesive Care (ED) Additional Instructions: Advise Tylenol as needed, take medicine as prescribed follow with primary within the next 3 to 5 days for further evaluation treatment. Patient Language: Khmer Prescriptions: New amoxicillin-pot clavulanate [Augmentin] 500-125 mg tablet 1 tablet PO TID Qty: 30 0RF No Action dofetilide 125 mcg capsule 125 mcg PO DAILY gabapentin 300 mg capsule 300 mg PO DAILY albuterol sulfate 90 mcg/actuation HFA aerosol inhaler 90 mcg INHALATION DIRECTED fluticasone furoate-vilanterol [Breo Ellipta] 200-25 mcg/dose blister with device See Rx Instructions .ROUTE .COMPLEX Rx Instructions: 200-25 MCG\DOSE hydrocodone-acetaminophen 5-325 mg tablet 1 tablet PO Q8H PRN (Reason: pain) Qty: 9 0RF ropinirole 1 mg tablet 3 mg PO TID PRN (Reason: legs) levothyroxine 100 mcg tablet 112 mcg PO DAILY pravastatin 20 mg tablet 20 mg PO DAILY metoprolol succinate 25 mg tablet extended release 24 hr 50 mg PO DAILY insulin lispro [Humalog KwikPen Insulin] 100 unit/mL insulin pen See Rx Instructions .ROUTE .COMPLEX Rx Instructions: 5U breakfast, 10U lunch, 10U dinner insulin glargine [Lantus Solostar U-100 Insulin] 100 unit/mL (3 mL) insulin pen 30 unit SUBCUT HS Eliquis 5 mg tablet 5 mg PO BID potassium chloride [Klor-Con M20] 20 mEq Tablet,Er Particles/Crystals 20 meq PO BID aspirin 81 mg Tablet 81 mg PO DAILY acetaminophen [Tylenol] 325 mg capsule 650 mg PO Q8H PRN (Reason: pain) Qty: 20 0RF flecainide 100 mg tablet 100 mg PO DAILY escitalopram oxalate 20 mg tablet 20 mg PO DAILY furosemide 40 mg tablet 20 mg PO DAILY alendronate 70 mg tablet 70 mg PO WEEKLY cephalexin 500 mg capsule 500 mg PO Q6H 7 Days Qty: 28 0RF Follow-up/Referrals: Elena Dumont MD [Primary Care Provider, Internal Medicine]
== END 2025-04-08 09:50 | disposition home or self-care (01) ==
LOC: CHSED 09:38
PROVIDERS: Emergency Provider Emergency Medicine; PCP Internal Medicine
DX: S81.811A Laceration without foreign body, right lower leg, initial encounter (principal); E03.9 Hypothyroidism, unspecified; I48.91 Unspecified atrial fibrillation; E11.9 Type 2 diabetes mellitus without complications; I10 Essential (primary) hypertension; Z85.51 Personal history of malignant neoplasm of bladder; W18.2XXA Fall in (into) shower or empty bathtub, initial encounter
CPT/HCPCS: 12001; 99283; A9270